=== PATIENT | male | born 1950 | race Caucasian/White ===

== ENCOUNTER → 2016-09-11 | Day surgery (SDC) | payer OTHER ==
[2016-09-10 08:32] VITALS: Ht 188 cm; Wt 123.2 kg
[~2016-09-11] VITALS: Ht 188 cm; Wt 123.2 kg
[~2016-09-11] MED LIST: ACET500T57 PEG; ALBU0.08 INH; AMPH15CA7 PEG; APR/25 PEG; ASPI1TAB83 PEG; ATOR-24 PEG; CARB25TA12 PEG; CARV6.252 PEG; CLOP1TAB54 PEG; ERGO1TAB12 PEG; ESCI10TA17 PEG; ESCI1TAB10 PEG; GABA1CAP PEG; GLC/500 PEG; HYDR-4852 PEG; LEVO100T PEG; LISI-725 PEG; MAGN400T6 PEG; METO-157 PEG; NTRGSL/4 UT; NUTR1.5L4 PEG; POLY335025 PEG; SENN1TAB66 PEG; TAMS0.4C38 PEG; ZNT/150 PEG
[2016-09-11 11:25] VITALS: BP 158/91; PULSE 57; TEMP 36; O2SAT 93
--- NOTE | 2016-09-11 11:31 | Endo History and Physical ---
History & Physical Date of Service: Sep 11, 2016. Chief Complaint: Routine change Referring Physician: Dr. Bowser History of Present Illness Routine PEG tube placement Past Medical History Angioplasty/Stent, Anxiety, Heart Disease, Hypertension, CVA/TIA, Other, Depression Past Surgical History Hx Cardiac Surgery: No Hx Internal Defibrillator: No Hx Pacemaker: No Hx Abdominal Surgery: Yes (PEG TUBE INSERTION) Hx of Implantable Prosthesis: No Hx Post-Op Nausea and Vomiting: No Hx Cancer Surgery: No Hx Thoracic Surgery: No Hx Orthopedic: Yes (LUMBAR BACK SURGERY X4 FOR HERNIATED DISCS) Hx Urinary Tract Surgery: No Family History Colon CA Social History Smoking Status: Former Smoker Hx Substance Use: Yes (SEE MED LIST) Hx Alcohol Use: No Allergies Coded Allergies: Penicillins (Verified Allergy, Intermediate, RASH, 09/10/16) Current Medications Reported Home Medications Medications Dose Route/Sig Max Daily Dose Days Date Category Dose Instructions Acetaminophen 500 Mg Tab 2 Tabs PEG Q6 PRN 09/10/16 Reported Nitrostat (Nitroglycerin) 0.4 Mg Tab 0.4 Mg UT PRN PRN 09/10/16 Reported Lexapro (Escitalopram Oxalate) 20 Mg Tab 20 Mg PEG BID 09/10/16 Reported Lexapro (Escitalopram Oxalate) 10 Mg Tab 10 Mg PEG BID 09/10/16 Reported Adderall Xr 15MG (Amphetamine-Dextroamphetamine 15MG) 1 Cap Cap 15 Mg PEG BID 09/10/16 Reported Reglan (Metoclopramide HCl) 10 Mg Tab 10 Mg PEG QID 09/10/16 Reported NAUSEA Mag-Ox (Magnesium Oxide) 400 Mg Tab 400 Mg PEG QAM 09/10/16 Reported Synthroid (Levothyroxine Sodium) 100 Mcg Tab 100 Mcg PEG QAM 09/10/16 Reported Isosource 1.5 Billy (Nutritional Supplements) 1 Liq Liq 1,000 Ml PEG QD@2100 01/21/15 Reported Miralax (Polyethylene Glycol 3350) 1 Pow Pow 17 Gm PEG DAILY PRN 01/21/15 Reported Glucophage (Metformin Hcl) 500 Mg Tab 500 Mg PEG BIDM 01/21/15 Reported Sinemet 25MG/100MG (Carbidopa/Levodopa) Tab 1 Tab PEG BID 01/21/15 Reported Senna/Docusate Sodium (Sennosides-Docusate Sodium) 1 Tab Tab 2 Tabs PEG HS 01/21/15 Reported Zantac (Ranitidine Hcl) 150 Mg Tab 150 Mg PEG BID 01/21/15 Reported Flomax (Tamsulosin Hcl) 0.4 Mg Cap 0.4 Mg PEG HS 01/21/15 Reported Lipitor (Atorvastatin Calcium) 40 Mg Tab 40 Mg PEG HS 01/21/15 Reported Vitamin D2 (Ergocalciferol) 2,000 Unit Tab 4,000 Inter.unit PEG QAM 01/21/15 Reported Zestril (Lisinopril) 20 Mg Tab 20 Mg PEG QAM 01/21/15 Reported Aspirin 81 Mg Tab 81 Mg PEG QAM 01/21/15 Reported Neurontin (Gabapentin) 100 Mg Cap 200 Mg PEG TID 01/21/15 Reported Plavix (Clopidogrel Bisulfate) 75 Mg Tab 75 Mg PEG QAM 02/06/14 Reported Hydralazine HCl 25 Mg Tab 25 Mg PEG BID 02/06/14 Reported Proventil 0.083% 2.5MG/3ML (Albuterol Sulfate) Nebu 2.5 Mg INH Q4H PRN 02/06/14 Reported Vital Signs Weight (Kilograms): 123.18 Height (Feet): 6 Height (Inches): 2 Date Time Temp Pulse Resp B/P Pulse Ox O2 Delivery O2 Flow Rate FiO2 09/11/16 10:05 36.4 55 20 161/77 94 Room Air Physical Exam General Appearance: no apparent distress Respiratory/Chest: Respiratory effort: no dyspnea Auscultation: breath sounds normal Cardiovascular: Heart Auscultation: RRR Abdomen: Inspection & Palpation: soft Assessment and Plan Routine PEG tube change
--- NOTE | 2016-09-11 11:31 | Discharge Instructions ---
Endoscopy Patient Instructions Date / Procedure(s) Performed Sep 11, 2016. Other Allergy Information Coded Allergies: Penicillins (Verified Allergy, Intermediate, RASH, 09/10/16) Discharge Date / Findings Sep 11, 2016. PEG tube change - 20 Fr balloon PEG placed Medication Instructions Stopped Medication(s): Stopped Plavix and ASA 09/10/16. Provider Instructions Activity Restrictions - No exercising or heavy lifting for 24 hours. - Do not drink alcohol the day of the procedure. - Do not drive a car or operate machinery until the day after the procedure. - Do not make any important decisions or sign important papers in 24 hours after the procedure. Following Day: - Return to full activity which may include returning to work/school. Diet Start your diet with liquids and light foods (jello, soup, juice, toast). Then eat your usual diet if not nauseated. Treatment For Common After Affects For mild abdominal pain, bloating, or excessive gas: - Rest - Eat lightly - Lie on right side Follow-Up Information Follow-up with Dr. Bowser as scheduled Anesthesia Information What You Should Know You have had a procedure that required some medicine to reduce anxiety and discomfort. This treatment is called moderate sedation. After receiving the treatment, you may be sleepy, but you will be able to breathe on your own. The effects of the treatment may last for several hours. Follow these instructions along with Activity/Diet recommendations noted above: * Do NOT do anything where dizziness or clumsiness would be dangerous. * Rest quietly at home today, then you can be up and about tomorrow. * Have a responsible person stay with you the rest of today. * You may have had an I.V. today. If so, you may take the dressing off later today. Recommendations Call your doctor if: * Trouble breathing * Continuous vomiting for more than 24 hours * Temperature above 101 degrees * Severe abdominal pain or bloating * Pain not relieved by pain medicine ordered * There is increased drainage or redness from any incision * A large amount of rectal bleeding greater than 2-3 tablespoons. (If you had a polyp/s removed or have hemorrhoids, a small amount of blood - from the rectum is to be expected.) * You have any unanswered questions or concerns. IN THE EVENT OF A SERIOUS EMERGENCY, GO TO THE NEAREST EMERGENCY ROOM Your discharge instructions were prepared by provider Tad Wilhelm. Patient Instructions Signature Page Nikita Jiang Patient (or Guardian) Signature/Date: I have read and understand the instructions given to me by my caregivers. Caregiver/RN/Doctor Signature/Date: The above-named patient and/or guardian has received patient instructions on this date. + Original Patient Signature Page (only) stays with chart. Please make copy for patient.
--- NOTE | 2016-09-21 13:52 | GI REPORT ---
Procedure Date: 09/21/2016 1:44 PM THIS EXAM WAS SENT IN ERROR
== END | disposition home or self-care (01) ==
LOC: C.GI 09:29
PROVIDERS: ATTEND Internal Medicine Gastroenterology
DX: Z43.1 Encounter for attention to gastrostomy (principal); I69.391 Dysphagia following cerebral infarction; I10 Essential (primary) hypertension; I25.10 Atherosclerotic heart disease of native coronary artery without angina pectoris; Z87.891 Personal history of nicotine dependence; E03.9 Hypothyroidism, unspecified; F32.9 Major depressive disorder, single episode, unspecified

== ENCOUNTER 2017-01-05 13:40 | Emergency (ER) | payer OTHER ==
[~2017-01-05] VITALS: Ht 188 cm; Wt 120.7 kg
[2017-01-05 13:40] VITALS: TEMP 36.9; Ht 188 cm; Wt 120.7 kg
[~2017-01-05 13:40] MED LIST changes: -APR/25 PEG; -CARV6.252 PEG; +HYDR-4716 PEG; -HYDR-4852 PEG
--- NOTE | 2017-01-05 14:30 | EMERGENCY ROOM VISIT NOTE ---
History Report prepared by Gricelibkarime: Angela Peña Under the Supervision of: Dr. Ricardo Garcia D.O. First contact with patient: 13:52 Chief Complaint: INFECTION Stated Complaint: SWELLING AROUND FEEDING TUBE Nursing Triage Summary: Patient arrived via EMS. EMS reports pt was concerned because pt has swelling around his feeling tube. Hx stroke, left sided weakness. History of Present Illness The patient is a 66 year old male who presents to the Emergency Room with complaints of persistent swelling and ulceration around the feeding tube starting a few days ago. As per , the patient has been having a bloody and foul discharge from the ulcer. The feeding tube has been flushing without any issues. A feeding tube was initially placed about [address] Bowser and was changed only once in September. The feeding tube has not been changed since September. He denies any other complaints. Pt denies headache , change in vision, fevers, chest pain, shortness of breath, nausea, vomiting, abdominal pain, diarrhea, and pain with urination. The patient is on Plavix. Source of History: patient Onset: a few days ago Position: abdomen Quality: other (swelling and ulceration around the feeding tube) Timing: other (persistent) Associated Symptoms: No headache, No chest pain, No SOB, No nausea, No vomiting, No abdominal pain, No diarrhea Review of Systems See HPI for pertinent positives & negatives. A total of 10 systems reviewed and were otherwise negative. Past Medical & Surgical Medical Problems: (1) Basilar artery occlusion (2) Coronary artery disease (3) CVA (cerebral infarction) (4) Hypertension Surgical Problems: (1) H/O percutaneous transluminal coronary angioplasty Family History No pertinent family history Social History Smoking Status: Former Smoker Marital Status: Housing Status: intermediate Occupation Status: disabled Current/Historical Medications Scheduled Amphetamine-Dextroamphetamine 15MG (Adderall Xr 15MG), 15 MG PEG BID Aspirin (Aspirin), 81 MG PEG QAM Atorvastatin (Lipitor), 40 MG PEG HS Carbidopa/Levodopa (Sinemet 25MG/100MG), 1 TAB PEG BID Clopidogrel Bisulfate (Plavix), 75 MG PEG QAM Ergocalciferol (Vitamin D2), 4,000 INTER.UNIT PEG QAM Escitalopram (Lexapro), 10 MG PEG QAM Escitalopram Oxalate (Lexapro), 20 MG PEG QAM Gabapentin (Neurontin), 200 MG PEG TID Hydralazine HCl (Hydralazine HCl), 25 MG PEG BID Levothyroxine Sodium (Synthroid), 100 MCG PEG QAM Lisinopril (Zestril), 20 MG PEG QAM Magnesium Oxide (Mag-Ox), 400 MG PEG QAM Metformin Hcl (Glucophage), 500 MG PEG BIDM Nutritional Supplements (Isosource 1.5 Billy), 1,000 ML PEG TID Ranitidine Hcl (Zantac), 150 MG PEG BID Sennosides-Docusate Sodium (Senna/Docusate Sodium), 2 TABS PEG HS Tamsulosin Hcl (Flomax), 0.4 MG PEG HS Scheduled PRN Acetaminophen (Acetaminophen), 2 TABS PEG Q6 PRN for Pain Albuterol Soln (Proventil 0.083% 2.5MG/3ML), 2.5 MG INH Q4H PRN for SOB/Wheezing Nitroglycerin (Nitrostat), 0.4 MG UT PRN PRN for Chest Pain Polyethylene Glycol 3350 (Miralax), 17 GM PEG DAILY PRN for Constipation Allergies Coded Allergies: Penicillins (Verified Allergy, Intermediate, RASH, 01/05/17) Physical Exam Vital Signs Date Time Temp Pulse Resp B/P (MAP) Pulse Ox O2 Delivery O2 Flow Rate FiO2 01/05/17 18:06 68 16 166/75 95 01/05/17 16:38 63 18 158/78 92 Room Air 01/05/17 15:06 65 16 169/101 93 Room Air 01/05/17 13:40 36.9 71 16 182/95 95 Room Air Physical Exam GENERAL: Sitting up in bed, chronically ill appearing, no acute distress, non- toxic EYE EXAM: normal conjunctiva OROPHARYNX: no exudate, no erythema, lips, buccal mucosa, and tongue normal and mucous membranes are moist NECK: supple, no nuchal rigidity, no adenopathy, non-tender LUNGS: Clear to auscultation. Normal chest wall mechanics HEART: no murmurs, S1 normal and S2 normal ABDOMEN: abdomen soft, non-tender, normo-active bowel sounds, no masses, no rebound or guarding. PEG tube located in the left upper quadrant, ulceration 10 o'clock to 2 o'clock with faint venous oozing, granulation tissue at 3 o'clock to 10 o'clock without bleeding. SKIN: no rashes and no bruising UPPER EXTREMITIES: upper extremities are grossly normal. LOWER EXTREMITIES: Calves are equal bilaterally. NEURO EXAM: Normal sensorium Medical Decision & Procedures ED Course ED COURSE: Vital signs were reviewed and showed hypertensive. The patients medical record was reviewed The above diagnostic studies were performed and reviewed. ED treatments and interventions as stated above. 1352: The patient was evaluated in room B08. A complete history and physical examination was performed. Medication Reconciliation: I attest that I have personally reviewed the patient' s current medication list. Blood pressure screening: Patient was found to have an elevated blood pressure and was referred to their primary doctor for recheck and further treatment. 1443: I discussed the patient's case with [facility], they will come down and evaluate the patient in the Emergency Room. 1455: I discussed the patient's case with MEET Brennan with [facility]. They loosened the bulb and recommended discharge. 1505: Upon reevaluation, the patient is resting comfortably.I discussed my findings with the patient and he understands and agrees with the treatment plan. Based on the patients age, coexisting illnesses, exam and lab findings the decision to treat as an outpatient was made. The patient remained stable while under my care. The patient appeared well at the time of discharge. Medical Decision Differential diagnosis includes but is not limited to cellulitis, abscess, ulcer. Patient is a 66-year-old male status post stroke who receives PEG tube feeds that presents the ER for an ulceration around the site of the PEG tube. He does have small amount of bleeding. This was placed by [facility]. Patient was evaluated at bedside by them and discharged by myself to follow-up as an outpatient. The tubing was loosened to prevent any further ulceration of the skin by GI. Discussed with Pt concerning signs and symptoms to watch out for. Pt was instructed to follow up with their PCP and discussed with the patient their option to return to the ED at anytime for persistent or worsening symptoms. The appropriate anticipatory guidance and out-patient management, including indications for return to the emergency department, were explained at length to the patient and understood. Consults Time Called: 1440 Consulting Physician: [facility] Returned Call: 1443 I discussed the patient's case with [facility], they will come down and evaluate the patient in the Emergency Room. Impression Primary Impression: Pain around PEG tube site Additional Impressions: PEG tube malfunction HTN (hypertension) Scribe Attestation The scribe's documentation has been prepared under my direction and personally reviewed by me in its entirety. I confirm that the note above accurately reflects all work, treatment, procedures, and medical decision making performed by me. Departure Information Dispostion Home / Self-Care Referrals Juanito Tom M.D. (PCP) Forms HOME CARE DOCUMENTATION FORM, IMPORTANT VISIT INFORMATION, WORK / SCHOOL INSTRUCTIONS Patient Instructions My [facility] Additional Instructions Please follow up with gastroenterology within the next several weeks. Any continued bleeding or worsening pain please return to the ER immediately. Please keep the site clean, dry and apply antibiotic ointment as needed. This includes fevers greater than 100.4, persistent nausea vomiting, worsening pain, or any other concerning signs or symptoms from your standpoint. Problem Qualifiers Primary Impression: Pain around PEG tube site Encounter type: initial encounter Qualified Codes: T85.848A - Pain due to other internal prosthetic devices, implants and grafts, initial encounter
--- NOTE | 2017-01-05 15:04 | Progress Note ---
Progress Note Date of Service Jan 05, 2017. (Destiny Uribe ., MEET) Progress Note Pt seen and evaluated in B8 with Dr. Man. Bumper from peg imbedded in skin - bumper pulled back. + granulated tissue. No pain or sign of infection. Skin is otherwise intact, nonerythematous and no drainage was expressed. Suggested to keep clean and dry. Follow up in the office. (Destiny Uribe ., WELLNESS PROGRAM COORDINATOR)
[2017-01-05 18:06] VITALS: BP 166/75; PULSE 68; O2SAT 95
== END 2017-01-05 18:07 | disposition home or self-care (01) ==
LOC: EDBD 13:40 → C.EDB 13:42
DX: K94.22 Gastrostomy infection (principal); I10 Essential (primary) hypertension; Z87.891 Personal history of nicotine dependence; Z79.899 Other long term (current) drug therapy; Z95.1 Presence of aortocoronary bypass graft; Z86.73 Personal history of transient ischemic attack (TIA), and cerebral infarction without residual deficits

== ENCOUNTER 2017-07-24 10:19 | Emergency (ER) | payer OTHER ==
[~2017-07-24] VITALS: Ht 188 cm; Wt 123.2 kg
[~2017-07-24 10:19] MED LIST changes: -ACET500T57 PEG; +ACET500T58 PEG; -METO-157 PEG
[2017-07-24 10:29] VITALS: TEMP 36.8; Ht 188 cm; Wt 123.2 kg
--- NOTE | 2017-07-24 11:31 | EMERGENCY ROOM VISIT NOTE ---
History Report prepared by Mahad: Maddy Johnson Under the Supervision of: Dr. Wes May D.O. First contact with patient: 10:26 Chief Complaint: PEG TUBE REPLACEMENT Stated Complaint: PEG TUBE REMOVAL History of Present Illness The patient is a 66 year old male who presents to the Emergency Room for a PEG tube replacement. The patient's feeding tube fell out about two hours ago. The feeding tube is the "balloon type" and we initially put in place at [facility] by Dr. Babcock. Source of History: patient Onset: 2 hours ago Position: other (PEG tube) Quality: other (fell out) Modifying Factors (Relieving): other (none) Review of Systems See HPI for pertinent positives & negatives. A total of 6 systems reviewed and were otherwise negative. Past Medical & Surgical Medical Problems: (1) Basilar artery occlusion (2) Coronary artery disease (3) CVA (cerebral infarction) (4) Hypertension Surgical Problems: (1) H/O percutaneous transluminal coronary angioplasty Family History No pertinent family history Social History Smoking Status: Former Smoker Marital Status: Housing Status: correction Occupation Status: disabled Current/Historical Medications Scheduled Amphetamine-Dextroamphetamine 15MG (Adderall Xr 15MG), 15 MG PEG BID Aspirin (Aspirin), 81 MG PEG QAM Atorvastatin (Lipitor), 40 MG PEG HS Carbidopa/Levodopa (Sinemet 25MG/100MG), 1 TAB PEG BID Clopidogrel Bisulfate (Plavix), 75 MG PEG QAM Ergocalciferol (Vitamin D2), 4,000 INTER.UNIT PEG QAM Escitalopram (Lexapro), 10 MG PEG QAM Escitalopram Oxalate (Lexapro), 20 MG PEG QAM Gabapentin (Neurontin), 200 MG PEG TID Hydralazine HCl (Hydralazine HCl), 25 MG PEG BID Levothyroxine Sodium (Synthroid), 100 MCG PEG QAM Lisinopril (Zestril), 20 MG PEG QAM Magnesium Oxide (Mag-Ox), 400 MG PEG QAM Metformin Hcl (Glucophage), 500 MG PEG BIDM Nutritional Supplements (Isosource 1.5 Billy), 1,000 ML PEG TID Ranitidine Hcl (Zantac), 150 MG PEG BID Sennosides-Docusate Sodium (Senna/Docusate Sodium), 2 TABS PEG HS Tamsulosin Hcl (Flomax), 0.4 MG PEG HS Scheduled PRN Acetaminophen (Acetaminophen), 2 TABS PEG Q6 PRN for Pain Albuterol Soln (Proventil 0.083% 2.5MG/3ML), 2.5 MG INH Q4H PRN for SOB/Wheezing Nitroglycerin (Nitrostat), 0.4 MG UT PRN PRN for Chest Pain Polyethylene Glycol 3350 (Miralax), 17 GM PEG DAILY PRN for Constipation Allergies Coded Allergies: Penicillins (Verified Allergy, Intermediate, RASH, 01/05/17) Physical Exam Vital Signs Date Time Temp Pulse Resp B/P (MAP) Pulse Ox O2 Delivery O2 Flow Rate FiO2 07/24/17 10:29 36.8 18 96 Room Air Physical Exam CONSTITUTIONAL/VITAL SIGNS: Reviewed / noted above. GENERAL: Non-toxic in appearance. INTEGUMENTARY: Warm, dry, and [place]. HEAD: Normocephalic. EYES: without scleral icterus or trauma. RESPIRATORY: Lungs clear and equal. CARDIOVASCULAR: Regular rate and rhythm. GI/ABDOMEN: Soft and nontender. No organomegaly or pulsatile mass. No rebound or guarding. Normal bowel sounds. EXTREMITIES: Warm and well perfused. NEUROLOGICAL: Intact per baseline. PSYCHIATRIC: normal affect. MUSCULOSKELETAL: Normally developed with good muscle tone. Medical Decision & Procedures Procedure Gastrostomy tube placement: The chronic gastrostomy tube was accidentally removed. I dilated the track using a 12 Syrian, 15 Syrian and 20 Syrian Baca catheter. The 16 Syrian gastrostomy tube was placed without difficulty. ED Course 1033: Previous medical records were reviewed. The patient was evaluated in room A12B. A complete history and physical examination was performed. 1049: PEG tube was replaced. 1121: On reevaluation, the patient is resting comfortably. I discussed the results and findings with the patient. His family psychologist verbalized agreement of the treatment plan. The patient was discharged home. Medical Decision This is a 66-year-old male who presents to the ED with a chief complaint of his PEG tube having been accidentally pulled out. He has no other complaints. He has history of stroke and has chronic debilitation related to this. No other complaints. The patient came in with the PEG tube. The PEG tube was replaced using a new PEG tube that was identical to the one that was removed. This did require some dilatation using initially a size 12 Baca catheter, size 15 Baca catheter and then a size 20 Baca catheter. The 16 Syrian PEG tube was then placed without difficulty. Gastric contents were removed from the tube. It was secured in place and the patient was felt to be stable for discharge. Medication Reconcilliation Current Medication List: was personally reviewed by me Blood Pressure Screening Patient's blood pressure: Normal blood pressure Impression Primary Impression: Dislodged gastrostomy tube Scribe Attestation The scribe's documentation has been prepared under my direction and personally reviewed by me in its entirety. I confirm that the note above accurately reflects all work, treatment, procedures, and medical decision making performed by me. Departure Information Referrals Juanito Tom M.D. (PCP) Forms HOME CARE DOCUMENTATION FORM, IMPORTANT VISIT INFORMATION, WORK / SCHOOL INSTRUCTIONS Patient Instructions My [facility] Additional Instructions May use feeding tube.
[2017-07-24 14:18] VITALS: BP 176/98; PULSE 50; O2SAT 94
== END 2017-07-24 14:20 | disposition home or self-care (01) ==
LOC: EDBD 10:19 → C.EDA 10:23
DX: K94.23 Gastrostomy malfunction (principal); I25.10 Atherosclerotic heart disease of native coronary artery without angina pectoris; I10 Essential (primary) hypertension; Z86.73 Personal history of transient ischemic attack (TIA), and cerebral infarction without residual deficits; Z87.891 Personal history of nicotine dependence; Z79.82 Long term (current) use of aspirin; Z79.899 Other long term (current) drug therapy; Z88.0 Allergy status to penicillin

== ENCOUNTER 2018-09-20 17:00 | Inpatient (IN) ==
--- NOTE | 2018-09-20 17:57 | XRay Report ---
SINGLE VIEW CHEST CLINICAL HISTORY: Generalized weakness. FINDINGS: An AP, portable, upright chest radiograph is compared to study dated 07/14/2018. The examin ation is degraded by portable technique and patient rotation. The heart is enlarged and there is ath erosclerotic calcification of the thoracic aorta. The pulmonary vasculature is noncongested. Bibasila r atelectasis is observed. There is no airspace consolidation or large pleural effusion. No pneumotho rax is seen. The skeletal structures are osteopenic. The bony thorax is grossly intact. IMPRESSION: Cardiomegaly with no acute cardiopulmonary abnormality. Electronically signed by: Stewart Goldsmith M.D. 09/20/2018 5:56 PM
[2018-09-20 18:18] LABS: Base Excess VBG 4.1 mEq/L; Oxygen Saturation VBG 78.6 %; pH VBG 7.42 (7.36-7.41)
[2018-09-20 18:29] LABS: Hematocrit (blood only) 47.8 % (42-52); Hemoglobin 15.8 g/dL (14.0-18.0); Mean Corpuscular Hgb Conc 33.1 g/dL (32-36); Mean Platelet Volume 11.4 fL (7.4-10.4); Platelet Count 260 K/uL (130-400); RDW Standard Deviation 48.3 fL (36.4-46.3); Red Blood Count 5.03 M/uL (4.7-6.1); White Blood Count 18.03 K/uL (4.8-10.8)
[2018-09-20 18:40] LABS: Albumin Level 3.4 gm/dl (3.4-5.0); BUN Creatinine Ratio 22.5 (10-20); Blood Urea Nitrogen 17 mg/dl (7-18); Calcium 9.5 mg/dl (8.5-10.1); Carbon Dioxide 29 mmol/L (21-32); Chloride 103 mmol/L (98-107); Est GFR (African American) 109.4; Est GFR (Non-African American) 94.4; Glucose 126 mg/dl (70-99); Potassium 3.6 mmol/L (3.5-5.1); Sodium 137 mmol/L (136-145)
[2018-09-20 18:51] LABS: Alanine Aminotransferase 12 U/L (12-78); Albumin Globulin Ratio 0.7 (0.9-2); Alkaline Phosphatase 98 U/L (45-117); Aspartate Aminotransferase 22 U/L (15-37); Bilirubin,Total 0.3 mg/dl (0.2-1); Globulin 4.6 gm/dl (2.5-4.0); Troponin I < 0.015 ng/ml (0-0.045)
[2018-09-20 19:35] LABS: ALC (manual) 5.95 K/uL (1.2-3.4); Basophils # (auto) 0.04 K/uL (0-0.2); Basophils % (auto) 0.2 %; Eosinophils # (auto) 0.17 K/uL (0-0.5); Eosinophils % (auto) 0.9 %; Immature Granulocytes # (auto) 0.06 K/uL (0.00-0.02); Immature Granulocytes % (auto) 0.3 %; Lymphocytes # (auto) 5.55 K/uL (1.2-3.4); Lymphocytes % (auto) 30.8 %; Monocytes % (auto) 6.7 %; Neutrophils # (auto) 11.01 K/uL (1.4-6.5); Neutrophils % (auto) 61.1 %
--- NOTE | 2018-09-20 19:42 | CT Scan Report ---
CT SCAN OF THE BRAIN WITHOUT IV CONTRAST CLINICAL HISTORY: Change in mental status. COMPARISON STUDY: CT of the brain dated 04/18/2018. TECHNIQUE: Unenhanced axial CT scan of the brain is performed from the vertex to the skull base. A do se lowering technique was utilized adhering to the principles of ALARA. The examination is degraded b y motion artifact. The patient was scanned 3 times in an effort to improve image quality. CT DOSE: 1842.80 mGy.cm FINDINGS: Brain parenchyma: There are age-related involutional changes noting mild to moderate subcortical and periventricular microangiopathic change. There is no hemorrhage, mass effect, or evidence of acute t erritorial ischemia by CT criteria. A chronic lacunar infarct is identified in the right thalamus. Le ft occipital encephalomalacia suggesting remote infarct. Savage-white matter differentiation is preserv ed. No extra-axial fluid collection is seen. Ventricles, sulci, cisterns: Prominent secondary to involutional change. Intracranial vasculature: There is atherosclerotic calcification of the cavernous carotid arteries. Calvarium: Unremarkable. Sinuses and mastoids: The visualized paranasal sinuses are clear. The mastoid air cells are well pneu matized. Orbits: The bony orbits are grossly intact. IMPRESSION: There is no hemorrhage, mass effect, or evidence of acute territorial ischemia by CT crit annabella noting a motion compromise examination. Electronically signed by: Stewart Goldsmith M.D. 09/20/2018 7:41 PM
[2018-09-20 21:08] LABS: Appearance Urine Clear (Clear); Bilirubin Urine Negative (Negative); Blood Urine Negative (Negative); Color Urine Yellow; Glucose Urine UA Negative (Negative); Ketones Urine Negative (Negative); Leukocyte Esterase Urine Negative (Negative); Nitrite Urine Negative (Negative); Protein Urine Negative (Negative); Urobilinogen Urine Negative (Negative); pH Urine 5.5 (4.5-7.5)
[2018-09-20] MEDS ORDERED: cefTRIAXone SODIUM 1,000 MG/50 ML BAG IV STA (21:13)
--- NOTE | 2018-09-20 21:16 | Emergency Department Note ---
Entered by Montse Rosario acting as a scribe for James Cope M.D. History of Present Illness General Chief complaint: Altered Mental Status Stated complaint: CONFUSION, HALLUCINATIONS Time Seen by Provider: 09/20/18 17:14 Source: patient and family Mode of arrival: EMS Limitations: altered mental status History of Present Illness Provider complaint: Altered Mental Status Onset (ago): day(s) 1 Location: head Severity: moderate Associated symptoms: + denies other symptoms Patient is a 67 year old male presenting to the ED via EMS with hallucinations and confusion beginning yesterday evening. Confusion is moderate in severity and worsening since onset. shares that patient was wide awake and talking throughout the night. She notes that he was saying people who were not there. shares that patient had diarrhea about x5 days ago, but patient receives nutrients through G-tube. 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 notes that he is able to recognize her and caregivers. She includes patient has had cycles of oysterman sleeping or awake since stroke. She states that he has been awake for the past x2 days. No recent changes in medication or diet. She shares that he has had loss of appetite for a while now. Patient lastly is DNR. HPI limited due to patient's AMS. Home Medications Home Medications Medication Instructions Recorded Confirmed Type acetaminophen [Mapap 650 mg FEEDING TUBE Q4H PRN 04/18/18 09/20/18 History (acetaminophen)] albuterol sulfate 2.5 mg INHALATION QID PRN 04/18/18 09/20/18 History aspirin [Aspirin Low Dose] 81 mg FEEDING TUBE DAILY 04/18/18 09/20/18 History atorvastatin 40 mg FEEDING TUBE HS 04/18/18 09/20/18 History carbidopa-levodopa [Sinemet] 1 tab FEEDING TUBE BID 04/18/18 09/20/18 History clopidogrel [Plavix] 75 mg FEEDING TUBE DAILY 04/18/18 09/20/18 History dextroamphetamine-amphetamine 15 mg FEEDING TUBE BID 04/18/18 09/20/18 History escitalopram oxalate [Lexapro] 10 mg FEEDING TUBE DAILY 04/18/18 09/20/18 History escitalopram oxalate [Lexapro] 20 mg FEEDING TUBE DAILY 04/18/18 09/20/18 History gabapentin 200 mg FEEDING TUBE TID 04/18/18 09/20/18 History hydralazine 25 mg FEEDING TUBE BID 04/18/18 09/20/18 History hydrocodone-acetaminophen 1 tab FEEDING TUBE Q4H 04/18/18 09/20/18 History lisinopril 20 mg FEEDING TUBE DAILY 04/18/18 09/20/18 History magnesium oxide 400 mg FEEDING TUBE DAILY 04/18/18 09/20/18 History metformin 500 mg FEEDING TUBE BID 04/18/18 09/20/18 History nitroglycerin 0.4 mg SUBLINGUAL DIRECTED 04/18/18 09/20/18 History ranitidine HCl 150 mg FEEDING TUBE BID 04/18/18 09/20/18 History tamsulosin 0.4 mg PO QPM 04/18/18 09/20/18 History polyethylene glycol 3350 [Miralax] 17 g FEEDING TUBE DAILY PRN 07/14/18 History atropine [Isopto Atropine] 0 drp SUBLINGUAL UD PRN 09/20/18 09/20/18 History lactose-reduced food with fibr 1,000 ml FEEDING TUBE HS 09/20/18 09/20/18 History [Isosource 1.5 Billy] lactose-reduced food with fibr 250 ml FEEDING TUBE BID 09/20/18 09/20/18 History [Isosource 1.5 Billy] levothyroxine [Synthroid] 100 mcg FEEDING TUBE DAILY 09/20/18 09/20/18 History selenium sulfide [Selsun Blue] 1 applic TOPICAL 2XWK 09/20/18 09/20/18 History sennosides-docusate sodium [Senna 1 tab FEEDING TUBE DAILY PRN 09/20/18 History with Docusate Sodium] Allergies Allergy/AdvReac Type Severity Reaction Status Date / Time Penicillins Allergy Intermediate RASH Verified 09/20/18 20:31 Past Med/Surg History Medical History CVA (cerebral infarction) (Resolved) "BA occlusion with b/l PIECE [employer]ER territory infarcts, right thalamic infarct, hippocampi infarcts 01/03/14." Coronary artery disease (Chronic) Hypertension (Chronic) Family History Other Family history non-contributory Social History Feels Safe at Home: Yes Smoking Status: Unknown if ever smoked Review of Systems See HPI for pertinent positives & negatives. Unobtainable due to cognitive status Physical Exam Vital Signs Vital Signs - 24 hr 09/20/18 17:13 09/20/18 18:52 09/20/18 20:05 Temperature 37.0 C Temperature Source Oral Sepsis Recent Fever Within 48 Hours No Sepsis New/Unexplained Change in Mental Status No Sepsis Action Taken by Nursing No Action Required Pulse Rate 88 Pulse Rate [Finger] 88 81 78 Pulse Rhythm [Finger] Regular Regular Pulse Strength [Finger] Normal Normal Respiratory Rate 20 18 18 Respiratory Effort / Characteristics Non-Labored Spontaneous Non-Labored Spontaneous Respiratory Depth Normal Normal Respiratory Pattern Regular Blood Pressure 158/88 H Blood Pressure [Right Arm] 158/88 H 174/77 H 164/81 H Blood Pressure Mean 111 Blood Pressure Mean [Right Arm] 111 109 108 Blood Pressure Position [Right Arm] Sitting Lying Pulse Oximetry 96 93 94 Oxygen Delivery Method Room Air Room Air Room Air Oxygen Flow Rate 96 09/20/18 22:00 Temperature Temperature Source Sepsis Recent Fever Within 48 Hours Sepsis New/Unexplained Change in Mental Status Sepsis Action Taken by Nursing Pulse Rate Pulse Rate [Finger] 77 Pulse Rhythm [Finger] Regular Pulse Strength [Finger] Normal Respiratory Rate 18 Respiratory Effort / Characteristics Non-Labored Spontaneous Respiratory Depth Normal Respiratory Pattern Regular Blood Pressure Blood Pressure [Right Arm] 137/77 Blood Pressure Mean Blood Pressure Mean [Right Arm] 97 Blood Pressure Position [Right Arm] Lying Pulse Oximetry Oxygen Delivery Method Nasal Cannula Oxygen Flow Rate 2 GENERAL: Awake, alert, rambling. Noncoherent statements HENT: Normocephalic, atraumatic. EYES: Normal conjunctiva. Sclera non-icteric. PERRL. NECK: Supple. No nuchal rigidity. RESPIRATORY: Clear to auscultation. No wheezes. Normal respiratory effort. CARDIAC: Normal rate. Normal rhythm. Extremities warm and well perfused. GI: Soft, non-distended. No tenderness to palpation. No rebound or guarding. No masses. LUQ G-Tube present. RECTAL: Deferred. MUSCULOSKELETAL: Atraumatic. Chest examination reveals no tenderness. UPPER EXTREMITIES: Paralysis of Left upper extremity. LOWER EXTREMITIES: No edema. Left lower extremity minimal movement. NEURO: Normal sensorium. No sensory or motor deficits noted. No facial droop. Moving right up and lower extremities. No gaze present. SKIN: Warm and dry. No jaundice noted. Course 1715: Past medical records reviewed. The patient was evaluated in room C04, and a complete history and physical examination were performed. 2114: Discussed case with Dr. Puri, who accepts patient for admission. Administered Medications Discontinued Medications Ceftriaxone Sodium (Rocephin) 1,000 mg in 50 mls @ 100 mls/hr IV NOW STA Stop: 09/20/18 21:42 Last Infusion: 09/20/18 22:24 Dose: 0 mls/hr Admin: 09/20/18 21:39 Dose: 100 mls/hr Medical Decision Making Differential Diagnosis Differential diagnosis: Etiologies such as metabolic, infection, hypoglycemia, electrolyte abnormalities , cardiac sources, intracerebral event, toxicologic, neurologic, as well as others were entertained. Medical Records Attestation: I reviewed the patient's medical records. Home Medications Current Medication List: was personally reviewed by me Laboratory Data Attestation: I reviewed the patient's lab results. Result diagrams: 09/20/18 18:00 09/20/18 18:00 Lab Results 09/20/18 09/20/18 09/20/18 Range/Units 18:00 18:00 18:00 WBC 18.03 H (4.8-10.8) K/uL RBC 5.03 (4.7-6.1) M/uL Hgb 15.8 (14.0-18.0) g/dL Hct 47.8 (42-52) % MCV 95.0 (80-100) fL MCH 31.4 (25-34) pg MCHC 33.1 (32-36) g/dL RDW Std Deviation 48.3 H (36.4-46.3) fL RDW Coeff of Albert 14.0 (11.5-14.5) % Plt Count 260 (130-400) K/uL MPV 11.4 H (7.4-10.4) fL Immature Gran % (Auto) 0.3 % Neut % (Auto) 61.1 % Lymph % (Auto) 30.8 % [place] % (Auto) 6.7 % Eos % (Auto) 0.9 % Baso % (Auto) 0.2 % Immature Gran # (Auto) 0.06 H (0.00-0.02) K/uL Neut # (Auto) 11.01 H (1.4-6.5) K/uL Lymph # (Auto) 5.55 H (1.2-3.4) K/uL [place] # (Auto) 1.20 H (0.11-0.59) K/uL Eos # (Auto) 0.17 (0-0.5) K/uL Baso # (Auto) 0.04 (0-0.2) K/uL Neutrophils % (Manual) % Lymphocytes % (Manual) % Monocytes % (Manual) % Eosinophils % (Manual) % Other Cells % 0.0 % Neutrophils # (Manual) (1.4-6.5) K/uL Total Absolute Neuts 10.82 H (1.4-6.5) K/uL Lymphocytes # (Manual) (1.2-3.4) K/uL Total Abs Lymphocytes 5.95 H (1.2-3.4) K/uL Monocytes # (Manual) (0.11-0.59) K/uL Eosinophils # (Manual) (0-0.5) K/uL VBG pH (7.36-7.41) VBG pCO2 (38-50) mmHg VBG pO2 mmHg VBG HCO3 mmol/L VBG O2 Saturation % VBG Base Excess mEq/L Barometric Pressure mm/Hg Sodium 137 (136-145) mmol/L Potassium 3.6 (3.5-5.1) mmol/L Chloride 103 (98-107) mmol/L Carbon Dioxide 29 (21-32) mmol/L Anion Gap 5.0 (3-11) BUN 17 (7-18) mg/dl Creatinine 0.76 (0.6-1.4) mg/dl Est Cr Clr Drug Dosing Not Reportable Est GFR ( Amer) 109.4 Est GFR (Non-Af Amer) 94.4 BUN/Creatinine Ratio 22.5 H (10-20) Glucose 126 H (70-99) mg/dl Calcium 9.5 (8.5-10.1) mg/dl Total Bilirubin 0.3 (0.2-1) mg/dl AST 22 (15-37) U/L ALT 12 (12-78) U/L Alkaline Phosphatase 98 (45-117) U/L Ammonia 19.0 (11-32) umol/L Troponin I < 0.015 (0-0.045) ng/ml Total Protein 8.0 (6.4-8.2) gm/dl Albumin 3.4 (3.4-5.0) gm/dl Globulin 4.6 H (2.5-4.0) gm/dl Albumin/Globulin Ratio 0.7 L (0.9-2) TSH 2.720 (0.300-4.500) uIu/ml Urine Color Urine Appearance (Clear) Urine pH (4.5-7.5) Ur Specific [place] (1.000-1.030) Urine Protein (Negative) Urine Glucose (UA) (Negative) Urine Ketones (Negative) Urine Blood (Negative) Urine Nitrite (Negative) Urine Bilirubin (Negative) Urine Urobilinogen (Negative) Ur Leukocyte Esterase (Negative) 09/20/18 09/20/18 Range/Units 18:00 19:00 WBC (4.8-10.8) K/uL RBC (4.7-6.1) M/uL Hgb (14.0-18.0) g/dL Hct (42-52) % MCV (80-100) fL MCH (25-34) pg MCHC (32-36) g/dL RDW Std Deviation (36.4-46.3) fL RDW Coeff of Albert (11.5-14.5) % Plt Count (130-400) K/uL MPV (7.4-10.4) fL Immature Gran % (Auto) % Neut % (Auto) % Lymph % (Auto) % [place] % (Auto) % Eos % (Auto) % Baso % (Auto) % Immature Gran # (Auto) (0.00-0.02) K/uL Neut # (Auto) (1.4-6.5) K/uL Lymph # (Auto) (1.2-3.4) K/uL [place] # (Auto) (0.11-0.59) K/uL Eos # (Auto) (0-0.5) K/uL Baso # (Auto) (0-0.2) K/uL Neutrophils % (Manual) % Lymphocytes % (Manual) % Monocytes % (Manual) % Eosinophils % (Manual) % Other Cells % % Neutrophils # (Manual) (1.4-6.5) K/uL Total Absolute Neuts (1.4-6.5) K/uL Lymphocytes # (Manual) (1.2-3.4) K/uL Total Abs Lymphocytes (1.2-3.4) K/uL Monocytes # (Manual) (0.11-0.59) K/uL Eosinophils # (Manual) (0-0.5) K/uL VBG pH 7.42 H (7.36-7.41) VBG pCO2 46 (38-50) mmHg VBG pO2 41 mmHg VBG HCO3 29 mmol/L VBG O2 Saturation 78.6 % VBG Base Excess 4.1 mEq/L Barometric Pressure 744.9 mm/Hg Sodium (136-145) mmol/L Potassium (3.5-5.1) mmol/L Chloride (98-107) mmol/L Carbon Dioxide (21-32) mmol/L Anion Gap (3-11) BUN (7-18) mg/dl Creatinine (0.6-1.4) mg/dl Est Cr Clr Drug Dosing Est GFR ( Amer) Est GFR (Non-Af Amer) BUN/Creatinine Ratio (10-20) Glucose (70-99) mg/dl Calcium (8.5-10.1) mg/dl Total Bilirubin (0.2-1) mg/dl AST (15-37) U/L ALT (12-78) U/L Alkaline Phosphatase (45-117) U/L Ammonia (11-32) umol/L Troponin I (0-0.045) ng/ml Total Protein (6.4-8.2) gm/dl Albumin (3.4-5.0) gm/dl Globulin (2.5-4.0) gm/dl Albumin/Globulin Ratio (0.9-2) TSH (0.300-4.500) uIu/ml Urine Color Yellow Urine Appearance Clear (Clear) Urine pH 5.5 (4.5-7.5) Ur Specific [place] 1.020 (1.000-1.030) Urine Protein Negative (Negative) Urine Glucose (UA) Negative (Negative) Urine Ketones Negative (Negative) Urine Blood Negative (Negative) Urine Nitrite Negative (Negative) Urine Bilirubin Negative (Negative) Urine Urobilinogen Negative (Negative) Ur Leukocyte Esterase Negative (Negative) Imaging Data Radiologist's Impression: SINGLE VIEW CHEST CLINICAL HISTORY: Generalized weakness. FINDINGS: An AP, portable, upright chest radiograph is compared to study dated 07/14/2018. The examination is degraded by portable technique and patient rotation. The heart is enlarged and there is atherosclerotic calcification of the thoracic aorta. The pulmonary vasculature is noncongested. Bibasilar atelectasis is observed. There is no airspace consolidation or large pleural effusion. No pneumothorax is seen. The skeletal structures are osteopenic. The bony thorax is grossly intact. IMPRESSION: Cardiomegaly with no acute cardiopulmonary abnormality. Electronically signed by: Stewart Goldsmith M.D. 09/20/2018 5:[address] SCAN OF THE BRAIN WITHOUT IV CONTRAST CLINICAL HISTORY: Change in mental status. COMPARISON STUDY: CT of the brain dated 04/18/2018. TECHNIQUE: Unenhanced axial CT scan of the brain is performed from the vertex to the skull base. A dose lowering technique was utilized adhering to the principles of ALARA. The examination is degraded by motion artifact. The patient was scanned 3 times in an effort to improve image quality. CT DOSE: 1842.80 mGy.cm FINDINGS: Brain parenchyma: There are age-related involutional changes noting mild to moderate subcortical and periventricular microangiopathic change. There is no hemorrhage, mass effect, or evidence of acute territorial ischemia by CT criteria. A chronic lacunar infarct is identified in the right thalamus. Left occipital encephalomalacia suggesting remote infarct. Savage-white matter differentiation is preserved. No extra-axial fluid collection is seen. Ventricles, sulci, cisterns: Prominent secondary to involutional change. Intracranial vasculature: There is atherosclerotic calcification of the cavernous carotid arteries. Calvarium: Unremarkable. Sinuses and mastoids: The visualized paranasal sinuses are clear. The mastoid air cells are well pneumatized. Orbits: The bony orbits are grossly intact. IMPRESSION: There is no hemorrhage, mass effect, or evidence of acute territorial ischemia by CT criteria noting a motion compromise examination. Electronically signed by: Stewart Goldsmith M.D. 09/20/2018 7:41 PM ECG Data Indication: altered mental status Rate (beats per minute): 81 Rhythm: sinus rhythm Findings: + other (normal intervals), + PAC and + left axis deviation; no PVC, no ST depression and no ST elevation Blood Pressure Blood Pressure Findings: Elevated blood pressure Blood Pressure Disposition: elevated BP felt to be situational MDM Narrative Patient is a 67-year-old gentleman and debilitated prior to CVA now primarily G- tube dependent presenting with confusion developing overnight into today. Hallucinating talking to people are not there. Patient has been off for several days but this is not unusual according the . No fever or trauma reported. Patient unable to participate much in the exam speaking appropriately. CT the head is complete exclude acute intracranial bleed. Not acutely meningitic and do not believe this represents acute meningitis. Look for infectious source for metabolic abnormality to cause his symptoms. Did have some gastroenteritis symptoms several days ago. Does not seem consistent with the flu. Chest x-ray is unremarkable. Laboratory studies do show evidence of significant leukocytosis. No ammonia elevation. No electrolyte abnormalities or evidence of acute kidney injury. Not hypoglycemic. Troponin negative. LFTs unremarkable. TSH within normal limits. Not hypercarbic. Urinalysis not impressive. Empirically given ceftriaxone but again does not appear meningitic. Unsure possible source here. Benign abdomen. Discussed with the [facility] hospitalist for admission for further evaluation. made aware. Impression & Plan Altered mental status, Hallucinations, Leukocytosis Discharge Plan Visit Data Chief Complaint: Altered Mental Status Stated Complaint: CONFUSION, HALLUCINATIONS ED Provider: James Cope Discharge Problem: Altered mental status, Hallucinations, Leukocytosis Forms Stand Alone Forms: My [facility] Prescriptions Prescriptions: No Action atorvastatin 40 mg Tablet 40 mg Feeding Tube HS RF: 0 metformin 500 mg Tablet 500 mg Feeding Tube BID RF: 0 acetaminophen [Mapap (acetaminophen)] 325 mg Tablet 650 mg Feeding Tube Q4H PRN (Reason: Pain) RF: 0 hydrocodone-acetaminophen 5-325 mg Tablet 1 tab Feeding Tube Q4H RF: 0 lisinopril 20 mg Tablet 20 mg Feeding Tube DAILY RF: 0 hydralazine 25 mg Tablet 25 mg Feeding Tube BID RF: 0 clopidogrel [Plavix] 75 mg Tablet 75 mg Feeding Tube DAILY RF: 0 aspirin [Aspirin Low Dose] 81 mg Tablet,Delayed Release (Dr/Ec) 81 mg Feeding Tube DAILY RF: 0 tamsulosin 0.4 mg Capsule 0.4 mg PO QPM RF: 0 dextroamphetamine-amphetamine 15 mg Tablet 15 mg Feeding Tube BID RF: 0 nitroglycerin 0.4 mg Tablet, Sublingual 0.4 mg Sublingual DIRECTED RF: 0 ranitidine HCl 150 mg Capsule 150 mg Feeding Tube BID RF: 0 gabapentin 100 mg Capsule 200 mg Feeding Tube TID RF: 0 carbidopa-levodopa [Sinemet] 25-100 mg Tablet 1 tab Feeding Tube BID RF: 0 escitalopram oxalate [Lexapro] 10 mg Tablet 10 mg Feeding Tube DAILY RF: 0 escitalopram oxalate [Lexapro] 20 mg Tablet 20 mg Feeding Tube DAILY RF: 0 albuterol sulfate 2.5 mg/0.5 mL Solution For Nebulization 2.5 mg INHALATION QID PRN (Reason: Shortness Of Breath Or Wheezing) RF: 0 magnesium oxide 400 mg Capsule 400 mg Feeding Tube DAILY RF: 0 polyethylene glycol 3350 [Miralax] 17 gram Powder In Packet 17 g Feeding Tube DAILY PRN (Reason: Unknown) RF: 0 levothyroxine [Synthroid] 100 mcg tablet 100 mcg Feeding Tube DAILY RF: 0 sennosides-docusate sodium [Senna with Docusate Sodium] 8.6-50 mg Tablet 1 tab Feeding Tube DAILY PRN (Reason: Constipation) RF: 0 atropine [Isopto Atropine] 1 % drops Sublingual UD PRN (Reason: DRY SECRETIONS) RF: 0 selenium sulfide [Selsun Blue] 1 % Shampoo 1 applic TOPICAL 2XWK RF: 0 lactose-reduced food with fibr [Isosource 1.5 Billy] 0.07 gram-1.5 kcal/mL Liquid 250 ml Feeding Tube BID RF: 0 lactose-reduced food with fibr [Isosource 1.5 Billy] 0.07 gram-1.5 kcal/mL Liquid 1,000 ml Feeding Tube HS RF: 0 The scribe's documentation has been prepared under my direction and personally reviewed by me in its entirety. I confirm that the note above accurately reflects all work, treatment, procedures, and medical decision making performed by me.
--- NOTE | 2018-09-20 23:36 | History & Physical Report ---
Date of Service September 20, 2018 Assessment & Plan (1) Altered mental status: (2) Leukocytosis: -Admit to [facility] w/ telemetry -Patient presenting from home with increased confusion and hallucinations -In the ED, WBC found to be 18K however no obvious signs of infection (UA clean , CXR negative for acute pulmonary findings) -Head CT negative for acute findings as well -No new medications or dosage adjustments: patient did receive sublingual atropine drops yesterday however do not think this accounts for his symptoms -Consider sleep deprivation as source for altered mental status -Etiology of leukocytosis unclear at this point, will check pro-calcitonin; consider aspiration since patient is high aspiration risk with underlying dysphagia and PEG tube, however no pulmonary complaints or symptoms. Also consider possible PEG tube site cellulitis, ulcer is present however no purulent drainage or surrounding erythema is noted. -If pro calcitonin is elevated, will start Unasyn for pulmonary and skin coverage and obtain PEG tube site ulcer culture -S/P Rocephin in the ED -Blood cultures obtained however noted after Rocephin was given -If mental status does not improve, consider brain MRI (3) History of ischemic vertebrobasilar artery brainstem stroke: -No new deficits noted on exam -Continue aspirin, Plavix, statin (4) DM type 2 (diabetes mellitus, type 2): -Hgb A1c 5.1 05/2016 -Hold metformin and utilize NovoLog per protocol while hospitalized -Update Hgb A1c with morning labs (5) Hypertension: -BP controlled, continue hydralazine and lisinopril (6) CAD, multiple vessel: -Stable, no EKG changes -Continue aspirin, Plavix, statin (7) S/P percutaneous endoscopic gastrostomy (PEG) tube placement: -Continue tube feedings (8) Neuropathy: -Continue gabapentin (9) Anxiety: (10) Depression: -Continue escitalopram (11) GERD (gastroesophageal reflux disease): -Continue H2 sharri (12) Hypothyroidism: -Continue levothyroxine (13) DVT prophylaxis: -SQ heparin History of Present Illness Chief Complaint: Altered mental status Primary Care Provider: Juanito Tom MD 67-year-old male who presents the ED with altered mental status. History is unobtainable from the patient due to his current mental state. is at the bedside who provides the history. Patient's reports that last evening, patient developed hallucinations and increased confusion from baseline. She reports that he was having full conversations with people that were not there. Patient has history of CVA, and reports that since that time patient has long periods (lasting a few days) of awakeness and sleepiness. She reports that he has been awake for the past 2 days, which is not uncommon for him. During my exam, patient is mumbling and moaning which reports is baseline when he is having his "sleepy" days. She reports that he has minimal short- term memory however can usually hold a conversation with her. He has chronic left hemiparesis which is unchanged from baseline. No fevers or chills. reports patient had some diarrhea last week which is since resolved. No vomiting or apparent abdominal pain. No observable shortness of breath, cough, sputum production. reports his urine was a little darker and had a stronger odor today. Patient also has a PEG tube which reports there has been an ulcer around the site however no surrounding erythema or purulent drainage. No new medications or dosage adjustments. reports the patient does use atropine drops intermittently for secretions, which he did receive a dose yesterday before his symptoms started. In the ED, WBC is found to be 18 K but the remainder of his workup was unremarkable. He was given a dose of IV ceftriaxone. Allergies Allergy/AdvReac Type Severity Reaction Status Date / Time Penicillins Allergy Intermediate RASH Verified 09/20/18 20:31 Home Medications Home Medications Medication Instructions Recorded Confirmed Type acetaminophen [Mapap 650 mg FEEDING TUBE Q4H PRN 04/18/18 09/20/18 History (acetaminophen)] albuterol sulfate 2.5 mg INHALATION QID PRN 04/18/18 09/20/18 History aspirin [Aspirin Low Dose] 81 mg FEEDING TUBE DAILY 04/18/18 09/20/18 History atorvastatin 40 mg FEEDING TUBE HS 04/18/18 09/20/18 History carbidopa-levodopa [Sinemet] 1 tab FEEDING TUBE BID 04/18/18 09/20/18 History clopidogrel [Plavix] 75 mg FEEDING TUBE DAILY 04/18/18 09/20/18 History escitalopram oxalate [Lexapro] 10 mg FEEDING TUBE DAILY 04/18/18 09/20/18 History escitalopram oxalate [Lexapro] 20 mg FEEDING TUBE DAILY 04/18/18 09/20/18 History gabapentin 200 mg FEEDING TUBE TID 04/18/18 09/20/18 History hydralazine 25 mg FEEDING TUBE BID 04/18/18 09/20/18 History hydrocodone-acetaminophen 1 tab FEEDING TUBE Q4H 04/18/18 09/20/18 History lisinopril 20 mg FEEDING TUBE DAILY 04/18/18 09/20/18 History magnesium oxide 400 mg FEEDING TUBE DAILY 04/18/18 09/20/18 History metformin 500 mg FEEDING TUBE BID 04/18/18 09/20/18 History nitroglycerin 0.4 mg SUBLINGUAL DIRECTED 04/18/18 09/20/18 History ranitidine HCl 150 mg FEEDING TUBE BID 04/18/18 09/20/18 History tamsulosin 0.4 mg PO QPM 04/18/18 09/20/18 History polyethylene glycol 3350 [Miralax] 17 g FEEDING TUBE DAILY PRN 07/14/18 History atropine [Isopto Atropine] 2 drp SUBLINGUAL UD PRN 09/20/18 09/20/18 History lactose-reduced food with fibr 1,000 ml FEEDING TUBE HS 09/20/18 09/20/18 History [Isosource 1.5 Billy] lactose-reduced food with fibr 250 ml FEEDING TUBE BID 09/20/18 09/20/18 History [Isosource 1.5 Billy] levothyroxine [Synthroid] 100 mcg FEEDING TUBE DAILY 09/20/18 09/20/18 History selenium sulfide [Selsun Blue] 1 applic TOPICAL [id number] 09/20/18 09/20/18 History sennosides-docusate sodium [Senna 1 tab FEEDING TUBE DAILY PRN 09/20/18 History with Docusate Sodium] Past Med/Surg History Medical History DM type 2 (diabetes mellitus, type 2) (Chronic) History of ischemic vertebrobasilar artery brainstem stroke (Chronic) Anxiety (Chronic) Depression (Chronic) Hemiparesis affecting left side as late effect of cerebrovascular accident ( Chronic) Neuropathy (Chronic) Gastroparesis (Chronic) Dysphasia (Chronic) GERD (gastroesophageal reflux disease) (Chronic) Hypertension (Chronic) Basilar artery occlusion (Chronic) CAD, multiple vessel (Chronic) Hypothyroidism (Chronic) Dyslipidemia (Chronic) CVA (cerebral infarction) (Inactive) "BA occlusion with b/l [employer] territory infarcts, right thalamic infarct, hippocampi infarcts 01/03/14." Coronary artery disease (Inactive) Hypertension (Inactive) Surgical History History of tonsillectomy and adenoidectomy (Chronic) Previous back surgery (Chronic) S/P percutaneous endoscopic gastrostomy (PEG) tube placement (Chronic) Family History Other Family history non-contributory Social History marital status: Current Living Situation: Spouse Current Living Situation Comment: At home with spouse and caregivers Other Information That Helps Us Care for You: No Feels Safe at Home: Yes Smoking Status: Former smoker Hx Alcohol Use: No Hx Substance Use: No Beliefs That Will Affect Care: None Preferred Language: Angolan Review of Systems Unobtainable due to cognitive status Physical Exam 2 Vital Signs (Past 24 Hours): Last Vital Signs Temp 37.0 C 09/20/18 17:13 Pulse 77 09/20/18 22:00 Resp 18 09/20/18 22:00 BP 137/77 09/20/18 22:00 Pulse Ox 94 09/20/18 20:05 Constitutional: WD/WN, vitals as above Eyes: Patient will not open eyes to cooperate for eye exam ENMT: external ear and nose normal, oropharynx normal Respiratory: normal respiratory effort; no respiratory distress Auscultation: + diminished lung sounds Cardiovascular: Rate/Rhythm: regular rate and regular rhythm Vessels: normal peripheral pulses Extremities: no edema Gastrointestinal (Abdomen): normal bowel sounds, soft, nontender, no hepatosplenomegaly PEG tube in place, ulcer noted -no purulent drainage or surrounding erythema Musculoskeletal: Extremities: no cyanosis and no clubbing Bilateral foot drop; left hemiparesis Skin: no rashes, warm and dry Neurologic: Chronic left hemiparesis from prior CVA, no additional gross focal deficits noted, patient does not cooperate for full neurologic exam Psychiatric: Orientation: oriented to person Mumbling/moaning, does respond when name is called Results & Data Laboratory Results Laboratory Last Values WBC 18.03 K/uL (4.8-10.8) H 02/19/19 18:00 RBC 5.03 M/uL (4.7-6.1) 09/20/18 18:00 Hgb 15.8 g/dL (14.0-18.0) 09/20/18 18:00 Hct 47.8 % (42-52) 09/20/18 18:00 MCV 95.0 fL (80-100) 09/20/18 18:00 MCH 31.4 pg (25-34) 09/20/18 18:00 MCHC 33.1 g/dL (32-36) 09/20/18 18:00 RDW Std Deviation 48.3 fL (36.4-46.3) H 09/20/18 18:00 RDW Coeff of Albert 14.0 % (11.5-14.5) 09/20/18 18:00 Plt Count 260 K/uL (130-400) 09/20/18 18:00 MPV 11.4 fL (7.4-10.4) H 09/20/18 18:00 Immature Gran % (Auto) 0.3 % 09/20/18 18:00 Neut % (Auto) 61.1 % 09/20/18 18:00 Lymph % (Auto) 30.8 % 09/20/18 18:00 Humphreys % (Auto) 6.7 % 09/20/18 18:00 Eos % (Auto) 0.9 % 09/20/18 18:00 Baso % (Auto) 0.2 % 09/20/18 18:00 Immature Gran # (Auto) 0.06 K/uL (0.00-0.02) H 09/20/18 18:00 Neut # (Auto) 11.01 K/uL (1.4-6.5) H 09/20/18 18:00 Lymph # (Auto) 5.55 K/uL (1.2-3.4) H 09/20/18 18:00 Humphreys # (Auto) 1.20 K/uL (0.11-0.59) H 09/20/18 18:00 Eos # (Auto) 0.17 K/uL (0-0.5) 09/20/18 18:00 Baso # (Auto) 0.04 K/uL (0-0.2) 09/20/18 18:00 Neutrophils % (Manual) % 09/20/18 18:00 Lymphocytes % (Manual) % 09/20/18 18:00 Monocytes % (Manual) % 09/20/18 18:00 Eosinophils % (Manual) % 09/20/18 18:00 Other Cells % 0.0 % 09/20/18 18:00 Neutrophils # (Manual) K/uL (1.4-6.5) 09/20/18 18:00 Total Absolute Neuts 10.82 K/uL (1.4-6.5) H 09/20/18 18:00 Lymphocytes # (Manual) K/uL (1.2-3.4) 09/20/18 18:00 Total Abs Lymphocytes 5.95 K/uL (1.2-3.4) H 09/20/18 18:00 Monocytes # (Manual) K/uL (0.11-0.59) 09/20/18 18:00 Eosinophils # (Manual) K/uL (0-0.5) 09/20/18 18:00 VBG pH 7.42 (7.36-7.41) H 09/20/18 18:00 VBG pCO2 46 mmHg (38-50) 09/20/18 18:00 VBG pO2 41 mmHg 09/20/18 18:00 VBG HCO3 29 mmol/L 09/20/18 18:00 VBG O2 Saturation 78.6 % 09/20/18 18:00 VBG Base Excess 4.1 mEq/L 09/20/18 18:00 Barometric Pressure 744.9 mm/Hg 09/20/18 18:00 Sodium 137 mmol/L (136-145) 09/20/18 18:00 Potassium 3.6 mmol/L (3.5-5.1) 09/20/18 18:00 Chloride 103 mmol/L (98-107) 09/20/18 18:00 Carbon Dioxide 29 mmol/L (21-32) 09/20/18 18:00 Anion Gap 5.0 (3-11) 09/20/18 18:00 BUN 17 mg/dl (7-18) 09/20/18 18:00 Creatinine 0.76 mg/dl (0.6-1.4) 09/20/18 18:00 Est Cr Clr Drug Dosing Not Reportable 02/19/19 18:00 Est GFR ( Amer) 109.4 09/20/18 18:00 Est GFR (Non-Af Amer) 94.4 09/20/18 18:00 BUN/Creatinine Ratio 22.5 (10-20) H 09/20/18 18:00 Glucose 126 mg/dl (70-99) H 09/20/18 18:00 Calcium 9.5 mg/dl (8.5-10.1) 09/20/18 18:00 Total Bilirubin 0.3 mg/dl (0.2-1) 09/20/18 18:00 AST 22 U/L (15-37) 09/20/18 18:00 ALT 12 U/L (12-78) 09/20/18 18:00 Alkaline Phosphatase 98 U/L (45-117) 09/20/18 18:00 Ammonia 19.0 umol/L (11-32) 09/20/18 18:00 Troponin I < 0.015 ng/ml (0-0.045) 09/20/18 18:00 Total Protein 8.0 gm/dl (6.4-8.2) 09/20/18 18:00 Albumin 3.4 gm/dl (3.4-5.0) 09/20/18 18:00 Globulin 4.6 gm/dl (2.5-4.0) H 09/20/18 18:00 Albumin/Globulin Ratio 0.7 (0.9-2) L 09/20/18 18:00 TSH 2.720 uIu/ml (0.300-4.500) 09/20/18 18:00 Urine Color Yellow 09/20/18 19:00 Urine Appearance Clear (Clear) 09/20/18 19:00 Urine pH 5.5 (4.5-7.5) 09/20/18 19:00 Ur Specific Hazard 1.020 (1.000-1.030) 09/20/18 19:00 Urine Protein Negative (Negative) 09/20/18 19:00 Urine Glucose (UA) Negative (Negative) 09/20/18 19:00 Urine Ketones Negative (Negative) 09/20/18 19:00 Urine Blood Negative (Negative) 09/20/18 19:00 Urine Nitrite Negative (Negative) 09/20/18 19:00 Urine Bilirubin Negative (Negative) 09/20/18 19:00 Urine Urobilinogen Negative (Negative) 09/20/18 19:00 Ur Leukocyte Esterase Negative (Negative) 09/20/18 19:00 Diagnostic Findings CXR IMPRESSION: Cardiomegaly with no acute cardiopulmonary abnormality. HEAD CT IMPRESSION: There is no hemorrhage, mass effect, or evidence of acute territorial ischemia by CT criteria noting a motion compromise examination. Code Status & VTE Plan Code Status Patient is a DNR as per my discussion with patient's who is the bedside as well as POLST form. VTE Prophylaxis Plan VTE Prophylaxis will be ordered: Yes Supervising Physician Co-Signing Physician Notes Pt was seen and examined. Agreed with Twila DSOUZA exam, assessment and plan. 67 -year-old male who presents the ED with altered mental status. istory obtained from the due to pt baseline mental status from previous stroke. As per , Pt has been having hallucination and confusion. CT head done in the ER showed no intracranial abnormality. UA collected in the ER showed no UTI. No source of infection. Will hold on antibiotic for now. We will check procalcitonin and if elevates, will start on abx. Blood cx ad urine cx collected in the ER. Will consult neurology. Continue monitor closely. MD Mathew
[2018-09-21] MEDS ORDERED: DOCUSATE SODIUM/SENNA 50/8.6MG TAB PO PRN (00:23)
[2018-09-21] MEDS ORDERED: POLYETHYLENE (MIRALAX) 17 GM PACK PEG PRN (00:23)
[2018-09-21] MEDS ORDERED: CARBOHYDRATES FOR HYPOGLYCEMIA PO PRN (00:23)
[2018-09-21] MEDS ORDERED: GLUCAGON FOR INJ 1 MG VIAL SQ PRN (00:23)
[2018-09-21] MEDS ORDERED: GLUCOSE 40% GEL 15 GM TUBE PO PRN (00:23)
[2018-09-21] MEDS ORDERED: GLUCOSE 10 TABS/TUBE PO PRN (00:23)
[2018-09-21] MEDS ORDERED: DEXTROSE 50% 50 ML SYRINGE IV PRN (00:23)
[2018-09-21] MEDS: HYDROCODONE/ACETAMOPHEN 5/325MG TAB PO SCH ×4 (01:48→12:22)
[2018-09-21] MEDS: LEVOTHYROXINE SODIUM 100 MCG TABLET PO SCH (05:37)
[2018-09-21] MEDS: CARBIDOPA/LEVODOPA 25/100MG TAB PEG SCH ×2 (05:38→12:16)
[2018-09-21 05:43] LABS: Influenza A virus by PCR Neg for Influ A (Neg); Influenza B virus by PCR Neg for Influ B (Neg)
[2018-09-21] MEDS ORDERED: HEPARIN SOD 5,000 UNIT/0.5 ML VIAL SQ SCH ×2 (06:00→09:00)
[2018-09-21] MEDS: INSULIN ASPART 100 UNITS/ML 3 ML PEN SC SCH ×2 (07:50→12:02)
[2018-09-21] MEDS: ASPIRIN 81 MG CHEW PO SCH (07:52)
[2018-09-21] MEDS: ESCITALOPRAM OXALATE 10 MG TAB PO SCH (07:52)
[2018-09-21] MEDS: MAGNESIUM OXIDE 400 MG TAB PEG SCH (07:52)
[2018-09-21] MEDS: CLOPIDOGREL BISULFATE 75 MG TAB PEG SCH (07:53)
[2018-09-21] MEDS: ESCITALOPRAM OXALATE 20 MG TAB PO SCH (07:53)
[2018-09-21] MEDS: LISINOPRIL 20 MG TAB PO SCH (07:53)
[2018-09-21] MEDS: GABAPENTIN 250 MG/5 ML 470 ML BTL PO SCH ×3 (08:07→19:55)
[2018-09-21 08:24] LABS: Hematocrit (blood only) 43.7 % (42-52); Hemoglobin 14.5 g/dL (14.0-18.0); Mean Corpuscular Hgb Conc 33.2 g/dL (32-36); Platelet Count 214 K/uL (130-400); RDW Coefficient of Variation 14.3 % (11.5-14.5); RDW Standard Deviation 49.8 fL (36.4-46.3); Red Blood Count 4.55 M/uL (4.7-6.1); White Blood Count 12.55 K/uL (4.8-10.8)
[2018-09-21 08:31] LABS: Estimated Average Glucose 108 mg/dl; Hemoglobin A1C 5.4 % (4.5-5.6)
[2018-09-21 08:37] LABS: INR 1.1 (0.9-1.1); Prothrombin Time 10.8 Seconds (9.0-12.0)
[2018-09-21 08:56] LABS: BUN Creatinine Ratio 30.7 (10-20); Calcium 9.1 mg/dl (8.5-10.1); Creatinine Clr Calc Pharmacy 162.6 ml/min; Est GFR (African American) 120.6
[2018-09-21] MEDS: AMPHETAMINE ASP/SULF/DEXTRAMPH 10 MG TAB PO SCH ×2 (09:26→12:17)
--- NOTE | 2018-09-21 14:33 | Hospitalist Progress Note ---
Date of Service September 21, 2018 Assessment & Plan (1) Altered mental status: Resolved, uncertain etiology however, sleep deprivation is at the forefront as patient has not slept in several days. 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 Holding this now. Atropine drops are only new medication. Pt denies any new visual changes and rarely uses the drops. Will avoid a sleep aid at this time to initially let the drug wash out and not add more medication which may have a side effect. Pt is still having some hallucinations today, but is oriented. (2) Leukocytosis: no evidence of infection, may be a stress response to lack of sleep. repeat in am. PEG site has small ulceration that has been there, per his , and which is not infected on appearance. (3) History of ischemic vertebrobasilar artery brainstem stroke: -No new deficits noted on exam -Continue aspirin, Plavix, statin (4) DM type 2 (diabetes mellitus, type 2): -Hgb A1c 5.4 and reports that patient is not a diabetic, only takes metformin for weight loss purposes. FSG checks and insulin coverage was discontinued. (5) Hypertension: -BP controlled, continue hydralazine and lisinopril (6) CAD, multiple vessel: -Stable, no EKG changes. Cont home medical therapy. (7) S/P percutaneous endoscopic gastrostomy (PEG) tube placement: Restart tube feeds. Appreciate Nutrition help with this. Also contacted GI regarding PEG site ulceration from [facility] to explore other options. (8) Neuropathy: -Continue gabapentin (9) Anxiety: (10) Depression: -Continue escitalopram (11) Hypothyroidism: -Continue levothyroxine (12) DVT prophylaxis: -SQ Lovenox DNR Dispo-hospitalized until AMS completely resolves and insomnia improves. Ashley Dorman DO [facility] Hospitalist Subjective 67 yo M presents for increased confusion at home. Pt cannot remember events but states is at bedside and confirms this with noted improvement today. Some hallucinations are still occurring. states he hasn't slept in several days. [place] reportedly taken daily or BID PRN and is scheduled q4h here. Adderall is for hypersomnolence in the post-stroke setting several years ago for which he has continued. Pt states that he feels hungry. reports he does tolerate PO for pleasure but typically eats via PEG. Some liquid stool reported 5-6 days ago but resolved with one dose of OTC pepto and normal BM yesterday. Physical Exam 2 Vital Signs (Past 24 Hours): Last Vital Signs Temp 36.8 C 09/21/18 11:21 Pulse 60 09/21/18 11:21 Resp 18 09/21/18 11:21 BP 120/86 09/21/18 11:21 Pulse Ox 91 09/21/18 11:21 CONSTITUTIONAL: WNWD, vitals as above, generally appears fatigued and run down. Bedbound 2/2 stroke EYES: EOMI bilaterally, PERRL, normal conjuctivae, no scleral icterus, pt does not follow instructions well to look at my nose during pupil exam-he can't stop looking at the light instead. ENT: MMM RESPIRATORY: clear to auscultation bilaterally, no crackles, rales or wheezes, normal respiratory effort CARDIOVASCULAR: regular rate and rhythm, S1 and 2 heard without murmurs, gallops or rubs, no JVD, no peripheral edema GASTROINTESTINAL: normal bowel sounds, soft, nontender, nondistended MUSCULOSKELETAL: generally intact. Pt bedbound so feet dont flex or point well. head is normocephalic and atraumatic SKIN: warm and dry, small PEG site ulcer that is approx 1cm without surrounding erythema NEUROLOGIC: CN 2-12 intact. No tremor. Meredith cognition. No overt tremor. PSYCHIATRIC: alert cooperative and oriented to person, place and time. Euthymic mood, makes good eye contact, language grossly intact Results & Data Laboratory Results Short CBC 09/21/18 Range/Units 08:08 WBC 12.55 H (4.8-10.8) K/uL Hgb 14.5 (14.0-18.0) g/dL Hct 43.7 (42-52) % Plt Count 214 (130-400) K/uL BMP 09/21/18 08:08 Sodium 140 Potassium Chloride 105 Carbon Dioxide 31 BUN 18 Creatinine 0.60 Glucose 92 Calcium 9.1 Medications Administered Current Inpatient Medications Hydrocodone Bitart/Acetaminophen ([place] 5/325) 1 tab PO BID PRN PRN Reason: severe pain Stop: 10/05/18 20:59 Aspirin (Aspirin Chew) 81 mg PO DAILY [facility] Stop: 10/21/18 08:59 Last Admin: 09/21/18 07:52 Dose: 81 mg Atorvastatin Calcium (Lipitor) 40 mg PEG HS [facility] Stop: 10/21/18 20:59 Last Admin: 09/21/18 19:56 Dose: 40 mg Carbidopa/Levodopa (Sinemet 25/100 Mg) 1 tab PEG BID@0700,1200 [facility] Stop: 10/21/18 06:59 Last Admin: 09/21/18 12:16 Dose: 1 tab Clopidogrel Bisulfate (Plavix) 75 mg PEG DAILY [facility] Stop: 10/21/18 08:59 Last Admin: 09/21/18 07:53 Dose: 75 mg Enoxaparin Sodium (Lovenox) 40 mg SQ QAM [facility] Stop: 10/22/18 08:59 Enteral Nutritional Formula (Peptamen 1.5) 1,000 ml PEG DAILY@2000 [facility]; Protocol Stop: 10/21/18 19:59 Last Admin: 09/21/18 19:50 Dose: 1,000 ml Enteral Nutritional Formula (Peptamen 1.5) 250 ml PEG DAILY@0730,1200 [facility]; Protocol Stop: 10/22/18 07:29 Escitalopram Oxalate (Lexapro) 10 mg PO DAILY [facility] Stop: 10/21/18 08:59 Last Admin: 09/21/18 07:52 Dose: 10 mg Escitalopram Oxalate (Lexapro) 20 mg PO DAILY [facility] Stop: 10/21/18 08:59 Last Admin: 09/21/18 07:53 Dose: 20 mg Gabapentin (Neurontin) 200 mg PO TID [facility] Stop: 10/21/18 08:59 Last Admin: 09/21/18 19:55 Dose: 200 mg Glucose (Dex4 Glucose) 4 - 8 tabs PO UD PRN; Protocol PRN Reason: Hypoglycemia Protocol Stop: 10/21/18 00:22 Hydralazine HCl (Apresoline) 25 mg PEG BID [facility] Stop: 10/21/18 08:59 Last Admin: 09/21/18 19:56 Dose: 25 mg Levothyroxine Sodium (Synthroid) 100 mcg PO DAILYBB [facility] Stop: 10/21/18 06:29 Last Admin: 09/21/18 05:37 Dose: 100 mcg Lisinopril (Zestril) 20 mg PO DAILY [facility] Stop: 10/21/18 08:59 Last Admin: 09/21/18 07:53 Dose: 20 mg Magnesium Oxide (Mag-Ox) 400 mg PEG DAILY [facility] Stop: 10/21/18 08:59 Last Admin: 09/21/18 07:52 Dose: 400 mg Miscellaneous (Stop Order) 1 ea N/A DAILY@0600 [facility] Stop: 10/22/18 05:59 Polyethylene Glycol (Miralax Powder Packet) 17 gm PEG DAILY PRN PRN Reason: Constipation Stop: 10/21/18 00:22 Ranitidine HCl (Zantac) 150 mg PO BID [facility] Stop: 10/21/18 08:59 Last Admin: 09/21/18 19:55 Dose: 150 mg Senna/Docusate Sodium (Senokot S) 1 tab PO DAILY PRN PRN Reason: Constipation Stop: 10/21/18 00:22 Tamsulosin HCl (Flomax) 0.4 mg PEG QPM [facility] Stop: 10/21/18 20:59 Last Admin: 09/21/18 19:55 Dose: 0.4 mg
[2018-09-21] MEDS: PEPTAMEN 1.5 CAL 1,000 ML BAG PEG SCH (19:50)
[2018-09-21] MEDS: TAMSULOSIN HCL 0.4 MG CAP PEG SCH (19:55)
[2018-09-21] MEDS: ATORVASTATIN 40 MG TAB PEG SCH (19:56)
[2018-09-21] MEDS ORDERED: ENTERAL NUTRITION FORMULA Feeding Tube SCH (21:00)
[2018-09-21] MEDS ORDERED: [UNRECOGNIZED DRUG - OTHER] Feeding Tube SCH (21:00)
[2018-09-22] MEDS: CARBIDOPA/LEVODOPA 25/100MG TAB PEG SCH ×2 (06:11→11:06)
[2018-09-22] MEDS: LEVOTHYROXINE SODIUM 100 MCG TABLET PO SCH (06:12)
[2018-09-22] MEDS: [UNRECOGNIZED DRUG - REMARK] SCH (06:24)
[2018-09-22 06:58] LABS: Hematocrit (blood only) 39.5 % (42-52); Hemoglobin 12.7 g/dL (14.0-18.0); Mean Corpuscular Hgb Conc 32.2 g/dL (32-36); Mean Corpuscular Volume 97.5 fL (80-100); Mean Platelet Volume 10.9 fL (7.4-10.4); Platelet Count 207 K/uL (130-400); RDW Coefficient of Variation 14.5 % (11.5-14.5); RDW Standard Deviation 51.8 fL (36.4-46.3); Red Blood Count 4.05 M/uL (4.7-6.1)
[2018-09-22 07:26] LABS: BUN Creatinine Ratio 34.3 (10-20); Calcium 8.6 mg/dl (8.5-10.1); Creatinine Clr Calc Pharmacy 170.3 ml/min; Est GFR (African American) 124.1; Potassium 3.8 mmol/L (3.5-5.1)
[2018-09-22] MEDS: ASPIRIN 81 MG CHEW PO SCH (07:46)
[2018-09-22] MEDS: CLOPIDOGREL BISULFATE 75 MG TAB PEG SCH (07:47)
[2018-09-22] MEDS: ESCITALOPRAM OXALATE 10 MG TAB PO SCH (07:47)
[2018-09-22] MEDS: MAGNESIUM OXIDE 400 MG TAB PEG SCH (07:47)
[2018-09-22] MEDS: ESCITALOPRAM OXALATE 20 MG TAB PO SCH (07:48)
[2018-09-22] MEDS: LISINOPRIL 20 MG TAB PO SCH (07:48)
[2018-09-22] MEDS: ENOXAPARIN INJ 40 MG/0.4 ML SYR SQ SCH (07:56)
[2018-09-22] MEDS: GABAPENTIN 250 MG/5 ML 470 ML BTL PO SCH ×3 (08:03→20:43)
[2018-09-22] MEDS: PEPTAMEN 1.5 CAL 1,000 ML BAG PEG SCH ×3 (08:21→20:42)
[2018-09-22] MEDS ORDERED: SILVER NITR/POTASSIUM NITRATE APPLICATOR ONE (09:47)
--- NOTE | 2018-09-22 12:11 | Gastrointestinal Consultation ---
Date of Consultation September 22, 2018 Assessment & Plan (1) Altered mental status: (2) History of ischemic vertebrobasilar artery brainstem stroke: (3) Hemiparesis affecting left side as late effect of cerebrovascular accident: (4) S/P percutaneous endoscopic gastrostomy (PEG) tube placement: Pt is a 67 y/o male w hx of stroke, residual of L hemipharesis and s/p PEG placement for nutritional support, currently admitted for AMS. Etiology unclear ? related to lack of sleep. So far infectious workup negative. GI consulted for PEG ulcer though on exam it appears that pt has granuloma at PEG insertion site and under bumper but w/o signs of cellulitis. PEG is functioning well otherwise and pt has been tolerating feeds. - Applied silver nitrate to granuloma sites. OK to keep non adhesive dressing under peg bumper. Keep PEG bumper snug but not tight on pt's abdominal skin. Noted PEG tube marker at #2. - Continue to use PEG for feeding, flushing. - No urgent need to replace PEG at this time. Attg add: I interviewed and examined pt reviewed chart and labs. Agree with above. PEG site with gran tissue without evidence of cellulitis, s/p sliver nitrate. Please apply silvadene creamto PEG site afte rsilver nitrate cautery for 5-6 days, then transition to barrier cream. Ok to use PEG. Call with questions. History of Present Illness Reason for Consultation: PEG ulcer Requesting Physician: Dr. Ashley Dorman Attending Physician: Dr. Tad Bowser History of Present Illness Pt is a 67 y/o male w hx of DM II, anxiety, depression, GERD, HTN, CAD, hypothyroidism, dyslipidemia, ischemic stroke resulting in L hemiparesis, s/p PEG for nutritional support who is currently admitted for AMS. So far CT head w/ o acute changes, CXR w cardiomegaly but overt abnormalities otherwise. Blood cx and UA negative. He is somnolent but seems a bit agitated when I try to wake him up to assess him, goes right back to sleep. GI consulted for PEG insertion site ulcer. Original PEG was placed in 2013. Per pt's , pt pulled his PEG a couple of times and last time he had PEG changed in ED. had notice ulceration under the PEG bumper site. PEG otherwise still functioning properly. Pt is receiving continues night time feeding and bolus feed in AM. PO food intake mostly for pleasure. Allergies Allergy/AdvReac Type Severity Reaction Status Date / Time Penicillins Allergy Intermediate RASH Verified 09/20/18 20:31 Home Medications Home Medications Medication Instructions Recorded Confirmed Type acetaminophen [Mapap 650 mg FEEDING TUBE Q4H PRN 04/18/18 09/20/18 History (acetaminophen)] albuterol sulfate 2.5 mg INHALATION QID PRN 04/18/18 09/20/18 History aspirin [Aspirin Low Dose] 81 mg FEEDING TUBE DAILY 04/18/18 09/20/18 History atorvastatin 40 mg FEEDING TUBE HS 04/18/18 09/20/18 History carbidopa-levodopa [Sinemet] 1 tab FEEDING TUBE BID 04/18/18 09/20/18 History clopidogrel [Plavix] 75 mg FEEDING TUBE DAILY 04/18/18 09/20/18 History dextroamphetamine-amphetamine 15 mg FEEDING TUBE BID 04/18/18 09/20/18 History escitalopram oxalate [Lexapro] 10 mg FEEDING TUBE DAILY 04/18/18 09/20/18 History escitalopram oxalate [Lexapro] 20 mg FEEDING TUBE DAILY 04/18/18 09/20/18 History gabapentin 200 mg FEEDING TUBE TID 04/18/18 09/20/18 History hydralazine 25 mg FEEDING TUBE BID 04/18/18 09/20/18 History hydrocodone-acetaminophen 1 tab FEEDING TUBE Q4H 04/18/18 09/20/18 History lisinopril 20 mg FEEDING TUBE DAILY 04/18/18 09/20/18 History magnesium oxide 400 mg FEEDING TUBE DAILY 04/18/18 09/20/18 History metformin 500 mg FEEDING TUBE BID 04/18/18 09/20/18 History nitroglycerin 0.4 mg SUBLINGUAL DIRECTED 04/18/18 09/20/18 History ranitidine HCl 150 mg FEEDING TUBE BID 04/18/18 09/20/18 History tamsulosin 0.4 mg PO QPM 04/18/18 09/20/18 History polyethylene glycol 3350 [Miralax] 17 g FEEDING TUBE DAILY PRN 07/14/18 History atropine [Isopto Atropine] 2 drp SUBLINGUAL UD PRN 09/20/18 09/20/18 History lactose-reduced food with fibr 1,000 ml FEEDING TUBE HS 09/20/18 09/20/18 History [Isosource 1.5 Billy] lactose-reduced food with fibr 250 ml FEEDING TUBE BID 09/20/18 09/20/18 History [Isosource 1.5 Billy] levothyroxine [Synthroid] 100 mcg FEEDING TUBE DAILY 09/20/18 09/20/18 History selenium sulfide [Selsun Blue] 1 applic TOPICAL [id number] 09/20/18 09/20/18 History sennosides-docusate sodium [Senna 1 tab FEEDING TUBE DAILY PRN 09/20/18 History with Docusate Sodium] Patient History Medical History DM type 2 (diabetes mellitus, type 2) (Chronic) History of ischemic vertebrobasilar artery brainstem stroke (Chronic) Anxiety (Chronic) Depression (Chronic) Hemiparesis affecting left side as late effect of cerebrovascular accident ( Chronic) Neuropathy (Chronic) Gastroparesis (Chronic) Dysphasia (Chronic) GERD (gastroesophageal reflux disease) (Chronic) Hypertension (Chronic) Basilar artery occlusion (Chronic) CAD, multiple vessel (Chronic) Hypothyroidism (Chronic) Dyslipidemia (Chronic) CVA (cerebral infarction) (Inactive) "BA occlusion with b/l [employer] territory infarcts, right thalamic infarct, hippocampi infarcts 01/03/14." Coronary artery disease (Inactive) Hypertension (Inactive) Surgical History History of tonsillectomy and adenoidectomy (Chronic) Previous back surgery (Chronic) S/P percutaneous endoscopic gastrostomy (PEG) tube placement (Chronic) Family History Other Family history non-contributory Social History marital status: Current Living Situation: Spouse Current Living Situation Comment: At home with spouse and caregivers Other Information That Helps Us Care for You: No Feels Safe at Home: Yes Smoking Status: Former smoker Hx Alcohol Use: No Hx Substance Use: No Beliefs That Will Affect Care: None Communication Ability: Effective Review of Systems Unable to obtain from pt due to his AMS Physical Exam 2 Vital Signs (Past 24 Hours): Last Vital Signs Temp 37.1 C 09/22/18 07:38 Pulse 61 09/22/18 07:38 Resp 16 09/22/18 07:38 BP 132/78 09/22/18 07:38 Pulse Ox 92 09/22/18 07:38 Constitutional: + ill appearing and comfortable Sleeping but easily awakened though appears somewhat agitated. ENMT: external ear and nose normal, oropharynx normal Respiratory: normal respiratory effort; no respiratory distress Auscultation: + diminished lung sounds Cardiovascular: RRR, no murmur, no edema Gastrointestinal (Abdomen): normal bowel sounds, soft, nontender, no hepatosplenomegaly PEG to LUQ area. + granuloma tissue at insertion site and another spot under the bumper around 2 oclock position. No signs of bleeding, foul odor discharge, no erythema on surrounding tissue. Skin: no jaundice Psychiatric: somnolent, but easily awakened, then appears agitated. Lymphatic: + lymphedema Results & Data Laboratory Results Laboratory Results - last 48 hr 09/20/18 09/20/18 09/20/18 18:00 18:00 18:00 WBC 18.03 H RBC 5.03 Hgb 15.8 Hct 47.8 MCV 95.0 MCH 31.4 MCHC 33.1 RDW Std Deviation 48.3 H RDW Coeff of Albert 14.0 Plt Count 260 MPV 11.4 H Immature Gran % (Auto) 0.3 Neut % (Auto) 61.1 Lymph % (Auto) 30.8 [place] % (Auto) 6.7 Eos % (Auto) 0.9 Baso % (Auto) 0.2 Immature Gran # (Auto) 0.06 H Neut # (Auto) 11.01 H Lymph # (Auto) 5.[address] [place] # (Auto) 1.20 H Eos # (Auto) 0.17 Baso # (Auto) 0.04 Neutrophils % (Manual) Lymphocytes % (Manual) Monocytes % (Manual) Eosinophils % (Manual) Other Cells % 0.0 Neutrophils # (Manual) Total Absolute Neuts 10.82 H Lymphocytes # (Manual) Total Abs Lymphocytes 5.95 H Monocytes # (Manual) Eosinophils # (Manual) Blood Smear Review PT INR VBG pH VBG pCO2 VBG pO2 VBG HCO3 VBG O2 Saturation VBG Base Excess Barometric Pressure Sodium 137 Potassium 3.6 Chloride 103 Carbon Dioxide 29 Anion Gap 5.0 BUN 17 Creatinine 0.76 Est Cr Clr Drug Dosing Not Reportable Est GFR ( Amer) 109.4 Est GFR (Non-Af Amer) 94.4 BUN/Creatinine Ratio 22.5 H Glucose 126 H POC Glucose Estimat Average Glucose Hemoglobin A1c Calcium 9.5 Total Bilirubin 0.3 AST 22 ALT 12 Alkaline Phosphatase 98 Ammonia 19.0 Troponin I < 0.015 Total Protein 8.0 Albumin 3.4 Globulin 4.6 H Albumin/Globulin Ratio 0.7 L Procalcitonin TSH 2.720 Urine Color Urine Appearance Urine pH Ur Specific [place] Urine Protein Urine Glucose (UA) Urine Ketones Urine Blood Urine Nitrite Urine Bilirubin Urine Urobilinogen Ur Leukocyte Esterase Influenza Type A (PCR) Influenza Type B (PCR) 09/20/18 09/20/18 09/20/18 18:00 18:00 19:00 WBC RBC Hgb Hct MCV MCH MCHC RDW Std Deviation RDW Coeff of Albert Plt Count MPV Immature Gran % (Auto) Neut % (Auto) Lymph % (Auto) [place] % (Auto) Eos % (Auto) Baso % (Auto) Immature Gran # (Auto) Neut # (Auto) Lymph # (Auto) [place] # (Auto) Eos # (Auto) Baso # (Auto) Neutrophils % (Manual) Lymphocytes % (Manual) Monocytes % (Manual) Eosinophils % (Manual) Other Cells % Neutrophils # (Manual) Total Absolute Neuts Lymphocytes # (Manual) Total Abs Lymphocytes Monocytes # (Manual) Eosinophils # (Manual) Blood Smear Review PT INR VBG pH 7.42 H VBG pCO2 46 VBG pO2 41 VBG HCO3 29 VBG O2 Saturation 78.6 VBG Base Excess 4.1 Barometric Pressure 744.9 Sodium Potassium Chloride Carbon Dioxide Anion Gap BUN Creatinine Est Cr Clr Drug Dosing Est GFR ( Amer) Est GFR (Non-Af Amer) BUN/Creatinine Ratio Glucose POC Glucose Estimat Average Glucose Hemoglobin A1c Calcium Total Bilirubin AST ALT Alkaline Phosphatase Ammonia Troponin I Total Protein Albumin Globulin Albumin/Globulin Ratio Procalcitonin < 0.05 TSH Urine Color Yellow Urine Appearance Clear Urine pH 5.5 Ur Specific [place] 1.020 Urine Protein Negative Urine Glucose (UA) Negative Urine Ketones Negative Urine Blood Negative Urine Nitrite Negative Urine Bilirubin Negative Urine Urobilinogen Negative Ur Leukocyte Esterase Negative Influenza Type A (PCR) Influenza Type B (PCR) 09/21/18 09/21/18 09/21/18 07:46 08:08 08:08 WBC 12.55 H RBC 4.55 L Hgb 14.5 Hct 43.7 MCV 96.0 MCH 31.9 MCHC 33.2 RDW Std Deviation 49.8 H RDW Coeff of Albert 14.3 Plt Count 214 MPV 11.0 H Immature Gran % (Auto) Neut % (Auto) Lymph % (Auto) [place] % (Auto) Eos % (Auto) Baso % (Auto) Immature Gran # (Auto) Neut # (Auto) Lymph # (Auto) [place] # (Auto) Eos # (Auto) Baso # (Auto) Neutrophils % (Manual) Lymphocytes % (Manual) Monocytes % (Manual) Eosinophils % (Manual) Other Cells % Neutrophils # (Manual) Total Absolute Neuts Lymphocytes # (Manual) Total Abs Lymphocytes Monocytes # (Manual) Eosinophils # (Manual) Blood Smear Review PT INR VBG pH VBG pCO2 VBG pO2 VBG HCO3 VBG O2 Saturation VBG Base Excess Barometric Pressure Sodium 140 Potassium Chloride 105 Carbon Dioxide 31 Anion Gap 5.0 BUN 18 Creatinine 0.60 Est Cr Clr Drug Dosing 162.6 Est GFR ( Amer) 120.6 Est GFR (Non-Af Amer) 104.0 BUN/Creatinine Ratio 30.7 H Glucose 92 POC Glucose 91 Estimat Average Glucose Hemoglobin A1c Calcium 9.1 Total Bilirubin AST ALT Alkaline Phosphatase Ammonia Troponin I Total Protein Albumin Globulin Albumin/Globulin Ratio Procalcitonin TSH Urine Color Urine Appearance Urine pH Ur Specific [place] Urine Protein Urine Glucose (UA) Urine Ketones Urine Blood Urine Nitrite Urine Bilirubin Urine Urobilinogen Ur Leukocyte Esterase Influenza Type A (PCR) Influenza Type B (PCR) 09/21/18 09/21/18 09/21/18 08:08 08:08 11:29 WBC RBC Hgb Hct MCV MCH MCHC RDW Std Deviation RDW Coeff of Albert Plt Count MPV Immature Gran % (Auto) Neut % (Auto) Lymph % (Auto) [place] % (Auto) Eos % (Auto) Baso % (Auto) Immature Gran # (Auto) Neut # (Auto) Lymph # (Auto) [place] # (Auto) Eos # (Auto) Baso # (Auto) Neutrophils % (Manual) Lymphocytes % (Manual) Monocytes % (Manual) Eosinophils % (Manual) Other Cells % Neutrophils # (Manual) Total Absolute Neuts Lymphocytes # (Manual) Total Abs Lymphocytes Monocytes # (Manual) Eosinophils # (Manual) Blood Smear Review PT 10.8 INR 1.1 VBG pH VBG pCO2 VBG pO2 VBG HCO3 VBG O2 Saturation VBG Base Excess Barometric Pressure Sodium Potassium Chloride Carbon Dioxide Anion Gap BUN Creatinine Est Cr Clr Drug Dosing Est GFR ( Amer) Est GFR (Non-Af Amer) BUN/Creatinine Ratio Glucose POC Glucose 92 Estimat Average Glucose 108 Hemoglobin A1c 5.4 Calcium Total Bilirubin AST ALT Alkaline Phosphatase Ammonia Troponin I Total Protein Albumin Globulin Albumin/Globulin Ratio Procalcitonin TSH Urine Color Urine Appearance Urine pH Ur Specific [place] Urine Protein Urine Glucose (UA) Urine Ketones Urine Blood Urine Nitrite Urine Bilirubin Urine Urobilinogen Ur Leukocyte Esterase Influenza Type A (PCR) Influenza Type B (PCR) 09/21/18 09/22/18 09/22/18 Unknown 06:32 06:32 WBC 11.00 H RBC 4.05 L Hgb 12.7 L Hct 39.5 L MCV 97.5 MCH 31.4 MCHC 32.2 RDW Std Deviation 51.8 H RDW Coeff of Albert 14.5 Plt Count 207 MPV 10.9 H Immature Gran % (Auto) Neut % (Auto) Lymph % (Auto) [place] % (Auto) Eos % (Auto) Baso % (Auto) Immature Gran # (Auto) Neut # (Auto) Lymph # (Auto) [place] # (Auto) Eos # (Auto) Baso # (Auto) Neutrophils % (Manual) Lymphocytes % (Manual) Monocytes % (Manual) Eosinophils % (Manual) Other Cells % Neutrophils # (Manual) Total Absolute Neuts Lymphocytes # (Manual) Total Abs Lymphocytes Monocytes # (Manual) Eosinophils # (Manual) Blood Smear Review PT INR VBG pH VBG pCO2 VBG pO2 VBG HCO3 VBG O2 Saturation VBG Base Excess Barometric Pressure Sodium 140 Potassium 3.8 Chloride 105 Carbon Dioxide 31 Anion Gap 4.0 BUN 19 H Creatinine 0.56 L Est Cr Clr Drug Dosing 170.3 Est GFR ( Amer) 124.1 Est GFR (Non-Af Amer) 107.0 BUN/Creatinine Ratio 34.3 H Glucose 112 H POC Glucose Estimat Average Glucose Hemoglobin A1c Calcium 8.6 Total Bilirubin AST ALT Alkaline Phosphatase Ammonia Troponin I Total Protein Albumin Globulin Albumin/Globulin Ratio Procalcitonin TSH Urine Color Urine Appearance Urine pH Ur Specific [place] Urine Protein Urine Glucose (UA) Urine Ketones Urine Blood Urine Nitrite Urine Bilirubin Urine Urobilinogen Ur Leukocyte Esterase Influenza Type A (PCR) Neg for Influ A Influenza Type B (PCR) Neg for Influ B 09/22/18 07:47 WBC RBC Hgb Hct MCV MCH MCHC RDW Std Deviation RDW Coeff of [place] Plt Count MPV Immature Gran % (Auto) Neut % (Auto) Lymph % (Auto) [place] % (Auto) Eos % (Auto) Baso % (Auto) Immature Gran # (Auto) Neut # (Auto) Lymph # (Auto) [place] # (Auto) Eos # (Auto) Baso # (Auto) Neutrophils % (Manual) Lymphocytes % (Manual) Monocytes % (Manual) Eosinophils % (Manual) Other Cells % Neutrophils # (Manual) Total Absolute Neuts Lymphocytes # (Manual) Total Abs Lymphocytes Monocytes # (Manual) Eosinophils # (Manual) Blood Smear Review PT INR VBG pH VBG pCO2 VBG pO2 VBG HCO3 VBG O2 Saturation VBG Base Excess Barometric Pressure Sodium Potassium Chloride Carbon Dioxide Anion Gap BUN Creatinine Est Cr Clr Drug Dosing Est GFR ( Amer) Est GFR (Non-Af Amer) BUN/Creatinine Ratio Glucose POC Glucose 119 H Estimat Average Glucose Hemoglobin A1c Calcium Total Bilirubin AST ALT Alkaline Phosphatase Ammonia Troponin I Total Protein Albumin Globulin Albumin/Globulin Ratio Procalcitonin TSH Urine Color Urine Appearance Urine pH Ur Specific [place] Urine Protein Urine Glucose (UA) Urine Ketones Urine Blood Urine Nitrite Urine Bilirubin Urine Urobilinogen Ur Leukocyte Esterase Influenza Type A (PCR) Influenza Type B (PCR)
--- NOTE | 2018-09-22 17:55 | Hospitalist Progress Note ---
Date of Service September 22, 2018 Assessment & Plan (1) Altered mental status: Today he has been sleeping for most of the day after amphetamine was removed yesterday. Per episodes like this have lasted 2-3 days as a catch up from the bouts of insomnia. She is also concerned with his double vision, which he exhibited yesterday on exam. To a certain extent these visual changes are present at baseline. However, thinks this is worse. Suspect sleep deprivation again as the cause, but will consult Neuro to add new insight. (2) Leukocytosis: resolved (3) History of ischemic vertebrobasilar artery brainstem stroke: -No new deficits noted on exam. Speech, visual changes at baseline. Weakness on Left side chronically. -Continue aspirin, Plavix, statin (4) DM type 2 (diabetes mellitus, type 2): -Hgb A1c 5.4 and reports that patient is not a diabetic, only takes metformin for weight loss purposes. FSG checks and insulin coverage was discontinued. (5) Hypertension: -BP controlled, continue hydralazine and lisinopril (6) CAD, multiple vessel: -Stable, no EKG changes. Cont home medical therapy. (7) S/P percutaneous endoscopic gastrostomy (PEG) tube placement: Tolerating tube feeds. Apprec GI involvement. Used topical solution on PEG site ulceration. Cont outpatient management. (8) Neuropathy: -Continue gabapentin (9) Anxiety: (10) Depression: -Continue escitalopram (11) Hypothyroidism: -Continue levothyroxine (12) DVT prophylaxis: -SQ Lovenox DNR Dispo-hospitalized until AMS completely resolves. Ashley Dorman DO [facility] Hospitalist Subjective 67 yo M presents for increased confusion at home. Aderral stopped yesterday and patient is sleeping soundly at this point. ROS could not be obtained as a result. Physical Exam 2 Vital Signs (Past 24 Hours): Last Vital Signs Temp 37.0 C 09/22/18 15:41 Pulse 59 L 09/22/18 15:41 Resp 18 09/22/18 15:41 BP 157/78 H 09/22/18 15:41 Pulse Ox 91 09/22/18 15:41 CONSTITUTIONAL: WNWD, vitals as above, somnolent. Bedbound 2/2 stroke ENT: MMM RESPIRATORY: clear to auscultation bilaterally, no crackles, rales or wheezes, normal respiratory effort CARDIOVASCULAR: regular rate and rhythm, S1 and 2 heard without murmurs, gallops or rubs, no JVD, no peripheral edema GASTROINTESTINAL: normal bowel sounds, soft, nontender, nondistended MUSCULOSKELETAL: cannot assess as patient is sleeping. SKIN: warm and dry, small PEG site ulcer that is approx 1cm without surrounding erythema NEUROLOGIC: could not assess as patient was sleeping. Results & Data Laboratory Results Short CBC 09/22/18 Range/Units 06:32 WBC 11.00 H (4.8-10.8) K/uL Hgb 12.7 L (14.0-18.0) g/dL Hct 39.5 L (42-52) % Plt Count 207 (130-400) K/uL BMP 09/22/18 06:32 Sodium 140 Potassium 3.8 Chloride 105 Carbon Dioxide 31 BUN 19 H Creatinine 0.56 L Glucose 112 H Calcium 8.6 Medications Administered Current Inpatient Medications Hydrocodone Bitart/Acetaminophen ([place]ama 5/325) 1 tab PO BID PRN PRN Reason: severe pain Stop: 10/05/18 20:59 Aspirin (Aspirin Chew) 81 mg PO DAILY [facility] Stop: 10/21/18 08:59 Last Admin: 09/22/18 07:46 Dose: 81 mg Atorvastatin Calcium (Lipitor) 40 mg PEG HS [facility] Stop: 10/21/18 20:59 Last Admin: 09/22/18 20:43 Dose: 40 mg Carbidopa/Levodopa (Sinemet 25/100 Mg) 1 tab PEG BID@0700,1200 [facility] Stop: 10/21/18 06:59 Last Admin: 09/22/18 11:06 Dose: 1 tab Clopidogrel Bisulfate (Plavix) 75 mg PEG DAILY [facility] Stop: 10/21/18 08:59 Last Admin: 09/22/18 07:47 Dose: 75 mg Enoxaparin Sodium (Lovenox) 40 mg SQ QAM [facility] Stop: 10/22/18 08:59 Last Admin: 09/22/18 07:56 Dose: 40 mg Enteral Nutritional Formula (Peptamen 1.5) 1,000 ml PEG DAILY@2000 PAVITHRA; Protocol Stop: 10/21/18 19:59 Last Admin: 09/22/18 20:42 Dose: 1,000 ml Enteral Nutritional Formula (Peptamen 1.5) 250 ml PEG DAILY@0730,1200 [facility]; Protocol Stop: 10/22/18 07:29 Last Admin: 09/22/18 11:06 Dose: 250 ml Escitalopram Oxalate (Lexapro) 10 mg PO DAILY [facility] Stop: 10/21/18 08:59 Last Admin: 09/22/18 07:47 Dose: 10 mg Escitalopram Oxalate (Lexapro) 20 mg PO DAILY [facility] Stop: 10/21/18 08:59 Last Admin: 09/22/18 07:48 Dose: 20 mg Gabapentin (Neurontin) 200 mg PO TID [facility] Stop: 10/21/18 08:59 Last Admin: 09/22/18 20:43 Dose: 200 mg Glucose (Dex4 Glucose) 4 - 8 tabs PO UD PRN; Protocol PRN Reason: Hypoglycemia Protocol Stop: 10/21/18 00:22 Hydralazine HCl (Apresoline) 25 mg PEG BID [facility] Stop: 10/21/18 08:59 Last Admin: 09/22/18 20:43 Dose: 25 mg Levothyroxine Sodium (Synthroid) 100 mcg PO DAILYBB [facility] Stop: 10/21/18 06:29 Last Admin: 09/22/18 06:12 Dose: 100 mcg Lisinopril (Zestril) 20 mg PO DAILY [facility] Stop: 10/21/18 08:59 Last Admin: 09/22/18 07:48 Dose: 20 mg Magnesium Oxide (Mag-Ox) 400 mg PEG DAILY [facility] Stop: 10/21/18 08:59 Last Admin: 09/22/18 07:47 Dose: 400 mg Miscellaneous (Stop Order) 1 ea N/A DAILY@0600 [facility] Stop: 10/22/18 05:59 Last Admin: 09/22/18 06:24 Dose: 1 ea Polyethylene Glycol (Miralax Powder Packet) 17 gm PEG DAILY PRN PRN Reason: Constipation Stop: 10/21/18 00:22 Ranitidine HCl (Zantac) 150 mg PO BID [facility] Stop: 10/21/18 08:59 Last Admin: 09/22/18 20:43 Dose: 150 mg Senna/Docusate Sodium (Senokot S) 1 tab PO DAILY PRN PRN Reason: Constipation Stop: 10/21/18 00:22 Silver Sulfadiazine (Silvadene 1% 50gm) 1 appln EXT BID [facility] Stop: 10/22/18 20:59 Last Admin: 09/22/18 20:44 Dose: 1 appln Tamsulosin HCl (Flomax) 0.4 mg PEG QPM [facility] Stop: 10/21/18 20:59 Last Admin: 09/22/18 20:43 Dose: 0.4 mg
[2018-09-22] MEDS: TAMSULOSIN HCL 0.4 MG CAP PEG SCH (20:43)
[2018-09-22] MEDS: ATORVASTATIN 40 MG TAB PEG SCH (20:43)
[2018-09-22] MEDS: SILVER SULFADIAZINE 1% CR 50 GM JAR EXT SCH (20:44)
[2018-09-23] MEDS: LEVOTHYROXINE SODIUM 100 MCG TABLET PO SCH (05:47)
[2018-09-23] MEDS: [UNRECOGNIZED DRUG - REMARK] SCH (05:47)
[2018-09-23] MEDS: CARBIDOPA/LEVODOPA 25/100MG TAB PEG SCH ×2 (05:48→13:02)
[2018-09-23 06:48] LABS: Hematocrit (blood only) 41.4 % (42-52); Hemoglobin 13.4 g/dL (14.0-18.0); Mean Corpuscular Hgb Conc 32.4 g/dL (32-36); Mean Platelet Volume 10.8 fL (7.4-10.4); Platelet Count 195 K/uL (130-400); RDW Coefficient of Variation 14.1 % (11.5-14.5); RDW Standard Deviation 50.2 fL (36.4-46.3); Red Blood Count 4.27 M/uL (4.7-6.1); White Blood Count 9.76 K/uL (4.8-10.8)
[2018-09-23 07:22] LABS: BUN Creatinine Ratio 32.8 (10-20); Calcium 8.6 mg/dl (8.5-10.1); Est GFR (African American) 128.9; Est GFR (Non-African American) 111.2; Potassium 3.8 mmol/L (3.5-5.1)
[2018-09-23] MEDS: CLOPIDOGREL BISULFATE 75 MG TAB PEG SCH (08:48)
[2018-09-23] MEDS: ESCITALOPRAM OXALATE 10 MG TAB PO SCH (08:48)
[2018-09-23] MEDS: LISINOPRIL 20 MG TAB PO SCH (08:49)
[2018-09-23] MEDS: ASPIRIN 81 MG CHEW PO SCH (08:49)
[2018-09-23] MEDS: ENOXAPARIN INJ 40 MG/0.4 ML SYR SQ SCH (08:50)
[2018-09-23] MEDS: ESCITALOPRAM OXALATE 20 MG TAB PO SCH (08:50)
[2018-09-23] MEDS: MAGNESIUM OXIDE 400 MG TAB PEG SCH (08:50)
[2018-09-23] MEDS: GABAPENTIN 250 MG/5 ML 470 ML BTL PO SCH ×3 (09:00→21:00)
[2018-09-23] MEDS: PEPTAMEN 1.5 CAL 1,000 ML BAG PEG SCH ×3 (09:30→21:00)
[2018-09-23] MEDS: SILVER SULFADIAZINE 1% CR 50 GM JAR EXT SCH ×2 (11:27→21:00)
[2018-09-23] MEDS: HYDROCODONE/ACETAMOPHEN 5/325MG TAB PO PRN ×2 (13:04→23:44)
--- NOTE | 2018-09-23 13:44 | Neurology Consultation ---
Date of Consultation September 23, 2018 Assessment & Plan (1) Altered mental status: 1. UA no source of infection found 2. pain- generalized would r/o any abdominal issues 3. Sinemet was to be weaned in 2014 and likely not helping with symptoms could be weaned while in hospital 4. MRI may be helpful to r/o new stroke event but would not likely change patient managment 5. continue aspirin 81 mg and plavix 75 mg daily 6. optimize HTN, HLD, DM LDL <70 7. currently on statin 40 mg 8. labs- b12, folate, TSH, CK, sed rate b1 for reversible causes 9. further recommendations to follow. Supervising Physician Co-Signing Physician Notes I have seen and discussed above patient with Dr Reggie Mon. Patient was seen and examined. Agree with Victorina Gutierrez as noted below. as bedside. Patient has residual left sided hemiparesis, dysarthria, dysphagia, and cognitive deficits. He is on dual antiplatlet therapy. S/p PEG. Noted to have increased confusion and and visual hallucinations. On examine patient is obtunded but reports this is not uncommon for him given his disrupted sleep wake cycle. He does arouse to voice and comprehension is intact. No clonus. Moving right arm well. Left hemiparesis and facial droop present. I suspect the visual hallucinations were peduncular hallucinations which is commonly described in the setting of sleep-wake cycle disturbance. Vascular lesion involving the brainstem is commonly reported in peduncular hallucinations. Discussed with at bedside. Would recommend MRI brain w/wo contrast to exclude new stroke or evidence to suggest PRES. Recent CT brain non contrast is motion degraded. Patient mental status has improved and is less agitated. Agreeable to MRI brain. Patient would benefit from sleep medicine referral as outpatient. 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 In the evening he developed hallucinations and increased confusion from baseline. He was having full conversations with people that were not there. He has been awake for the past 2 days, which is not uncommon for him. He has chronic left hemiparesis which is unchanged from baseline. He had diarrhea last week which is since resolved. His urine was a little darker and had a stronger odor. He had a PEG tube placed after the stroke which reports there has been an ulcer around the site however no surrounding erythema or purulent drainage. He does have atropine drops intermittently for secretions. he was last seen by neurology in 2014, he was seen at that time for post cardiac cath CVA with basilar artery occlusion. It was noted at that time he had right hemiparesis and some weakness in the left LE. He had Atypical parkinsons finding and taking Sinemet 25 mg BID at that time. he was following commands and somewhat ambulatory at that time. Dr Augustine plan was to taper off the Sinement if he had no other symptoms. There is no family in the room and he is currently repeating that he is in pain. He is unable to localize the pain states it is "all over" Allergies Allergy/AdvReac Type Severity Reaction Status Date / Time Penicillins Allergy Intermediate RASH Verified 09/20/18 20:31 Home Medications Home Medications Medication Instructions Recorded Confirmed Type acetaminophen [Mapap 650 mg FEEDING TUBE Q4H PRN 04/18/18 09/20/18 History (acetaminophen)] albuterol sulfate 2.5 mg INHALATION QID PRN 04/18/18 09/20/18 History aspirin [Aspirin Low Dose] 81 mg FEEDING TUBE DAILY 04/18/18 09/20/18 History atorvastatin 40 mg FEEDING TUBE HS 04/18/18 09/20/18 History carbidopa-levodopa [Sinemet] 1 tab FEEDING TUBE BID 04/18/18 09/20/18 History clopidogrel [Plavix] 75 mg FEEDING TUBE DAILY 04/18/18 09/20/18 History dextroamphetamine-amphetamine 15 mg FEEDING TUBE BID 04/18/18 09/20/18 History escitalopram oxalate [Lexapro] 10 mg FEEDING TUBE DAILY 04/18/18 09/20/18 History escitalopram oxalate [Lexapro] 20 mg FEEDING TUBE DAILY 04/18/18 09/20/18 History gabapentin 200 mg FEEDING TUBE TID 04/18/18 09/20/18 History hydralazine 25 mg FEEDING TUBE BID 04/18/18 09/20/18 History hydrocodone-acetaminophen 1 tab FEEDING TUBE Q4H 04/18/18 09/20/18 History lisinopril 20 mg FEEDING TUBE DAILY 04/18/18 09/20/18 History magnesium oxide 400 mg FEEDING TUBE DAILY 04/18/18 09/20/18 History metformin 500 mg FEEDING TUBE BID 04/18/18 09/20/18 History nitroglycerin 0.4 mg SUBLINGUAL DIRECTED 04/18/18 09/20/18 History ranitidine HCl 150 mg FEEDING TUBE BID 04/18/18 09/20/18 History tamsulosin 0.4 mg PO QPM 04/18/18 09/20/18 History polyethylene glycol 3350 [Miralax] 17 g FEEDING TUBE DAILY PRN 07/14/18 History atropine [Isopto Atropine] 2 drp SUBLINGUAL UD PRN 09/20/18 09/20/18 History lactose-reduced food with fibr 1,000 ml FEEDING TUBE HS 09/20/18 09/20/18 History [Isosource 1.5 Billy] lactose-reduced food with fibr 250 ml FEEDING TUBE BID 09/20/18 09/20/18 History [Isosource 1.5 Billy] levothyroxine [Synthroid] 100 mcg FEEDING TUBE DAILY 09/20/18 09/20/18 History selenium sulfide [Selsun Blue] 1 applic TOPICAL [id number] 09/20/18 09/20/18 History sennosides-docusate sodium [Senna 1 tab FEEDING TUBE DAILY PRN 09/20/18 History with Docusate Sodium] Patient History Medical History DM type 2 (diabetes mellitus, type 2) (Chronic) History of ischemic vertebrobasilar artery brainstem stroke (Chronic) Anxiety (Chronic) Depression (Chronic) Hemiparesis affecting left side as late effect of cerebrovascular accident ( Chronic) Neuropathy (Chronic) Gastroparesis (Chronic) Dysphasia (Chronic) GERD (gastroesophageal reflux disease) (Chronic) Hypertension (Chronic) Basilar artery occlusion (Chronic) CAD, multiple vessel (Chronic) Hypothyroidism (Chronic) Dyslipidemia (Chronic) CVA (cerebral infarction) (Inactive) "BA occlusion with b/l [employer] territory infarcts, right thalamic infarct, hippocampi infarcts 01/03/14." Coronary artery disease (Inactive) Hypertension (Inactive) Surgical History History of tonsillectomy and adenoidectomy (Chronic) Previous back surgery (Chronic) S/P percutaneous endoscopic gastrostomy (PEG) tube placement (Chronic) Family History Other Family history non-contributory Social History marital status: Current Living Situation: Spouse Current Living Situation Comment: At home with spouse and caregivers Other Information That Helps Us Care for You: No Feels Safe at Home: Yes Smoking Status: Former smoker Hx Alcohol Use: No Hx Substance Use: No Beliefs That Will Affect Care: None Communication Ability: Effective Physical Exam 2 Vital Signs (Past 24 Hours): Last Vital Signs Temp 36.8 C 09/23/18 11:15 Pulse 60 09/23/18 11:15 Resp 20 09/23/18 11:15 BP 131/76 09/23/18 11:15 Pulse Ox 93 09/23/18 11:15 Physical Exam: Constitutional: appearance over nourished, ill appearing Ears, Nose, Mouth and Throat: mucous membranes moist, no injection and skin normal, eyes normal Cardiovascular: normal S-1 and S-2 and regular rate and rhythm Respiratory: coure breath sounds Musculoskeletal: left hand and foot contracture Skin: bilateral heel skin tears Eyes: extraocular muscles intact (EOMI) and pupils equal, round and reactive to light (PERRL) NEUROLOGIC EXAMINATION: Mental status: Alert and interactive Oriented to person Speech slurred and only say he is having pain "all over" Cranial Nerves some right sided nasolabial flattening Reflexes: Deep tendon reflexes were brisk Sensory: unable to assess Coordination: does not follow command, no cogwheeling or resting tremor, left arm flaccid Gait/Stance: Posture sitting up in bed. Motor: unable to assess Strength: unable to cooperate for assessment Results & Data Laboratory Results Abnormal lab results 09/22/18 09/23/18 09/23/18 Range/Units 16:07 06:32 06:32 RBC 4.27 L (4.7-6.1) M/uL Hgb 13.4 L (14.0-18.0) g/dL Hct 41.4 L (42-52) % RDW Std Deviation 50.2 H (36.4-46.3) fL MPV 10.8 H (7.4-10.4) fL Creatinine 0.51 L (0.6-1.4) mg/dl BUN/Creatinine Ratio 32.8 H (10-20) Glucose 115 H (70-99) mg/dl POC Glucose 121 H (70-99) 09/23/18 09/23/18 Range/Units 07:14 11:36 RBC (4.7-6.1) M/uL Hgb (14.0-18.0) g/dL Hct (42-52) % RDW Std Deviation (36.4-46.3) fL MPV (7.4-10.4) fL Creatinine (0.6-1.4) mg/dl BUN/Creatinine Ratio (10-20) Glucose (70-99) mg/dl POC Glucose 137 H 163 H (70-99) Diagnostic Findings CT head- here is no hemorrhage, mass effect, or evidence of acute territorial ischemia by CT criteria noting a motion compromise examination.
--- NOTE | 2018-09-23 16:47 | Hospitalist Progress Note ---
Date of Service September 23, 2018 Assessment & Plan (1) Altered mental status: Continues to sleep after several days of insomnia, which is expected. Again, removed the Adderall to help improve sleep issues and promote appetite. As he is lethargic, he is difficult to examine. Neuro recs pending. (2) Leukocytosis: resolved (3) History of ischemic vertebrobasilar artery brainstem stroke: -No new deficits noted on exam. Sleeping today. Speech, visual changes at baseline. Weakness on Left side chronically. -Continue aspirin, Plavix, statin (4) DM type 2 (diabetes mellitus, type 2): -Hgb A1c 5.4 and reports that patient is not a diabetic, only takes metformin for weight loss purposes. FSG checks and insulin coverage was discontinued. (5) Hypertension: -BP controlled, continue hydralazine and lisinopril (6) CAD, multiple vessel: -Stable, no EKG changes. Cont home medical therapy. (7) S/P percutaneous endoscopic gastrostomy (PEG) tube placement: Tolerating tube feeds. Apprec GI involvement. Used topical solution on PEG site ulceration. Cont outpatient management. (8) Neuropathy: -Continue gabapentin (9) Anxiety: (10) Depression: -Continue escitalopram (11) Hypothyroidism: -Continue levothyroxine (12) DVT prophylaxis: -SQ Lovenox DNR Dispo-hospitalized until AMS completely resolves. Ashley Dorman DO [facility] Hospitalist Subjective ROS canont be obtained 2/2 somnolence. Per nurse pt has woken up and asked for something to drink which he handled well Continues to tolerate tube feeds. Physical Exam 2 Vital Signs (Past 24 Hours): Last Vital Signs Temp 36.8 C 09/23/18 14:46 Pulse 57 L 09/23/18 14:46 Resp 16 09/23/18 14:46 BP 146/65 H 09/23/18 14:46 Pulse Ox 94 09/23/18 14:46 CONSTITUTIONAL: WNWD, vitals as above, somnolent. Mumbles nonwords when prompted to awaken. Bedbound 2/2 stroke ENT: MM RESPIRATORY: clear to auscultation bilaterally, no crackles, rales or wheezes, normal respiratory effort CARDIOVASCULAR: regular rate and rhythm, S1 and 2 heard without murmurs, gallops or rubs, no JVD, no peripheral edema GASTROINTESTINAL: normal bowel sounds, soft, nontender, nondistended MUSCULOSKELETAL: cannot assess as patient is sleeping. SKIN: warm and dry, small PEG site ulcer that is approx 1cm without surrounding erythema NEUROLOGIC: could not assess as patient was sleeping. Results & Data Medications Administered Current Inpatient Medications Hydrocodone Bitart/Acetaminophen ([place] 5/325) 1 tab PO BID PRN PRN Reason: severe pain Stop: 10/05/18 20:59 Last Admin: 09/23/18 23:44 Dose: 1 tab Aspirin (Aspirin Chew) 81 mg PO DAILY [facility] Stop: 10/21/18 08:59 Last Admin: 09/23/18 08:49 Dose: 81 mg Atorvastatin Calcium (Lipitor) 40 mg PEG HS [facility] Stop: 10/21/18 20:59 Last Admin: 09/23/18 21:00 Dose: 40 mg Carbidopa/Levodopa (Sinemet 25/100 Mg) 1 tab PEG BID@0700,1200 [facility] Stop: 10/21/18 06:59 Last Admin: 09/24/18 06:32 Dose: 1 tab Clopidogrel Bisulfate (Plavix) 75 mg PEG DAILY [facility] Stop: 10/21/18 08:59 Last Admin: 09/23/18 08:48 Dose: 75 mg Enoxaparin Sodium (Lovenox) 40 mg SQ QAM [facility] Stop: 10/22/18 08:59 Last Admin: 09/23/18 08:50 Dose: 40 mg Enteral Nutritional Formula (Peptamen 1.5) 1,000 ml PEG DAILY@2000 PAVITHRA; Protocol Stop: 10/21/18 19:59 Last Admin: 09/23/18 21:00 Dose: 1,000 ml Enteral Nutritional Formula (Peptamen 1.5) 250 ml PEG DAILY@0730,1200 PAVITHRA; Protocol Stop: 10/22/18 07:29 Last Admin: 09/23/18 11:27 Dose: 250 ml Escitalopram Oxalate (Lexapro) 10 mg PO DAILY [facility] Stop: 10/21/18 08:59 Last Admin: 09/23/18 08:48 Dose: 10 mg Escitalopram Oxalate (Lexapro) 20 mg PO DAILY [facility] Stop: 10/21/18 08:59 Last Admin: 09/23/18 08:50 Dose: 20 mg Gabapentin (Neurontin) 200 mg PO TID [facility] Stop: 10/21/18 08:59 Last Admin: 09/23/18 21:00 Dose: 200 mg Glucose (Dex4 Glucose) 4 - 8 tabs PO UD PRN; Protocol PRN Reason: Hypoglycemia Protocol Stop: 10/21/18 00:22 Hydralazine HCl (Apresoline) 25 mg PEG BID [facility] Stop: 10/21/18 08:59 Last Admin: 09/23/18 21:00 Dose: 25 mg Levothyroxine Sodium (Synthroid) 100 mcg PO DAILYBB [facility] Stop: 10/21/18 06:29 Last Admin: 09/24/18 06:32 Dose: 100 mcg Lisinopril (Zestril) 20 mg PO DAILY [facility] Stop: 10/21/18 08:59 Last Admin: 09/23/18 08:49 Dose: 20 mg Magnesium Oxide (Mag-Ox) 400 mg PEG DAILY [facility] Stop: 10/21/18 08:59 Last Admin: 09/23/18 08:50 Dose: 400 mg Miscellaneous (Stop Order) 1 ea N/A DAILY@0600 [facility] Stop: 10/22/18 05:59 Last Admin: 09/24/18 06:40 Dose: 1 ea Polyethylene Glycol (Miralax Powder Packet) 17 gm PEG DAILY PRN PRN Reason: Constipation Stop: 10/21/18 00:22 Ranitidine HCl (Zantac) 150 mg PO BID [facility] Stop: 10/21/18 08:59 Last Admin: 09/23/18 21:00 Dose: 150 mg Senna/Docusate Sodium (Senokot S) 1 tab PO DAILY PRN PRN Reason: Constipation Stop: 10/21/18 00:22 Silver Sulfadiazine (Silvadene 1% 50gm) 1 appln EXT BID [facility] Stop: 10/22/18 20:59 Last Admin: 09/23/18 21:00 Dose: 1 appln Tamsulosin HCl (Flomax) 0.4 mg PEG QPM [facility] Stop: 10/21/18 20:59 Last Admin: 09/23/18 21:00 Dose: 0.4 mg
[2018-09-23] MEDS: ATORVASTATIN 40 MG TAB PEG SCH (21:00)
[2018-09-23] MEDS: TAMSULOSIN HCL 0.4 MG CAP PEG SCH (21:00)
[2018-09-24 06:03] LABS: Hematocrit (blood only) 40.2 % (42-52); Hemoglobin 12.7 g/dL (14.0-18.0); Mean Corpuscular Hgb Conc 31.6 g/dL (32-36); Mean Corpuscular Volume 99.5 fL (80-100); Mean Platelet Volume 10.9 fL (7.4-10.4); Platelet Count 210 K/uL (130-400); RDW Coefficient of Variation 14.1 % (11.5-14.5); RDW Standard Deviation 51.1 fL (36.4-46.3); Red Blood Count 4.04 M/uL (4.7-6.1); White Blood Count 11.06 K/uL (4.8-10.8)
[2018-09-24] MEDS: LEVOTHYROXINE SODIUM 100 MCG TABLET PO SCH (06:32)
[2018-09-24] MEDS: CARBIDOPA/LEVODOPA 25/100MG TAB PEG SCH ×2 (06:32→13:03)
[2018-09-24] MEDS: [UNRECOGNIZED DRUG - REMARK] SCH (06:40)
[2018-09-24] MEDS: PEPTAMEN 1.5 CAL 1,000 ML BAG PEG SCH ×3 (08:39→21:49)
[2018-09-24] MEDS: LISINOPRIL 20 MG TAB PO SCH (08:40)
[2018-09-24] MEDS: ASPIRIN 81 MG CHEW PO SCH (08:40)
[2018-09-24] MEDS: GABAPENTIN 250 MG/5 ML 470 ML BTL PO SCH ×3 (08:40→22:10)
[2018-09-24] MEDS: ESCITALOPRAM OXALATE 10 MG TAB PO SCH (08:41)
[2018-09-24] MEDS: ESCITALOPRAM OXALATE 20 MG TAB PO SCH (08:41)
[2018-09-24] MEDS: ENOXAPARIN INJ 40 MG/0.4 ML SYR SQ SCH (08:41)
[2018-09-24] MEDS: MAGNESIUM OXIDE 400 MG TAB PEG SCH (08:41)
[2018-09-24] MEDS: CLOPIDOGREL BISULFATE 75 MG TAB PEG SCH (08:41)
[2018-09-24] MEDS: HYDROCODONE/ACETAMOPHEN 5/325MG TAB PO PRN ×2 (08:44→22:23)
[2018-09-24] MEDS: SILVER SULFADIAZINE 1% CR 50 GM JAR EXT SCH ×2 (08:45→21:51)
[2018-09-24 09:34] LABS: Folate (Folic Acid) 11.61 ng/ml (>5.38)
[2018-09-24] MEDS ORDERED: GADOBUTROL 30ML VIAL IV PRN (10:10)
--- NOTE | 2018-09-24 10:18 | Neurology Progress Note ---
Date of Service September 24, 2018 Hypersomnia Obesity Left Hemiparesis Prior Brainstem Stroke Coagulopathy Mr. Nikita Jiang is a 67 year old male with history of prior CVA on dual antiplaltet with MRS of 4 admitted for hypersomnia and intermittent visual hallucinations which have now resolved. Hypersomnia is not new per patient . Also states patient has had disrupted sleep wake cycle for some time which may be related to previous CVA. Repeat MRI brain is Negative for new stroke. - I suspect patient transient visual hallucinations were peduncular hallucinations and related to sleep disturbance Vs delirium. Visual hallucinations have resolved. MRI shows no evidence of new stroke or PRES. - B12 and TSH normal. ESR 23. CK 329. Thiamine pending. Folate normal. - Patient would benefit from sleep medicine referral as outpatient. He is high risk for ADAN and would benefit from sleep study. Discussed with patient and his at bedside. Please call me with any further questions or concerns. Assessment & Plan (1) Altered mental status: 1. UA no source of infection found 2. pain- generalized would r/o any abdominal issues 3. Sinemet was to be weaned in 2014 and likely not helping with symptoms could be weaned while in hospital 4. MRI may be helpful to r/o new stroke event but would not likely change patient managment 5. continue aspirin 81 mg and plavix 75 mg daily 6. optimize HTN, HLD, DM LDL <70 7. currently on statin 40 mg 8. labs- b12, folate, TSH, CK, sed rate b1 for reversible causes Subjective Patient was seen and examined. at bedside. Patient asleep but wakes to voice. He is very lethargic but following simple commands. He is disoriented to time. Recognizes . Denies visual hallucinations. Requesting grape gatorade for thirst. Denies any questions or concerns at this time. Physical Exam 2 Vital Signs (Past 24 Hours): Last Vital Signs Temp 37.1 C 09/24/18 07:41 Pulse 59 L 09/24/18 07:41 Resp 16 09/24/18 07:41 BP 124/70 09/24/18 07:41 Pulse Ox 96 09/24/18 07:41 Physical Exam: EXAM: Constitutional: obtunded, appearrs chronically ill, morbidly obese Head and Face: normocephalic and atraumatic Eyes: normal lids, normal conjunctiva Neck: supple Respiratory: normal effort Cardiovascular: and normal pulses Skin: no rashes, lesions, or ulcers noted Psychiatric: normal mood NEUROLOGIC EXAMINATION: Appearance: no acute distress Orientation: requires stimulation to stay awake, oriented to person, state, disoriented to time and season, oriented to the year Mental Status: Obtunded Memory: Poor Attention: Decreased Knowledge: Poor Language: following simple commands Speech: mild dysarthria Cranial Nerves: CN 2 - no visual defect on confrontation and pupils round, equal, reactive to light CN 3, 4, 6 - extra-ocular movements intact and no nystagmus CN 5 - facial sensation intact CN 7 - left facial droop CN 8 - intact hearing CN 9, 10 - palate symmetric CN 11 - good shoulder shrug CN 12 - tongue midline Gait: unable to ambulate Coordination: no tremor or dyskinesias Sensory: intact to noxious stimuli Muscle exam: MOving right upper and lower extremity against gravity, able to move left toes and flex the knee on the left, no movement in left upper extremity Reflexes: Mclean negative, no clonus, Results & Data Diagnostic Findings MRI Brain 09/23/2018 w/wo: 1. No acute intracranial abnormality identified, specifically no acute or subacute infarction. 2. Age-related involutional changes with moderate chronic microvascular ischemic changes. 3. No abnormal enhancement.
--- NOTE | 2018-09-24 10:28 | Magnetic Resonance Report ---
MR brain wo/w con HISTORY: 67 years-old Male altered mental status, h/o stroke acute confusion with headache and strok elike symptoms COMPARISON: CT head 09/20/2018 TECHNIQUE: Multiplanar multisequence MRI of the brain was obtained both with and without the use of 1 1 mL Gadavist FINDINGS: The hydrostatic tubing tester localizer images demonstrate no gross abnormality. Study is mildly motion degraded. There is no restricted diffusion to suggest acute or subacute infarction. The midline structures incl uding the corpus callosum, brainstem, optic chiasm, pituitary and pineal glands appear unremarkable o n the sagittal T1 series. No cerebellar tonsillar herniation. Degenerative changes are noted about th e imaged cervical spine. Age-related involutional changes with ex vacuo ventriculomegaly. Moderate T2/FLAIR hyperintensities a bout the white matter suggests chronic microvascular ischemic changes. There is no acute intracranial hemorrhage, midline shift, abnormal extra-axial collections, hydrocephalus or intracranial mass. The re is no abnormal intra-axial or extra-axial enhancement identified. The major flow voids at the level of the skull base appear patent. Mastoid air cells are clear. Mild mucosal thickening of the ethmoid air cells and nasal turbinates. Mild rightward bowing and spurring of the nasal septum. The skull, orbits and soft tissues appear unremarkable. IMPRESSION: 1. No acute intracranial abnormality identified, specifically no acute or subacute infarction. 2. Age-related involutional changes with moderate chronic microvascular ischemic changes. 3. No abnormal enhancement. The above report was generated using voice recognition software. It may contain grammatical, syntax o r spelling errors. Electronically signed by: Sher Fischer M.D. 09/24/2018 10:27 AM
[2018-09-24] MEDS ORDERED: MICONAZOLE NITRATE POWDER 43 GM EXT PRN (11:30)
--- NOTE | 2018-09-24 18:30 | Hospitalist Progress Note ---
Date of Service September 24, 2018 Assessment & Plan (1) Altered mental status: Sleepy but arousable and can be reoriented. Adderall stopped this admission to help improve sleep issues and promote appetite. This sleepiness is expected after several days of insomnia. Cont to allow him to recuperate and then reassess. Neuro following. (2) History of ischemic vertebrobasilar artery brainstem stroke: -No new deficits noted on exam. Sleeping today. Speech, visual changes at baseline. Weakness on Left side chronically. -Continue aspirin, Plavix, statin (3) DM type 2 (diabetes mellitus, type 2): -Hgb A1c 5.4 and reports that patient is not a diabetic, only takes metformin for weight loss purposes. FSG checks and insulin coverage was discontinued. (4) Hypertension: -BP controlled, continue hydralazine and lisinopril (5) CAD, multiple vessel: -Stable, no EKG changes. Cont home medical therapy. (6) S/P percutaneous endoscopic gastrostomy (PEG) tube placement: Tolerating tube feeds. Apprec GI involvement. Used topical solution on PEG site ulceration. Cont outpatient management. (7) Neuropathy: -Continue gabapentin (8) Anxiety: (9) Depression: -Continue escitalopram (10) Hypothyroidism: -Continue levothyroxine (11) DVT prophylaxis: -SQ Lovenox DNR Dispo-hospitalized until AMS completely resolves. Ashley Dorman DO [facility] Hospitalist Subjective ROS is not obtainable as patient is sleeping today Tolerating Tube feeds Physical Exam 2 Vital Signs (Past 24 Hours): Last Vital Signs Temp 36.3 C L 09/24/18 15:44 Pulse 57 L 09/24/18 15:44 Resp 16 09/24/18 15:44 BP 145/71 H 09/24/18 15:44 Pulse Ox 93 09/24/18 15:44 CONSTITUTIONAL: WNWD, vitals as above, somnolent. Oriented when awoken but doesn't stay awake very long. Bedbound 2/2 stroke. Able to follow instructions. ENT: MMM RESPIRATORY: clear to auscultation bilaterally, no crackles, rales or wheezes, normal respiratory effort CARDIOVASCULAR: regular rate and rhythm, S1 and 2 heard without murmurs, gallops or rubs, no JVD, no peripheral edema GASTROINTESTINAL: normal bowel sounds, soft, nontender, nondistended MUSCULOSKELETAL: cannot assess as patient is sleeping. SKIN: warm and dry, small PEG site ulcer that is approx 1cm without surrounding erythema NEUROLOGIC: limited 2/2 somnolence but is able to be reoriented upon awakening and he can follow instructions. Results & Data Medications Administered Current Inpatient Medications Hydrocodone Bitart/Acetaminophen ([place] 5/325) 1 tab PO BID PRN PRN Reason: severe pain Stop: 10/05/18 20:59 Last Admin: 09/24/18 22:23 Dose: 1 tab Aspirin (Aspirin Chew) 81 mg PO DAILY [facility] Stop: 10/21/18 08:59 Last Admin: 09/24/18 08:40 Dose: 81 mg Atorvastatin Calcium (Lipitor) 40 mg PEG HS [facility] Stop: 10/21/18 20:59 Last Admin: 09/24/18 21:51 Dose: 40 mg Carbidopa/Levodopa (Sinemet 25/100 Mg) 1 tab PEG BID@0700,1200 [facility] Stop: 10/21/18 06:59 Last Admin: 09/25/18 06:27 Dose: 1 tab Clopidogrel Bisulfate (Plavix) 75 mg PEG DAILY [facility] Stop: 10/21/18 08:59 Last Admin: 09/24/18 08:41 Dose: 75 mg Enoxaparin Sodium (Lovenox) 40 mg SQ QAM [facility] Stop: 10/22/18 08:59 Last Admin: 09/24/18 08:41 Dose: 40 mg Enteral Nutritional Formula (Peptamen 1.5) 1,000 ml PEG DAILY@2000 [facility]; Protocol Stop: 10/21/18 19:59 Last Admin: 09/24/18 21:49 Dose: 1,000 ml Enteral Nutritional Formula (Peptamen 1.5) 250 ml PEG DAILY@0730,1200 [facility]; Protocol Stop: 10/22/18 07:29 Last Admin: 09/25/18 07:56 Dose: 250 ml Escitalopram Oxalate (Lexapro) 10 mg PO DAILY [facility] Stop: 10/21/18 08:59 Last Admin: 09/24/18 08:41 Dose: 10 mg Escitalopram Oxalate (Lexapro) 20 mg PO DAILY [facility] Stop: 10/21/18 08:59 Last Admin: 09/24/18 08:41 Dose: 20 mg Gabapentin (Neurontin) 200 mg PO TID [facility] Stop: 10/21/18 08:59 Last Admin: 09/24/18 22:10 Dose: 200 mg Gadobutrol (Gadavist 30ml) 11 ml IV ONCE PRN PRN Reason: Interaction Checking Stop: 09/28/18 10:09 Last Admin: 09/24/18 10:10 Dose: 11 ml Glucose (Dex4 Glucose) 4 - 8 tabs PO UD PRN; Protocol PRN Reason: Hypoglycemia Protocol Stop: 10/21/18 00:22 Hydralazine HCl (Apresoline) 25 mg PEG BID [facility] Stop: 10/21/18 08:59 Last Admin: 09/24/18 21:50 Dose: 25 mg Levothyroxine Sodium (Synthroid) 100 mcg PO DAILYBB [facility] Stop: 10/21/18 06:29 Last Admin: 09/25/18 06:27 Dose: 100 mcg Lisinopril (Zestril) 20 mg PO DAILY [facility] Stop: 10/21/18 08:59 Last Admin: 09/24/18 08:40 Dose: 20 mg Magnesium Oxide (Mag-Ox) 400 mg PEG DAILY [facility] Stop: 10/21/18 08:59 Last Admin: 09/24/18 08:41 Dose: 400 mg Miconazole Nitrate (Desenex) 1 appln EXT PRN PRN PRN Reason: Affected Skin Folds Stop: 10/24/18 11:29 Miscellaneous (Stop Order) 1 ea N/A DAILY@0600 [facility] Stop: 10/22/18 05:59 Last Admin: 09/25/18 06:28 Dose: 1 ea Polyethylene Glycol (Miralax Powder Packet) 17 gm PEG DAILY PRN PRN Reason: Constipation Stop: 10/21/18 00:22 Ranitidine HCl (Zantac) 150 mg PO BID [facility] Stop: 10/21/18 08:59 Last Admin: 09/24/18 21:50 Dose: 150 mg Senna/Docusate Sodium (Senokot S) 1 tab PO DAILY PRN PRN Reason: Constipation Stop: 10/21/18 00:22 Silver Sulfadiazine (Silvadene 1% 50gm) 1 appln EXT BID [facility] Stop: 10/22/18 20:59 Last Admin: 09/25/18 07:39 Dose: 1 appln Tamsulosin HCl (Flomax) 0.4 mg PEG QPM [facility] Stop: 10/21/18 20:59 Last Admin: 09/24/18 21:52 Dose: 0.4 mg
[2018-09-24] MEDS: ATORVASTATIN 40 MG TAB PEG SCH (21:51)
[2018-09-24] MEDS: TAMSULOSIN HCL 0.4 MG CAP PEG SCH (21:52)
[2018-09-25] MEDS: CARBIDOPA/LEVODOPA 25/100MG TAB PEG SCH ×2 (06:27→12:03)
[2018-09-25] MEDS: LEVOTHYROXINE SODIUM 100 MCG TABLET PO SCH (06:27)
[2018-09-25] MEDS: [UNRECOGNIZED DRUG - REMARK] SCH (06:28)
[2018-09-25 06:35] LABS: Hematocrit (blood only) 40.7 % (42-52); Hemoglobin 13.2 g/dL (14.0-18.0); Mean Corpuscular Hgb Conc 32.4 g/dL (32-36); Mean Corpuscular Volume 97.4 fL (80-100); Mean Platelet Volume 10.8 fL (7.4-10.4); Platelet Count 203 K/uL (130-400); RDW Coefficient of Variation 14.2 % (11.5-14.5); RDW Standard Deviation 50.4 fL (36.4-46.3); Red Blood Count 4.18 M/uL (4.7-6.1); White Blood Count 8.93 K/uL (4.8-10.8)
[2018-09-25 07:14] LABS: BUN Creatinine Ratio 34.8 (10-20); Calcium 8.3 mg/dl (8.5-10.1); Creatinine Clr Calc Pharmacy 246.3 ml/min; Est GFR (African American) 135.7; Est GFR (Non-African American) 117.1; Potassium 4.1 mmol/L (3.5-5.1)
[2018-09-25] MEDS: SILVER SULFADIAZINE 1% CR 50 GM JAR EXT SCH ×2 (07:39→20:13)
[2018-09-25] MEDS: PEPTAMEN 1.5 CAL 1,000 ML BAG PEG SCH ×3 (07:56→20:15)
[2018-09-25] MEDS: ENOXAPARIN INJ 40 MG/0.4 ML SYR SQ SCH (09:31)
[2018-09-25] MEDS: CLOPIDOGREL BISULFATE 75 MG TAB PEG SCH (09:32)
[2018-09-25] MEDS: ASPIRIN 81 MG CHEW PO SCH (09:32)
[2018-09-25] MEDS: ESCITALOPRAM OXALATE 20 MG TAB PO SCH (09:32)
[2018-09-25] MEDS: MAGNESIUM OXIDE 400 MG TAB PEG SCH (09:32)
[2018-09-25] MEDS: ESCITALOPRAM OXALATE 10 MG TAB PO SCH (09:32)
[2018-09-25] MEDS: LISINOPRIL 20 MG TAB PO SCH (09:33)
[2018-09-25] MEDS: GABAPENTIN 250 MG/5 ML 470 ML BTL PO SCH ×3 (09:36→20:13)
--- NOTE | 2018-09-25 13:11 | Hospitalist Progress Note ---
Date of Service September 25, 2018 Assessment & Plan (1) Altered mental status: Resolved. Pt is more awake today and is oriented. Back to baseline per his . Still somewhat groggy. Anticipate DC in am. PT/OT ordered to stimulate him somewhat. (2) History of ischemic vertebrobasilar artery brainstem stroke: -No new deficits noted on exam. Speech, visual changes at baseline. Weakness on Left side chronically. Appears at baseline. -Continue aspirin, Plavix, statin (3) DM type 2 (diabetes mellitus, type 2): -Hgb A1c 5.4 and reports that patient is not a diabetic, only takes metformin for weight loss purposes. FSG checks and insulin coverage was discontinued. (4) Hypertension: -BP controlled, continue hydralazine and lisinopril (5) CAD, multiple vessel: -Stable, no EKG changes. Cont home medical therapy. (6) S/P percutaneous endoscopic gastrostomy (PEG) tube placement: Tolerating tube feeds. Apprec GI involvement. Used topical solution on PEG site ulceration. Cont outpatient management. (7) Neuropathy: -Continue gabapentin (8) Anxiety: (9) Depression: -Continue escitalopram (10) Hypothyroidism: -Continue levothyroxine (11) DVT prophylaxis: -SQ Lovenox DNR Dispo-anticipate dc to home in am. Ashley Dorman DO [facility] Hospitalist Subjective +tolerating tube feeds starting to wake up more. saying inappropriate comments/making advances which is normal for him per his oriented to situation and date vision is back to baseline as he can read the clock. denies pain, but states he just doesn't feel good but doesn't know why. Physical Exam 2 Vital Signs (Past 24 Hours): Last Vital Signs Temp 37 C 09/25/18 11:42 Pulse 54 L 09/25/18 11:42 Resp 20 09/25/18 11:42 BP 127/59 L 09/25/18 11:42 Pulse Ox 94 09/25/18 11:42 CONSTITUTIONAL: WNWD, vitals as above, somnolent but can be reoriented easily. NAD ENT: MMM RESPIRATORY: clear to auscultation bilaterally, no crackles, rales or wheezes, normal respiratory effort CARDIOVASCULAR: regular rate and rhythm, S1 and 2 heard without murmurs, gallops or rubs, no JVD, no peripheral edema GASTROINTESTINAL: normal bowel sounds, soft, nontender, nondistended MUSCULOSKELETAL: atrophy of leg muscles, generalized weakness. SKIN: warm and dry, small PEG site ulcer that is approx 1cm without surrounding erythema NEUROLOGIC: at his baseline. Results & Data Laboratory Results Short CBC 09/25/18 Range/Units 06:19 WBC 8.93 (4.8-10.8) K/uL Hgb 13.2 L (14.0-18.0) g/dL Hct 40.7 L (42-52) % Plt Count 203 (130-400) K/uL BMP 09/25/18 06:19 Sodium 140 Potassium 4.1 Chloride 107 Carbon Dioxide 27 BUN 16 Creatinine 0.45 L Glucose 113 H Calcium 8.3 L Medications Administered Current Inpatient Medications Hydrocodone Bitart/Acetaminophen ([place] 5/325) 1 tab PO BID PRN PRN Reason: severe pain Stop: 10/05/18 20:59 Last Admin: 09/25/18 13:19 Dose: 1 tab Aspirin (Aspirin Chew) 81 mg PO DAILY [facility] Stop: 10/21/18 08:59 Last Admin: 09/25/18 09:32 Dose: 81 mg Atorvastatin Calcium (Lipitor) 40 mg PEG HS [facility] Stop: 10/21/18 20:59 Last Admin: 09/24/18 21:51 Dose: 40 mg Carbidopa/Levodopa (Sinemet 25/100 Mg) 1 tab PEG BID@0700,1200 [facility] Stop: 10/21/18 06:59 Last Admin: 09/25/18 12:03 Dose: 1 tab Clopidogrel Bisulfate (Plavix) 75 mg PEG DAILY [facility] Stop: 10/21/18 08:59 Last Admin: 09/25/18 09:32 Dose: 75 mg Enoxaparin Sodium (Lovenox) 40 mg SQ QAM [facility] Stop: 10/22/18 08:59 Last Admin: 09/25/18 09:31 Dose: 40 mg Enteral Nutritional Formula (Peptamen 1.5) 1,000 ml PEG DAILY@2000 [facility]; Protocol Stop: 10/21/18 19:59 Last Admin: 09/24/18 21:49 Dose: 1,000 ml Enteral Nutritional Formula (Peptamen 1.5) 250 ml PEG DAILY@0730,1200 [facility]; Protocol Stop: 10/22/18 07:29 Last Admin: 09/25/18 12:03 Dose: 250 ml Escitalopram Oxalate (Lexapro) 10 mg PO DAILY [facility] Stop: 10/21/18 08:59 Last Admin: 09/25/18 09:32 Dose: 10 mg Escitalopram Oxalate (Lexapro) 20 mg PO DAILY [facility] Stop: 10/21/18 08:59 Last Admin: 09/25/18 09:32 Dose: 20 mg Gabapentin (Neurontin) 200 mg PO TID [facility] Stop: 10/21/18 08:59 Last Admin: 09/25/18 13:16 Dose: 200 mg Gadobutrol (Gadavist 30ml) 11 ml IV ONCE PRN PRN Reason: Interaction Checking Stop: 09/28/18 10:09 Last Admin: 09/24/18 10:10 Dose: 11 ml Glucose (Dex4 Glucose) 4 - 8 tabs PO UD PRN; Protocol PRN Reason: Hypoglycemia Protocol Stop: 10/21/18 00:22 Hydralazine HCl (Apresoline) 25 mg PEG BID [facility] Stop: 10/21/18 08:59 Last Admin: 09/25/18 09:32 Dose: 25 mg Levothyroxine Sodium (Synthroid) 100 mcg PO DAILYBB [facility] Stop: 10/21/18 06:29 Last Admin: 09/25/18 06:27 Dose: 100 mcg Lisinopril (Zestril) 20 mg PO DAILY [facility] Stop: 10/21/18 08:59 Last Admin: 09/25/18 09:33 Dose: 20 mg Magnesium Oxide (Mag-Ox) 400 mg PEG DAILY [facility] Stop: 10/21/18 08:59 Last Admin: 09/25/18 09:32 Dose: 400 mg Miconazole Nitrate (Desenex) 1 appln EXT PRN PRN PRN Reason: Affected Skin Folds Stop: 10/24/18 11:29 Miscellaneous (Stop Order) 1 ea N/A DAILY@0600 [facility] Stop: 10/22/18 05:59 Last Admin: 09/25/18 06:28 Dose: 1 ea Polyethylene Glycol (Miralax Powder Packet) 17 gm PEG DAILY PRN PRN Reason: Constipation Stop: 10/21/18 00:22 Ranitidine HCl (Zantac) 150 mg PO BID [facility] Stop: 10/21/18 08:59 Last Admin: 09/25/18 09:32 Dose: 150 mg Senna/Docusate Sodium (Senokot S) 1 tab PO DAILY PRN PRN Reason: Constipation Stop: 10/21/18 00:22 Silver Sulfadiazine (Silvadene 1% 50gm) 1 appln EXT BID [facility] Stop: 10/22/18 20:59 Last Admin: 09/25/18 07:39 Dose: 1 appln Tamsulosin HCl (Flomax) 0.4 mg PEG QPM [facility] Stop: 10/21/18 20:59 Last Admin: 09/24/18 21:52 Dose: 0.4 mg
[2018-09-25] MEDS: HYDROCODONE/ACETAMOPHEN 5/325MG TAB PO PRN (13:19)
[2018-09-25] MEDS: TAMSULOSIN HCL 0.4 MG CAP PEG SCH (20:11)
[2018-09-25] MEDS: ATORVASTATIN 40 MG TAB PEG SCH (20:12)
[2018-09-26] MEDS: HYDROCODONE/ACETAMOPHEN 5/325MG TAB PO PRN ×2 (00:17→09:36)
[2018-09-26] MEDS: LEVOTHYROXINE SODIUM 100 MCG TABLET PO SCH (06:12)
[2018-09-26] MEDS: CARBIDOPA/LEVODOPA 25/100MG TAB PEG SCH ×2 (06:12→11:42)
[2018-09-26] MEDS: [UNRECOGNIZED DRUG - REMARK] SCH (06:13)
[2018-09-26] MEDS: PEPTAMEN 1.5 CAL 1,000 ML BAG PEG SCH ×3 (07:33→20:35)
[2018-09-26] MEDS: CLOPIDOGREL BISULFATE 75 MG TAB PEG SCH (08:53)
[2018-09-26] MEDS: SILVER SULFADIAZINE 1% CR 50 GM JAR EXT SCH ×2 (08:53→20:27)
[2018-09-26] MEDS: ASPIRIN 81 MG CHEW PO SCH (08:54)
[2018-09-26] MEDS: LISINOPRIL 20 MG TAB PO SCH (08:54)
[2018-09-26] MEDS: ESCITALOPRAM OXALATE 10 MG TAB PO SCH (08:54)
[2018-09-26] MEDS: ESCITALOPRAM OXALATE 20 MG TAB PO SCH (08:54)
[2018-09-26] MEDS: ENOXAPARIN INJ 40 MG/0.4 ML SYR SQ SCH (08:54)
[2018-09-26] MEDS: MAGNESIUM OXIDE 400 MG TAB PEG SCH (08:54)
[2018-09-26] MEDS: GABAPENTIN 250 MG/5 ML 470 ML BTL PO SCH ×3 (08:56→20:26)
--- NOTE | 2018-09-26 15:48 | Discharge Summary ---
Date of Service September 26, 2018 Admission HPI Per Admitting Provider 67-year-old male who presents the ED with altered mental status. History is unobtainable from the patient due to his current mental state. is at the bedside who provides the history. Patient's reports that last evening, patient developed hallucinations and increased confusion from baseline. She reports that he was having full conversations with people that were not there. Patient has history of CVA, and reports that since that time patient has long periods (lasting a few days) of awakeness and sleepiness. She reports that he has been awake for the past 2 days, which is not uncommon for him. During my exam, patient is mumbling and moaning which reports is baseline when he is having his "sleepy" days. She reports that he has minimal short-term memory however can usually hold a conversation with her. He has chronic left hemiparesis which is unchanged from baseline. No fevers or chills. reports patient had some diarrhea last week which is since resolved. No vomiting or apparent abdominal pain. No observable shortness of breath, cough, sputum production. reports his urine was a little darker and had a stronger odor today. Patient also has a PEG tube which reports there has been an ulcer around the site however no surrounding erythema or purulent drainage. No new medications or dosage adjustments. reports the patient does use atropine drops intermittently for secretions, which he did receive a dose yesterday before his symptoms started. In the ED, WBC is found to be 18 K but the remainder of his workup was unremarkable. He was given a dose of IV ceftriaxone. Admission Exam Per Admitting Provider Temp 37.0 C 09/20/18 17:13 Pulse 77 09/20/18 22:00 Resp 18 09/20/18 22:00 BP 137/77 09/20/18 22:00 Pulse Ox 94 09/20/18 20:05 Constitutional: WD/WN, vitals as above Eyes: Patient will not open eyes to cooperate for eye exam ENMT: external ear and nose normal, oropharynx normal Respiratory: normal respiratory effort; no respiratory distress Auscultation: + diminished lung sounds Cardiovascular: Rate/Rhythm: regular rate and regular rhythm Vessels: normal peripheral pulses Extremities: no edema Gastrointestinal (Abdomen): normal bowel sounds, soft, nontender, no hepatosplenomegaly PEG tube in place, ulcer noted -no purulent drainage or surrounding erythema Musculoskeletal: Extremities: no cyanosis and no clubbing Bilateral foot drop; left hemiparesis Skin: no rashes, warm and dry Neurologic: Chronic left hemiparesis from prior CVA, no additional gross focal deficits noted, patient does not cooperate for full neurologic exam Psychiatric: Orientation: oriented to person Mumbling/moaning, does respond when name is called Principal Diagnosis Altered mental status with hallucinations likely 2/2 sleep deprivation-resolved h/o CVA Discharge Data Allergies Allergy/AdvReac Type Severity Reaction Status Date / Time Penicillins Allergy Intermediate RASH Verified 09/20/18 20:31 Consultations 09/20/18 21:13 ED Decision to Admit Stat 09/21/18 00:23 Consult Case Management - Discharge Planning Routine 09/21/18 14:30 Consult Gastroenterology Routine 09/22/18 22:49 Consult Neurology Routine Ordered Studies 09/20/18 17:31 CT head/brain wo con Stat 09/24/18 08:08 MR brain wo/w con Routine Hospital Course (1) Altered mental status: (2) Leukocytosis: (3) History of ischemic vertebrobasilar artery brainstem stroke: (4) DM type 2 (diabetes mellitus, type 2): (5) Hypertension: (6) CAD, multiple vessel: (7) S/P percutaneous endoscopic gastrostomy (PEG) tube placement: (8) Neuropathy: (9) Anxiety: (10) Depression: (11) GERD (gastroesophageal reflux disease): (12) Hypothyroidism: 67-year-old man presented to the ER with hallucinations and confusions for 1 day. He was transferred to the ER via EMS. He was admitted to the ospitalist service for further workup and treatment. Lab work revealed a leukocytosis of 18 K however there were no signs of infection that were obvious with a clear urinalysis and a chest x-ray negative for acute pulmonary findings. Head CT was negative for acute intracranial findings, as well. There were no new medications or dosage adjustments in the history, however, he did start receiving sublingual atropine drops several weeks prior. Per the however, use of this was rare to help to manage secretions. He does not receive them more than once every week to 2 weeks. Notably he had been significantly sleep deprived for at least 3 days prior to arrival. 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 His dose of Adderall was 15 mg p.o. twice daily. He is also on [place] 4 times daily for pain. He was also on Sinemet for tremor post stroke, however, this was not reevaluated by neurology in a follow-up appointment and was just continued by the patient. Adderall was stopped, and subsequently the patient fell into a deep sleep the following day remaining somnolent and sleepy for the next 2-3 days. Neurology was consulted at the request of family, and recommended an MRI of the brain which revealed no acute abnormalities. Neurology suspected transient visual hallucinations were a result of peduncular hallucinations and related sleep disturbance versus delirium. Upon awakening, the patient was back to baseline and hallucinations did not continue. Therefore, he was discharged in stable condition at baseline mental status, tolerating p.o., functioning at his physical baseline baseline with no new neurologic deficits. Close neurology follow-up was recommended to re-evaluate medications and adjust accordingly. A sleep medicine referral was recommended, and Adderall was discontinued at discharge. Total Time Total Time Spent Total Time Spent (In Minutes): 60 Total Time Includes: Examination of the Patient, Discharge Planning, Medication Reconciliation and Communication With Other Providers Discharge Plan Discharge Items Patient Disposition: Home - Self-Care Reason For Visit: ALTERED MENTAL STATUS Discharge Diagnosis: Altered mental status with hallucinations likely 2/2 sleep deprivation-resolved h/o CVA Condition: Good Discharge Goals: Improve disease control and Increase independence Activity: Resume your previous activity Non-emergency contact: Primary Care Provider and Neurologist Call non-emergency contact if: you have any medication questions, your symptoms worsen, your pain is not controlled, your pain is worsening, your pain is unusual for you, your pain is concerning for you and you have a fever Follow-up/Referrals: Callum Gan MD [Physician] - Juanito Tom MD [Primary Care Provider] - Diet: Heart Healthy Addtl Provider Instructions: Please take all medications as instructed in discharge list below. You have the following post-hospital appointment: Date & Time 09/29/2018 3:00 PM Provider Juanito Tom MD Department Internal Medicine [facility] It is recommended that you follow-up with [facility] Neurology in the clinic in the next 4-6 weeks for a medication review. It is recommended that you undergo a sleep study. You may obtain a referral to Sleep Medicine from your primary care provider. It was a pleasure taking care of you! Please call if you have any questions or problems. You can reach a [facility] hospitalist on duty at [facility] 24 hours a day by calling [phone]. Take care of yourself. Ashley Dorman, DO [facility] Hospitalist Prescriptions: Continued atorvastatin 40 mg Tablet 40 mg Feeding Tube HS RF: 0 metformin 500 mg Tablet 500 mg Feeding Tube BID RF: 0 acetaminophen [Mapap (acetaminophen)] 325 mg Tablet 650 mg Feeding Tube Q4H PRN (Reason: Pain) RF: 0 hydrocodone-acetaminophen 5-325 mg Tablet 1 tab Feeding Tube Q4H RF: 0 lisinopril 20 mg Tablet 20 mg Feeding Tube DAILY RF: 0 hydralazine 25 mg Tablet 25 mg Feeding Tube BID RF: 0 clopidogrel [Plavix] 75 mg Tablet 75 mg Feeding Tube DAILY RF: 0 aspirin [Aspirin Low Dose] 81 mg Tablet,Delayed Release (Dr/Ec) 81 mg Feeding Tube DAILY RF: 0 tamsulosin 0.4 mg Capsule 0.4 mg PO QPM RF: 0 nitroglycerin 0.4 mg Tablet, Sublingual 0.4 mg Sublingual DIRECTED RF: 0 ranitidine HCl 150 mg Capsule 150 mg Feeding Tube BID RF: 0 gabapentin 100 mg Capsule 200 mg Feeding Tube TID RF: 0 carbidopa-levodopa [Sinemet] 25-100 mg Tablet 1 tab Feeding Tube BID RF: 0 escitalopram oxalate [Lexapro] 10 mg Tablet 10 mg Feeding Tube DAILY RF: 0 escitalopram oxalate [Lexapro] 20 mg Tablet 20 mg Feeding Tube DAILY RF: 0 albuterol sulfate 2.5 mg/0.5 mL Solution For Nebulization 2.5 mg INHALATION QID PRN (Reason: Shortness Of Breath Or Wheezing) RF: 0 magnesium oxide 400 mg Capsule 400 mg Feeding Tube DAILY RF: 0 polyethylene glycol 3350 [Miralax] 17 gram Powder In Packet 17 g Feeding Tube DAILY PRN (Reason: Unknown) RF: 0 levothyroxine [Synthroid] 100 mcg tablet 100 mcg Feeding Tube DAILY RF: 0 sennosides-docusate sodium [Senna with Docusate Sodium] 8.6-50 mg Tablet 1 tab Feeding Tube DAILY PRN (Reason: Constipation) RF: 0 atropine [Isopto Atropine] 1 % drops 2 drp Sublingual UD PRN (Reason: DRY SECRETIONS) RF: 0 selenium sulfide [Selsun Blue] 1 % Shampoo 1 applic TOPICAL 2XWK RF: 0 lactose-reduced food with fibr [Isosource 1.5 Billy] 0.07 gram-1.5 kcal/mL Liquid 250 ml Feeding Tube BID RF: 0 lactose-reduced food with fibr [Isosource 1.5 Billy] 0.07 gram-1.5 kcal/mL Liquid 1,000 ml Feeding Tube HS RF: 0 Discontinued dextroamphetamine-amphetamine 15 mg Tablet 15 mg Feeding Tube BID RF: 0 Stand-Alone Forms: [facility] Discharge Orders: Discharge Order (Routine); Ordered 09/27/18 Ordered By: Ashley Dorman Admission Data Admit Date/Time: 09/20/18 22:39 Attending Provider: Ashley Dorman Admit Provider: Adrian Carmona Primary Care Provider: Juanito Tom Other Providers: Noe Tran ; Tad Bowser ; Victorina Gutierrez ; Callum Gan ; Victorina Shaw ; Kaylene Crocker ; Reggie Mon ; Yenny Silva Service: Telemetry Other Interventions: Discharge Summary Assessment (RN) Last Done: 09/27/18 15:06 DC Date/Time DO NOT enter until pt leaves facility: 09/27/18 17:42
--- NOTE | 2018-09-26 18:54 | Hospitalist Progress Note ---
Date of Service September 26, 2018 Assessment & Plan (1) Altered mental status: Resolved. Back to baseline mental status. (2) History of ischemic vertebrobasilar artery brainstem stroke: -No new deficits noted on exam -Continue aspirin, Plavix, statin (3) DM type 2 (diabetes mellitus, type 2): On metformin for weight loss only. Not a diabetic. (4) Hypertension: -BP controlled, continue hydralazine and lisinopril (5) CAD, multiple vessel: -Stable, no EKG changes -Continue aspirin, Plavix, statin (6) S/P percutaneous endoscopic gastrostomy (PEG) tube placement: -Continue tube feedings (7) Neuropathy: -Continue gabapentin (8) Anxiety: (9) Depression: -Continue escitalopram (10) GERD (gastroesophageal reflux disease): -Continue H2 sharri (11) Hypothyroidism: -Continue levothyroxine (12) DVT prophylaxis: Lovenox. DNR Dispo-was discharged today but was unable to go home. Will stay overnight until am. Ashley Dorman DO [facility] Hospitalist Subjective Feels well and back to baseline today. He denies any visual hallucinations or double vision. He can easily read the clock time on the wall. also feels he is back to his baseline mental status. Physical Exam 2 Vital Signs (Past 24 Hours): Last Vital Signs Temp 36.6 C 09/26/18 16:43 Pulse 51 L 09/26/18 16:43 Resp 18 09/26/18 16:43 BP 152/68 H 09/26/18 16:43 Pulse Ox 94 09/26/18 16:43 CONSTITUTIONAL: WNWD, vitals as above, NAD, alert and appropriate ENT: MMM RESPIRATORY: clear to auscultation bilaterally, no crackles, rales or wheezes, normal respiratory effort CARDIOVASCULAR: regular rate and rhythm, S1 and 2 heard without murmurs, gallops or rubs, no JVD, no peripheral edema GASTROINTESTINAL: normal bowel sounds, soft, nontender, nondistended MUSCULOSKELETAL: atrophy of leg muscles, generalized weakness. SKIN: warm and dry, small PEG site ulcer that is approx 1cm without surrounding erythema NEUROLOGIC: at his baseline. Results & Data Medications Administered Current Inpatient Medications Hydrocodone Bitart/Acetaminophen (Soso 5/325) 1 tab PO BID PRN PRN Reason: severe pain Stop: 10/05/18 20:59 Last Admin: 09/26/18 09:36 Dose: 1 tab Aspirin (Aspirin Chew) 81 mg PO DAILY [facility] Stop: 10/21/18 08:59 Last Admin: 09/26/18 08:54 Dose: 81 mg Atorvastatin Calcium (Lipitor) 40 mg PEG HS [facility] Stop: 10/21/18 20:59 Last Admin: 09/25/18 20:12 Dose: 40 mg Carbidopa/Levodopa (Sinemet 25/100 Mg) 1 tab PEG BID@0700,1200 [facility] Stop: 10/21/18 06:59 Last Admin: 09/26/18 11:42 Dose: 1 tab Clopidogrel Bisulfate (Plavix) 75 mg PEG DAILY [facility] Stop: 10/21/18 08:59 Last Admin: 09/26/18 08:53 Dose: 75 mg Enoxaparin Sodium (Lovenox) 40 mg SQ QAM [facility] Stop: 10/22/18 08:59 Last Admin: 09/26/18 08:54 Dose: 40 mg Enteral Nutritional Formula (Peptamen 1.5) 1,000 ml PEG DAILY@2000 P[facility]; Protocol Stop: 10/21/18 19:59 Last Admin: 09/25/18 20:15 Dose: 1,000 ml Enteral Nutritional Formula (Peptamen 1.5) 250 ml PEG DAILY@0730,1200 P[facility]ITH[facility]; Protocol Stop: 10/22/18 07:29 Last Admin: 09/26/18 11:42 Dose: 250 ml Escitalopram Oxalate (Lexapro) 10 mg PO DAILY [facility] Stop: 10/21/18 08:59 Last Admin: 09/26/18 08:54 Dose: 10 mg Escitalopram Oxalate (Lexapro) 20 mg PO DAILY [facility] Stop: 10/21/18 08:59 Last Admin: 09/26/18 08:54 Dose: 20 mg Gabapentin (Neurontin) 200 mg PO TID [facility] Stop: 10/21/18 08:59 Last Admin: 09/26/18 12:54 Dose: 200 mg Gadobutrol (Gadavist 30ml) 11 ml IV ONCE PRN PRN Reason: Interaction Checking Stop: 09/28/18 10:09 Last Admin: 09/24/18 10:10 Dose: 11 ml Glucose (Dex4 Glucose) 4 - 8 tabs PO UD PRN; Protocol PRN Reason: Hypoglycemia Protocol Stop: 10/21/18 00:22 Hydralazine HCl (Apresoline) 25 mg PEG BID [facility] Stop: 10/21/18 08:59 Last Admin: 09/26/18 08:53 Dose: 25 mg Levothyroxine Sodium (Synthroid) 100 mcg PO DAILYBB [facility] Stop: 10/21/18 06:29 Last Admin: 09/26/18 06:12 Dose: 100 mcg Lisinopril (Zestril) 20 mg PO DAILY [facility] Stop: 10/21/18 08:59 Last Admin: 09/26/18 08:54 Dose: 20 mg Magnesium Oxide (Mag-Ox) 400 mg PEG DAILY [facility] Stop: 10/21/18 08:59 Last Admin: 09/26/18 08:54 Dose: 400 mg Miconazole Nitrate (Desenex) 1 appln EXT PRN PRN PRN Reason: Affected Skin Folds Stop: 10/24/18 11:29 Miscellaneous (Stop Order) 1 ea N/A DAILY@0600 [facility] Stop: 10/22/18 05:59 Last Admin: 09/26/18 06:13 Dose: 1 ea Polyethylene Glycol (Miralax Powder Packet) 17 gm PEG DAILY PRN PRN Reason: Constipation Stop: 10/21/18 00:22 Ranitidine HCl (Zantac) 150 mg PO BID [facility] Stop: 10/21/18 08:59 Last Admin: 09/26/18 08:53 Dose: 150 mg Senna/Docusate Sodium (Senokot S) 1 tab PO DAILY PRN PRN Reason: Constipation Stop: 10/21/18 00:22 Silver Sulfadiazine (Silvadene 1% 50gm) 1 appln EXT BID [facility] Stop: 10/22/18 20:59 Last Admin: 09/26/18 08:53 Dose: 1 appln Tamsulosin HCl (Flomax) 0.4 mg PEG QPM [facility] Stop: 10/21/18 20:59 Last Admin: 09/25/18 20:11 Dose: 0.4 mg
[2018-09-26] MEDS: TAMSULOSIN HCL 0.4 MG CAP PEG SCH (20:22)
[2018-09-26] MEDS: ATORVASTATIN 40 MG TAB PEG SCH (20:22)
[2018-09-27] MEDS: LEVOTHYROXINE SODIUM 100 MCG TABLET PO SCH (06:17)
[2018-09-27] MEDS: [UNRECOGNIZED DRUG - REMARK] SCH (06:17)
[2018-09-27] MEDS: CARBIDOPA/LEVODOPA 25/100MG TAB PEG SCH ×2 (06:18→12:00)
[2018-09-27] MEDS: SILVER SULFADIAZINE 1% CR 50 GM JAR EXT SCH (07:52)
[2018-09-27] MEDS: PEPTAMEN 1.5 CAL 1,000 ML BAG PEG SCH ×2 (07:52→12:00)
[2018-09-27] MEDS: HYDROCODONE/ACETAMOPHEN 5/325MG TAB PO PRN ×2 (09:16→16:25)
[2018-09-27] MEDS: ESCITALOPRAM OXALATE 20 MG TAB PO SCH (09:16)
[2018-09-27] MEDS: GABAPENTIN 250 MG/5 ML 470 ML BTL PO SCH ×2 (09:16→13:13)
[2018-09-27] MEDS: MAGNESIUM OXIDE 400 MG TAB PEG SCH (09:16)
[2018-09-27] MEDS: ESCITALOPRAM OXALATE 10 MG TAB PO SCH (09:16)
[2018-09-27] MEDS: CLOPIDOGREL BISULFATE 75 MG TAB PEG SCH (09:16)
[2018-09-27] MEDS: ASPIRIN 81 MG CHEW PO SCH (09:17)
[2018-09-27] MEDS: LISINOPRIL 20 MG TAB PO SCH (09:17)
[2018-09-27] MEDS: ENOXAPARIN INJ 40 MG/0.4 ML SYR SQ SCH (09:17)
--- NOTE | 2018-09-29 10:04 | Coding Query ---
CODING QUERY To promote full compliance with coding requirements relating to patient care, provider participation is requested in all cases of director of infection control uncertainty. Please assist us with the question(s) below: Coding Question(s): Patient admitted with altered mental status and leukocytosis. Infection ruled out. Please document, if known or suspected, the etiology of the altered mental status. Thank you ! Valentin Frost [facility] Physician's Response(s): transient visual hallucinations were a result of peduncular hallucinations and related sleep disturbance Principal Diagnosis: "that condition established after study, to be chiefly responsible for occasioning the admission of the patient to the hospital for care." Co-Existing Principal Diagnosis: "when two or more diagnoses equally meet the criteria for principal diagnosis as determined by the circumstances of admission, diagnostic work up, and/or therapy provided, and the Alphabetic Index, Tabular List, or another coding guideline does not provide sequencing direction, any one of the diagnoses may be sequenced first." "When the physician has documented what appears to be a current diagnosis in the body of the record, but has not included the diagnosis in the final diagnostic statement, the physician should be asked whether the diagnosis should be added." (Source [facility] 2 QTR90. p3-4) RODOLFO
--- NOTE | 2018-10-06 16:08 | Communication Note ---
Date of Service: Sep 27, 2018 The patient was seen and examined on day of discharge. Physical exam was performed and stable from day prior. He was mentating at baseline with a resolution of hallucinations. He was at his physical baseline which was a bedbound status. He was discharged in stable condition. Sudarshan was present at bedside and assessment and plan was discussed, as she is the patient's primary caregiver and a nurse. Please see discharge summary for further discussion. Ashley Dorman DO [facility] Hospitalist
== END 2018-09-27 17:42 | disposition home or self-care (01) | DRG 887 ==
LOC: ED 17:00 → 2W 22:39

== ENCOUNTER 2018-10-13 19:55 | Inpatient (IN) ==
[2018-10-13] MEDS ORDERED: SODIUM CHLORIDE 0.9% 1000ML 1,000 ML IV SCH (20:30)
[2018-10-13 20:38] LABS: Hemoglobin 13.4 g/dL (14.0-18.0); Mean Corpuscular Hgb Conc 32.7 g/dL (32-36); Mean Corpuscular Volume 98.1 fL (80-100); Mean Platelet Volume 11.5 fL (7.4-10.4); Platelet Count 193 K/uL (130-400); RDW Coefficient of Variation 14.3 % (11.5-14.5); RDW Standard Deviation 51.2 fL (36.4-46.3); Red Blood Count 4.18 M/uL (4.7-6.1)
[2018-10-13 20:46] LABS: Alanine Aminotransferase 18 U/L (12-78); Aspartate Aminotransferase 19 U/L (15-37); BUN Creatinine Ratio 27.1 (10-20); Blood Urea Nitrogen 15 mg/dl (7-18); Calcium 8.9 mg/dl (8.5-10.1); Carbon Dioxide 31 mmol/L (21-32); Chloride 107 mmol/L (98-107); Creatinine Clr Calc Pharmacy 173.5 ml/min; Est GFR (Non-African American) 107.8; Glucose 72 mg/dl (70-99); Magnesium 2.1 mg/dl (1.8-2.4); Potassium 4.1 mmol/L (3.5-5.1); Sodium 143 mmol/L (136-145)
--- NOTE | 2018-10-13 20:47 | XRay Report ---
SINGLE VIEW CHEST CLINICAL HISTORY: Generalized weakness. FINDINGS: An AP, portable, upright chest radiograph is compared to study dated 09/20/2018. The examina tion is degraded by portable technique and patient rotation. The heart is enlarged and there is athe rosclerotic calcification of the thoracic aorta. The pulmonary vasculature is noncongested. Bibasilar atelectasis is observed. There is no airspace consolidation or large pleural effusion. No pneumothor ax is seen. The skeletal structures are osteopenic. The bony thorax is grossly intact. IMPRESSION: Cardiomegaly with no acute cardiopulmonary abnormality. Electronically signed by: Stewart Goldsmith M.D. 10/13/2018 8:46 PM
[2018-10-13 20:56] LABS: Albumin Globulin Ratio 0.7 (0.9-2); Alkaline Phosphatase 91 U/L (45-117); Bilirubin,Total 0.5 mg/dl (0.2-1); Globulin 4.2 gm/dl (2.5-4.0); Total Protein 7.2 gm/dl (6.4-8.2); Troponin I < 0.015 ng/ml (0-0.045)
--- NOTE | 2018-10-13 20:59 | CT Scan Report ---
CT SCAN OF THE BRAIN WITHOUT IV CONTRAST CLINICAL HISTORY: Seizure. COMPARISON STUDY: CT of the brain dated 09/20/2018. TECHNIQUE: Unenhanced axial CT scan of the brain is performed from the vertex to the skull base. A do se lowering technique was utilized adhering to the principles of ALARA. CT DOSE: 691.05 mGy.cm FINDINGS: Brain parenchyma: There are age-related involutional changes noting moderate patchy subcortical and periventricular microangiopathic change. Chronic lacunar infarcts are identified in the right basal g anglia and the right thalamus. There is a small chronic left occipital infarct. There is no hemorrhag e, mass effect, or evidence of acute territorial ischemia by CT criteria. Savage-white matter different iation is preserved. No extra-axial fluid collection is seen. Ventricles, sulci, cisterns: Prominent secondary to involutional change. Intracranial vasculature: There is atherosclerotic calcification of the cavernous carotid arteries. Calvarium: Unremarkable. Sinuses and mastoids: There is an 8 mm retention cyst in the left maxillary antrum. The remaining vis ualized paranasal sinuses are clear. The mastoid air cells are well pneumatized. Orbits: The bony orbits are grossly intact. IMPRESSION: There is no hemorrhage, mass effect, or evidence of acute territorial ischemia by CT marc [facility]. Electronically signed by: Stewart Goldsmith M.D. 10/13/2018 8:58 PM
[2018-10-13 21:33] LABS: Basophils # (auto) 0.03 K/uL (0-0.2); Basophils % (auto) 0.3 %; Eosinophils # (auto) 0.61 K/uL (0-0.5); Eosinophils % (auto) 5.9 %; Immature Granulocytes # (auto) 0.02 K/uL (0.00-0.02); Immature Granulocytes % (auto) 0.2 %; Lymphocytes % (auto) 49.5 %; Monocytes # (auto) 0.62 K/uL (0.11-0.59); Neutrophils # (auto) 3.92 K/uL (1.4-6.5); Neutrophils % (auto) 38.1 %
--- NOTE | 2018-10-14 01:40 | History & Physical Report ---
Date of Service October 14, 2018 Assessment & Plan (1) New onset seizure: hx ischemic brainstem CVA Rule out UTI as possible precipitant CAD as per records hypertension, slight elevated DM 2 on oral meds, well controlled as of recent inpatient hemoglobin A1c of 5.4 last September 2018 aspiration risk status post PEG tube placement hypothyroidism, euthyroid as of recent TSH GMF Seizure precautions, Ativan as needed EEG RE new onset seizures check UA Neurology consult RE new onset seizures (ER provider already in touch with Dr. Gan who recommends Keppra 500 BID following initial load at the ER.) ISS BG goal 140-180, may need basal insulin to attain goal DVT prophylaxis. Lovenox subcu DNR as per patient's previous wishes as per patient .. History of Present Illness Chief Complaint: Seizures as per records Primary Care Provider: Juanito Tom MD History obtained from family, and records. Unable to obtain history from patient secondary to obtunded state. Medical history significant for ischemic brainstem CVA, CAD as per records, hypertension, DM 2 on oral meds, aspiration risk status post PEG tube placement, GERD, hypothyroidism. Recent confinement 3 weeks ago for altered mental status attributed to sleep deprivation. Brain MRI with and without contrast : 1. No acute intracranial abnormality identified, specifically no acute or subacute infarction. 2. Age-related involutional changes with moderate chronic microvascular ischemic changes. 3. No abnormal enhancement. As per patient's , patient noted by caregiver to have involuntary bilateral arm shaking and eye twitching movements for about couple of minutes, subsequent drooling noted, no tongue biting, usual urinary incontinence. Patient noted to be more confused than usual after episode as per . No fever, no chills. No abdominal pain, diarrhea symptoms. No previous episodes. Occasional wheeze noted. No overt cough symptoms noted. At the ER, patient received IV Keppra load for seizure prophylaxis. Medical History as above Surgical History : PEG tube placement, tonsillectomy/adenoidectomy, back surgery Family History : Colon cancer, breast/ovarian cancer, heart disease, diabetes Personal/Social history : Past tobacco abuse, no EtOH intake, disabled, lives w ith Allergies Allergy/AdvReac Type Severity Reaction Status Date / Time Penicillins Allergy Intermediate RASH Verified 09/20/18 20:31 Home Medications Home Medications Medication Instructions Recorded Confirmed Type acetaminophen [Mapap 650 mg FEEDING TUBE Q4H PRN 04/18/18 10/13/18 History (acetaminophen)] albuterol sulfate 2.5 mg INHALATION QID PRN 04/18/18 10/13/18 History aspirin [Aspirin Low Dose] 81 mg FEEDING TUBE DAILY 04/18/18 10/13/18 History atorvastatin 40 mg FEEDING TUBE HS 04/18/18 10/13/18 History carbidopa-levodopa [Sinemet] 1 tab FEEDING TUBE BID 04/18/18 10/13/18 History clopidogrel [Plavix] 75 mg FEEDING TUBE DAILY 04/18/18 10/13/18 History escitalopram oxalate [Lexapro] 10 mg FEEDING TUBE DAILY 04/18/18 10/13/18 History escitalopram oxalate [Lexapro] 20 mg FEEDING TUBE DAILY 04/18/18 10/13/18 History gabapentin 200 mg FEEDING TUBE TID 04/18/18 10/13/18 History hydralazine 25 mg FEEDING TUBE BID 04/18/18 10/13/18 History hydrocodone-acetaminophen 1 tab FEEDING TUBE Q4H PRN 04/18/18 10/13/18 History lisinopril 20 mg FEEDING TUBE DAILY 04/18/18 10/13/18 History magnesium oxide 400 mg FEEDING TUBE DAILY 04/18/18 10/13/18 History metformin 500 mg FEEDING TUBE BID 04/18/18 10/13/18 History nitroglycerin 0.4 mg SUBLINGUAL DIRECTED 04/18/18 10/13/18 History ranitidine HCl 150 mg FEEDING TUBE BID 04/18/18 10/13/18 History tamsulosin 0.4 mg PO QPM 04/18/18 10/13/18 History polyethylene glycol 3350 [Miralax] 17 g FEEDING TUBE DAILY PRN 07/14/18 10/13/18 History Isosource 1.5 Billy 1,000 ml FEEDING TUBE HS 09/20/18 10/13/18 History Isosource 1.5 Billy 250 ml FEEDING TUBE BID 09/20/18 10/13/18 History Selsun Blue 1 applic TOPICAL 2XWK 09/20/18 10/13/18 History atropine [Isopto Atropine] 2 drp SUBLINGUAL UD PRN 09/20/18 10/13/18 History levothyroxine [Synthroid] 100 mcg FEEDING TUBE DAILY 09/20/18 10/13/18 History sennosides-docusate sodium [Senna 1 tab FEEDING TUBE DAILY PRN 09/20/18 10/13/18 History with Docusate Sodium] Past Med/Surg History Social History Preferred Language: Czech Beliefs That Will Affect Care: None marital status: Current Living Situation: Spouse Current Living Situation Comment: At home with spouse and caregivers Feels Safe at Home: Yes Safety Concerns: Feels Safe At This Time Smoking Status: Former smoker Hx Alcohol Use: No Hx Substance Use: No Review of Systems Could not be reliably obtained Physical Exam Vital Signs (Past 24 Hours): Last Vital Signs Temp 36.8 C 10/13/18 20:19 Pulse 51 L 10/14/18 00:00 Resp 16 10/14/18 00:00 BP 159/81 H 10/14/18 00:00 Pulse Ox 92 10/14/18 00:00 Physical Exam: GENERAL: Obtunded, no respiratory distress SKIN: Normal color, warm HEENT: [place] palpebral conjunctivae, no ptosis, dry buccal mucosa NECK : Supple, no tenderness CHEST : Decreased breath sounds, no tenderness HEART : Bradycardic, no obvious murmurs ABDOMEN: Some distention, PEG tube in place, nontender EXTREMITIES : No LE swelling/tenderness, chronic contracture left lower extremity NEUROLOGIC : Obtunded, chronic lower lip symmetry, left hemiparesis Results & Data Laboratory Results Laboratory Results WBC 10.30 K/uL (4.8-10.8) 10/13/18 20:05 RBC 4.18 M/uL (4.7-6.1) L 10/13/18 20:05 Hgb 13.4 g/dL (14.0-18.0) L 10/13/18 20:05 Hct 41.0 % (42-52) L 10/13/18 20:05 MCV 98.1 fL (80-100) 10/13/18 20:05 MCH 32.1 pg (25-34) 10/13/18 20:05 MCHC 32.7 g/dL (32-36) 10/13/18 20:05 RDW Std Deviation 51.2 fL (36.4-46.3) H 10/13/18 20:05 RDW Coeff of Albert 14.3 % (11.5-14.5) 10/13/18 20:05 Plt Count 193 K/uL (130-400) 10/13/18 20:05 MPV 11.5 fL (7.4-10.4) H 10/13/18 20:05 Immature Gran % (Auto) 0.2 % 10/13/18 20:05 Neut % (Auto) 38.1 % 10/13/18 20:05 Lymph % (Auto) 49.5 % 10/13/18 20:05 Hunt % (Auto) 6.0 % 10/13/18 20:05 Eos % (Auto) 5.9 % 10/13/18 20:05 Baso % (Auto) 0.3 % 10/13/18 20:05 Immature Gran # (Auto) 0.02 K/uL (0.00-0.02) 10/13/18 20:05 Neut # (Auto) 3.92 K/uL (1.4-6.5) 10/13/18 20:05 Lymph # (Auto) 5.10 K/uL (1.2-3.4) H 10/13/18 20:05 Hunt # (Auto) 0.62 K/uL (0.11-0.59) H 10/13/18 20:05 Eos # (Auto) 0.61 K/uL (0-0.5) H 10/13/18 20:05 Baso # (Auto) 0.03 K/uL (0-0.2) 10/13/18 20:05 Sodium 143 mmol/L (136-145) 10/13/18 20:05 Potassium 4.1 mmol/L (3.5-5.1) 10/13/18 20:05 Chloride 107 mmol/L (98-107) 10/13/18 20:05 Carbon Dioxide 31 mmol/L (21-32) 10/13/18 20:05 Anion Gap 5.0 (3-11) 10/13/18 20:05 BUN 15 mg/dl (7-18) 10/13/18 20:05 Creatinine 0.55 mg/dl (0.6-1.4) L 10/13/18 20:05 Est Cr Clr Drug Dosing 173.5 ml/min 10/13/18 20:05 Est GFR ( Amer) 125.0 10/13/18 20:05 Est GFR (Non-Af Amer) 107.8 10/13/18 20:05 BUN/Creatinine Ratio 27.1 (10-20) H 10/13/18 20:05 Glucose 72 mg/dl (70-99) 10/13/18 20:05 POC Glucose 86 (70-99) 10/14/18 01:02 Calcium 8.9 mg/dl (8.5-10.1) 10/13/18 20:05 Magnesium 2.1 mg/dl (1.8-2.4) 10/13/18 20:05 Total Bilirubin 0.5 mg/dl (0.2-1) 10/13/18 20:05 AST 19 U/L (15-37) 10/13/18 20:05 ALT 18 U/L (12-78) 10/13/18 20:05 Alkaline Phosphatase 91 U/L (45-117) 10/13/18 20:05 Troponin I < 0.015 ng/ml (0-0.045) 10/13/18 20:05 Total Protein 7.2 gm/dl (6.4-8.2) 10/13/18 20:05 Albumin 3.0 gm/dl (3.4-5.0) L 10/13/18 20:05 Globulin 4.2 gm/dl (2.5-4.0) H 10/13/18 20:05 Albumin/Globulin Ratio 0.7 (0.9-2) L 10/13/18 20:05 TSH 1.740 uIu/ml (0.300-4.500) 10/13/18 20:[address] head: There are age-related involutional changes noting moderate patchy subcortical and periventricular microangiopathic change. Chronic lacunar infarcts are identified in the right basal ganglia and the right thalamus. There is a small chronic left occipital infarct. There is no hemorrhage, mass effect, or evidence of acute territorial ischemia by CT criteria. Chest x-ray: Cardiomegaly
--- NOTE | 2018-10-14 02:41 | Emergency Department Note ---
Entered by Jamaal Jauregui acting as a scribe for Callum Frazier MD ED Provider Note CHIEF COMPLAINT: Altered Mental Status HISTORY OF PRESENT ILLNESS: The patient is a 67 year old male that presents to the ED with complaints of constant altered mental status that started today around 1630, 4 hours ago, per his . She reports that he was fine before this time but at 1630 he had an episode where his arms were up straight and shaking, his mouth was open and he was talking incoherently. The episode lasted about 15 minutes and he was been confused since. He also has been intermittently shaking since the episode. 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 The stroke affected the left side of his body. Currently the patient is coco complaining of pain in his left arm, but his said that he typically has pain there. She also mentioned that when she got home he was wheezing so she gave him an albuterol treatment. Pt denies headache, fevers, chills, diaphoresis, visual changes, neck pain, chest pain, nausea, vomiting, abdominal pain, back pain, melena, hematochezia, urinary symptoms, numbness, weakness, lymphadenopathy, rash, or other complaints. REVIEW OF SYSTEMS: See HPI for pertinent positives and negatives. A total of ten systems were reviewed and were otherwise negative. PMHx/PSHx: CVA, HTN, GERD, Dysphasia, CAD, Dyslipidemia, Hypothyroidism, SOCIAL HISTORY: Patient lives at home. PHYSICAL EXAM: GENERAL: Awake, alert, well-appearing, in no distress HENT: Normocephalic, atraumatic. Oropharynx unremarkable. EYES: Normal conjunctiva. Sclera non-icteric. NECK: Inspection normal. Non-tender. Supple. No nuchal rigidity. FROM. No m asses. RESPIRATORY: Clear to auscultation. No wheezes. No rales. Normal respiratory effort. CARDIAC: Normal rate. Normal rhythm. No murmurs. No rubs. Extremities warm and well perfused. Pulses equal. No JVD. GI: Soft, non-distended. No tenderness to palpation. No rebound or guarding. No masses. LUQ has PEG tube in place. RECTAL: Deferred. MUSCULOSKELETAL: Atraumatic. Chest examination reveals no tenderness. The back is symmetrical on inspection without obvious abnormality. There is no CVA te nderness to palpation. No joint edema. Contracture and paresis in the left upper and lower extremities. LOWER EXTREMITIES: Calves are equal size bilaterally and non-tender. No edema. No discoloration. NEURO: Normal sensorium. No sensory deficits noted. SKIN: No rash or jaundice noted. EMERGENCY DEPARTMENT COURSE: 2030: Past medical records reviewed. The patient was evaluated in room C09, and a complete history and physical examination were performed. 2325: I reevaluated the patient and his family states that he is about 75% at baseline but he still feels somewhat fatigued. 2355: I spoke to Dr. Gan - [facility] who said given the situation and history to get him admitted and give him 1g IV Keppra and then 500mg of Keppra BID. 0001: I updated the patient on the treatment plan and they all agree. 0043: I spoke to Dr. [facility] about the patient's case and he is going to accept him for further evaluation. MEDICAL DECISION MAKING: Patient placed in seizure precautions immediately upon arrival. Nursing notes reviewed and agree them. Additional history obtained from family. The patient's history was concerning for a possible seizure. Differential diagnosis: Etiologies such as seizure, infection, hypoglycemia, electrolyte abnormalities, cardiac sources, intracerebral event, trauma, toxicologic, neurologic, as well as others were entertained. Physical examination: As above. No signs of trauma. ER treatment provided: ID Keppra Normal saline hydration On reassessment the patient felt better. Diagnostics interpretation by me: ECG: No acute ischemia. The labs revealed an unremarkable CBC and chemistry panel. Troponin negative. Urinalysis pending. Imaging studies: CT scan of the head and chest x-ray are negative for acute pathology. Consultation: A consultation was placed with the neurologist Dr. Gan. The case was discussed and diagnostics were reviewed. He recommended a dose of IV Keppra and starting the patient on 500 twice a day. Since the patient is not 100% at baseline but is awake and conversant he recommended an overnight stay in the hospital for observation. Because the case with Dr. chase on the [facility] service. He evaluated patient in the ER and admitted for further management. IMPRESSION: Seizure Altered mental status PLAN: Admitted The scribe's documentation has been prepared under my direction and personally reviewed by me in its entirety. I confirm that the note above accurately reflects all work, treatment, procedures, and medical decision making performed by me. Impression & Plan Seizure, Altered mental status Past Med/Surg History Social History Preferred Language: Macedonian Beliefs That Will Affect Care: None marital status: Current Living Situation: Spouse Current Living Situation Comment: At home with spouse and caregivers Feels Safe at Home: Yes Smoking Status: Former smoker Hx Alcohol Use: No Hx Substance Use: No Results & Data Vital Signs Vital Signs - 24 hr 10/13/18 20:19 10/13/18 22:10 10/14/18 00:00 Temperature 36.8 C Temperature Source Oral Sepsis Recent Fever Within 48 Hours No Sepsis Action Taken by Nursing No Action Required Pulse Rate 55 L Pulse Rate [Finger] 53 L 51 L Pulse Rhythm Regular Pulse Rhythm [Finger] Regular Regular Pulse Strength Normal Pulse Strength [Finger] Normal Normal Respiratory Rate 17 16 16 Respiratory Effort / Characteristics Non-Labored Non-Labored Non-Labored Respiratory Depth Normal Normal Normal Respiratory Pattern Regular Regular Regular Blood Pressure 160/79 H Blood Pressure [Right Arm] 142/65 H 159/81 H Blood Pressure Mean 106 Blood Pressure Mean [Right Arm] 90 107 Blood Pressure Position Lying Blood Pressure Position [Right Arm] Lying Lying Pulse Oximetry 95 96 92 Oxygen Delivery Method Room Air Room Air Room Air 10/14/18 02:00 Temperature Temperature Source Sepsis Recent Fever Within 48 Hours Sepsis Action Taken by Nursing Pulse Rate Pulse Rate [Finger] 52 L Pulse Rhythm Pulse Rhythm [Finger] Regular Pulse Strength Pulse Strength [Finger] Normal Respiratory Rate 16 Respiratory Effort / Characteristics Non-Labored Respiratory Depth Normal Respiratory Pattern Regular Blood Pressure Blood Pressure [Right Arm] 158/81 H Blood Pressure Mean Blood Pressure Mean [Right Arm] 106 Blood Pressure Position Blood Pressure Position [Right Arm] Lying Pulse Oximetry 91 Oxygen Delivery Method Room Air Home Medications Current Medication List: was personally reviewed by me Laboratory Data Attestation: I reviewed the patient's lab results. Result diagrams: 10/13/18 20:05 10/13/18 20:05 Lab Results 10/13/18 10/13/18 10/14/18 Range/Units 20:05 20:05 01:02 WBC 10.30 (4.8-10.8) K/uL RBC 4.18 L (4.7-6.1) M/uL Hgb 13.4 L (14.0-18.0) g/dL Hct 41.0 L (42-52) % MCV 98.1 (80-100) fL MCH 32.1 (25-34) pg MCHC 32.7 (32-36) g/dL RDW Std Deviation 51.2 H (36.4-46.3) fL RDW Coeff of Albert 14.3 (11.5-14.5) % Plt Count 193 (130-400) K/uL MPV 11.5 H (7.4-10.4) fL Immature Gran % (Auto) 0.2 % Neut % (Auto) 38.1 % Lymph % (Auto) 49.5 % Mills % (Auto) 6.0 % Eos % (Auto) 5.9 % Baso % (Auto) 0.3 % Immature Gran # (Auto) 0.02 (0.00-0.02) K/uL Neut # (Auto) 3.92 (1.4-6.5) K/uL Lymph # (Auto) 5.10 H (1.2-3.4) K/uL Mills # (Auto) 0.62 H (0.11-0.59) K/uL Eos # (Auto) 0.61 H (0-0.5) K/uL Baso # (Auto) 0.03 (0-0.2) K/uL Sodium 143 (136-145) mmol/L Potassium 4.1 (3.5-5.1) mmol/L Chloride 107 (98-107) mmol/L Carbon Dioxide 31 (21-32) mmol/L Anion Gap 5.0 (3-11) BUN 15 (7-18) mg/dl Creatinine 0.55 L (0.6-1.4) mg/dl Est Cr Clr Drug Dosing 173.5 ml/min Est GFR ( Amer) 125.0 Est GFR (Non-Af Amer) 107.8 BUN/Creatinine Ratio 27.1 H (10-20) Glucose 72 (70-99) mg/dl POC Glucose 86 (70-99) Calcium 8.9 (8.5-10.1) mg/dl Magnesium 2.1 (1.8-2.4) mg/dl Total Bilirubin 0.5 (0.2-1) mg/dl AST 19 (15-37) U/L ALT 18 (12-78) U/L Alkaline Phosphatase 91 (45-117) U/L Troponin I < 0.015 (0-0.045) ng/ml Total Protein 7.2 (6.4-8.2) gm/dl Albumin 3.0 L (3.4-5.0) gm/dl Globulin 4.2 H (2.5-4.0) gm/dl Albumin/Globulin Ratio 0.7 L (0.9-2) TSH 1.740 (0.300-4.500) uIu/ml Administered Medications Sodium Chloride (Nss 1000ml) 1,000 mls @ 125 mls/hr IV .Q8H PAVITHRA Stop: 10/14/18 04:29 Last Admin: 10/13/18 21:07 Dose: 125 mls/hr Documented by: [id number] Discontinued Medications Levetiracetam 1,000 mg/ (Dextrose) 110 mls @ 440 mls/hr IV NOW STA Stop: 10/14/18 00:13 Last Infusion: 10/14/18 00:38 Dose: 0 mls/hr Documented by: [id number] Admin: 10/14/18 00:22 Dose: 440 mls/hr Documented by: [id number] Imaging Data Radiologist's Impression: Radiology results as stated below per my review and the radiologist's interpretation: SINGLE VIEW CHEST CLINICAL HISTORY: Generalized weakness. FINDINGS: An AP, portable, upright chest radiograph is compared to study dated 09/20/2018. The examination is degraded by portable technique and patient rota tion. The heart is enlarged and there is atherosclerotic calcification of the thoracic aorta. The pulmonary vasculature is noncongested. Bibasilar atelectasis is observed. There is no airspace consolidation or large pleural effusion. No pneumothorax is seen. The skeletal structures are osteopenic. The bony thorax is grossly intact. IMPRESSION: Cardiomegaly with no acute cardiopulmonary abnormality. Electronically signed by: Stewart Goldsmith M.D. 10/13/2018 8:[address] SCAN OF THE BRAIN WITHOUT IV CONTRAST CLINICAL HISTORY: Seizure. COMPARISON STUDY: CT of the brain dated 09/20/2018. TECHNIQUE: Unenhanced axial CT scan of the brain is performed from the vertex to the skull base. A dose lowering technique was utilized adhering to the principles of ALARA. CT DOSE: 691.05 mGy.cm FINDINGS: Brain parenchyma: There are age-related involutional changes noting moderate patchy subcortical and periventricular microangiopathic change. Chronic lacunar infarcts are identified in the right basal ganglia and the right thalamus. There is a small chronic left occipital infarct. There is no hemorrhage, mass effect, or evidence of acute territorial ischemia by CT criteria. Savage-white matter differentiation is preserved. No extra-axial fluid collection is seen. Ventricles, sulci, cisterns: Prominent secondary to involutional change. Intracranial vasculature: There is atherosclerotic calcification of the cavernous carotid arteries. Calvarium: Unremarkable. Sinuses and mastoids: There is an 8 mm retention cyst in the left maxillary antrum. The remaining visualized paranasal sinuses are clear. The mastoid air cells are well pneumatized. Orbits: The bony orbits are grossly intact. IMPRESSION: There is no hemorrhage, mass effect, or evidence of acute te rritorial ischemia by CT criteria. Electronically signed by: Stewart Goldsmith M.D. 10/13/2018 8:58 PM ECG Data Attestation: I personally reviewed and interpreted this ECG as follows: Indication: altered mental status Rate (beats per minute): 54 Rhythm: sinus rhythm Findings: + other (LVH noted), + nonspecific-ST abn and + PAC; no ST depression and no ST elevation Comparison ECG Date: from (09/2018) Change: the following changes noted (Rate has decreased by 27 bpm) Blood Pressure Blood Pressure Findings: Elevated blood pressure Blood Pressure Disposition: further management by hospitalist Discharge Plan Visit Data Chief Complaint: Altered Mental Status ED Provider: Callum Frazier Discharge Problem: Seizure, Altered mental status Patient Disposition: Being Evaluated by Hospitalist Forms Stand Alone Forms: My [facility] [employer] Prescriptions Prescriptions: No Action atorvastatin 40 mg Tablet 40 mg Feeding Tube HS RF: 0 metformin 500 mg Tablet 500 mg Feeding Tube BID RF: 0 acetaminophen [Mapap (acetaminophen)] 325 mg Tablet 650 mg Feeding Tube Q4H PRN (Reason: Pain) RF: 0 hydrocodone-acetaminophen 5-325 mg Tablet 1 tab Feeding Tube Q4H PRN (Reason: Outbreak) RF: 0 lisinopril 20 mg Tablet 20 mg Feeding Tube DAILY RF: 0 hydralazine 25 mg Tablet 25 mg Feeding Tube BID RF: 0 clopidogrel [Plavix] 75 mg Tablet 75 mg Feeding Tube DAILY RF: 0 aspirin [Aspirin Low Dose] 81 mg Tablet,Delayed Release (Dr/Ec) 81 mg Feeding Tube DAILY RF: 0 tamsulosin 0.4 mg Capsule 0.4 mg PO QPM RF: 0 nitroglycerin 0.4 mg Tablet, Sublingual 0.4 mg Sublingual DIRECTED RF: 0 ranitidine HCl 150 mg Capsule 150 mg Feeding Tube BID RF: 0 gabapentin 100 mg Capsule 200 mg Feeding Tube TID RF: 0 carbidopa-levodopa [Sinemet] 25-100 mg Tablet 1 tab Feeding Tube BID RF: 0 escitalopram oxalate [Lexapro] 10 mg Tablet 10 mg Feeding Tube DAILY RF: 0 escitalopram oxalate [Lexapro] 20 mg Tablet 20 mg Feeding Tube DAILY RF: 0 albuterol sulfate 2.5 mg/0.5 mL Solution For Nebulization 2.5 mg INHALATION QID PRN (Reason: Shortness Of Breath Or Wheezing) RF: 0 magnesium oxide 400 mg Capsule 400 mg Feeding Tube DAILY RF: 0 polyethylene glycol 3350 [Miralax] 17 gram Powder In Packet 17 g Feeding Tube DAILY PRN (Reason: Unknown) RF: 0 levothyroxine [Synthroid] 100 mcg tablet 100 mcg Feeding Tube DAILY RF: 0 sennosides-docusate sodium [Senna with Docusate Sodium] 8.6-50 mg Tablet 1 tab Feeding Tube DAILY PRN (Reason: Constipation) RF: 0 atropine [Isopto Atropine] 1 % drops 2 drp Sublingual UD PRN (Reason: DRY SECRETIONS) RF: 0 Selsun Blue 1 % Shampoo 1 applic TOPICAL 2XWK RF: 0 Isosource 1.5 Billy 0.07 gram-1.5 kcal/mL Liquid 250 ml Feeding Tube BID RF: 0 Isosource 1.5 Billy 0.07 gram-1.5 kcal/mL Liquid 1,000 ml Feeding Tube HS RF: 0 Referrals Referrals: Juanito Tom MD [Primary Care Provider] - Discharge Problem: Altered mental status Qualifiers: Altered mental status type: unspecified Qualified Code(s): R41.82 - Altered mental status, unspecified The scribe's documentation has been prepared under my direction and personally reviewed by me in its entirety. I confirm that the note above accurately refle cts all work, treatment, procedures, and medical decision making performed by me.
[2018-10-14] MEDS ORDERED: POLYETHYLENE (MIRALAX) 17 GM PACK PEG PRN (04:16)
[2018-10-14] MEDS ORDERED: GLUCAGON FOR INJ 1 MG VIAL SQ PRN (04:16)
[2018-10-14] MEDS ORDERED: GLUCOSE 40% GEL 15 GM TUBE PO PRN (04:16)
[2018-10-14] MEDS ORDERED: GLUCOSE 10 TABS/TUBE PO PRN (04:16)
[2018-10-14] MEDS ORDERED: CARBOHYDRATES FOR HYPOGLYCEMIA PO PRN (04:16)
[2018-10-14] MEDS ORDERED: DOCUSATE SODIUM/SENNA 50/8.6MG TAB PO PRN (04:16)
[2018-10-14] MEDS ORDERED: PROCHLORPERAZINE 5 MG in SYRINGE 4 ML IV PRN (04:16)
[2018-10-14] MEDS ORDERED: ALBUT/IPRATROP 3MG/0.5MG NEB 3 ML VIAL NEB PRN (04:16)
[2018-10-14] MEDS ORDERED: DEXTROSE 50% 50 ML SYRINGE IV PRN (04:16)
[2018-10-14] MEDS ORDERED: LACTATED RINGER'S 1,000 ML IV ONE (04:30)
[2018-10-14] MEDS ORDERED: ACETAMINOPHEN/HYDROCODONE ELIX 15 ML/CUP UDP PEG PRN (04:47)
[2018-10-14] MEDS ORDERED: INSULIN ASPART 100 UNITS/ML 3 ML PEN SC SCH (06:00)
[2018-10-14] MEDS: GABAPENTIN 250 MG/5 ML 470 ML BTL PEG SCH ×3 (07:48→21:34)
[2018-10-14] MEDS: ESCITALOPRAM OXALATE ORAL SOLN 5 MG/5 ML PEG SCH (07:49)
[2018-10-14] MEDS: LEVOTHYROXINE SODIUM 100 MCG TABLET GT SCH (07:50)
[2018-10-14] MEDS: CLOPIDOGREL BISULFATE 75 MG TAB PEG SCH (07:51)
[2018-10-14] MEDS: LISINOPRIL 20 MG TAB PO SCH (07:51)
[2018-10-14] MEDS: ASPIRIN 81 MG CHEW PEG SCH (07:51)
[2018-10-14] MEDS: CARBIDOPA/LEVODOPA 25/100MG TAB PEG SCH ×2 (07:51→21:31)
[2018-10-14] MEDS: RANITIDINE HCL SYRUP 150 MG/10 ML UDC PEG SCH ×2 (07:52→21:32)
[2018-10-14 08:57] LABS: Basophils # (auto) 0.03 K/uL (0-0.2); Basophils % (auto) 0.3 %; Eosinophils % (auto) 6.1 %; Hematocrit (blood only) 39.7 % (42-52); Hemoglobin 12.9 g/dL (14.0-18.0); Immature Granulocytes # (auto) 0.02 K/uL (0.00-0.02); Immature Granulocytes % (auto) 0.2 %; Lymphocytes # (auto) 4.56 K/uL (1.2-3.4); Lymphocytes % (auto) 46.6 %; Mean Corpuscular Hgb Conc 32.5 g/dL (32-36); Mean Corpuscular Volume 98.8 fL (80-100); Mean Platelet Volume 11.4 fL (7.4-10.4); Monocytes # (auto) 0.63 K/uL (0.11-0.59); Monocytes % (auto) 6.4 %; Neutrophils # (auto) 3.94 K/uL (1.4-6.5); Neutrophils % (auto) 40.4 %; Platelet Count 178 K/uL (130-400); RDW Coefficient of Variation 14.5 % (11.5-14.5); RDW Standard Deviation 52.2 fL (36.4-46.3); Red Blood Count 4.02 M/uL (4.7-6.1); White Blood Count 9.78 K/uL (4.8-10.8)
[2018-10-14] MEDS ORDERED: [UNRECOGNIZED DRUG - OTHER] Feeding Tube SCH (09:00)
[2018-10-14] MEDS ORDERED: ENTERAL NUTRITION FORMULA Feeding Tube SCH ×2 (09:00→21:00)
[2018-10-14 09:05] LABS: Prothrombin Time 10.6 Seconds (9.0-12.0)
[2018-10-14 12:18] LABS: Appearance Urine Clear (Clear); Bilirubin Urine Negative (Negative); Blood Urine Negative (Negative); Color Urine Dark Yellow; Glucose Urine UA Negative (Negative); Ketones Urine Trace (Negative); Leukocyte Esterase Urine Negative (Negative); Nitrite Urine Negative (Negative); Protein Urine Negative (Negative); Specific Gravity Urine 1.026 (1.000-1.030); Urobilinogen Urine Negative (Negative); pH Urine 5.5 (4.5-7.5)
[2018-10-14] MEDS: ENOXAPARIN INJ 40 MG/0.4 ML SYR SQ SCH (12:31)
[2018-10-14] MEDS: ACETAMINOPHEN SOL 650 MG/20.3 ML UDC PEG PRN (13:39)
--- NOTE | 2018-10-14 13:39 | Neurology Consultation ---
Date of Consultation October 14, 2018 Assessment & Plan (1) New onset seizure: 1. EEG- diffuse slowing preliminary read 2. CT head- no acute finding 3. CXR no infectious process 4. Keppra IV 1 g in ED loaded 5. Keppra 500 mg BID - continue for likely seizure event 6. watch for mood changes not usually seen in this age group 7. PEG feeds and medication management- per primary team 8. ok to discharge when medically stable 9. no further imaging needed from neurology perspective. Supervising Physician Co-Signing Physician Notes I have seen and discussed above patient with Dr Reggie Mon. Patient was seen and examined. I agree with Zahra CONDE as noted below. at bedside. Patient with chronic static encephaloapthy. No history of seizure. Event described by as a tonic posturing which lasted maybe 1 minute. Patient very lethargic today. Started on Keppra 500 mg BID. EEG shows diffuse slowing. Home sleep study pending per . No UTI. Patient stuprous on examine. Forced eye closure. Gaze is midline. Pupils equal. No myoclonus or tremor. Tongue midline with no abrasions. Continue Keppra 500 mg 2x daily. requesting oral liquid form since patient has PEG tube. Ok to discharge from neuro standpoint. Has apt with myself at the end of September. agreed to plan of care and had no further questions. History of Present Illness Reason for Consultation: new onset seizure Requesting Physician: Ashley Dorman DO Attending Physician: Ashley Dorman DO History of Present Illness Nikita is a 67 year old male with PMH CAD, cardiomegaly, HLD, basilar artery occlusion,dysphagia with PEG tube feeding, hemiparesis left side after a brain stem stroke in 2013, HTN, gastroparesis presents the ED with altered mental status. According to report he was being watched by his caregivers his was out of the house. He was seen with both arms in the arm and then was very confused after. The event only lasted for several minutes. He has chronic left hemiparesis which is unchanged from baseline. He had a PEG tube placed after the stroke which reports there has been an ulcer around the site however no surrounding erythema or purulent drainage. He does have atropine drops intermittently for secretions. He was last seen by neurology in 2014 for basliar artery occlusion, and Atypical parkinsons finding and taking Sinemet 25 mg BID at that time. he was following commands and somewhat ambulatory at that time. Dr Augustine plan was to taper off the Sinemet if he had no other symptoms. and then was hospitalize in September 2018 for hallucinations and increased confusion. There is no family in the room and he is currently repeating that he is in pain asked were he states butt/back. Allergies Allergy/AdvReac Type Severity Reaction Status Date / Time Penicillins Allergy Intermediate RASH Verified 09/20/18 20:31 Home Medications Home Medications Medication Instructions Recorded Confirmed Type acetaminophen [Mapap 650 mg FEEDING TUBE Q4H PRN 04/18/18 10/13/18 History (acetaminophen)] albuterol sulfate 2.5 mg INHALATION QID PRN 04/18/18 10/13/18 History aspirin [Aspirin Low Dose] 81 mg FEEDING TUBE DAILY 04/18/18 10/13/18 History atorvastatin 40 mg FEEDING TUBE HS 04/18/18 10/13/18 History carbidopa-levodopa [Sinemet] 1 tab FEEDING TUBE BID 04/18/18 10/13/18 History clopidogrel [Plavix] 75 mg FEEDING TUBE DAILY 04/18/18 10/13/18 History escitalopram oxalate [Lexapro] 10 mg FEEDING TUBE DAILY 04/18/18 10/13/18 History escitalopram oxalate [Lexapro] 20 mg FEEDING TUBE DAILY 04/18/18 10/13/18 History gabapentin 200 mg FEEDING TUBE TID 04/18/18 10/13/18 History hydralazine 25 mg FEEDING TUBE BID 04/18/18 10/13/18 History hydrocodone-acetaminophen 1 tab FEEDING TUBE Q4H PRN 04/18/18 10/13/18 History lisinopril 20 mg FEEDING TUBE DAILY 04/18/18 10/13/18 History magnesium oxide 400 mg FEEDING TUBE DAILY 04/18/18 10/13/18 History metformin 500 mg FEEDING TUBE BID 04/18/18 10/13/18 History nitroglycerin 0.4 mg SUBLINGUAL DIRECTED 04/18/18 10/13/18 History ranitidine HCl 150 mg FEEDING TUBE BID 04/18/18 10/13/18 History tamsulosin 0.4 mg PO QPM 04/18/18 10/13/18 History polyethylene glycol 3350 [Miralax] 17 g FEEDING TUBE DAILY PRN 07/14/18 10/13/18 History Isosource 1.5 Billy 1,000 ml FEEDING TUBE HS 09/20/18 10/13/18 History Isosource 1.5 Billy 250 ml FEEDING TUBE BID 09/20/18 10/13/18 History Selsun Blue 1 applic TOPICAL 2XWK 09/20/18 10/13/18 History atropine [Isopto Atropine] 2 drp SUBLINGUAL UD PRN 09/20/18 10/13/18 History levothyroxine [Synthroid] 100 mcg FEEDING TUBE DAILY 09/20/18 10/13/18 History sennosides-docusate sodium [Senna 1 tab FEEDING TUBE DAILY PRN 09/20/18 10/13/18 History with Docusate Sodium] Patient History Social History Preferred Language: Setswana Beliefs That Will Affect Care: None marital status: Current Living Situation: Spouse Current Living Situation Comment: At home with spouse and caregivers Feels Safe at Home: Yes Safety Concerns: Feels Safe At This Time Smoking Status: Former smoker Hx Alcohol Use: No Hx Substance Use: No Physical Exam Vital Signs (Past 24 Hours): Last Vital Signs Temp 36.6 C 10/14/18 07:42 Pulse 47 L 10/14/18 07:42 phResp 18 10/14/18 07:42 BP 150/73 H 10/14/18 07:42 Pulse Ox 92 10/14/18 07:42 Physical Exam: Constitutional: appearance nourished, sleeping Ears, Nose, Mouth and Throat: mucous membranes moist, no injection and skin no rmal, eyes normal Cardiovascular: normal S-1 and S-2 and regular rate and rhythm Respiratory: course breath sounds Musculoskeletal: no peripheral edema Skin: peg tube in place no discharge eyes will not open eyes but appears to try NEUROLOGIC EXAMINATION: Mental status: lethargic Cranial Nerves unable due to patient lethargy Reflexes: Deep tendon reflexes were symmetrical and graded 2/5. Plantar responses were neutral Sensory: responds to light and cool touch Coordination: Romberg absent Gait/Stance: Posture normal. Gait normal: with steady with steps, base, turning, heel and toe walking and tandem gait. Motor: Negative for pronator drift of out stretched arms with eyes closed. Strength: unable to test, left hand contracture, some cog wheeling LE contracture on left Results & Data Laboratory Results Abnormal lab results 10/13/18 10/13/18 10/14/18 Range/Units 20:05 20:05 08:18 RBC 4.18 L 4.02 L (4.7-6.1) M/uL Hgb 13.4 L 12.9 L (14.0-18.0) g/dL Hct 41.0 L 39.7 L (42-52) % RDW Std Deviation 51.2 H 52.2 H (36.4-46.3) fL MPV 11.5 H 11.4 H (7.4-10.4) fL Lymph # (Auto) 5.10 H 4.56 H (1.2-3.4) K/uL Stoddard # (Auto) 0.62 H 0.63 H (0.11-0.59) K/uL Eos # (Auto) 0.61 H 0.60 H (0-0.5) K/uL Creatinine 0.55 L (0.6-1.4) mg/dl BUN/Creatinine Ratio 27.1 H (10-20) Albumin 3.0 L (3.4-5.0) gm/dl Globulin 4.2 H (2.5-4.0) gm/dl Albumin/Globulin Ratio 0.7 L (0.9-2) Urine Ketones (Negative) 10/14/18 Range/Units Unknown RBC (4.7-6.1) M/uL Hgb (14.0-18.0) g/dL Hct (42-52) % RDW Std Deviation (36.4-46.3) fL MPV (7.4-10.4) fL Lymph # (Auto) (1.2-3.4) K/uL Stoddard # (Auto) (0.11-0.59) K/uL Eos # (Auto) (0-0.5) K/uL Creatinine (0.6-1.4) mg/dl BUN/Creatinine Ratio (10-20) Albumin (3.4-5.0) gm/dl Globulin (2.5-4.0) gm/dl Albumin/Globulin Ratio (0.9-2) Urine Ketones Trace H (Negative) Diagnostic Findings CXR-Cardiomegaly with no acute cardiopulmonary abnormality. CT head-There is no hemorrhage, mass effect, or evidence of acute territorial ischemia by CT criteria.
--- NOTE | 2018-10-14 14:32 | Hospitalist Progress Note ---
Date of Service October 14, 2018 Assessment & Plan (1) New onset seizure: h/o stroke 5 years ago. New onset seizure. Loaded on Keppra, and continuing BID per Neurology. No further seizure activity since admission. EEG did not reveal evidence of epileptiform discharges. (2) Hypertension: Slightly elevated but within range. Cont home meds including Lisinopril 20mg daily, Hydralazine 25mg BID. Cont to monitor with time away from seizure activity. (3) DVT prophylaxis: Lovenox DNR Dispo-cont hospitalization until he awakens and his mental status is at baseline. [facility] Subject[facility] ROS unobtainable as patient is sleeping. He withdraws to pain but is otherwise unreposnsive. Physical Exam Vital Signs (Past 24 Hours): Last Vital Signs Temp 36.6 C 10/14/18 07:42 Pulse 47 L 10/14/18 07:42 Resp 18 10/14/18 07:42 BP 150/73 H 10/14/18 07:42 Pulse Ox 92 10/14/18 07:42 CONSTITUTIONAL: WNWD, vitals as above, asleep EYES: normal conjuctivae, no scleral icterus ENT: MMM RESPIRATORY: clear to auscultation bilaterally, no crackles, rales or wheezes, normal respiratory effort CARDIOVASCULAR: regular rate and rhythm, S1 and 2 heard without murmurs, ga llops or rubs, no JVD, no peripheral edema GASTROINTESTINAL: soft, nontender, nondistended, PEG tube in place, ulceration is healed over. MUSCULOSKELETAL: strength 5/5 throughout, head is normocephalic and atraumatic SKIN: warm and dry NEUROLOGIC: sleeping, cannot examine Results & Data Laboratory Results Short CBC 10/13/18 10/14/18 Range/Units 20:05 08:18 WBC 10.30 9.78 (4.8-10.8) K/uL Hgb 13.4 L 12.9 L (14.0-18.0) g/dL Hct 41.0 L 39.7 L (42-52) % Plt Count 193 178 (130-400) K/uL BMP 10/13/18 20:05 Sodium 143 Potassium 4.1 Chloride 107 Carbon Dioxide 31 BUN 15 Creatinine 0.55 L Glucose 72 Calcium 8.9 Cardiac Enzymes 10/13/18 Range/Units 20:05 Troponin I < 0.015 (0-0.045) ng/ml Liver Function 10/13/18 Range/Units 20:05 Total Bilirubin 0.5 (0.2-1) mg/dl AST 19 (15-37) U/L ALT 18 (12-78) U/L Alkaline Phosphatase 91 (45-117) U/L Albumin 3.0 L (3.4-5.0) gm/dl Urine 10/14/18 Range/Units Unknown Urine Color Dark Yellow Urine Appearance Clear (Clear) Urine pH 5.5 (4.5-7.5) Ur Specific [place] 1.026 (1.000-1.030) Urine Protein Negative (Negative) Urine Glucose (UA) Negative (Negative) Medications Administered Current Inpatient Medications Acetaminophen (Tylenol) 650 mg PEG Q4H PRN PRN Reason: Pain Stop: 11/13/18 04:15 Last Admin: 10/14/18 13:39 Dose: 650 mg Documented by: Hydrocodone Bitart/Acetaminophen (Lortab) 10 ml PEG Q4H PRN PRN Reason: Pain Stop: 10/28/18 04:46 Albuterol (Duoneb) 3 ml NEB Q2H PRN PRN Reason: Wheezing Stop: 11/13/18 04:15 Aspirin (Aspirin Chew) 81 mg PEG DAILY [facility] Stop: 11/13/18 08:59 Last Admin: 10/14/18 07:51 Dose: 81 mg Documented by: Atorvastatin Calcium (Lipitor) 40 mg PEG HS [facility] Stop: 11/13/18 20:59 Carbidopa/Levodopa (Sinemet 25/100 Mg) 1 tab PEG BID [facility] Stop: 11/13/18 08:59 Last Admin: 10/14/18 07:51 Dose: 1 tab Documented by: Clopidogrel Bisulfate (Plavix) 75 mg PEG DAILY [facility] Stop: 11/13/18 08:59 Last Admin: 10/14/18 07:51 Dose: 75 mg Documented by: Enoxaparin Sodium (Lovenox) 40 mg SQ QAM [facility] Stop: 11/13/18 08:59 Last Admin: 10/14/18 12:31 Dose: 40 mg Documented by: Enteral Nutritional Formula (Peptamen 1.5) 250 ml PEG DAILY@0800,1400 [facility]; Protocol Stop: 11/14/18 13:59 Enteral Nutritional Formula (Peptamen 1.5) 1,000 ml PEG DAILY@2000 [facility]; Protocol Stop: 11/13/18 19:59 Escitalopram Oxalate (Lexapro) 30 mg PEG DAILY [facility] Stop: 11/13/18 08:59 Last Admin: 10/14/18 07:49 Dose: 30 mg Documented by: Gabapentin (Neurontin) 200 mg PEG TID [facility] Stop: 11/13/18 08:59 Last Admin: 10/14/18 13:39 Dose: 200 mg Documented by: Hydralazine HCl (Apresoline) 25 mg PEG BID [facility] Stop: 11/13/18 08:59 Last Admin: 10/14/18 07:51 Dose: 25 mg Documented by: Prochlorperazine 5 mg/ Syringe 5 mls @ 5 mls/min IV Q6H PRN PRN Reason: Nausea And Vomiting Stop: 11/13/18 04:15 Lactated Ringer's (Lr) 1,000 mls @ 60 mls/hr IV .[id number] ONE Stop: 10/14/18 21:09 Last Admin: 10/14/18 04:44 Dose: 60 mls/hr Documented by: Levetiracetam (Keppra) 500 mg PEG BID [facility] Stop: 11/13/18 08:59 Last Admin: 10/14/18 07:49 Dose: 500 mg Documented by: Levothyroxine Sodium (Synthroid) 100 mcg GT DAILY [facility] Stop: 11/13/18 08:59 Last Admin: 10/14/18 07:50 Dose: 100 mcg Documented by: Lisinopril (Zestril) 20 mg PO DAILY [facility] Stop: 11/13/18 08:59 Last Admin: 10/14/18 07:51 Dose: 20 mg Documented by: Miscellaneous (Stop Order) 1 ea N/A DAILY@0600 [facility] Stop: 11/14/18 05:59 Polyethylene Glycol (Miralax Powder Packet) 17 gm PEG DAILY PRN PRN Reason: Unknown Stop: 11/13/18 04:15 Ranitidine HCl (Zantac) 150 mg PEG BID [facility] Stop: 11/13/18 08:59 Last Admin: 10/14/18 07:52 Dose: 150 mg Documented by: Senna/Docusate Sodium (Senokot S) 1 tab PO DAILY PRN PRN Reason: Constipation Stop: 11/13/18 04:15 Tamsulosin HCl (Flomax) 0.4 mg PEG QPM [facility] Stop: 11/13/18 20:59
--- NOTE | 2018-10-14 14:51 | Procedure Note ---
EEG Procedure Note Date of Service October 14, 2018 Start / End Times Start Time: 6:05 End Time: 6:[address] Griffin Dorman History A 67 year old male with chronic static encephalopathy admitted for seizure like activity. EEG performed for evaluation of epileptiform syndrome. Home Medication List Home Medications Medication Instructions Recorded Confirmed Type acetaminophen [Mapap 650 mg FEEDING TUBE Q4H PRN 04/18/18 10/13/18 History (acetaminophen)] albuterol sulfate 2.5 mg INHALATION QID PRN 04/18/18 10/13/18 History aspirin [Aspirin Low Dose] 81 mg FEEDING TUBE DAILY 04/18/18 10/13/18 History atorvastatin 40 mg FEEDING TUBE HS 04/18/18 10/13/18 History carbidopa-levodopa [Sinemet] 1 tab FEEDING TUBE BID 04/18/18 10/13/18 History clopidogrel [Plavix] 75 mg FEEDING TUBE DAILY 04/18/18 10/13/18 History escitalopram oxalate [Lexapro] 10 mg FEEDING TUBE DAILY 04/18/18 10/13/18 History escitalopram oxalate [Lexapro] 20 mg FEEDING TUBE DAILY 04/18/18 10/13/18 History gabapentin 200 mg FEEDING TUBE TID 04/18/18 10/13/18 History hydralazine 25 mg FEEDING TUBE BID 04/18/18 10/13/18 History hydrocodone-acetaminophen 1 tab FEEDING TUBE Q4H PRN 04/18/18 10/13/18 History lisinopril 20 mg FEEDING TUBE DAILY 04/18/18 10/13/18 History magnesium oxide 400 mg FEEDING TUBE DAILY 04/18/18 10/13/18 History metformin 500 mg FEEDING TUBE BID 04/18/18 10/13/18 History nitroglycerin 0.4 mg SUBLINGUAL DIRECTED 04/18/18 10/13/18 History ranitidine HCl 150 mg FEEDING TUBE BID 04/18/18 10/13/18 History tamsulosin 0.4 mg PO QPM 04/18/18 10/13/18 History polyethylene glycol 3350 [Miralax] 17 g FEEDING TUBE DAILY PRN 07/14/18 10/13/18 History Isosource 1.5 Billy 1,000 ml FEEDING TUBE HS 09/20/18 10/13/18 History Isosource 1.5 Billy 250 ml FEEDING TUBE BID 09/20/18 10/13/18 History Selsun Blue 1 applic TOPICAL [id number] 09/20/18 10/13/18 History atropine [Isopto Atropine] 2 drp SUBLINGUAL UD PRN 09/20/18 10/13/18 History levothyroxine [Synthroid] 100 mcg FEEDING TUBE DAILY 09/20/18 10/13/18 History sennosides-docusate sodium [Senna 1 tab FEEDING TUBE DAILY PRN 09/20/18 10/13/18 History with Docusate Sodium] Inpatient Medication List Acetaminophen (Tylenol) 650 mg PEG Q4H PRN PRN Reason: Pain Stop: 11/13/18 04:15 Last Admin: 10/14/18 13:39 Dose: 650 mg Documented by: [id number] Aspirin (Aspirin Chew) 81 mg PEG DAILY [facility] Stop: 11/13/18 08:59 Last Admin: 10/14/18 07:51 Dose: 81 mg Documented by: [id number] Carbidopa/Levodopa (Sinemet 25/100 Mg) 1 tab PEG BID [facility] Stop: 11/13/18 08:59 Last Admin: 10/14/18 07:51 Dose: 1 tab Documented by: [id number] Clopidogrel Bisulfate (Plavix) 75 mg PEG DAILY [facility] Stop: 11/13/18 08:59 Last Admin: 10/14/18 07:51 Dose: 75 mg Documented by: [id number] Enoxaparin Sodium (Lovenox) 40 mg SQ QAM [facility] Stop: 11/13/18 08:59 Last Admin: 10/14/18 12:31 Dose: 40 mg Documented by: [id number] Escitalopram Oxalate (Lexapro) 30 mg PEG DAILY [facility] Stop: 11/13/18 08:59 Last Admin: 10/14/18 07:49 Dose: 30 mg Documented by: [id number] Gabapentin (Neurontin) 200 mg PEG TID [facility] Stop: 11/13/18 08:59 Last Admin: 10/14/18 13:39 Dose: 200 mg Documented by: [id number] Admin: 10/14/18 07:48 Dose: 200 mg Documented by: [id number] Hydralazine HCl (Apresoline) 25 mg PEG BID [facility] Stop: 11/13/18 08:59 Last Admin: 10/14/18 07:51 Dose: 25 mg Documented by: [id number] Lactated Ringer's (Lr) 1,000 mls @ 60 mls/hr IV .[id number] ONE Stop: 10/14/18 21:09 Last Admin: 10/14/18 04:44 Dose: 60 mls/hr Documented by: [id number] Levetiracetam (Keppra) 500 mg PEG BID [facility] Stop: 11/13/18 08:59 Last Admin: 10/14/18 07:49 Dose: 500 mg Documented by: [id number] Levothyroxine Sodium (Synthroid) 100 mcg GT DAILY [facility] Stop: 11/13/18 08:59 Last Admin: 10/14/18 07:50 Dose: 100 mcg Documented by: [id number] Lisinopril (Zestril) 20 mg PO DAILY [facility] Stop: 11/13/18 08:59 Last Admin: 10/14/18 07:51 Dose: 20 mg Documented by: [id number] Ranitidine HCl (Zantac) 150 mg PEG BID [facility] Stop: 11/13/18 08:59 Last Admin: 10/14/18 07:52 Dose: 150 mg Documented by: [id number] Discontinued Medications Sodium Chloride (Nss 1000ml) 1,000 mls @ 125 mls/hr IV .Q8H [facility] Stop: 10/14/18 04:29 Last Infusion: 10/14/18 04:19 Dose: 0 mls/hr Documented by: [id number] Admin: 10/13/18 21:07 Dose: 125 mls/hr Documented by: [id number] Levetiracetam 1,000 mg/ (Dextrose) 110 mls @ 440 mls/hr IV NOW STA Stop: 10/14/18 00:13 Last Infusion: 10/14/18 00:38 Dose: 0 mls/hr Documented by: [id number] Admin: 10/14/18 00:22 Dose: 440 mls/hr Documented by: [id number] Insulin Aspart (Novolog Flexpen) 0 units SC Q6 [facility] Stop: 11/13/18 05:59 Last Admin: 10/14/18 05:59 Dose: Not Given Documented by: [id number] Cosigned by: [id number] Non-Formulary Medication (Lactose-Reduced Food With Fibr [Isosource 1.5 Billy]) 250 ml Feeding Tube BID [facility] Stop: 11/13/18 08:59 Last Admin: 10/14/18 10:53 Dose: Not Given Documented by: [id number] Description REPORT: This is a 21 electrode EEG with a single channel dedicated to limited EKG. The electrodes were placed in accordance with the International 10-20 system. At the onset of the EEG the patient is in an altered mental state. There is no posterior dominant rhythm. Instead the background consistent of moderate amplitude 3-5 Hz theta delta activity. Photic stimulation does not ilicit any additional abnormalities. INTERPRETATION: This is an abnormal EEG in a patient with altered mentation due to diffuse background slowing suggestive of a non specific encephalopathy. There is no evidence of epileptiform activity.
[2018-10-14] MEDS ORDERED: [UNRECOGNIZED DRUG - OTHER] Feeding Tube SCH (21:00)
[2018-10-14] MEDS: PEPTAMEN 1.5 CAL 1,000 ML BAG PEG SCH (21:31)
[2018-10-14] MEDS: TAMSULOSIN HCL 0.4 MG CAP PEG SCH (21:32)
[2018-10-14] MEDS: ATORVASTATIN 40 MG TAB PEG SCH (21:32)
[2018-10-15] MEDS: [UNRECOGNIZED DRUG - REMARK] SCH (06:44)
[2018-10-15 08:51] LABS: Calcium 8.6 mg/dl (8.5-10.1); Creatinine Clr Calc Pharmacy 201.8 ml/min; Est GFR (African American) 132.2; Potassium 3.8 mmol/L (3.5-5.1)
[2018-10-15] MEDS: LEVOTHYROXINE SODIUM 100 MCG TABLET GT SCH (09:01)
[2018-10-15] MEDS: ASPIRIN 81 MG CHEW PEG SCH (09:01)
[2018-10-15] MEDS: CLOPIDOGREL BISULFATE 75 MG TAB PEG SCH (09:01)
[2018-10-15] MEDS: CARBIDOPA/LEVODOPA 25/100MG TAB PEG SCH ×2 (09:01→21:22)
[2018-10-15] MEDS: LISINOPRIL 20 MG TAB PO SCH (09:01)
[2018-10-15] MEDS: RANITIDINE HCL SYRUP 150 MG/10 ML UDC PEG SCH ×2 (09:02→21:21)
[2018-10-15] MEDS: ENOXAPARIN INJ 40 MG/0.4 ML SYR SQ SCH (09:02)
[2018-10-15] MEDS: ESCITALOPRAM OXALATE ORAL SOLN 5 MG/5 ML PEG SCH (09:03)
[2018-10-15] MEDS: GABAPENTIN 250 MG/5 ML 470 ML BTL PEG SCH ×3 (09:08→21:54)
[2018-10-15] MEDS: PEPTAMEN 1.5 CAL 1,000 ML BAG PEG SCH ×2 (14:45→21:25)
--- NOTE | 2018-10-15 17:26 | Hospitalist Progress Note ---
Date of Service October 15, 2018 Assessment & Plan (1) New onset seizure: h/o stroke 5 years ago. New onset seizure. Loaded on Keppra, and continuing BID per Neurology. No further seizure activity since admission. EEG did not reveal evidence of epileptiform discharges. He is withdrawing to pain and starting to respond more. Does not appear to be having seizures at this time. (2) Hypertension: Controlled on home meds. Cont home meds including Lisinopril 20mg daily, Hydralazine 25mg BID. Cont to monitor with time away from seizure activity. (3) Status post CVA: Some residual deficits including right upper extremity weakness and patient in a bedbound status. cares for him at home. 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 (4) DVT prophylaxis: Lovenox DNR Dispo-cont hospitalization until he awakens and his mental status is at baseline. [facility] Review of systems cannot be obtained as patient is lethargic. He withdraws from pain but is nonresponsive. Physical Exam Vital Signs (Past 24 Hours): Last Vital Signs Temp 36.8 C 10/15/18 15:10 Pulse 54 L 10/15/18 15:10 Resp 18 10/15/18 15:10 BP 144/71 H 10/15/18 15:10 Pulse Ox 93 10/15/18 15:10 CONSTITUTIONAL: WNWD, vitals as above, asleep EYES: normal conjuctivae, no scleral icterus ENT: MMM RESPIRATORY: clear to auscultation bilaterally, no crackles, rales or wheezes, normal respiratory effort, limited exam as patient is heavy to lift and not easily moved around. CARDIOVASCULAR: regular rate and rhythm, S1 and 2 heard without murmurs, gallops or rubs, no JVD, no peripheral edema GASTROINTESTINAL: soft, nontender, nondistended, PEG tube in place, ulceration is healed over. MUSCULOSKELETAL: strength 5/5 throughout, head is normocephalic and atraumatic, contracted left upper extremity that is nonmovable SKIN: warm and dry NEUROLOGIC: sleeping, cannot examine Results & Data Laboratory Results [facility] 10/15/18 08:05 Sodium 144 Potassium 3.8 Chloride 111 H Carbon Dioxide 30 BUN 14 Creatinine 0.48 L Glucose 94 Calcium 8.6 Medications Administered Current Inpatient Medications Acetaminophen (Tylenol) 650 mg PEG Q4H PRN PRN Reason: Pain Stop: 11/13/18 04:15 Last Admin: 10/14/18 13:39 Dose: 650 mg Documented by: Hydrocodone Bitart/Acetaminophen (Lortab) 10 ml PEG Q4H PRN PRN Reason: Pain Stop: 10/28/18 04:46 Albuterol (Duoneb) 3 ml NEB Q2H PRN PRN Reason: Wheezing Stop: 11/13/18 04:15 Aspirin (Aspirin Chew) 81 mg PEG DAILY [facility] Stop: 11/13/18 08:59 Last Admin: 10/15/18 09:01 Dose: 81 mg Documented by: Atorvastatin Calcium (Lipitor) 40 mg PEG HS [facility] Stop: 11/13/18 20:59 Last Admin: 10/14/18 21:32 Dose: 40 mg Documented by: Carbidopa/Levodopa (Sinemet 25/100 Mg) 1 tab PEG BID [facility] Stop: 11/13/18 08:59 Last Admin: 10/15/18 09:01 Dose: 1 tab Documented by: Clopidogrel Bisulfate (Plavix) 75 mg PEG DAILY [facility] Stop: 11/13/18 08:59 Last Admin: 10/15/18 09:01 Dose: 75 mg Documented by: Enoxaparin Sodium (Lovenox) 40 mg SQ QAM [facility] Stop: 11/13/18 08:59 Last Admin: 10/15/18 09:02 Dose: 40 mg Documented by: Enteral Nutritional Formula (Peptamen 1.5) 250 ml PEG DAILY@0800,1400 [facility]; Protocol Stop: 11/14/18 13:59 Last Admin: 10/15/18 14:45 Dose: 250 ml Documented by: Enteral Nutritional Formula (Peptamen 1.5) 1,000 ml PEG DAILY@2000 [facility]; Protocol Stop: 11/13/18 19:59 Last Admin: 10/14/18 21:31 Dose: 1,000 ml Documented by: Escitalopram Oxalate (Lexapro) 30 mg PEG DAILY [facility] Stop: 11/13/18 08:59 Last Admin: 10/15/18 09:03 Dose: 30 mg Documented by: Gabapentin (Neurontin) 200 mg PEG TID [facility] Stop: 11/13/18 08:59 Last Admin: 10/15/18 14:45 Dose: 200 mg Documented by: Hydralazine HCl (Apresoline) 25 mg PEG BID [facility] Stop: 11/13/18 08:59 Last Admin: 10/15/18 09:01 Dose: 25 mg Documented by: Levetiracetam (Keppra) 500 mg PEG BID [facility] Stop: 11/13/18 08:59 Last Admin: 10/15/18 09:02 Dose: 500 mg Documented by: Levothyroxine Sodium (Synthroid) 100 mcg GT DAILY [facility] Stop: 11/13/18 08:59 Last Admin: 10/15/18 09:01 Dose: 100 mcg Documented by: Lisinopril (Zestril) 20 mg PO DAILY [facility] Stop: 11/13/18 08:59 Last Admin: 10/15/18 09:01 Dose: 20 mg Documented by: Miscellaneous (Stop Order) 1 ea N/A DAILY@0600 [facility] Stop: 11/14/18 05:59 Last Admin: 10/15/18 06:44 Dose: 1 ea Documented by: Polyethylene Glycol (Miralax Powder Packet) 17 gm PEG DAILY PRN PRN Reason: Unknown Stop: 11/13/18 04:15 Ranitidine HCl (Zantac) 150 mg PEG BID [facility] Stop: 11/13/18 08:59 Last Admin: 10/15/18 09:02 Dose: 150 mg Documented by: Senna/Docusate Sodium (Senokot S) 1 tab PO DAILY PRN PRN Reason: Constipation Stop: 11/13/18 04:15 Tamsulosin HCl (Flomax) 0.4 mg PEG QPM [facility] Stop: 11/13/18 20:59 Last Admin: 10/14/18 21:32 Dose: 0.4 mg Documented by:
[2018-10-15] MEDS: TAMSULOSIN HCL 0.4 MG CAP PEG SCH (21:21)
[2018-10-15] MEDS: ATORVASTATIN 40 MG TAB PEG SCH (21:22)
[2018-10-16] MEDS: [UNRECOGNIZED DRUG - REMARK] SCH (06:31)
[2018-10-16] MEDS: ENOXAPARIN INJ 40 MG/0.4 ML SYR SQ SCH (07:06)
[2018-10-16] MEDS: RANITIDINE HCL SYRUP 150 MG/10 ML UDC PEG SCH ×2 (07:06→20:54)
[2018-10-16] MEDS: LEVOTHYROXINE SODIUM 100 MCG TABLET GT SCH (07:07)
[2018-10-16] MEDS: LISINOPRIL 20 MG TAB PO SCH (07:07)
[2018-10-16] MEDS: CARBIDOPA/LEVODOPA 25/100MG TAB PEG SCH ×2 (07:07→20:55)
[2018-10-16] MEDS: ASPIRIN 81 MG CHEW PEG SCH (07:07)
[2018-10-16] MEDS: CLOPIDOGREL BISULFATE 75 MG TAB PEG SCH (07:07)
[2018-10-16] MEDS: GABAPENTIN 250 MG/5 ML 470 ML BTL PEG SCH ×3 (07:20→20:57)
[2018-10-16] MEDS: ESCITALOPRAM OXALATE ORAL SOLN 5 MG/5 ML PEG SCH (09:25)
[2018-10-16] MEDS: PEPTAMEN 1.5 CAL 1,000 ML BAG PEG SCH ×3 (09:25→20:54)
[2018-10-16] MEDS ORDERED: ACETAMINOPHEN SOL 650 MG/20.3 ML UDC PEG ONE (15:04)
--- NOTE | 2018-10-16 15:14 | Hospitalist Progress Note ---
Date of Service October 16, 2018 Assessment & Plan (1) New onset seizure: h/o stroke 5 years ago. New onset seizure. Loaded on Keppra, and continuing BID per Neurology. No further seizure activity since admission. EEG did not reveal evidence of epileptiform discharges. He is withdrawing to pain and starting to respond more. Does not appear to be having seizures at this time, however, remains very lethargic. Plan to keep him until he is back to baseline mental status and more awake. (2) Hypertension: Appears uncontrolled for the most part. Increase lisinopril to 40mg PO daily and cont Hydralazine 25mg BID. BMP in 2 weeks through PCP. (3) Status post CVA: Some residual deficits including right upper extremity weakness and patient in a bedbound status. cares for him at home. 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 (4) DVT prophylaxis: Lovenox DNR Dispo-cont hospitalization until he awakens and his mental status is at baseline. Ashley Dorman DO [facility] Subjective Still very lethargic but is answering questions. Frequently falling asleep, however. Physical Exam Vital Signs (Past 24 Hours): Last Vital Signs Temp 36.8 C 10/16/18 11:30 Pulse 51 L 10/16/18 11:30 Resp 20 10/16/18 11:30 BP 173/75 H 10/16/18 11:30 Pulse Ox 95 10/16/18 11:30 CONSTITUTIONAL: WNWD, vitals as above, asleep EYES: normal conjuctivae, no scleral icterus ENT: MMM RESPIRATORY: clear to auscultation bilaterally, no crackles, rales or wheezes, normal respiratory effort, limited exam as patient is heavy to lift and not easily moved around. CARDIOVASCULAR: regular rate and rhythm, S1 and 2 heard without murmurs, gallops or rubs, no JVD, no peripheral edema GASTROINTESTINAL: soft, nontender, nondistended, PEG tube in place, ulceration is healed over. MUSCULOSKELETAL: strength 5/5 throughout, head is normocephalic and atraumatic, contracted left upper extremity that is nonmovable SKIN: warm and dry NEUROLOGIC: lethargic, able to follow instructions, moves all extremities equally. Answers orientation questions correctly but very lethargic.
[2018-10-16] MEDS: ATORVASTATIN 40 MG TAB PEG SCH (20:54)
[2018-10-16] MEDS: TAMSULOSIN HCL 0.4 MG CAP PEG SCH (20:55)
[2018-10-17] MEDS: [UNRECOGNIZED DRUG - REMARK] SCH (06:33)
[2018-10-17] MEDS: CARBIDOPA/LEVODOPA 25/100MG TAB PEG SCH ×2 (07:03→20:30)
[2018-10-17] MEDS: LISINOPRIL 20 MG TAB PO SCH (07:03)
[2018-10-17] MEDS: CLOPIDOGREL BISULFATE 75 MG TAB PEG SCH (07:04)
[2018-10-17] MEDS: ESCITALOPRAM OXALATE ORAL SOLN 5 MG/5 ML PEG SCH (07:04)
[2018-10-17] MEDS: LEVOTHYROXINE SODIUM 100 MCG TABLET GT SCH (07:04)
[2018-10-17] MEDS: RANITIDINE HCL SYRUP 150 MG/10 ML UDC PEG SCH ×2 (07:04→20:30)
[2018-10-17] MEDS: ENOXAPARIN INJ 40 MG/0.4 ML SYR SQ SCH (07:04)
[2018-10-17] MEDS: ASPIRIN 81 MG CHEW PEG SCH (07:04)
[2018-10-17] MEDS: PEPTAMEN 1.5 CAL 1,000 ML BAG PEG SCH ×3 (08:11→21:03)
[2018-10-17] MEDS: GABAPENTIN 250 MG/5 ML 470 ML BTL PEG SCH ×3 (08:46→20:30)
[2018-10-17] MEDS ORDERED: LISINOPRIL 20 MG TAB PO SCH (10:00)
--- NOTE | 2018-10-17 15:41 | Neurology Progress Note ---
Date of Service October 17, 2018 Assessment & Plan (1) New onset seizure: 1. EEG- diffuse slowing preliminary read 2. CT head- no acute finding 3. CXR no infectious process 4. Keppra IV 1 g in ED loaded 5. Keppra 500 mg BID - continue for likely seizure event- may cause some sedation but should resolve after on for a couple of weeks. 6. watch for mood changes not usually seen in this age group 7. PEG feeds and medication management- per primary team 8. ok to discharge when medically stable 9. no further imaging needed from neurology perspective. Supervising Physician Co-Signing Physician Notes I have seen and discussed above patient with Dr Reggie Mon. Patient was seen and exmained. More alert this afternoon. Following simple commands. Denies complaint. at bedside. Recommend to continue Keppra 500 mg BID. Encorraged pt and spouse to follow up with sleep study for ADAN eval. Ok to discharge from neuro standpoint. 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 According to report he was being watched by his caregivers his was out of the house. He was seen with both arms in the arm and then was very confused after. The event only lasted for several minutes. He has chronic left hemiparesis which is unchanged from baseline. He had a PEG tube placed after the stroke which reports there has been an ulcer around the site however no surrounding erythema or purulent drainage. He does have atropine drops intermittently for secretions. He was last seen by neurology in 2014 for basliar artery occlusion, and Atypical parkinsons finding and taking Sinemet 25 mg BID at that time. he was following commands and somewhat ambulatory at that time. Dr Augustine plan was to taper off the Sinemet if he had no other symptoms. and then was hospitalize in September 2018 for hallucinations and increased confusion. There is no family in the room. he is awake with voice command and following commands. Physical Exam Vital Signs (Past 24 Hours): Last Vital Signs Temp 37.0 C 10/17/18 11:07 Pulse 52 L 10/17/18 11:07 Resp 20 10/17/18 11:07 BP 150/72 H 10/17/18 11:07 Pulse Ox 95 10/17/18 11:07 Gen: alert with voice commnad lungs course breath sounds CV irregulary squeezes with right hand pulls and pushes with command left UE/LE contractures severe in foot and hand when asked where he is "I'm home in bed" when told he is in the hospital he says "really" pain all over can not specify Results & Data Laboratory Results no new labs Diagnostic Findings no new imaging
--- NOTE | 2018-10-17 18:08 | Hospitalist Progress Note ---
Date of Service October 17, 2018 Assessment & Plan (1) New onset seizure: h/o stroke 5 years ago. New onset seizure. Loaded on Keppra, and continuing BID per Neurology. No further seizure activity since admission. EEG did not reveal evidence of epileptiform discharges. He is oriented and c ontinuing to respond. Neurology reevaluated him and it cleared him for discharge. (2) Hypertension: Appears uncontrolled for the most part. Increase lisinopril to 40mg PO daily and cont Hydralazine 25mg BID. BMP in 2 weeks through PCP. (3) Status post CVA: Some residual deficits including right upper extremity weakness and patient in a bedbound status. cares for him at home. 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 (4) DVT prophylaxis: Lovenox DNR Dispo-likely DC to home in a.m.. DO Cristian Del Castillo Hospitalist Subjective Still rather lethargic. Review of systems is limited although patient denies any pain. He is oriented when asked questions. Physical Exam Vital Signs (Past 24 Hours): Last Vital Signs Temp 37.0 C 10/17/18 16:05 Pulse 72 10/17/18 16:05 Resp 20 10/17/18 16:05 BP 160/79 H 10/17/18 16:05 Pulse Ox 93 10/17/18 16:05 CONSTITUTIONAL: WNWD, vitals as above, somnolent EYES: normal conjuctivae, no scleral icterus ENT: MMM RESPIRATORY: clear to auscultation bilaterally, no crackles, rales or wheezes, normal respiratory effort, limited exam as patient is heavy to lift and not easily moved around. CARDIOVASCULAR: regular rate and rhythm, S1 and 2 heard without murmurs, gallops or rubs, no JVD, no peripheral edema GASTROINTESTINAL: soft, nontender, nondistended, PEG tube in place, ulceration is healed over. MUSCULOSKELETAL: strength 5/5 throughout, head is normocephalic and atraumatic, contracted left upper extremity that is nonmovable SKIN: warm and dry NEUROLOGIC: lethargic, able to follow instructions, moves all extremities equally. Answers orientation questions correctly. Lethargic he seems to have improved Results & Data Medications Administered Current Inpatient Medications Acetaminophen (Tylenol) 650 mg PEG Q4H PRN PRN Reason: Pain Stop: 11/13/18 04:15 Last Admin: 10/14/18 13:39 Dose: 650 mg Documented by: Hydrocodone Bitart/Acetaminophen (Lortab) 10 ml PEG Q4H PRN PRN Reason: Pain Stop: 10/28/18 04:46 Albuterol (Duoneb) 3 ml NEB Q2H PRN PRN Reason: Wheezing Stop: 11/13/18 04:15 Aspirin (Aspirin Chew) 81 mg PEG DAILY [facility] Stop: 11/13/18 08:59 Last Admin: 10/17/18 07:04 Dose: 81 mg Documented by: Atorvastatin Calcium (Lipitor) 40 mg PEG HS [facility] Stop: 11/13/18 20:59 Last Admin: 10/16/18 20:54 Dose: 40 mg Documented by: Carbidopa/Levodopa (Sinemet 25/100 Mg) 1 tab PEG BID [facility] Stop: 11/13/18 08:59 Last Admin: 10/17/18 07:03 Dose: 1 tab Documented by: Clopidogrel Bisulfate (Plavix) 75 mg PEG DAILY [facility] Stop: 11/13/18 08:59 Last Admin: 10/17/18 07:04 Dose: 75 mg Documented by: Enoxaparin Sodium (Lovenox) 40 mg SQ QAM [facility] Stop: 11/13/18 08:59 Last Admin: 10/17/18 07:04 Dose: 40 mg Documented by: Enteral Nutritional Formula (Peptamen 1.5) 250 ml PEG DAILY@0800,1400 [facility]; Protocol Stop: 11/14/18 13:59 Last Admin: 10/17/18 13:36 Dose: 250 ml Documented by: Enteral Nutritional Formula (Peptamen 1.5) 1,000 ml PEG DAILY@2000 [facility]; Protocol Stop: 11/13/18 19:59 Last Admin: 10/16/18 20:54 Dose: 1,000 ml Documented by: Escitalopram Oxalate (Lexapro) 30 mg PEG DAILY [facility] Stop: 11/13/18 08:59 Last Admin: 10/17/18 07:04 Dose: 30 mg Documented by: Gabapentin (Neurontin) 200 mg PEG TID [facility] Stop: 11/13/18 08:59 Last Admin: 10/17/18 13:36 Dose: 200 mg Documented by: Hydralazine HCl (Apresoline) 25 mg PEG BID [facility] Stop: 11/13/18 08:59 Last Admin: 10/17/18 07:04 Dose: 25 mg Documented by: Levetiracetam (Keppra) 500 mg PEG BID [facility] Stop: 11/13/18 08:59 Last Admin: 10/17/18 07:05 Dose: 500 mg Documented by: Levothyroxine Sodium (Synthroid) 100 mcg GT DAILY [facility] Stop: 11/13/18 08:59 Last Admin: 10/17/18 07:04 Dose: 100 mcg Documented by: Lisinopril (Zestril) 40 mg PO DAILY [facility] Stop: 11/17/18 08:59 Miscellaneous (Stop Order) 1 ea N/A DAILY@0600 [facility] Stop: 11/14/18 05:59 Last Admin: 10/17/18 06:33 Dose: 1 ea Documented by: Polyethylene Glycol (Miralax Powder Packet) 17 gm PEG DAILY PRN PRN Reason: Unknown Stop: 11/13/18 04:15 Ranitidine HCl (Zantac) 150 mg PEG BID [facility] Stop: 11/13/18 08:59 Last Admin: 10/17/18 07:04 Dose: 150 mg Documented by: Senna/Docusate Sodium (Senokot S) 1 tab PO DAILY PRN PRN Reason: Constipation Stop: 11/13/18 04:15 Tamsulosin HCl (Flomax) 0.4 mg PEG QPM [facility] Stop: 11/13/18 20:59 Last Admin: 10/16/18 20:55 Dose: 0.4 mg Documented by:
[2018-10-17] MEDS: ATORVASTATIN 40 MG TAB PEG SCH (20:30)
[2018-10-17] MEDS: TAMSULOSIN HCL 0.4 MG CAP PEG SCH (20:30)
[2018-10-17] MEDS: ACETAMINOPHEN SOL 650 MG/20.3 ML UDC PEG PRN (23:46)
[2018-10-18] MEDS: [UNRECOGNIZED DRUG - REMARK] SCH (06:46)
[2018-10-18] MEDS: ESCITALOPRAM OXALATE ORAL SOLN 5 MG/5 ML PEG SCH (07:30)
[2018-10-18] MEDS: ASPIRIN 81 MG CHEW PEG SCH (07:30)
[2018-10-18] MEDS: GABAPENTIN 250 MG/5 ML 470 ML BTL PEG SCH ×2 (07:31→13:33)
[2018-10-18] MEDS: LEVOTHYROXINE SODIUM 100 MCG TABLET GT SCH (07:31)
[2018-10-18] MEDS: CARBIDOPA/LEVODOPA 25/100MG TAB PEG SCH (07:31)
[2018-10-18] MEDS: CLOPIDOGREL BISULFATE 75 MG TAB PEG SCH (07:31)
[2018-10-18] MEDS: RANITIDINE HCL SYRUP 150 MG/10 ML UDC PEG SCH (07:31)
[2018-10-18] MEDS: ENOXAPARIN INJ 40 MG/0.4 ML SYR SQ SCH (07:32)
[2018-10-18] MEDS: PEPTAMEN 1.5 CAL 1,000 ML BAG PEG SCH ×2 (07:38→13:33)
[2018-10-18] MEDS ORDERED: LISINOPRIL 40 MG TAB PO SCH (09:00)
--- NOTE | 2018-10-18 12:30 | Discharge Summary ---
Date of Service October 18, 2018 Admission HPI Per Admitting Provider History obtained from family, and records. Unable to obtain history from patient secondary to obtunded state. Medical history significant for ischemic brainstem CVA, CAD as per records, hypertension, DM 2 on oral meds, aspiration risk status post PEG tube placement, GERD, hypothyroidism. Recent confinement 3 weeks ago for altered mental status attributed to sleep deprivation. Brain MRI with and without contrast : 1. No acute intracranial abnormality identified, specifically no acute or subacute infarction. 2. Age-related involutional changes with moderate chronic microvascular ischemic changes. 3. No abnormal enhancement. As per patient's , patient noted by caregiver to have involuntary bilateral arm shaking and eye twitching movements for about couple of minutes, subsequent drooling noted, no tongue biting, usual urinary incontinence. Patient noted to be more confused than usual after episode as per . No fever, no chills. No abdominal pain, diarrhea symptoms. No previous episodes. Occasional wheeze noted. No overt cough symptoms noted. At the ER, patient received IV Keppra load for seizure prophylaxis. Medical History as above Surgical History : PEG tube placement, tonsillectomy/adenoidectomy, back surgery Family History : Colon cancer, breast/ovarian cancer, heart disease, diabetes Personal/Social history : Past tobacco abuse, no EtOH intake, disabled, lives with Admission Exam Per Admitting Provider Temp 36.8 C 10/13/18 20:19 Pulse 51 L 10/14/18 00:00 Resp 16 10/14/18 00:00 BP 159/81 H 10/14/18 00:00 Pulse Ox 92 10/14/18 00:00 Physical Exam: GENERAL: Obtunded, no respiratory distress SKIN: Normal color, warm HEENT: [place] palpebral conjunctivae, no ptosis, dry buccal mucosa NECK : Supple, no tenderness CHEST : Decreased breath sounds, no tenderness HEART : Bradycardic, no obvious murmurs ABDOMEN: Some distention, PEG tube in place, nontender EXTREMITIES : No LE swelling/tenderness, chronic contracture left lower extremity NEUROLOGIC : Obtunded, chronic lower lip symmetry, left hemiparesis Principal Diagnosis Seizure Discharge Data Allergies Allergy/AdvReac Type Severity Reaction Status Date / Time Penicillins Allergy Intermediate RASH Verified 09/20/18 20:31 Consultations 10/14/18 00:00 ED Decision to Admit Stat 10/14/18 04:16 Consult Neurology Routine Ordered Studies 10/13/18 20:27 CT head/brain wo con Stat Hospital Course (1) New onset seizure: (2) Hypertension: (3) Status post CVA: 67-year-old man presents emergency room altered mental status per his after an episode of seizure-like activity. He has a history of bilateral brainstem stroke that occurred after receiving a cardiac catheterization and left him bedbound. He was loaded with 1 g of IV Keppra and started on 500 mg of Keppra twice daily per [facility] neurology. He was admitted to the Hospitalist service. Urinalysis and a chest xray were clear and there was no evidence of infection. Neurology recommended an EEG which revealed diffuse slowing but no epileptiform activity. CT head revealed no acute findings. An MRI had recently been done within the last month for altered mental status and was negative. No MRI was repeated this admission. He was continued on Keppra 500mg PEG twice daily and did not have further seizure activity in this hospitalization. He did remain an extra couple of days because of significant somnolence. He was reevaluated on hospital day 4 by Neurology and noted that the patient seemed more alert, was following simple commands, and encouraged the patient and spouse to follow-up with a sleep study for obstructive sleep apnea evaluation. This is consistent with prior recommendations from previous hospitalization. The following day he was mentating at baseline, alert and oriented and was asymptomatic. He was discharged in stable condition with close primary care follow-up recommended. He will need a [facility] neurology follow-up within 4-6 weeks nonurgently. He tolerated his tube feeds during this admission without issue. He also was noted to have elevated blood pressure consistently and his lisinopril was doubled. Hydralazine was continued. He will need a BMP in 2 weeks that should be followed by his PCP. Total Time Total Time Spent Total Time Spent (In Minutes): 60 Total Time Includes: Examination of the Patient, Discharge Planning, Medication Reconciliation, Communication With Other Providers and Other (scheduled follow- up) Discharge Plan Discharge Items Reason For Visit: SEIZURES Discharge Diagnosis: Seizure Condition: Good Discharge Goals: Decrease discomfort and Improve disease control Activity: Resume your previous activity Non-emergency contact: Primary Care Provider Call non-emergency contact if: you have any medication questions, your symptoms worsen, your pain is not controlled and you have a fever Follow-up/Referrals: Juanito Tom MD [Primary Care Provider] - Reggie Mon DO [Physician] - Diet: Enteral nutrition Other Ambulatory Orders: Basic Metabolic Panel (Routine) Timeframe: 2 Weeks Location: Determined by Patient Ordered By: Ashley Dorman Addtl Provider Instructions: Please take all medications as instructed on discharge list below. Your blood pressure medications have been increased. As a result you will need to have non-fasting blood work performed in 2 weeks. THIS CAN BE DRAWN AT HOME. This should be followed with your primary care doctor. It is recommended that you have a follow-up with your primary care doctor within 1 week of discharge. You have the follow-up appointment scheduled: It is recommended that you follow-up with neurology nonurgently in the next 1-3 months for follow-up of your new seizure activity. It was a pleasure taking care of you! Please call if you have any questions or problems. You can reach a [facility] hospitalist on duty at [facility] 24 hours a day by calling [phone]. Take care of yourself. Ashley Dorman DO [facility] Hospitalist Prescriptions: New lisinopril [Zestril] 40 mg Tablet 40 mg PO DAILY Qty: 30 RF: 1 levetiracetam 100 mg/mL Solution 500 mg PEG BID Qty: 500 RF: 1 Continued atorvastatin 40 mg Tablet 40 mg Feeding Tube HS RF: 0 metformin 500 mg Tablet 500 mg Feeding Tube BID RF: 0 acetaminophen [Mapap (acetaminophen)] 325 mg Tablet 650 mg Feeding Tube Q4H PRN (Reason: Pain) RF: 0 hydrocodone-acetaminophen 5-325 mg Tablet 1 tab Feeding Tube Q4H PRN (Reason: Outbreak) RF: 0 hydralazine 25 mg Tablet 25 mg Feeding Tube BID RF: 0 clopidogrel [Plavix] 75 mg Tablet 75 mg Feeding Tube DAILY RF: 0 aspirin [Aspirin Low Dose] 81 mg Tablet,Delayed Release (Dr/Ec) 81 mg Feeding Tube DAILY RF: 0 tamsulosin 0.4 mg Capsule 0.4 mg PO QPM RF: 0 nitroglycerin 0.4 mg Tablet, Sublingual 0.4 mg Sublingual DIRECTED RF: 0 ranitidine HCl 150 mg Capsule 150 mg Feeding Tube BID RF: 0 gabapentin 100 mg Capsule 200 mg Feeding Tube TID RF: 0 carbidopa-levodopa [Sinemet] 25-100 mg Tablet 1 tab Feeding Tube BID RF: 0 escitalopram oxalate [Lexapro] 10 mg Tablet 10 mg Feeding Tube DAILY RF: 0 escitalopram oxalate [Lexapro] 20 mg Tablet 20 mg Feeding Tube DAILY RF: 0 albuterol sulfate 2.5 mg/0.5 mL Solution For Nebulization 2.5 mg INHALATION QID PRN (Reason: Shortness Of Breath Or Wheezing) RF: 0 magnesium oxide 400 mg Capsule 400 mg Feeding Tube DAILY RF: 0 polyethylene glycol 3350 [Miralax] 17 gram Powder In Packet 17 g Feeding Tube DAILY PRN (Reason: Unknown) RF: 0 levothyroxine [Synthroid] 100 mcg tablet 100 mcg Feeding Tube DAILY RF: 0 sennosides-docusate sodium [Senna with Docusate Sodium] 8.6-50 mg Tablet 1 tab Feeding Tube DAILY PRN (Reason: Constipation) RF: 0 atropine [Isopto Atropine] 1 % drops 2 drp Sublingual UD PRN (Reason: DRY SECRETIONS) RF: 0 Selsun Blue 1 % Shampoo 1 applic TOPICAL 2XWK RF: 0 Isosource 1.5 Billy 0.07 gram-1.5 kcal/mL Liquid 250 ml Feeding Tube BID RF: 0 Isosource 1.5 Billy 0.07 gram-1.5 kcal/mL Liquid 1,000 ml Feeding Tube HS RF: 0 Discontinued lisinopril 20 mg Tablet 20 mg Feeding Tube DAILY RF: 0 Stand-Alone Forms: [facility] Admission Data Admit Date/Time: 10/15/18 23:29 Attending Provider: Ashley Dorman Admit Provider: Noe Tran Primary Care Provider: Juanito Tom Other Providers: Noe Tran ; Callum Gan Service: Medical Other Interventions: Discharge Summary Assessment (RN) Last Done: 10/18/18 12:30
[2018-10-18] MEDS ORDERED: HYDROCODONE/APAP 2.5MG/108MG ELIX 5 ML UDP PEG PRN (14:02)
== END 2018-10-18 17:20 | disposition home or self-care (01) | DRG 101 ==
LOC: 2N 19:55 → ED 19:55 → 2N 10-14 02:52 → 4W 10-17 10:44

== ENCOUNTER 2018-11-16 17:35 | Inpatient (IN) ==
[~2018-11-16 17:35] MED LIST changes: -ACET500T58 PEG; -ALBU0.08 INH; -AMPH15CA7 PEG; -ASPI1TAB83 PEG; -ATOR-24 PEG; -CARB25TA12 PEG; -CLOP1TAB54 PEG; -ERGO1TAB12 PEG; -ESCI10TA17 PEG; -ESCI1TAB10 PEG; -GABA1CAP PEG; -GLC/500 PEG; -HYDR-4716 PEG; +HydrALAZINE HCL 20 MG/ML VIAL IV ONE; -LEVO100T PEG; -LISI-725 PEG; -MAGN400T6 PEG; -NTRGSL/4 UT; -NUTR1.5L4 PEG; -POLY335025 PEG; -SENN1TAB66 PEG; -TAMS0.4C38 PEG; -ZNT/150 PEG
[2018-11-16] MEDS ORDERED: SODIUM CHLORIDE 0.9% 1000ML 1,000 ML IV ONE (18:46)
[2018-11-16] MEDS ORDERED: ACETAMINOPHEN 1,000 MG/100 ML VIAL IV STA (18:46)
[2018-11-16] MEDS ORDERED: DEXAMETHASONE SOD PHOSPHATE 10 MG in SYRINGE 0 ML IV STA (18:48)
[2018-11-16] MEDS ORDERED: VANCOMYCIN CONSULT ACTIVE PRN (18:50)
[2018-11-16] MEDS ORDERED: VANCOMYCIN HCL 2,250 MG in SODIUM CHLORIDE 0.9% 500 ML IV ONE (18:50)
[2018-11-16] MEDS ORDERED: PIPERACILLIN/TAZOBACTAM 4.5 GM/120 ML BAG IV ONE (18:50)
[2018-11-16 18:58] LABS: Basophils # (auto) 0.02 K/uL (0-0.2); Basophils % (auto) 0.1 %; Eosinophils # (auto) 0.01 K/uL (0-0.5); Hematocrit (blood only) 42.1 % (42-52); Hemoglobin 13.9 g/dL (14.0-18.0); Immature Granulocytes # (auto) 0.09 K/uL (0.00-0.02); Immature Granulocytes % (auto) 0.4 %; Lymphocytes # (auto) 2.61 K/uL (1.2-3.4); Lymphocytes % (auto) 12.2 %; Mean Corpuscular Volume 95.7 fL (80-100); Mean Platelet Volume 12.3 fL (7.4-10.4); Monocytes # (auto) 2.19 K/uL (0.11-0.59); Monocytes % (auto) 10.3 %; Platelet Count 191 K/uL (130-400); RDW Coefficient of Variation 13.9 % (11.5-14.5); RDW Standard Deviation 48.7 fL (36.4-46.3); White Blood Count 21.32 K/uL (4.8-10.8)
--- NOTE | 2018-11-16 19:03 | XRay Report ---
XR chest 1V portable CLINICAL HISTORY: Sepsis dyspnea COMPARISON STUDY: 10/13/2017 FINDINGS: Mild fullness mid mediastinum possibly technical. Mild bibasilar atelectatic change. Minima l basilar infiltrative change may be present. Mid and upper lungs are considered clear. IMPRESSION: Small bibasilar parenchymal infiltrates. Mild cardiomegaly. The above report was generated using voice recognition software. It may contain grammatical, syntax or spelling errors. Electronically signed by: Yasir Ruvalcaba M.D. 11/16/2018 7:02 PM
[2018-11-16] MEDS ORDERED: DEXAMETHASONE **PF** INJ 10 MG/ML VIAL ONE (19:15)
[2018-11-16 19:19] LABS: Albumin Globulin Ratio 0.5 (0.9-2); Albumin Level 2.4 gm/dl (3.4-5.0); BUN Creatinine Ratio 32.2 (10-20); Bilirubin,Total 0.5 mg/dl (0.2-1); Calcium 9.4 mg/dl (8.5-10.1); Creatinine Clr Calc Pharmacy 166.1 ml/min; Est GFR (Non-African American) 107.8; Globulin 4.9 gm/dl (2.5-4.0); Magnesium 2.3 mg/dl (1.8-2.4); Phosphorus 2.1 mg/dl (2.5-4.9); Potassium 4.2 mmol/L (3.5-5.1); Total Protein 7.3 gm/dl (6.4-8.2)
[2018-11-16] MEDS ORDERED: IOVERSOL 100ml IV PRN (19:46)
[2018-11-16 19:50] LABS: INR 1.5 (0.9-1.1); Partial Thromboplastin Ratio 1.6; Prothrombin Time 14.5 Seconds (9.0-12.0)
--- NOTE | 2018-11-16 19:56 | CT Scan Report ---
Study: CT soft tissue neck HISTORY: Mass. Trauma. Pain COMPARISON: 04/18/2018 FINDINGS: Diffuse enlargement and edematous change of the right parotid. Diffuse infiltrative change in the right periventricular soft tissue. Several reactive nodes within the right cervical chain gabriel uring up to 1.2 cm. No evidence for well-defined drainable abscess or collection. The submandibular glands appear symmetr ic. Moderate soft tissue edematous change of the soft tissues of the right lateral cervical neck exte nding to the right supraclavicular region. Differential considerations must include diffuse cellulitis and sialoadenitis, although if there is h istory of trauma post traumatic contusion may represent at least part of the etiology of these findin gs. There is mild hyperpharyngeal edema with mild displacement airway to the left. There is a small amoun t of nonspecific right peritracheal soft tissue edematous change IMPRESSION: 1. Diffuse edematous change of the bulk of the right soft tissue neck structures. 2. This includes the right parotid gland as well as right periauricular and right lateral soft tissue s of the entire right soft tissue neck. 3. Mild right pretracheal soft tissue edema with mild displacement of the airway to the left. 4. Differential considerations must include diffuse soft tissue cellulitis and sialoadenitis. 5. No well-defined drainable abscess or collection. 6. Mild reactive cervical adenopathy of the soft tissue neck. 7. This process does not resolve, repeat scan at later date would be recommended to exclude any possi bility of a neoplastic type process. Electronically signed by: Yasir Ruvalcaba M.D. 11/16/2018 7:55 PM
--- NOTE | 2018-11-16 20:12 | Emergency Department Note ---
Entered by Ted Wang acting as a scribe for Christopher Gandhi MD History of Present Illness General Chief complaint: Edema To Extremity Stated complaint: FACIAL SWELLING Time Seen by Provider: 11/16/18 18:43 Source: family () Limitations: physical limitation (from patient) History of Present Illness Onset (ago): hour(s) (couple hours ago) Location: head Pain Consistency: + constant Associated symptoms: + denies other symptoms (congestion) and + weakness; no cough Treatments prior to arrival: none The patient is a 67 year old male who presents to the Emergency Room with complaints of constant facial swelling and a fever starting a couple hours ago. The patient's states the patient's care givers noticed the patient had swelling in his face and had a fever. She states Tylenol or medication was not given to the patient as far as she knows. She notes the patient is more weak than usual. The states the patient had a stroke 5 years ago. 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 She states the patient's speech is pretty good but states it is sometimes slurred when the patient is tired. The states the patient was admitted in the hospital a couple weeks ago for a witnessed seizure. She notes the patient was in the hospital a couple months ago for an altered mental status, hallucinations, and jerky movements. The denies the patient having congestion or cough. Home Medications Home Medications Medication Instructions Recorded Confirmed Type albuterol sulfate 2.5 mg INHALATION QID PRN 04/18/18 11/16/18 History aspirin [Aspirin Low Dose] 81 mg FEEDING TUBE DAILY 04/18/18 11/16/18 History atorvastatin 40 mg FEEDING TUBE HS 04/18/18 11/16/18 History carbidopa-levodopa [Sinemet] 1 tab FEEDING TUBE BID 04/18/18 11/16/18 History clopidogrel [Plavix] 75 mg FEEDING TUBE DAILY 04/18/18 11/16/18 History escitalopram oxalate [Lexapro] 10 mg FEEDING TUBE DAILY 04/18/18 11/16/18 Histor y escitalopram oxalate [Lexapro] 20 mg FEEDING TUBE DAILY 04/18/18 11/16/18 History gabapentin 200 mg FEEDING TUBE TID 04/18/18 11/16/18 History hydralazine 25 mg FEEDING TUBE BID 04/18/18 11/16/18 History hydrocodone-acetaminophen 1 tab FEEDING TUBE Q4H PRN 04/18/18 11/16/18 History magnesium oxide 400 mg FEEDING TUBE DAILY 04/18/18 11/16/18 History metformin 500 mg FEEDING TUBE BID 04/18/18 11/16/18 History nitroglycerin 0.4 mg SUBLINGUAL DIRECTED 04/18/18 11/16/18 History ranitidine HCl 150 mg FEEDING TUBE BID 04/18/18 11/16/18 History tamsulosin 0.4 mg PO QPM 04/18/18 11/16/18 History polyethylene glycol 3350 [Miralax] 17 g FEEDING TUBE DAILY PRN 07/14/18 11/16/18 History Isosource 1.5 Billy 1,000 ml FEEDING TUBE HS 09/20/18 11/16/18 History Isosource 1.5 Billy 250 ml FEEDING TUBE BID 09/20/18 11/16/18 History Selsun Blue 1 applic TOPICAL 2XWK 09/20/18 11/16/18 History atropine [Isopto Atropine] 2 drp SUBLINGUAL UD PRN 09/20/18 11/16/18 History levothyroxine [Synthroid] 100 mcg FEEDING TUBE DAILY 09/20/18 11/16/18 History sennosides-docusate sodium [Senna 1 tab FEEDING TUBE DAILY PRN 09/20/18 11/16/18 History with Docusate Sodium] levetiracetam 500 mg PEG BID #500 ml 10/18/18 11/16/18 Rx lisinopril [Zestril] 40 mg PO DAILY #30 tab 10/18/18 11/16/18 Rx acetaminophen [Tylenol Extra 500 mg PO Q4 PRN 11/16/18 11/16/18 History Strength] Allergies Allergy/AdvReac Type Severity Reaction Status Date / Time Penicillins Allergy Intermediate RASH Verified 09/20/18 20:31 Past Med/Surg History Medical History DM type 2 (diabetes mellitus, type 2) (Chronic) History of ischemic vertebrobasilar artery brainstem stroke (Chronic) Anxiety (Chronic) Depression (Chronic) 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) Neuropathy (Chronic) Gastroparesis (Chronic) Dysphasia (Chronic) GERD (gastroesophageal reflux disease) (Chronic) Hypertension (Chronic) Basilar artery occlusion (Chronic) CAD, multiple vessel (Chronic) Hypothyroidism (Chronic) Dyslipidemia (Chronic) CVA (cerebral infarction) (Inactive) "BA occlusion with b/l OUT PATIENT THERAPIST territory infarcts, right thalamic infarct, hippocampi infarcts 01/03/14." Coronary artery disease (Inactive) Hypertension (Inactive) Surgical History History of tonsillectomy and adenoidectomy (Chronic) Previous back surgery (Chronic) S/P percutaneous endoscopic gastrostomy (PEG) tube placement (Chronic) Family History Father Colorectal cancer Hypertension Diabetes Mother Diabetes Mother Hypertension Social History Preferred Language: Korean Communication Ability: Unable 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 and A total of 10 systems reviewed and were otherwise negative Physical Exam Vital Signs Vital Signs - 24 hr 11/16/18 17:40 11/16/18 17:44 11/16/18 17:51 Temperature 38.5 C H Temperature Source Oral Sepsis Recent Fever Within 48 Hours Yes Sepsis New/Unexplained Change in Mental Status No Sepsis Action Taken by Nursing No Action Required Pulse Rate 88 98 H Pulse Rate [Apical] Pulse Rate from SpO2 Sensor Pulse Rhythm Pulse Rhythm [Apical] Pulse Strength [Apical] Respiratory Rate 23 22 24 Respiratory Effort / Characteristics Respiratory Depth Normal Blood Pressure 181/94 H 181/94 H Blood Pressure [Right Arm] Blood Pressure Mean 123 123 Blood Pressure Mean [Right Arm] Blood Pressure Position [Right Arm] Pulse Oximetry 92 Oxygen Delivery Method Room Air Oxygen Flow Rate 11/16/18 18:00 11/16/18 18:01 11/16/18 18:30 Temperature Temperature Source Sepsis Recent Fever Within 48 Hours Sepsis New/Unexplained Change in Mental Status Sepsis Action Taken by Nursing Pulse Rate 88 86 87 Pulse Rate [Apical] Pulse Rate from SpO2 Sensor 263 H 231 H 87 Pulse Rhythm Pulse Rhythm [Apical] Pulse Strength [Apical] Respiratory Rate 22 24 22 Respiratory Effort / Characteristics Respiratory Depth Blood Pressure 137/77 Blood Pressure [Right Arm] Blood Pressure Mean 97 Blood Pressure Mean [Right Arm] Blood Pressure Position [Right Arm] Pulse Oximetry 90 90 92 Oxygen Delivery Method Oxygen Flow Rate 11/16/18 18:31 11/16/18 18:45 11/16/18 18:56 Temperature Temperature Source Sepsis Recent Fever Within 48 Hours Sepsis New/Unexplained Change in Mental Status Sepsis Action Taken by Nursing Pulse Rate 85 85 70 Pulse Rate [Apical] Pulse Rate from SpO2 Sensor 85 84 Pulse Rhythm Regular Pulse Rhythm [Apical] Pulse Strength [Apical] Respiratory Rate 20 21 Respiratory Effort / Characteristics Respiratory Depth Blood Pressure 171/114 H Blood Pressure [Right Arm] Blood Pressure Mean 133 Blood Pressure Mean [Right Arm] Blood Pressure Position [Right Arm] Pulse Oximetry 91 91 92 Oxygen Delivery Method Room Air Oxygen Flow Rate 11/16/18 19:00 11/16/18 19:01 11/16/18 19:31 Temperature Temperature Source Sepsis Recent Fever Within 48 Hours Sepsis New/Unexplained Change in Mental Status Sepsis Action Taken by Nursing Pulse Rate 85 84 76 Pulse Rate [Apical] Pulse Rate from SpO2 Sensor 86 85 77 Pulse Rhythm Pulse Rhythm [Apical] Pulse Strength [Apical] Respiratory Rate 22 23 24 Respiratory Effort / Characteristics Respiratory Depth Blood Pressure 175/93 H 193/97 H Blood Pressure [Right Arm] Blood Pressure Mean 120 129 Blood Pressure Mean [Right Arm] Blood Pressure Position [Right Arm] Pulse Oximetry 91 91 91 Oxygen Delivery Method Oxygen Flow Rate 11/16/18 20:01 11/16/18 20:02 11/16/18 20:15 Temperature Temperature Source Sepsis Recent Fever Within 48 Hours Sepsis New/Unexplained Change in Mental Status Sepsis Action Taken by Nursing Pulse Rate 75 74 75 Pulse Rate [Apical] Pulse Rate from SpO2 Sensor 77 75 74 Pulse Rhythm Pulse Rhythm [Apical] Pulse Strength [Apical] Respiratory Rate 27 H 26 H 25 H Respiratory Effort / Characteristics Respiratory Depth Blood Pressure 176/85 H Blood Pressure [Right Arm] Blood Pressure Mean 115 Blood Pressure Mean [Right Arm] Blood Pressure Position [Right Arm] Pulse Oximetry 92 92 92 Oxygen Delivery Method Oxygen Flow Rate 11/16/18 20:16 11/16/18 20:30 11/16/18 20:31 Temperature Temperature Source Sepsis Recent Fever Within 48 Hours Sepsis New/Unexplained Change in Mental Status Sepsis Action Taken by Nursing Pulse Rate 73 75 75 Pulse Rate [Apical] Pulse Rate from SpO2 Sensor 74 75 75 Pulse Rhythm Pulse Rhythm [Apical] Pulse Strength [Apical] Respiratory Rate 24 28 H 25 H Respiratory Effort / Characteristics Respiratory Depth Blood Pressure 202/90 H 194/103 H Blood Pressure [Right Arm] Blood Pressure Mean 127 133 Blood Pressure Mean [Right Arm] Blood Pressure Position [Right Arm] Pulse Oximetry 91 92 91 Oxygen Delivery Method Oxygen Flow Rate 11/16/18 20:45 11/16/18 20:46 11/16/18 21:00 Temperature Temperature Source Sepsis Recent Fever Within 48 Hours Sepsis New/Unexplained Change in Mental Status Sepsis Action Taken by Nursing Pulse Rate 76 78 76 Pulse Rate [Apical] Pulse Rate from SpO2 Sensor 75 79 75 Pulse Rhythm Pulse Rhythm [Apical] Pulse Strength [Apical] Respiratory Rate 26 H 24 23 Respiratory Effort / Characteristics Respiratory Depth Blood Pressure 214/98 H Blood Pressure [Right Arm] Blood Pressure Mean 136 Blood Pressure Mean [Right Arm] Blood Pressure Position [Right Arm] Pulse Oximetry 92 91 92 Oxygen Delivery Method Oxygen Flow Rate 11/16/18 21:01 11/16/18 21:15 11/16/18 21:16 Temperature Temperature Source Sepsis Recent Fever Within 48 Hours Sepsis New/Unexplained Change in Mental Status Sepsis Action Taken by Nursing Pulse Rate 75 80 75 Pulse Rate [Apical] Pulse Rate from SpO2 Sensor 74 68 Pulse Rhythm Pulse Rhythm [Apical] Pulse Strength [Apical] Respiratory Rate 22 23 21 Respiratory Effort / Characteristics Respiratory Depth Blood Pressure 203/96 H 215/97 H Blood Pressure [Right Arm] Blood Pressure Mean 131 136 Blood Pressure Mean [Right Arm] Blood Pressure Position [Right Arm] Pulse Oximetry 92 91 Oxygen Delivery Method Room Air Oxygen Flow Rate 11/16/18 21:30 11/16/18 21:31 11/16/18 21:45 Temperature Temperature Source Sepsis Recent Fever Within 48 Hours Sepsis New/Unexplained Change in Mental Status Sepsis Action Taken by Nursing Pulse Rate 74 73 73 Pulse Rate [Apical] Pulse Rate from SpO2 Sensor 73 76 73 Pulse Rhythm Pulse Rhythm [Apical] Pulse Strength [Apical] Respiratory Rate 22 22 24 Respiratory Effort / Characteristics Respiratory Depth Blood Pressure 194/93 H Blood Pressure [Right Arm] Blood Pressure Mean 126 Blood Pressure Mean [Right Arm] Blood Pressure Position [Right Arm] Pulse Oximetry 92 92 92 Oxygen Delivery Method Room Air Oxygen Flow Rate 11/16/18 21:46 11/16/18 21:47 11/16/18 22:00 Temperature Temperature Source Sepsis Recent Fever Within 48 Hours Sepsis New/Unexplained Change in Mental Status Sepsis Action Taken by Nursing Pulse Rate 73 76 74 Pulse Rate [Apical] Pulse Rate from SpO2 Sensor 74 77 73 Pulse Rhythm Pulse Rhythm [Apical] Pulse Strength [Apical] Respiratory Rate 26 H 24 22 Respiratory Effort / Characteristics Respiratory Depth Blood Pressure 199/89 H Blood Pressure [Right Arm] Blood Pressure Mean 125 Blood Pressure Mean [Right Arm] Blood Pressure Position [Right Arm] Pulse Oximetry 92 92 92 Oxygen Delivery Method Room Air Oxygen Flow Rate 11/16/18 22:01 11/16/18 22:02 11/16/18 22:15 Temperature 37.8 C H Temperature Source Oral Sepsis Recent Fever Within 48 Hours Sepsis New/Unexplained Change in Mental Status Sepsis Action Taken by Nursing Pulse Rate 70 71 Pulse Rate [Apical] Pulse Rate from SpO2 Sensor 68 72 Pulse Rhythm Pulse Rhythm [Apical] Pulse Strength [Apical] Respiratory Rate 23 22 Respiratory Effort / Characteristics Respiratory Depth Blood Pressure 196/93 H Blood Pressure [Right Arm] Blood Pressure Mean 127 Blood Pressure Mean [Right Arm] Blood Pressure Position [Right Arm] Pulse Oximetry 91 96 Oxygen Delivery Method Oxygen Flow Rate 11/16/18 22:16 11/16/18 23:17 11/16/18 23:18 Temperature Temperature Source Sepsis Recent Fever Within 48 Hours Sepsis New/Unexplained Change in Mental Status Sepsis Action Taken by Nursing Pulse Rate 72 Pulse Rate [Apical] Pulse Rate from SpO2 Sensor 75 Pulse Rhythm Pulse Rhythm [Apical] Pulse Strength [Apical] Respiratory Rate 24 Respiratory Effort / Characteristics Respiratory Depth Blood Pressure 200/91 H Blood Pressure [Right Arm] Blood Pressure Mean 127 Blood Pressure Mean [Right Arm] Blood Pressure Position [Right Arm] Pulse Oximetry 96 89 L 89 L Oxygen Delivery Method Room Air Room Air Oxygen Flow Rate 11/16/18 23:33 11/17/18 00:48 11/17/18 02:40 Temperature 37.1 C Temperature Source Oral Sepsis Recent Fever Within 48 Hours Sepsis New/Unexplained Change in Mental Status Sepsis Action Taken by Nursing Pulse Rate 75 Pulse Rate [Apical] 71 75 Pulse Rate from SpO2 Sensor Pulse Rhythm Pulse Rhythm [Apical] Regular Pulse Strength [Apical] Normal Respiratory Rate 22 20 Respiratory Effort / Characteristics Non-Labored Respiratory Depth Normal Blood Pressure Blood Pressure [Right Arm] 200/90 H 142/71 H Blood Pressure Mean Blood Pressure Mean [Right Arm] 126 94 Blood Pressure Position [Right Arm] Lying Pulse Oximetry 95 91 Oxygen Delivery Method Nebulizer Nasal Cannula Oxygen Flow Rate 7 3 GENERAL: Awake, alert, ill-appearing, in no distress HENT: Normocephalic, atraumatic. No tongue elevation, trismus, or stridor. 15 cm region of edema induration of right preauricular region extending distally to right lateral neck. EYES: Normal conjunctiva. Sclera non-icteric. NECK: Supple. No nuchal rigidity. FROM. No JVD. Mild edema, induration tenderness to right lateral neck. No stridor. RESPIRATORY: Diminished breath sounds at bases otherwise clear CARDIAC: Regular rate, normal rhythm. Extremities warm and well perfused. Pulses equal. ABDOMEN: Soft, non-distended. No tenderness to palpation. No rebound or guarding. No masses. RECTAL: Deferred. MUSCULOSKELETAL: Chest examination reveals no tenderness. The back is symmetrical on inspection without obvious abnormality. There is no CVA tenderness to palpation. No joint edema. LOWER EXTREMITIES: Calves are equal size bilaterally and non-tender. No edema. No discoloration. NEURO: Normal sensorium. No sensory or motor deficits noted. Baseline left-sided weakness. SKIN: No rash or jaundice noted. Course 1842: The patient was evaluated in room A12B, and a complete history and physical examination were performed. 2005: I spoke with Dr. Tran - [facility] [place]. He will evaluate the patient for further management. 2031: I spoke with Dr. Willard of [facility] surgery. We agree no drainable fluid requires no surgical intervention. Agrees with antibiotics. Recommends culture if possible from drainage from Stensen's duct. He states he will be available for consultation and will see the patient tomorrow morning given there is no overnight coverage of ENT. 2046: was updated. Administered Medications Sodium Chloride (Nss 1000ml) 1,000 mls @ 60 mls/hr IV .[id number] STA Stop: 11/17/18 17:15 Last Admin: 11/17/18 01:47 Dose: 60 mls/hr Documented by: [id number] Potassium Phosphate 18 mmol/ (Sodium Chloride) 506 mls @ 88 mls/hr IV ONE ONE Stop: 11/17/18 07:14 Last Admin: 11/17/18 01:47 Dose: 88 mls/hr Documented by: [id number] Piperacillin Sod/Tazobactam (Sod 4.5 gm/ Dextrose) 120 mls @ 30 mls/hr IV Q8H PAVITHRA; Protocol Stop: 11/24/18 01:29 Last Admin: 11/17/18 02:16 Dose: 30 mls/hr Documented by: [id number] Levetiracetam (Keppra) 500 mg PEG BID PAVITHRA Stop: 12/17/18 00:35 Last Admin: 11/17/18 01:57 Dose: 500 mg Documented by: [id number] Discontinued Medications Albuterol (Duoneb) 3 ml NEB NOW STA Stop: 11/16/18 23:20 Last Admin: 11/16/18 23:34 Dose: Not Given Documented by: [id number] Albuterol (Duoneb) Confirm Administered Dose 3 ml .ROUTE .STK-MED ONE Stop: 11/16/18 23:23 Last Admin: 11/16/18 23:23 Dose: 3 ml Documented by: [id number] Dexamethasone Sodium Phosphate (Decadron Pf) Confirm Administered Dose 10 mg .ROUTE .STK-MED ONE Stop: 11/16/18 19:16 Last Admin: 11/16/18 19:18 Dose: Not Given Documented by: [id number] Hydralazine HCl (Hydralazine Hcl) 2.5 mg IV NOW ONE Stop: 11/16/18 02:42 Last Admin: 11/16/18 22:47 Dose: Not Given Documented by: [id number] Hydralazine HCl (Hydralazine Hcl) Confirm Administered Dose 20 mg .ROUTE .STK- MED ONE Stop: 11/16/18 20:56 Last Admin: 11/16/18 21:09 Dose: Not Given Documented by: [id number] Hydralazine HCl (Hydralazine Hcl) 2.5 mg IV NOW STA Stop: 11/16/18 21:12 Last Admin: 11/16/18 21:12 Dose: 2.5 mg Documented by: [id number] Hydralazine HCl (Hydralazine Hcl) 5 mg IV NOW STA Stop: 11/16/18 23:06 Last Admin: 11/16/18 23:23 Dose: 5 mg Documented by: [id number] Acetaminophen (Ofirmev) 1,000 mg in 100 mls @ 400 mls/hr IV NOW STA Stop: 11/16/18 19:00 Last Infusion: 11/16/18 19:14 Dose: 0 mls/hr Documented by: [id number] Admin: 11/16/18 18:55 Dose: 400 mls/hr Documented by: [id number] Sodium Chloride (Nss 1000ml) 1,000 mls @ 999 mls/hr IV .Q1H1M ONE Stop: 11/16/18 19:46 Last Infusion: 11/16/18 20:02 Dose: 0 mls/hr Documented by: [id number] Admin: 11/16/18 18:55 Dose: 999 mls/hr Documented by: [id number] Dexamethasone Sodium Phosphate (10 mg/ Syringe) 2.5 mls @ 1 mls/min IV NOW STA Stop: 11/16/18 18:50 Last Admin: 11/16/18 19:18 Dose: 1 mls/min Documented by: [id number] Piperacillin Sod/Tazobactam Sod (Zosyn) 4.5 gm in 120 mls @ 30 mls/hr IV NOW O NE Stop: 11/16/18 22:49 Last Infusion: 11/16/18 23:31 Dose: 0 mls/hr Documented by: [id number] Infusion: 11/16/18 20:01 Dose: 30 mls/hr Documented by: [id number] Infusion: 11/16/18 19:32 Dose: 0 mls/hr Documented by: [id number] Admin: 11/16/18 19:26 Dose: 30 mls/hr Documented by: [id number] Vancomycin HCl 2,250 mg/ (Sodium Chloride) 545 mls @ 200 mls/hr IV NOW ONE Stop: 11/16/18 21:33 Last Infusion: 11/16/18 23:14 Dose: 0 mls/hr Documented by: [id number] Admin: 11/16/18 20:01 Dose: 200 mls/hr Documented by: [id number] Insulin Glargine (Lantus Solostar Pen) 5 units SC NOW STA Stop: 11/17/18 00:37 Last Admin: 11/17/18 01:54 Dose: 5 units Documented by: [id number] Cosigned by: [id number] Ioversol (Optiray 320 100ml) 95 ml IV ONCE PRN PRN Reason: Interaction Checking Stop: 11/20/18 19:45 Last Admin: 11/16/18 19:46 Dose: 95 ml Documented by: [id number] Medical Decision Making Differential Diagnosis Differential Diagnosis: Anthony 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 Medical Records Attestation: I reviewed the patient's medical records. Home Medications Current Medication List: was personally reviewed by de Laboratory Data Attestation: I reviewed the patient's lab results. Result diagrams: 11/16/18 18:00 11/16/18 18:00 Lab Results 11/16/18 11/16/18 11/16/18 Range/Units 18:00 18:00 19:23 WBC 21.32 H (4.8-10.8) K/uL RBC 4.40 L (4.7-6.1) M/uL Hgb 13.9 L (14.0-18.0) g/dL Hct 42.1 (42-52) % MCV 95.7 (80-100) fL MCH 31.6 (25-34) pg MCHC 33.0 (32-36) g/dL RDW Std Deviation 48.7 H (36.4-46.3) fL RDW Coeff of Albert 13.9 (11.5-14.5) % Plt Count 191 (130-400) K/uL MPV 12.3 H (7.4-10.4) fL Immature Gran % (Auto) 0.4 % Neut % (Auto) 77.0 % Lymph % (Auto) 12.2 % [place] % (Auto) 10.3 % Eos % (Auto) 0.0 % Baso % (Auto) 0.1 % Immature Gran # (Auto) 0.09 H (0.00-0.02) K/uL Neut # (Auto) 16.40 H (1.4-6.5) K/uL Lymph # (Auto) 2.61 (1.2-3.4) K/uL [place] # (Auto) 2.19 H (0.11-0.59) K/uL Eos # (Auto) 0.01 (0-0.5) K/uL Baso # (Auto) 0.02 (0-0.2) K/uL PT 14.5 H (9.0-12.0) Seconds INR 1.5 H (0.9-1.1) APTT 43.0 H (21.0-31.0) Seconds PTT Ratio 1.6 Sodium 139 (136-145) mmol/L Potassium 4.2 (3.5-5.1) mmol/L Chloride 105 (98-107) mmol/L Carbon Dioxide 28 (21-32) mmol/L Anion Gap 6.0 (3-11) BUN 18 (7-18) mg/dl Creatinine 0.55 L (0.6-1.4) mg/dl Est Cr Clr Drug Dosing 166.1 ml/min Est GFR ( Amer) 125.0 Est GFR (Non-Af Amer) 107.8 BUN/Creatinine Ratio 32.2 H (10-20) Glucose 175 H (70-99) mg/dl Lactate (0.4-2.0) mmol/L Calcium 9.4 (8.5-10.1) mg/dl Phosphorus 2.1 L (2.5-4.9) mg/dl Magnesium 2.3 (1.8-2.4) mg/dl Total Bilirubin 0.5 (0.2-1) mg/dl Direct Bilirubin (0-0.2) mg/dl AST 17 (15-37) U/L ALT 18 (12-78) U/L Alkaline Phosphatase 95 (45-117) U/L Total Protein 7.3 (6.4-8.2) gm/dl Albumin 2.4 L (3.4-5.0) gm/dl Globulin 4.9 H (2.5-4.0) gm/dl Albumin/Globulin Ratio 0.5 L (0.9-2) Procalcitonin (0-0.5) ng/ml Specimen Hemolysis 11/16/18 11/16/18 Range/Units 19:23 21:14 WBC (4.8-10.8) K/uL RBC (4.7-6.1) M/uL Hgb (14.0-18.0) g/dL Hct (42-52) % MCV (80-100) fL MCH (25-34) pg MCHC (32-36) g/dL RDW Std Deviation (36.4-46.3) fL RDW Coeff of Albert (11.5-14.5) % Plt Count (130-400) K/uL MPV (7.4-10.4) fL Immature Gran % (Auto) % Neut % (Auto) % Lymph % (Auto) % [place] % (Auto) % Eos % (Auto) % Baso % (Auto) % Immature Gran # (Auto) (0.00-0.02) K/uL Neut # (Auto) (1.4-6.5) K/uL Lymph # (Auto) (1.2-3.4) K/uL [place] # (Auto) (0.11-0.59) K/uL Eos # (Auto) (0-0.5) K/uL Baso # (Auto) (0-0.2) K/uL PT (9.0-12.0) Seconds INR (0.9-1.1) APTT (21.0-31.0) Seconds PTT Ratio Sodium (136-145) mmol/L Potassium (3.5-5.1) mmol/L Chloride (98-107) mmol/L Carbon Dioxide (21-32) mmol/L Anion Gap (3-11) BUN (7-18) mg/dl Creatinine (0.6-1.4) mg/dl Est Cr Clr Drug Dosing ml/min Est GFR ( Amer) Est GFR (Non-Af Amer) BUN/Creatinine Ratio (10-20) Glucose (70-99) mg/dl Lactate 1.2 (0.4-2.0) mmol/L Calcium (8.5-10.1) mg/dl Phosphorus (2.5-4.9) mg/dl Magnesium (1.8-2.4) mg/dl Total Bilirubin (0.2-1) mg/dl Direct Bilirubin (0-0.2) mg/dl AST (15-37) U/L ALT (12-78) U/L Alkaline Phosphatase (45-117) U/L Total Protein (6.4-8.2) gm/dl Albumin (3.4-5.0) gm/dl Globulin (2.5-4.0) gm/dl Albumin/Globulin Ratio (0.9-2) Procalcitonin < 0.05 (0-0.5) ng/ml Specimen Hemolysis Imaging Data Radiologist's Impression: Radiology results as stated below per my review and the radiologist's interpretation: XR chest 1V portable CLINICAL HISTORY: Sepsis dyspnea COMPARISON STUDY: 10/13/2017 FINDINGS: Mild fullness mid mediastinum possibly technical. Mild bibasilar atelectatic change. Minimal basilar infiltrative change may be present. Mid and upper lungs are considered clear. IMPRESSION: Small bibasilar parenchymal infiltrates. Mild cardiomegaly. The above report was generated using voice recognition software. It may contain grammatical, syntax or spelling errors. Electronically signed by: Yasir Ruvalcaba M.D. 11/16/2018 7:02 PM Study: CT soft tissue neck HISTORY: Mass. Trauma. Pain COMPARISON: 04/18/2018 FINDINGS: Diffuse enlargement and edematous change of the right parotid. Diffuse infiltrative change in the right periventricular soft tissue. Several reactive nodes within the right cervical chain measuring up to 1.2 cm. No evidence for well-defined drainable abscess or collection. The submandibular glands appear symmetric. Moderate soft tissue edematous change of the soft tissues of the right lateral cervical neck extending to the right supraclavicular region. Differential considerations must include diffuse cellulitis and sialoadenitis, although if there is history of trauma post traumatic contusion may represent at least part of the etiology of these findings. There is mild hyperpharyngeal edema with mild displacement airway to the left. There is a small amount of nonspecific right peritracheal soft tissue edematous change IMPRESSION: 1. Diffuse edematous change of the bulk of the right soft tissue neck structures. 2. This includes the right parotid gland as well as right periauricular and right lateral soft tissues of the entire right soft tissue neck. 3. Mild right pretracheal soft tissue edema with mild displacement of the airway to the left. 4. Differential considerations must include diffuse soft tissue cellulitis and sialoadenitis. 5. No well-defined drainable abscess or collection. 6. Mild reactive cervical adenopathy of the soft tissue neck. 7. This process does not resolve, repeat scan at later date would be recommended to exclude any possibility of a neoplastic type process. Electronically signed by: Yasir Ruvalcaba M.D. 11/16/2018 7:55 PM ECG Data Attestation: I personally reviewed and interpreted this ECG as follows: Indication: weakness Rate (beats per minute): 87 Rhythm: sinus rhythm Findings: + other (nonspecific-T wave abnormality), + nonspecific-ST abn and + PAC; no acute ischemic change Blood Pressure Blood Pressure Findings: Elevated blood pressure Blood Pressure Disposition: further management by hospitalist ZAMZAM Summers The patient is a pleasant 67-year-old gentleman with a past medical history of brainstem CVA, CAD, hypertension, DM 2, status post PEG tube for aspiration risk, sz d/o who presents emergency department with fevers and fatigue with right-sided neck swelling that began today per hpi. On arrival the patient is fatigued, ill-appearing but no acute distress, febrile to 38.5 and vital signs otherwise stable. She has 15cm region of swelling, induration of the right preauricular region extending distally to the submandibular region. There is no stridor. There is no tongue elevation or trismus. Chest x-ray with question of bibasilar parenchymal infiltrates. CT scan of the neck demonstrates diffuse swelling/inflammation of right parotid gland as well as right periauricular and right lateral soft tissues of the entire right soft tissue neck. There is some d isplacement of trachea however airway is patent. WBC 21K. Chemistry without acidosis. [id number] lactate within normal limits. LFTs unremarkable. Procalcitonin wnl. Patient treated with Vancomycin and Zosyn on arrival as well as dexamethasone to reduce swelling. Case d/w Dr. Tran, [facility] hospitalist who will evaluated the patient for admission. Requests to make ENT aware however there is no on-call ENT coverage at this time. Case d/w Dr. Willard, [facility] surgery, who agrees with plan for admission with antibiotics. Recomends culture from Sofía's duct drainage, which was performed. Given no fluid collection no role for surgical intervention at this time. He will evaluate the patient in the morning and will be available for admitting team consultation. Dr. Tran updated. Impression & Plan Sepsis, Parotitis Critical Care Time I have personally spent 65 minutes of critical care time in the direct management of this patient. This includes bedside care, interpretation of jerry gnostic studies, and testing, discussion with consultants, patient, and family members, and other required patient management activities. This 65 minutes is in excess of all separately billable procedures. Critical Care Time: Yes Total Critical Care Time: 65 Discharge Plan Visit Data *Final* Discharge Date/Time: 11/16/18 23:44 Chief Complaint: Edema To Extremity Stated Complaint: FACIAL SWELLING ED Provider: Christopher Gandhi Discharge Problem: Sepsis, Parotitis Patient Disposition: Admitted As Inpatient Discharge Instructions Interventions: ED Discharge Assessment Last Done: 11/16/18 23:44 Discharge Problem: Sepsis Qualifiers: Sepsis type: sepsis due to unspecified organism Qualified Code(s): A41.9 - Sepsis, unspecified organism The scribe's documentation has been prepared under my direction and personally reviewed by me in its entirety. I confirm that the note above accurately reflects all work, treatment, procedures, and medical decision making performed by me.
[2018-11-16] MEDS ORDERED: HydrALAZINE HCL 20 MG/ML VIAL ONE (20:55)
[2018-11-16] MEDS ORDERED: HydrALAZINE HCL 20 MG/ML VIAL IV STA ×2 (21:11→23:05)
--- NOTE | 2018-11-16 22:24 | History & Physical Report ---
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 In ED patient was noted to be febrile at 38.5, leukocytosis 21.32, hemoglobin 13.9, hematocrit 42.1, BUN 18, creatinine 0.55, glucose 175, lactate 1.2, pro- calcitonin negative CT scan of neck soft tissue revealed diffuse edematous changes of right soft tissue neck structures including right parotid gland and right periauricular and right lateral soft tissue. Mild right pretracheal soft tissue edema with mild displacement of airway to left concerning for soft tissue cellulitis and sialoadenitis. There was no well-defined drainable abscess or collection In ED he received IV dexamethasone, IV Zosyn, IV Vanco, IV fluid, IV acetaminophen, IV hydralazine Patient meets sepsis criteria per CMS guidelines with temp 30.5, leukocytosis 21.32 Source right parotitis versus cellulitis sialoadenitis He received broad-spectrum IV antibiotics with vancomycin and Zosyn Received IV fluid Blood cultures and mariela duct culture obtained Please refer to attending addendum for further details regarding assessment and plan (3) Elevated INR: INR 1.5, pt not currently on anticoagulation (4) CAD, multiple vessel: No chest pain or shortness of breath noted Continue medical management with ASA, Plavix statin, lisinopril (5) Hypertension: Blood pressure significantly elevated during admission, may also be in setting of pain Continue hydralazine, lisinopril Refer to attending addendum for acute BP management (6) Dyslipidemia: Continue statin (7) History of ischemic vertebrobasilar artery brainstem stroke: With residual left hemiparesis, dysarthria, dysphagia Continue ASA, Plavix, statin Risk reduction management for comorbidities including HTN, HLD, T2 DM (8) DM type 2 (diabetes mellitus, type 2): Well-controlled, last A1c 09/21/18 5.4 Hold oral hypoglycemic Lantus/NovoLog per protocol (9) Seizure: No seizure-like activity Continue Keppra (10) Depression: Continue Lexapro (11) Hypothyroidism: Continue levothyroxine (12) S/P percutaneous endoscopic gastrostomy (PEG) tube placement: Continue tube feedings Consult dietitian (13) GERD (gastroesophageal reflux disease): Continue ranitidine (14) DVT prophylaxis: Prophylaxis Per attending Patient is DNR; however, if current condition would compromise patient's airway it is okay for intubation for temporary setting per Position: To be determined Follow-up: PCP upon discharge Dr. Tom Patient was seen and examined in collaboration with Dr. Tran, please stated History of Present Illness Chief Complaint: R sided facial swelling/fever x 1 day. 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 is at bedside who provides history. ROS unobtainable from patient. states that caregiver was helping patient this morning when she noted his right side of his face to be very swollen. She felt patient felt warm. Temperature was obtained, 100.4. EMS was called. does elicit patient was moaning and appeared to be uncomfortable but did not appear to be in any distress with shortness of breath, wheezing. She does elicit that he does get tracheal congestion secondary to history of CVA. He does have drooling secondary to prior CVA but she does not note this in excess. He is incontinent of bowels and urine. Never had anything like this in the past. Allergies Allergy/AdvReac Type Severity Reaction Status Date / Time Penicillins Allergy Intermediate RASH Verified 09/20/18 20:31 Home Medications Home Medications Medication Instructions Recorded Confirmed Type albuterol sulfate 2.5 mg INHALATION QID PRN 04/18/18 11/16/18 History aspirin [Aspirin Low Dose] 81 mg FEEDING TUBE DAILY 04/18/18 11/16/18 History atorvastatin 40 mg FEEDING TUBE HS 04/18/18 11/16/18 History carbidopa-levodopa [Sinemet] 1 tab FEEDING TUBE BID 04/18/18 11/16/18 History clopidogrel [Plavix] 75 mg FEEDING TUBE DAILY 04/18/18 11/16/18 History escitalopram oxalate [Lexapro] 10 mg FEEDING TUBE DAILY 04/18/18 11/16/18 History escitalopram oxalate [Lexapro] 20 mg FEEDING TUBE DAILY 04/18/18 11/16/18 History gabapentin 200 mg FEEDING TUBE TID 04/18/18 11/16/18 History hydralazine 25 mg FEEDING TUBE BID 04/18/18 11/16/18 History hydrocodone-acetaminophen 1 tab FEEDING TUBE Q4H PRN 04/18/18 11/16/18 History magnesium oxide 400 mg FEEDING TUBE DAILY 04/18/18 11/16/18 History metformin 500 mg FEEDING TUBE BID 04/18/18 11/16/18 History nitroglycerin 0.4 mg SUBLINGUAL DIRECTED 04/18/18 11/16/18 History ranitidine HCl 150 mg FEEDING TUBE BID 04/18/18 11/16/18 History tamsulosin 0.4 mg PO QPM 04/18/18 11/16/18 History polyethylene glycol 3350 [Miralax] 17 g FEEDING TUBE DAILY PRN 07/14/18 11/16/18 History Isosource 1.5 Billy 1,000 ml FEEDING TUBE HS 09/20/18 11/16/18 History Isosource 1.5 Billy 250 ml FEEDING TUBE BID 09/20/18 11/16/18 History Selsun Blue 1 applic TOPICAL 2XWK 09/20/18 11/16/18 History atropine [Isopto Atropine] 2 drp SUBLINGUAL UD PRN 09/20/18 11/16/18 History levothyroxine [Synthroid] 100 mcg FEEDING TUBE DAILY 09/20/18 11/16/18 History sennosides-docusate sodium [Senna 1 tab FEEDING TUBE DAILY PRN 09/20/18 11/16/18 History with Docusate Sodium] levetiracetam 500 mg PEG BID #500 ml 10/18/18 11/16/18 Rx lisinopril [Zestril] 40 mg PO DAILY #30 tab 10/18/18 11/16/18 Rx acetaminophen [Tylenol Extra 500 mg PO Q4 PRN 04/17/19 04/17/19 History Strength] Past Med/Surg History Medical History DM type 2 (diabetes mellitus, type 2) (Chronic) History of ischemic vertebrobasilar artery brainstem stroke (Chronic) Anxiety (Chronic) Depression (Chronic) 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) Neuropathy (Chronic) Gastroparesis (Chronic) Dysphasia (Chronic) GERD (gastroesophageal reflux disease) (Chronic) Hypertension (Chronic) Basilar artery occlusion (Chronic) CAD, multiple vessel (Chronic) Hypothyroidism (Chronic) Dyslipidemia (Chronic) CVA (cerebral infarction) (Inactive) "BA occlusion with b/l TROUBLE LOCATER territory infarcts, right thalamic infarct, hippocampi infarcts 01/03/14." Coronary artery disease (Inactive) Hypertension (Inactive) Surgical History History of tonsillectomy and adenoidectomy (Chronic) Previous back surgery (Chronic) S/P percutaneous endoscopic gastrostomy (PEG) tube placement (Chronic) Family History Father Colorectal cancer Hypertension Diabetes Mother Diabetes Mother Hypertension Social History Preferred Language: Frisian Communication Ability: Unable Java Web Architect Required: Yes Beliefs That Will Affect Care: None marital status: Current Living Situation: Family Current Living Situation Comment: At home with spouse and caregivers Other Information That Helps Us Care for You: No Feels Safe at Home: Yes Safety Concerns: Feels Safe At This Time Smoking Status: Former smoker Do You Dip or Chew Tobacco: No Second Hand Exposure: No Tobacco Cessation Education Requested by Patient: No Hx Alcohol Use: No Hx Substance Use: No Review of Systems Review of Systems: Unobtainable due to cognitive status Physical Exam Vital Signs (Past 24 Hours): Last Vital Signs Temp 37.8 C H 11/16/18 22:02 Pulse 72 11/16/18 22:16 Resp 24 11/16/18 22:16 BP 200/91 H 11/16/18 22:16 Pulse Ox 96 11/16/18 22:16 Physical Exam: Gen: Morbidly obese, male, lying in bed, does not appear to be in distress, appears ill, does not answer questions appropriately Head: Normocephalic, Atraumatic Eyes: Sclera normal, no conjunctival injection, PERRLA, EOMI ENT: Significant right sided edema and region of parotid gland, erythema, warmth. Positive purulent drainage from Stensen's duct, normal pharynx, uvula midline, mucous membranes moist Neck: supple, positive adenopathy, positive significant soft tissue swelling, No JVD, no bruit, Resp: Clear to auscultation b/l, no wheeze, rales, rhonchi. Normal insp/exp effort, no accessory muscle use CV: Regular rate, regular rhythm, no murmur, rub, gallop, or ectopy Abd: +BS x 4, obese abdomen, PEG tube in place, no surrounding erythema or drainage, soft, nontender Musculoskeletal: Left hemiplegia, unable to evaluate MSK secondary to patient inability to follow commands Extremities: No edema bilaterally Skin: warm, moist, no rash, negative turgor, cap refill < 2sec Neuro: Alert, arouses to verbal and tactile stimulation, speech normal, does not answer questions appropriately, facial droop in setting of edema, : deferred Results & Data Laboratory Results Short CBC 11/16/18 Range/Units 18:00 WBC 21.32 H (4.8-10.8) K/uL Hgb 13.9 L (14.0-18.0) g/dL Hct 42.1 (42-52) % Plt Count 191 (130-400) K/uL BMP 11/16/18 18:00 Sodium 139 Potassium 4.2 Chloride 105 Carbon Dioxide 28 BUN 18 Creatinine 0.55 L Glucose 175 H Calcium 9.4 Liver Function 11/16/18 Range/Units 18:00 Total Bilirubin 0.5 (0.2-1) mg/dl Direct Bilirubin (0-0.2) mg/dl AST 17 (15-37) U/L ALT 18 (12-78) U/L Alkaline Phosphatase 95 (45-117) U/L Albumin 2.4 L (3.4-5.0) gm/dl Diagnostic Findings Soft Tissue Neck CT: IMPRESSION: 1. Diffuse edematous change of the bulk of the right soft tissue neck structures. 2. This includes the right parotid gland as well as right periauricular and right lateral soft tissues of the entire right soft tissue neck. 3. Mild right pretracheal soft tissue edema with mild displacement of the airway to the left. 4. Differential considerations must include diffuse soft tissue cellulitis and sialoadenitis. 5. No well-defined drainable abscess or collection. 6. Mild reactive cervical adenopathy of the soft tissue neck. 7. This process does not resolve, repeat scan at later date would be recommended to exclude any possibility of a neoplastic type process. CXR: IMPRESSION: Small bibasilar parenchymal infiltrates. Mild cardiomegaly. Medications Administered Piperacillin Sod/Tazobactam Sod (Zosyn) 4.5 gm in 120 mls @ 30 mls/hr IV NOW ONE Stop: 11/16/18 22:49 Last Infusion: 11/16/18 20:01 Dose: 30 mls/hr Documented by: [id number] Infusion: 11/16/18 19:32 Dose: 0 mls/hr Documented by: [id number] Admin: 11/16/18 19:26 Dose: 30 mls/hr Documented by: [id number] Ioversol (Optiray 320 100ml) 95 ml IV ONCE PRN PRN Reason: Interaction Checking Stop: 11/20/18 19:45 Last Admin: 11/16/18 19:46 Dose: 95 ml Documented by: [id number] Discontinued Medications Dexamethasone Sodium Phosphate (Decadron Pf) Confirm Administered Dose 10 mg .ROUTE .STK-MED ONE Stop: 11/16/18 19:16 Last Admin: 11/16/18 19:18 Dose: Not Given Documented by: [id number] Hydralazine HCl (Hydralazine Hcl) Confirm Administered Dose 20 mg .ROUTE .STK- MED ONE Stop: 11/16/18 20:56 Last Admin: 11/16/18 21:09 Dose: Not Given Documented by: [id number] Hydralazine HCl (Hydralazine Hcl) 2.5 mg IV NOW STA Stop: 11/16/18 21:12 Last Admin: 11/16/18 21:12 Dose: 2.5 mg Documented by: [id number] Acetaminophen (Ofirmev) 1,000 mg in 100 mls @ 400 mls/hr IV NOW STA Stop: 11/16/18 19:00 Last Infusion: 11/16/18 19:14 Dose: 0 mls/hr Documented by: [id number] Admin: 11/16/18 18:55 Dose: 400 mls/hr Documented by: [id number] Sodium Chloride (Nss 1000ml) 1,000 mls @ 999 mls/hr IV .Q1H1M ONE Stop: 11/16/18 19:46 Last Infusion: 11/16/18 20:02 Dose: 0 mls/hr Documented by: [id number] Admin: 11/16/18 18:55 Dose: 999 mls/hr Documented by: [id number] Dexamethasone Sodium Phosphate (10 mg/ Syringe) 2.5 mls @ 1 mls/min IV NOW STA Stop: 11/16/18 18:50 Last Admin: 11/16/18 19:18 Dose: 1 mls/min Documented by: [id number] Vancomycin HCl 2,250 mg/ (Sodium Chloride) 545 mls @ 200 mls/hr IV NOW ONE Stop: 11/16/18 21:33 Last Admin: 11/16/18 20:01 Dose: 200 mls/hr Documented by: [id number] Code Status & VTE Plan Code Status Patient has POLST and is DNR states if patient were to require intubation secondary to compromised airway for his current condition it is okay to intubate VTE Prophylaxis Plan VTE Prophylaxis will be ordered: Yes Supervising Physician Co-Signing Physician Notes IM ATTENDING : Patient seen and examined. History obtained from patient and records. Limited history from patient secondary to aphasic state Preceding documentation by Ms. Nathalie Figueroa PA-C reviewed. In addition, patient noted to have gurgly respiration by . FINAL ASSESSMENT AND PLAN as follows : Sepsis Secondary to parotid cellulitis, right Aspiration pneumonia, hx history aspiration risk status post PEG tube placement hx brainstem CVA/CAD as per records hypertension, elevated secondary to illness Prediabetes on oral meds, well controlled as of recent inpatient hemoglobin A1c of 5.4 last September 2018 aspiration risk status post PEG tube placement hypothyroidism, euthyroid as of recent TSH Chronic anemia, hemoglobin at baseline of 12-13 History seizure disorder stable on [facility] Medical telemetry given hypertensive urgency Cultures, Zosyn for parotitis and aspiration pneumonia Local measures for parotitis ENT consultation RE parotitis right with tracheal impingement (ER provider already in touch with Dr. Willard, oral maxillofacial surgeon addiction medicine physician.) Swallow eval Aspiration precautions ISS BG goal 140-180 DVT prophylaxis. Lovenox subcu Level 2 CODE STATUS as per , OK with intubation, no CPR. She requests updates from providers. Mrs. Cheyenne Jiang, [phone]. (1) Sepsis Sepsis type: sepsis due to unspecified organism Qualified Code(s): A41.9 - Sepsis, unspecified organism
[2018-11-16] MEDS ORDERED: ALBUT/IPRATROP 3MG/0.5MG NEB 3 ML VIAL NEB STA (23:19)
[2018-11-16] MEDS ORDERED: ALBUT/IPRATROP 3MG/0.5MG NEB 3 ML VIAL ONE (23:22)
[2018-11-17] MEDS ORDERED: POLYETHYLENE (MIRALAX) 17 GM PACK PEG PRN (00:36)
[2018-11-17] MEDS ORDERED: INSULIN GLARGINE SOLOSTAR 100 UNITS/ML 3 ML PEN SC STA (00:36)
[2018-11-17] MEDS ORDERED: SODIUM CHLORIDE 0.9% 1000ML 1,000 ML IV STA (00:36)
[2018-11-17] MEDS ORDERED: DOCUSATE SODIUM/SENNA 50/8.6MG TAB PO PRN (00:36)
[2018-11-17] MEDS ORDERED: POTASSIUM PHOS 3 MMOL/1 ML INFUSION IV STA (01:17)
[2018-11-17] MEDS ORDERED: POTASSIUM PHOSPHATE 18 MMOL in SODIUM CHLORIDE 0.9% 500 ML IV ONE (01:30)
[2018-11-17] MEDS: levETIRAcetam ORAL SOLN 100MG/ML PEG SCH ×3 (01:57→20:38)
[2018-11-17] MEDS: PIPERACILLIN/TAZOBACTAM 4.5 GM in DEXTROSE 5% 100 ML IV SCH ×3 (02:16→17:49)
[2018-11-17] MEDS ORDERED: VANCOMYCIN HCL 1,500 MG in SODIUM CHLORIDE 0.9% 500 ML IV SCH (04:00)
[2018-11-17] MEDS ORDERED: CARBOHYDRATES FOR HYPOGLYCEMIA PO PRN (05:03)
[2018-11-17] MEDS ORDERED: GLUCOSE 40% GEL 15 GM TUBE PO PRN (05:03)
[2018-11-17] MEDS ORDERED: GLUCAGON FOR INJ 1 MG VIAL SQ PRN (05:03)
[2018-11-17] MEDS ORDERED: DEXTROSE 50% 50 ML SYRINGE IV PRN (05:03)
[2018-11-17] MEDS ORDERED: GLUCOSE 10 TABS/TUBE PO PRN (05:03)
[2018-11-17] MEDS: LEVOTHYROXINE SODIUM 100 MCG TABLET GT SCH (06:11)
[2018-11-17] MEDS: INSULIN ASPART 100 UNITS/ML 3 ML PEN SC SCH ×4 (06:16→21:21)
[2018-11-17] MEDS: [UNRECOGNIZED DRUG - REMARK] SCH (07:07)
[2018-11-17] MEDS: CARBIDOPA/LEVODOPA 25/100MG TAB PEG SCH ×2 (07:16→11:34)
[2018-11-17] MEDS: ESCITALOPRAM OXALATE 10 MG TAB PO SCH (07:16)
[2018-11-17] MEDS: LISINOPRIL 40 MG TAB PO SCH (07:16)
[2018-11-17] MEDS: ENOXAPARIN INJ 40 MG/0.4 ML SYR SQ SCH (07:16)
[2018-11-17] MEDS: CLOPIDOGREL BISULFATE 75 MG TAB PEG SCH (07:16)
[2018-11-17] MEDS: ASPIRIN 81 MG ECTAB PO SCH (07:17)
[2018-11-17] MEDS: ESCITALOPRAM OXALATE 20 MG TAB PO SCH (07:17)
[2018-11-17] MEDS: GABAPENTIN 250 MG/5 ML 470 ML BTL PO SCH ×3 (07:20→20:38)
[2018-11-17 07:36] LABS: Basophils # (auto) 0.01 K/uL (0-0.2); Basophils % (auto) 0.1 %; Hematocrit (blood only) 39.1 % (42-52); Hemoglobin 12.9 g/dL (14.0-18.0); Immature Granulocytes # (auto) 0.05 K/uL (0.00-0.02); Immature Granulocytes % (auto) 0.3 %; Lymphocytes # (auto) 1.63 K/uL (1.2-3.4); Lymphocytes % (auto) 9.3 %; Mean Corpuscular Volume 95.8 fL (80-100); Mean Platelet Volume 11.8 fL (7.4-10.4); Monocytes # (auto) 0.83 K/uL (0.11-0.59); Monocytes % (auto) 4.7 %; Neutrophils # (auto) 15.07 K/uL (1.4-6.5); Neutrophils % (auto) 85.6 %; Platelet Count 167 K/uL (130-400); RDW Coefficient of Variation 13.9 % (11.5-14.5); RDW Standard Deviation 49.1 fL (36.4-46.3); Red Blood Count 4.08 M/uL (4.7-6.1); White Blood Count 17.59 K/uL (4.8-10.8)
[2018-11-17] MEDS: PEPTAMEN 1.5 CAL 1,000 ML BAG PEG SCH ×3 (07:43→20:34)
[2018-11-17 07:48] LABS: Appearance Urine Clear (Clear); Bacteria Urine Automated Negative (Negative); Bilirubin Urine Negative (Negative); Blood Urine Negative (Negative); Color Urine Dark Yellow; Glucose Urine UA Negative (Negative); Ketones Urine Trace (Negative); Leukocyte Esterase Urine Negative (Negative); Nitrite Urine Negative (Negative); Protein Urine 2+ (Negative); RBC Urine Automated 0-4 /hpf (0-4); Specific Gravity Urine > 1.045 (1.000-1.030); Urobilinogen Urine Negative (Negative)
[2018-11-17 08:05] LABS: BUN Creatinine Ratio 42.4 (10-20); Calcium 8.9 mg/dl (8.5-10.1); Creatinine Clr Calc Pharmacy 196.8 ml/min; Est GFR (African American) 134.5; Potassium 4.1 mmol/L (3.5-5.1)
--- NOTE | 2018-11-17 08:22 | Surgery Consultation ---
Date of Consultation November 17, [address] scan and agree with the findings. Given his current medical conditions this looks to be a retograde parotid gland infection. There is no drainage from the right parotid duct opening in right cheek nor is there any intraoral swelling. His teeth are in poor condition as this is a chronic issue. There is no drainable pus at this time. Medical management is the treatment of choice at this time. With IV antibiotics and heat to right parotid area will either cause resolution or localization for ? I&D. I will re -evaluate Mr. Jiang in 48 hrs to see the effects of the current treatment. Please call me if you need further information regarding this case management. Avtar Willard [phone] History of Present Illness Attending Physician: Kaleb Huffman MD Allergies Allergy/AdvReac Type Severity Reaction Status Date / Time Penicillins Allergy Intermediate RASH Verified 09/20/18 20:31 Home Medications Home Medications Medication Instructions Recorded Confirmed Type albuterol sulfate 2.5 mg INHALATION QID PRN 04/18/18 11/16/18 History aspirin [Aspirin Low Dose] 81 mg FEEDING TUBE DAILY 04/18/18 11/16/18 History atorvastatin 40 mg FEEDING TUBE HS 04/18/18 11/16/18 History carbidopa-levodopa [Sinemet] 1 tab FEEDING TUBE BID 04/18/18 11/16/18 History clopidogrel [Plavix] 75 mg FEEDING TUBE DAILY 04/18/18 11/16/18 History escitalopram oxalate [Lexapro] 10 mg FEEDING TUBE DAILY 04/18/18 11/16/18 History escitalopram oxalate [Lexapro] 20 mg FEEDING TUBE DAILY 04/18/18 11/16/18 Hi story gabapentin 200 mg FEEDING TUBE TID 04/18/18 11/16/18 History hydralazine 25 mg FEEDING TUBE BID 04/18/18 11/16/18 History hydrocodone-acetaminophen 1 tab FEEDING TUBE Q4H PRN 04/18/18 11/16/18 History magnesium oxide 400 mg FEEDING TUBE DAILY 04/18/18 11/16/18 History metformin 500 mg FEEDING TUBE BID 04/18/18 11/16/18 History nitroglycerin 0.4 mg SUBLINGUAL DIRECTED 04/18/18 11/16/18 History ranitidine HCl 150 mg FEEDING TUBE BID 04/18/18 11/16/18 History tamsulosin 0.4 mg PO QPM 04/18/18 11/16/18 History polyethylene glycol 3350 [Miralax] 17 g FEEDING TUBE DAILY PRN 07/14/18 11/16/18 History Isosource 1.5 Billy 1,000 ml FEEDING TUBE HS 09/20/18 11/16/18 History Isosource 1.5 Billy 250 ml FEEDING TUBE BID 09/20/18 11/16/18 History Selsun Blue 1 applic TOPICAL 2XWK 09/20/18 11/16/18 History atropine [Isopto Atropine] 2 drp SUBLINGUAL UD PRN 09/20/18 11/16/18 History levothyroxine [Synthroid] 100 mcg FEEDING TUBE DAILY 09/20/18 11/16/18 History sennosides-docusate sodium [Senna 1 tab FEEDING TUBE DAILY PRN 09/20/18 11/16/18 History with Docusate Sodium] levetiracetam 500 mg PEG BID #500 ml 10/18/18 11/16/18 Rx lisinopril [Zestril] 40 mg PO DAILY #30 tab 10/18/18 11/16/18 Rx acetaminophen [Tylenol Extra 500 mg PO Q4 PRN 11/16/18 11/16/18 History Strength] Patient History Medical History DM type 2 (diabetes mellitus, type 2) (Chronic) History of ischemic vertebrobasilar artery brainstem stroke (Chronic) Anxiety (Chronic) Depression (Chronic) 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) Neuropathy (Chronic) Gastroparesis (Chronic) Dysphasia (Chronic) GERD (gastroesophageal reflux disease) (Chronic) Hypertension (Chronic) Basilar artery occlusion (Chronic) CAD, multiple vessel (Chronic) Hypothyroidism (Chronic) Dyslipidemia (Chronic) CVA (cerebral infarction) (Inactive) "BA occlusion with b/l SENIOR MEDICAL TRANSCRIPTIONIST territory infarcts, right thalamic infarct, hippocampi infarcts 01/03/14." Coronary artery disease (Inactive) Hypertension (Inactive) Surgical History History of tonsillectomy and adenoidectomy (Chronic) Previous back surgery (Chronic) S/P percutaneous endoscopic gastrostomy (PEG) tube placement (Chronic) Family History Father Colorectal cancer Hypertension Diabetes Mother Diabetes Mother Hypertension Social History Preferred Language: Chilean Communication Ability: Unable Magazine Feeder Required: Yes Beliefs That Will Affect Care: None marital status: Current Living Situation: Family Current Living Situation Comment: At home with spouse and caregivers Other Information That Helps Us Care for You: No Feels Safe at Home: Yes Safety Concerns: Feels Safe At This Time Smoking Status: Former smoker Do You Dip or Chew Tobacco: No Second Hand Exposure: No Tobacco Cessation Education Requested by Patient: No Hx Alcohol Use: No Hx Substance Use: No Results & Data Vital Signs (Past 12 Hours) Vital Signs Temp Pulse Pulse Resp BP BP Pulse Ox 11/17/18 07:27 36.9 C 93 H 20 152/70 H 91 11/17/18 04:41 37.0 C 64 20 156/73 H 93 11/17/18 02:40 75 11/17/18 00:48 37.1 C 75 20 142/71 H 91 11/16/18 23:33 71 22 200/90 H 95 11/16/18 23:18 89 L 11/16/18 23:17 89 L 11/16/18 22:16 72 24 200/91 H 96 11/16/18 22:15 71 22 96 11/16/18 22:02 37.8 C H 11/16/18 22:01 70 23 196/93 H 91 11/16/18 22:00 74 22 92 11/16/18 21:47 76 24 92 11/16/18 21:46 73 26 H 199/89 H 92 11/16/18 21:45 73 24 92 11/16/18 21:31 73 22 194/93 H 92 11/16/18 21:30 74 22 92 11/16/18 21:16 75 21 215/97 H 91 11/16/18 21:15 80 23 11/16/18 21:01 75 22 203/96 H 92 11/16/18 21:00 76 23 92 11/16/18 20:46 78 24 214/98 H 91 11/16/18 20:45 76 26 H 92 11/16/18 20:31 75 25 H 194/103 H 91 11/16/18 20:30 75 28 H 92 11/16/18 20:16 73 24 202/90 H 91 11/16/18 20:15 75 25 H 92
[2018-11-17] MEDS ORDERED: [UNRECOGNIZED DRUG - OTHER] Feeding Tube SCH (09:00)
[2018-11-17] MEDS ORDERED: PIPERACILL/TAZOBAC CONSULT ACTIVE PRN (09:00)
[2018-11-17] MEDS ORDERED: ENTERAL NUTRITION FORMULA Feeding Tube SCH ×2 (09:00→21:00)
--- NOTE | 2018-11-17 17:54 | Hospitalist Progress Note ---
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 In ED patient was noted to be febrile at 38.5, leukocytosis 21.32, hemoglobin 13.9, hematocrit 42.1, BUN 18, creatinine 0.55, glucose 175, lactate 1.2, pro- calcitonin negative CT scan of neck soft tissue revealed diffuse edematous changes of right soft tissue neck structures including right parotid gland and right periauricular and right lateral soft tissue. Mild right pretracheal soft tissue edema with mild displacement of airway to left concerning for soft tissue cellulitis and sialoadenitis. There was no well-defined drainable abscess or collection" -In ED he received IV dexamethasone, IV Zosyn, IV Vanco, IV fluid, IV acetami nophen, IV hydralazine; Patient meets sepsis criteria per CMS guidelines with temp 30.5, leukocytosis 21.32; Source right parotitis versus cellulitis sialoadenitis -He received broad-spectrum IV antibiotics with vancomycin and Zosyn on ED presentation and IV fluids -Continuing IV Zosyn for now, awaiting admission blood cultures, [place] oral facial surgeon recommending antibiotics for now for parotid gland infection -discussed with nursing staff about oral care and oral hygiene (3) Elevated INR: INR 1.5, pt not currently on anticoagulation (4) CAD, multiple vessel: No chest pain or shortness of breath noted Continue medical management with ASA, Plavix statin, lisinopril (5) Hypertension: Blood pressure controlled today Continue hydralazine, lisinopril (6) Dyslipidemia: Continue statin (7) History of ischemic vertebrobasilar artery brainstem stroke: History of stroke in the past with residual left hemiparesis, dysarthria, dysphagia Continue ASA, Plavix, statin (8) DM type 2 (diabetes mellitus, type 2): Well-controlled, last A1c 09/21/18 5.4 Hold oral hypoglycemic Lantus/NovoLog per protocol (9) Seizure: History of seizure on last hospital admission on Keppra for seizure prophylaxis continue Keppra (10) Depression: Continue Lexapro (11) Hypothyroidism: Continue levothyroxine (12) S/P percutaneous endoscopic gastrostomy (PEG) tube placement: has PEG tube chronically prior to this admission Continue tube feedings most of patient's calories are from tube feeding compared to oral feeds asp er patient's (13) GERD (gastroesophageal reflux disease): Continue ranitidine (14) DVT prophylaxis: Prophylaxis Per attending Patient is DNR; however, if current condition would compromise patient's airway it is okay for intubation for temporary setting per Patient's [place]: [phone] Subjective Patient was sleepy this AM. More awake and alert in the afternoon. Mental status as per at bedside does fluctuate due to history of stroke in the past. Patient verbal. denies acute pain. able to move the right extremities. cannot move the left arm which is baseline as per patient's . patient has left leg contracture and only able to move toes of left foot which is also baseline as per patient's Physical Exam Physical Exam: General:Mental status as per at bedside does fluctuate due to history of stroke in the past, currently awake and alert, verbal Motor/neuro: able to move the right extremities. cannot move the left arm which is baseline as per patient's . patient has left leg contracture and only able to move toes of left foot which is also baseline as per patient's HEENT: left parotid area with swelling but not hard and not firm mouth: tongue has some shite specks which are possible food particles neck:trachea midline Chest: clear to auscultation anteriorly abdomen: has PEG tube Results & Data Vital Signs (Past 12 Hours) Vital Signs Temp Pulse Pulse Resp BP Pulse Ox 11/17/18 16:21 36.0 C L 63 20 138/75 95 11/17/18 11:17 36.9 C 66 20 127/71 93 11/17/18 07:27 36.9 C 93 H 20 152/70 H 91 (1) Sepsis Sepsis type: sepsis due to unspecified organism Qualified Code(s): A41.9 - Sepsis, unspecified organism
[2018-11-17] MEDS ORDERED: VANCOMYCIN TROUGH ONE (19:30)
[2018-11-17] MEDS: TAMSULOSIN HCL 0.4 MG CAP PO SCH (20:38)
[2018-11-17] MEDS: ATORVASTATIN 40 MG TAB PEG SCH (20:38)
[2018-11-17] MEDS ORDERED: [UNRECOGNIZED DRUG - OTHER] Feeding Tube SCH (21:00)
[2018-11-18] MEDS: PIPERACILLIN/TAZOBACTAM 4.5 GM in DEXTROSE 5% 100 ML IV SCH ×3 (04:22→17:20)
[2018-11-18] MEDS: [UNRECOGNIZED DRUG - REMARK] SCH (05:53)
[2018-11-18] MEDS: LEVOTHYROXINE SODIUM 100 MCG TABLET GT SCH (05:54)
[2018-11-18] MEDS: CARBIDOPA/LEVODOPA 25/100MG TAB PEG SCH ×2 (07:46→12:09)
[2018-11-18] MEDS: LISINOPRIL 40 MG TAB PO SCH (07:47)
[2018-11-18] MEDS: ASPIRIN 81 MG ECTAB PO SCH (07:47)
[2018-11-18] MEDS: CLOPIDOGREL BISULFATE 75 MG TAB PEG SCH (07:47)
[2018-11-18] MEDS: ESCITALOPRAM OXALATE 10 MG TAB PO SCH (07:48)
[2018-11-18] MEDS: ESCITALOPRAM OXALATE 20 MG TAB PO SCH (07:48)
[2018-11-18] MEDS: ENOXAPARIN INJ 40 MG/0.4 ML SYR SQ SCH (07:48)
[2018-11-18 07:54] LABS: Basophils # (auto) 0.01 K/uL (0-0.2); Basophils % (auto) 0.1 %; Eosinophils # (auto) 0.01 K/uL (0-0.5); Eosinophils % (auto) 0.1 %; Hematocrit (blood only) 37.9 % (42-52); Hemoglobin 12.5 g/dL (14.0-18.0); Immature Granulocytes # (auto) 0.06 K/uL (0.00-0.02); Immature Granulocytes % (auto) 0.4 %; Lymphocytes # (auto) 3.19 K/uL (1.2-3.4); Lymphocytes % (auto) 20.1 %; Mean Corpuscular Volume 95.9 fL (80-100); Mean Platelet Volume 11.6 fL (7.4-10.4); Monocytes # (auto) 1.54 K/uL (0.11-0.59); Monocytes % (auto) 9.7 %; Neutrophils # (auto) 11.08 K/uL (1.4-6.5); Neutrophils % (auto) 69.6 %; Platelet Count 174 K/uL (130-400); RDW Coefficient of Variation 13.9 % (11.5-14.5); RDW Standard Deviation 49.2 fL (36.4-46.3); Red Blood Count 3.95 M/uL (4.7-6.1); White Blood Count 15.89 K/uL (4.8-10.8)
[2018-11-18 08:06] LABS: Prothrombin Time 10.3 Seconds (9.0-12.0)
[2018-11-18] MEDS: GABAPENTIN 250 MG/5 ML 470 ML BTL PO SCH ×3 (08:20→20:55)
[2018-11-18] MEDS: levETIRAcetam ORAL SOLN 100MG/ML PEG SCH ×2 (08:20→20:44)
[2018-11-18 08:28] LABS: BUN Creatinine Ratio 54.7 (10-20); Calcium 8.9 mg/dl (8.5-10.1); Creatinine Clr Calc Pharmacy 176.1 ml/min; Est GFR (African American) 127.9; Est GFR (Non-African American) 110.3; Potassium 3.8 mmol/L (3.5-5.1)
[2018-11-18] MEDS: PEPTAMEN 1.5 CAL 1,000 ML BAG PEG SCH ×3 (08:43→20:43)
[2018-11-18] MEDS: INSULIN ASPART 100 UNITS/ML 3 ML PEN SC SCH ×4 (09:32→20:56)
--- NOTE | 2018-11-18 17:36 | Hospitalist Progress Note ---
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 In ED patient was noted to be febrile at 38.5, leukocytosis 21.32, hemoglobin 13.9, hematocrit 42.1, BUN 18, creatinine 0.55, glucose 175, lactate 1.2, pro- calcitonin negative CT scan of neck soft tissue revealed diffuse edematous changes of right soft tissue neck structures including right parotid gland and right periauricular and right lateral soft tissue. Mild right pretracheal soft tissue edema with mild displacement of airway to left concerning for soft tissue cellulitis and sialoadenitis. There was no well-defined drainable abscess or collection" -In ED on 11/16/18 he received IV dexamethasone, IV Zosyn, IV Vanco, IV fluid, IV acetaminophen, IV hydralazine; Patient meets sepsis criteria per CMS guidelines with temp 30.5, leukocytosis 21.32; Source right parotitis versus cellulitis -since admission patient has been on IV Zosyn, admission blood cultures are negative, will continue Zosyn as there has been some clinically improvement and because patient may have aspiration risk orally and there is the presence of the PEG tube, would prefer to run IV antibiotics at this time -so far the oral surgeon has not recommended surgery at this time -continue oral care and oral hygiene (3) Elevated INR: INR 1.5 on 11/16/18 admission and patient not currently on anticoagulation re-check of INR on 11/18/18 with normal INR (4) CAD, multiple vessel: No chest pain or shortness of breath noted Continue medical management with ASA, Plavix statin, lisinopril (5) Hypertension: Blood pressure controlled today Continue hydralazine, lisinopril (6) Dyslipidemia: Continue statin (7) History of ischemic vertebrobasilar artery brainstem stroke: History of stroke in the past with residual left hemiparesis, dysarthria, dysphagia Continue ASA, Plavix, statin (8) DM type 2 (diabetes mellitus, type 2): Well-controlled, last A1c 09/21/18 5.4 Hold oral hypoglycemic Lantus/NovoLog per protocol (9) Seizure: History of seizure on last hospital admission on Keppra for seizure prophylaxis continue Keppra (10) Depression: Continue Lexapro (11) Hypothyroidism: Continue levothyroxine (12) S/P percutaneous endoscopic gastrostomy (PEG) tube placement: has PEG tube chronically prior to this admission Continue tube feedings most of patient's calories are from tube feeding compared to oral feeds as per patient's Pressure ulcer of abdomen stage 3 Wound care nurse has assessed the stage 3 pressure ulcer under patient's G-tube flange, which is in dressing (13) GERD (gastroesophageal reflux disease): Continue ranitidine (14) DVT prophylaxis: Prophylaxis Per attending Patient is DNR; however, if current condition would compromise patient's airway it is okay for intubation for temporary setting per Patient's [place]: [phone] Subjective patient was seen and examined today. no significant change of the facial swelling compared to yesterday but not any worse. patient breathing on nasal cannula. no chest pain. no vomiting. Physical Exam Physical Exam: General: awake and alert, verbal Motor/neuro: able to move the right extremities. cannot move the left arm which is baseline as per patient's . patient has left leg contracture and only able to move toes of left foot which is also baseline as per patient's HEENT: parotid area with swelling but not hard and not firm and some extension of swelling to behind the ear and submandibular area mouth: tongue appears clean neck:trachea midline Chest: clear to auscultation anteriorly abdomen: has PEG tube, ulcer stage 3 around the Peg tube site in dressing Results & Data Vital Signs (Past 12 Hours) Vital Signs Temp Pulse Pulse Resp BP Pulse Ox 11/18/18 15:30 36.2 C L 67 20 167/90 H 95 11/18/18 15:27 64 11/18/18 11:34 36.9 C 64 20 156/74 H 94 11/18/18 07:17 60 11/18/18 07:02 37.2 C 88 20 155/77 H 94 (1) Sepsis Sepsis type: sepsis due to unspecified organism Qualified Code(s): A41.9 - Sepsis, unspecified organism
[2018-11-18] MEDS: TAMSULOSIN HCL 0.4 MG CAP PO SCH (20:52)
[2018-11-18] MEDS: ATORVASTATIN 40 MG TAB PEG SCH (20:53)
[2018-11-19] MEDS: PIPERACILLIN/TAZOBACTAM 4.5 GM in DEXTROSE 5% 100 ML IV SCH ×2 (01:16→09:01)
[2018-11-19] MEDS: LEVOTHYROXINE SODIUM 100 MCG TABLET GT SCH (05:37)
[2018-11-19] MEDS: [UNRECOGNIZED DRUG - REMARK] SCH (06:13)
[2018-11-19 06:33] LABS: Basophils # (auto) 0.01 K/uL (0-0.2); Basophils % (auto) 0.1 %; Eosinophils # (auto) 0.22 K/uL (0-0.5); Eosinophils % (auto) 1.6 %; Hematocrit (blood only) 38.5 % (42-52); Hemoglobin 12.5 g/dL (14.0-18.0); Immature Granulocytes # (auto) 0.03 K/uL (0.00-0.02); Immature Granulocytes % (auto) 0.2 %; Lymphocytes # (auto) 3.41 K/uL (1.2-3.4); Lymphocytes % (auto) 25.4 %; Mean Corpuscular Hgb Conc 32.5 g/dL (32-36); Mean Corpuscular Volume 97.7 fL (80-100); Mean Platelet Volume 11.6 fL (7.4-10.4); Monocytes % (auto) 8.9 %; Neutrophils # (auto) 8.58 K/uL (1.4-6.5); Neutrophils % (auto) 63.8 %; Platelet Count 185 K/uL (130-400); RDW Coefficient of Variation 13.8 % (11.5-14.5); RDW Standard Deviation 49.7 fL (36.4-46.3); Red Blood Count 3.94 M/uL (4.7-6.1); White Blood Count 13.45 K/uL (4.8-10.8)
[2018-11-19] MEDS: LISINOPRIL 40 MG TAB PO SCH (07:53)
[2018-11-19] MEDS: CARBIDOPA/LEVODOPA 25/100MG TAB PEG SCH ×2 (07:53→12:45)
[2018-11-19] MEDS: ASPIRIN 81 MG ECTAB PO SCH (07:53)
[2018-11-19] MEDS: ENOXAPARIN INJ 40 MG/0.4 ML SYR SQ SCH (07:54)
[2018-11-19] MEDS: ESCITALOPRAM OXALATE 20 MG TAB PO SCH (07:54)
[2018-11-19] MEDS: ESCITALOPRAM OXALATE 10 MG TAB PO SCH (07:54)
[2018-11-19] MEDS: levETIRAcetam ORAL SOLN 100MG/ML PEG SCH ×2 (07:54→21:09)
[2018-11-19] MEDS: CLOPIDOGREL BISULFATE 75 MG TAB PEG SCH (07:54)
[2018-11-19] MEDS: GABAPENTIN 250 MG/5 ML 470 ML BTL PO SCH ×3 (07:55→21:06)
[2018-11-19] MEDS: PEPTAMEN 1.5 CAL 1,000 ML BAG PEG SCH ×3 (08:03→20:40)
[2018-11-19] MEDS: INSULIN ASPART 100 UNITS/ML 3 ML PEN SC SCH ×4 (09:13→21:05)
--- NOTE | 2018-11-19 09:22 | Surgery Progress Note ---
Date of Service I evaluated Mr. Jiang today in his room. In my opinion the swelling is less red and the edema in his submandibular area has lessened. When I massage the gland drainage is noted in the intraoral parotid duct (this is good). This is a classic retrograde parotid gland infection that I see in this patient population. I would continue the antibiotics, I would suggest heat and massage to the parotid gland to simulate further drainage. Given the fact that there is intraoral drainage tells me that the duct is opened and there is no blockage. The swelling is still firm and and extra oral I&D will not be indicated at this time. From my point of view once his overall medical condition allows for discharge---- oral antibiotics, heat/massage and if possible sucking in lemon drops to help promote parotid flow would be the treatment of choice. I can follow him as an out patient upon discharge. I will follow as long as he is in hospital November 19, 2018 Results & Data Vital Signs (Past 12 Hours) Vital Signs Temp Pulse Pulse Resp BP Pulse Ox 11/19/18 08:08 37.2 C 67 20 174/78 H 95 11/19/18 07:20 65 11/19/18 03:00 37.3 C 66 19 159/76 H 92 11/18/18 23:00 37 C 65 19 174/87 H 93 11/18/18 22:52 64
[2018-11-19] MEDS: CLINDAMYCIN 600 MG in DEXTROSE 5% 50 ML IV SCH ×2 (15:11→22:15)
--- NOTE | 2018-11-19 17:55 | Hospitalist Progress Note ---
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 In ED patient was noted to be febrile at 38.5, leukocytosis 21.32, hemoglobin 13.9, hematocrit 42.1, BUN 18, creatinine 0.55, glucose 175, lactate 1.2, pro- calcitonin negative CT scan of neck soft tissue revealed diffuse edematous changes of right soft tissue neck structures including right parotid gland and right periauricular and right lateral soft tissue. Mild right pretracheal soft tissue edema with mild displacement of airway to left concerning for soft tissue cellulitis and sialoadenitis. There was no well-defined drainable abscess or collection" -In ED on 11/16/18 he received IV dexamethasone, IV Zosyn, IV Vanco, IV fluid, IV acetaminophen, IV hydralazine; Patient meets sepsis criteria per CMS guidelines with temp 30.5, leukocytosis 21.32; Source right parotitis versus cellulitis -patient has been on Zosyn from 11/16/18 to 11/19/18 -right mandibular culture with returned as MRSA and other bacteria on 11/19/18 but blood cultures are absent of MRSA bacteremia so instead of placing on Vanomcyin, will transition to IV Clindamycin at this time and clindamycin does have MRSA coverage -so far the oral surgeon has not recommended surgery at this time -continue oral care and oral hygiene (3) Elevated INR: INR 1.5 on 11/16/18 admission and patient not currently on anticoagulation re-check of INR on 11/18/18 with normal INR (4) CAD, multiple vessel: No chest pain or shortness of breath noted Continue medical management with ASA, Plavix statin, lisinopril (5) Hypertension: Blood pressure controlled today Continue hydralazine, lisinopril (6) Dyslipidemia: Continue statin (7) History of ischemic vertebrobasilar artery brainstem stroke: History of stroke in the past with residual left hemiparesis, dysarthria, dysphagia Continue ASA, Plavix, statin (8) DM type 2 (diabetes mellitus, type 2): Well-controlled, last A1c 09/21/18 5.4 Hold oral hypoglycemic Lantus/NovoLog per protocol (9) Seizure: History of seizure on last hospital admission on Keppra for seizure prophylaxis continue Keppra (10) Depression: Continue Lexapro (11) Hypothyroidism: Continue levothyroxine (12) S/P percutaneous endoscopic gastrostomy (PEG) tube placement: has PEG tube chronically prior to this admission Continue tube feedings most of patient's calories are from tube feeding compared to oral feeds as per patient's Pressure ulcer of abdomen stage 3 Wound care nurse has assessed the stage 3 pressure ulcer under patient's G-tube flange, which is in dressing (13) GERD (gastroesophageal reflux disease): Continue ranitidine (14) DVT prophylaxis: Prophylaxis Per attending Patient is DNR; however, if current condition would compromise patient's airway it is okay for intubation for temporary setting per Patient's [place]: [phone] Subjective patient not in distress. breathing on room air. denies acute pain. gets calories from PEG tube Physical Exam Physical Exam: General: awake and alert, verbal Motor/neuro: able to move the right extremities. cannot move the left arm which is baseline as per patient's . patient has left leg contracture and only able to move toes of left foot which is also baseline as per patient's HEENT: right parotid area with firmness and some extension of swelling to behind the ear and submandibular area mouth: tongue appears clean neck:trachea midline Chest: clear to auscultation anteriorly abdomen: has PEG tube, ulcer stage 3 around the Peg tube site in dressing Results & Data Vital Signs (Past 12 Hours) Vital Signs Temp Pulse Pulse Pulse Resp BP Pulse Ox 11/19/18 15:52 71 11/19/18 15:37 37 C 68 16 150/61 H 93 11/19/18 12:00 37.8 C H 67 20 166/90 H 93 11/19/18 08:08 37.2 C 67 20 174/78 H 95 11/19/18 07:20 65 (1) Sepsis Sepsis type: sepsis due to unspecified organism Qualified Code(s): A41.9 - Sepsis, unspecified organism
[2018-11-19] MEDS ORDERED: ALBUT/IPRATROP 3MG/0.5MG NEB 3 ML VIAL NEB PRN (20:40)
[2018-11-19] MEDS: ATORVASTATIN 40 MG TAB PEG SCH (21:08)
[2018-11-19] MEDS: TAMSULOSIN HCL 0.4 MG CAP PO SCH (21:08)
--- NOTE | 2018-11-19 21:32 | XRay Report ---
XR chest 1V portable CLINICAL HISTORY: aspiration? SHORTNESS OF BREATH COMPARISON STUDY: 11/16/2018 FINDINGS: The cardiac and mediastinal contours remain stable. There is improving aeration of the lung bases. There is no lobar consolidation. There is a possible small left pleural effusion.[ IMPRESSION: 1. Improving aeration of the lung bases 2. Suspected small left pleural effusion Electronically signed by: Kieran Jimenez M.D. 11/19/2018 9:30 PM
[2018-11-20] MEDS: CLINDAMYCIN 600 MG in DEXTROSE 5% 50 ML IV SCH ×3 (05:54→22:32)
[2018-11-20] MEDS: LEVOTHYROXINE SODIUM 100 MCG TABLET GT SCH (05:55)
[2018-11-20] MEDS: ASPIRIN 81 MG ECTAB PO SCH (07:50)
[2018-11-20] MEDS: ENOXAPARIN INJ 40 MG/0.4 ML SYR SQ SCH (07:50)
[2018-11-20] MEDS: [UNRECOGNIZED DRUG - REMARK] SCH (07:50)
[2018-11-20] MEDS: LISINOPRIL 40 MG TAB PO SCH (07:51)
[2018-11-20] MEDS: levETIRAcetam ORAL SOLN 100MG/ML PEG SCH ×2 (07:51→20:15)
[2018-11-20] MEDS: ESCITALOPRAM OXALATE 20 MG TAB PO SCH (07:52)
[2018-11-20] MEDS: ESCITALOPRAM OXALATE 10 MG TAB PO SCH (07:52)
[2018-11-20] MEDS: CARBIDOPA/LEVODOPA 25/100MG TAB PEG SCH ×2 (07:52→11:50)
[2018-11-20] MEDS: CLOPIDOGREL BISULFATE 75 MG TAB PEG SCH (07:52)
[2018-11-20] MEDS: PEPTAMEN 1.5 CAL 1,000 ML BAG PEG SCH ×3 (07:53→20:14)
[2018-11-20] MEDS: GABAPENTIN 250 MG/5 ML 470 ML BTL PO SCH ×3 (07:53→20:15)
[2018-11-20] MEDS: INSULIN ASPART 100 UNITS/ML 3 ML PEN SC SCH ×4 (08:42→20:27)
[2018-11-20 09:33] LABS: Basophils # (auto) 0.03 K/uL (0-0.2); Basophils % (auto) 0.3 %; Eosinophils # (auto) 0.68 K/uL (0-0.5); Eosinophils % (auto) 6.2 %; Hematocrit (blood only) 38.8 % (42-52); Hemoglobin 12.5 g/dL (14.0-18.0); Immature Granulocytes # (auto) 0.05 K/uL (0.00-0.02); Immature Granulocytes % (auto) 0.5 %; Lymphocytes # (auto) 4.63 K/uL (1.2-3.4); Lymphocytes % (auto) 42.5 %; Mean Corpuscular Hgb Conc 32.2 g/dL (32-36); Mean Corpuscular Volume 98.2 fL (80-100); Mean Platelet Volume 11.3 fL (7.4-10.4); Monocytes # (auto) 0.87 K/uL (0.11-0.59); Neutrophils # (auto) 4.63 K/uL (1.4-6.5); Neutrophils % (auto) 42.5 %; Platelet Count 205 K/uL (130-400); RDW Standard Deviation 49.9 fL (36.4-46.3); Red Blood Count 3.95 M/uL (4.7-6.1); White Blood Count 10.89 K/uL (4.8-10.8)
[2018-11-20 10:07] LABS: Creatinine Clr Calc Pharmacy 223.5 ml/min; Est GFR (Non-African American) 121.7
--- NOTE | 2018-11-20 14:23 | Hospitalist Progress Note ---
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 In ED patient was noted to be febrile at 38.5, leukocytosis 21.32, hemoglobin 13.9, hematocrit 42.1, BUN 18, creatinine 0.55, glucose 175, lactate 1.2, pro- calcitonin negative CT scan of neck soft tissue revealed diffuse edematous changes of right soft tissue neck structures including right parotid gland and right periauricular and right lateral soft tissue. Mild right pretracheal soft tissue edema with mild displacement of airway to left concerning for soft tissue cellulitis and sialoadenitis. There was no well-defined drainable abscess or collection" -In ED on 11/16/18 he received IV dexamethasone, IV Zosyn, IV Vanco, IV fluid, IV acetaminophen, IV hydralazine; Patient meets sepsis criteria per CMS guidelines with temp 30.5, leukocytosis 21.32; Source right parotitis versus cellulitis -patient has been on Zosyn from 11/16/18 to 11/19/18 -right mandibular culture with returned as MRSA and other bacteria on 11/19/18 but blood cultures are absent of MRSA bacteremia so instead of placing on Vancomcyin, and transition to IV Clindamycin at this time and clindamycin does have MRSA coverage -11/20/18: continue IV clindamycin, include Ceftriaxone 1 gram daily to cover for wound culture of Group B Beta Strep -oral surgeon not recommended surgery at this time -continue oral care and oral hygiene (3) Elevated INR: INR 1.5 on 11/16/18 admission and patient not currently on anticoagulation re-check of INR on 11/18/18 with normal INR (4) CAD, multiple vessel: No chest pain or shortness of breath noted Continue medical management with ASA, Plavix statin, lisinopril (5) Hypertension: Blood pressure controlled today Continue hydralazine, lisinopril (6) Dyslipidemia: Continue statin (7) History of ischemic vertebrobasilar artery brainstem stroke: History of stroke in the past with residual left hemiparesis, dysarthria, dysphagia Continue ASA, Plavix, statin (8) DM type 2 (diabetes mellitus, type 2): Type 2 diabetes mellitus without complications not on longer term current use of insulin when at home Well-controlled, last A1c 09/21/18 5.4 Hold home dose oral metformin Lantus/NovoLog per protocol (9) Seizure: History of seizure on last hospital admission on Keppra for seizure prophylaxis continue Keppra (10) Depression: Continue Lexapro (11) Hypothyroidism: Continue levothyroxine (12) S/P percutaneous endoscopic gastrostomy (PEG) tube placement: has PEG tube chronically prior to this admission Continue tube feedings most of patient's calories are from tube feeding compared to oral feeds as per patient's Pressure ulcer of abdomen stage 3 Wound care nurse has assessed the stage 3 pressure ulcer under patient's G-tube flange, which is in dressing (13) GERD (gastroesophageal reflux disease): Continue ranitidine (14) DVT prophylaxis: Lovenox 40 mg daily Patient is DNR; however, if current condition would compromise patient's airway it is okay for intubation for temporary setting per Patient's [place]: [phone] Subjective patient's white blood cells coming down to 10,000 but appeared to have low grade fever of 38.3 celsius at the noon time. right facial swelling continues to be present. patient able to speak and breath on room air. he is sleepy today but responds to questions when waken up. discuss plans with patient and patient's at bedside Results & Data Vital Signs (Past 12 Hours) Vital Signs Temp Pulse Pulse Resp BP Pulse Ox 11/20/18 12:00 38.3 C H 51 L 22 154/95 H 92 11/20/18 08:00 36.6 C 65 20 171/92 H 93 11/20/18 07:37 59 L 11/20/18 04:04 36.3 C L 62 18 125/67 90 (1) Sepsis Sepsis type: sepsis due to unspecified organism Qualified Code(s): A41.9 - Sepsis, unspecified organism
[2018-11-20] MEDS ORDERED: ACETAMINOPHEN 65 ML IV SCH (14:30)
[2018-11-20] MEDS: cefTRIAXone SODIUM 1,000 MG in DEXTROSE 5% 50 ML IV SCH (14:42)
[2018-11-20] MEDS: TAMSULOSIN HCL 0.4 MG CAP PO SCH (20:15)
[2018-11-20] MEDS: ATORVASTATIN 40 MG TAB PEG SCH (20:16)
[2018-11-21] MEDS: PEPTAMEN 1.5 CAL 1,000 ML BAG PEG SCH ×3 (00:30→14:38)
[2018-11-21] MEDS: CLINDAMYCIN 600 MG in DEXTROSE 5% 50 ML IV SCH ×3 (05:09→20:15)
[2018-11-21] MEDS: [UNRECOGNIZED DRUG - REMARK] SCH (05:10)
[2018-11-21] MEDS: LEVOTHYROXINE SODIUM 100 MCG TABLET GT SCH (05:10)
[2018-11-21 07:56] LABS: Hematocrit (blood only) 36.6 % (42-52); Hemoglobin 11.6 g/dL (14.0-18.0); Mean Corpuscular Hgb Conc 31.7 g/dL (32-36); Mean Corpuscular Volume 96.8 fL (80-100); Mean Platelet Volume 10.8 fL (7.4-10.4); Platelet Count 204 K/uL (130-400); RDW Coefficient of Variation 14.1 % (11.5-14.5); RDW Standard Deviation 49.9 fL (36.4-46.3); Red Blood Count 3.78 M/uL (4.7-6.1); White Blood Count 11.93 K/uL (4.8-10.8)
[2018-11-21 08:24] LABS: BUN Creatinine Ratio 48.6 (10-20); Creatinine Clr Calc Pharmacy 208.6 ml/min; Est GFR (Non-African American) 118.2; Potassium 3.7 mmol/L (3.5-5.1)
[2018-11-21 08:53] LABS: Basophils # (auto) 0.03 K/uL (0-0.2); Basophils % (auto) 0.3 %; Eosinophils # (auto) 1.01 K/uL (0-0.5); Eosinophils % (auto) 8.5 %; Immature Granulocytes # (auto) 0.06 K/uL (0.00-0.02); Immature Granulocytes % (auto) 0.5 %; Lymphocytes # (auto) 5.23 K/uL (1.2-3.4); Lymphocytes % (auto) 43.8 %; Monocytes % (auto) 7.5 %; Neutrophils % (auto) 39.4 %
[2018-11-21] MEDS: ESCITALOPRAM OXALATE 20 MG TAB PO SCH (09:15)
[2018-11-21] MEDS: ESCITALOPRAM OXALATE 10 MG TAB PO SCH (09:15)
[2018-11-21] MEDS: CLOPIDOGREL BISULFATE 75 MG TAB PEG SCH (09:16)
[2018-11-21] MEDS: ENOXAPARIN INJ 40 MG/0.4 ML SYR SQ SCH (09:16)
[2018-11-21] MEDS: GABAPENTIN 250 MG/5 ML 470 ML BTL PO SCH ×3 (09:17→19:52)
[2018-11-21] MEDS: INSULIN ASPART 100 UNITS/ML 3 ML PEN SC SCH ×4 (09:17→19:54)
[2018-11-21] MEDS: CARBIDOPA/LEVODOPA 25/100MG TAB PEG SCH ×2 (09:17→11:15)
[2018-11-21] MEDS: LISINOPRIL 40 MG TAB PO SCH (09:18)
[2018-11-21] MEDS: levETIRAcetam ORAL SOLN 100MG/ML PEG SCH ×2 (09:18→19:35)
[2018-11-21] MEDS: ASPIRIN 81 MG CHEW PEG SCH (10:50)
[2018-11-21] MEDS: ACETAMINOPHEN 1,000 MG/100 ML VIAL IV PRN (10:54)
--- NOTE | 2018-11-21 12:42 | Surgery Progress Note ---
Date of Service I evaluated Mr Jiang today. In my opinion the parotid swelling has improved. The are below the ear (right) is still swollen but not to the point of needing a I&D Discussed with Dr Huffman to consider repeat CT scan to r/o mass w/in gland Problems limited hydration and overall medical comorbidities. PLAN=repeat CT, if mass then get FNA. If no mass and no drainable pus continue with fluids and antibiotics. I will follow after CT scan. Avtar Willard November 21, 2018 Results & Data Vital Signs (Past 12 Hours) Vital Signs Temp Pulse Resp BP Pulse Ox 11/21/18 11:00 37.1 C 61 20 136/67 93 11/21/18 08:00 36.9 C 55 L 20 144/68 H 94 11/21/18 04:20 36.5 C 70 16 144/81 H 92
[2018-11-21] MEDS ORDERED: IOVERSOL 100ml IV PRN (14:18)
--- NOTE | 2018-11-21 14:27 | CT Scan Report ---
CT soft tissue neck w con CT DOSE: 517.72 mGycm CLINICAL HISTORY: Facial swelling. A thyroid for parotid tumor. TECHNIQUE: Helical images were acquired during intravenous administration of 95 cc of Optiray 320. A dose lowering technique was utilized adhering to the principles of ALARA. COMPARISON STUDY: 11/16/2018 FINDINGS: The visualized portions of the lung apices are unremarkable. Is a 5 mm left lobe thyroid nodule. There is enlargement and heterogeneous enhancement of the right parotid gland. There is slight infilt ration of the surrounding fat. The findings remain similar to the prior study and are suggestive of a parotiditis. Mildly prominent nodes are likely reactive. There are no findings viewed as highly suspicious for stephanie plasm. There are no fluid collections suspicious for abscess. There is no evidence of airway compromise. No mucosal space masses are visualized. IMPRESSION: 1. Persistent right parotid gland enlargement, inhomogeneous enhancement, and surrounding edema. 2. The findings are most consistent with a right-sided parotiditis. Clinical correlation and follow-u p is advocated. Electronically signed by: Kieran Jimenez M.D. 11/21/2018 2:25 PM
[2018-11-21] MEDS: HYDROCODONE/ACETAMOPHEN 5/325MG TAB PO PRN ×2 (15:23→19:34)
[2018-11-21] MEDS: cefTRIAXone SODIUM 1,000 MG in DEXTROSE 5% 50 ML IV SCH (15:25)
--- NOTE | 2018-11-21 17:26 | Hospitalist Progress Note ---
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 In ED patient was noted to be febrile at 38.5, leukocytosis 21.32, hemoglobin 13.9, hematocrit 42.1, BUN 18, creatinine 0.55, glucose 175, lactate 1.2, pro- calcitonin negative CT scan of neck soft tissue revealed diffuse edematous changes of right soft tissue neck structures including right parotid gland and right periauricular and right lateral soft tissue. Mild right pretracheal soft tissue edema with mild displacement of airway to left concerning for soft tissue cellulitis and sialoadenitis. There was no well-defined drainable abscess or collection" -In ED on 11/16/18 he received IV dexamethasone, IV Zosyn, IV Vanco, IV fluid, IV acetaminophen, IV hydralazine; Patient meets sepsis criteria per CMS guidelines with temp 30.5, leukocytosis 21.32; Source right parotitis versus cellulitis -patient has been on Zosyn from 11/16/18 to 11/19/18 -right mandibular culture with returned as MRSA and other bacteria on 11/19/18 but blood cultures are absent of MRSA bacteremia so instead of placing on Vancomcyin, and transition to IV Clindamycin at this time and clindamycin does have MRSA coverage -11/20/18: had febrile episode, continue IV clindamycin, started to include Ceftriaxone 1 gram daily to cover for wound culture of Group B Beta Strep -11/21/18: CT scan repeated - no evidence of tumor, WBC counts still above 10,000 (as 11.3 K), right face still swollen, continue IV antibiotics (3) Elevated INR: INR 1.5 on 11/16/18 admission and patient not currently on anticoagulation re-check of INR on 11/18/18 with normal INR (4) CAD, multiple vessel: No chest pain or shortness of breath noted Continue medical management with ASA, Plavix statin, lisinopril (5) Hypertension: Continue hydralazine, lisinopril (6) Dyslipidemia: Continue statin (7) History of ischemic vertebrobasilar artery brainstem stroke: History of stroke in the past with residual left hemiparesis, dysarthria, dysphagia Continue ASA, Plavix, statin (8) DM type 2 (diabetes mellitus, type 2): Type 2 diabetes mellitus without complications not on longer term current use of insulin when at home Well-controlled, last A1c 09/21/18 5.4 Hold home dose oral metformin Lantus/NovoLog per protocol (9) Seizure: History of seizure on last hospital admission on Keppra for seizure prophylaxis continue Keppra (10) Depression: Continue Lexapro (11) Hypothyroidism: Continue levothyroxine (12) S/P percutaneous endoscopic gastrostomy (PEG) tube placement: has PEG tube chronically prior to this admission Continue tube feedings most of patient's calories are from tube feeding compared to oral feeds as per patient's Pressure ulcer of abdomen stage 3 Wound care nurse has assessed the stage 3 pressure ulcer under patient's G-tube flange, which is in dressing (13) GERD (gastroesophageal reflux disease): Continue ranitidine (14) DVT prophylaxis: Lovenox 40 mg daily Patient is DNR; however, if current condition would compromise patient's airway it is okay for intubation for temporary setting per Patient's [place]: [phone] Subjective able to open the mouth, on room air. left face still swollen. baseline speech and mental status. denies pain or problems with breathing. no fever todya. patient's at bedside. Physical Exam Constitutional: comfortable Eyes: PERRL, conjunctivae normal, anicteric sclerae EOM intact bilaterally ENMT: HEENT: right parotid area with firmness and some extension of swelling to behind the ear and submandibular area Neck: trachea midline, no thyromegaly normal visual inspection Respiratory: normal respiratory effort, lungs clear to auscultation Cardiovascular: Rate/Rhythm: regular rhythm and + bradycardic Gastrointestinal (Abdomen): normal bowel sounds, soft, nontender, no hepatosplenomegaly Neurologic: Motor/neuro: able to move the right extremities. cannot move the left arm which is baseline as per patient's . patient has left leg contracture and only able to move toes of left foot which is also baseline as per patient's Psychiatric: Orientation: alert and cooperative Results & Data Vital Signs (Past 12 Hours) Vital Signs Temp Pulse Pulse Resp BP Pulse Ox 11/21/18 15:18 36.3 C L 56 L 16 153/76 H 95 11/21/18 14:21 54 L 11/21/18 11:00 37.1 C 61 20 136/67 93 11/21/18 08:00 36.9 C 54 L 55 L 20 144/68 H 94 (1) Sepsis Sepsis type: sepsis due to unspecified organism Qualified Code(s): A41.9 - Sepsis, unspecified organism
[2018-11-21] MEDS: ATORVASTATIN 40 MG TAB PEG SCH (19:36)
[2018-11-21] MEDS: TAMSULOSIN HCL 0.4 MG CAP PO SCH (19:36)
[2018-11-22] MEDS: LEVOTHYROXINE SODIUM 100 MCG TABLET GT SCH (06:15)
[2018-11-22] MEDS: [UNRECOGNIZED DRUG - REMARK] SCH (06:16)
[2018-11-22] MEDS: CLINDAMYCIN 600 MG in DEXTROSE 5% 50 ML IV SCH ×2 (06:17→13:52)
[2018-11-22 08:06] LABS: Basophils # (auto) 0.03 K/uL (0-0.2); Basophils % (auto) 0.3 %; Eosinophils # (auto) 0.94 K/uL (0-0.5); Hematocrit (blood only) 35.4 % (42-52); Hemoglobin 11.4 g/dL (14.0-18.0); Immature Granulocytes # (auto) 0.07 K/uL (0.00-0.02); Immature Granulocytes % (auto) 0.6 %; Lymphocytes # (auto) 4.97 K/uL (1.2-3.4); Lymphocytes % (auto) 42.5 %; Mean Corpuscular Hgb Conc 32.2 g/dL (32-36); Mean Corpuscular Volume 96.2 fL (80-100); Mean Platelet Volume 11.1 fL (7.4-10.4); Monocytes # (auto) 0.84 K/uL (0.11-0.59); Monocytes % (auto) 7.2 %; Neutrophils # (auto) 4.84 K/uL (1.4-6.5); Neutrophils % (auto) 41.4 %; Platelet Count 228 K/uL (130-400); RDW Coefficient of Variation 13.9 % (11.5-14.5); RDW Standard Deviation 48.3 fL (36.4-46.3); Red Blood Count 3.68 M/uL (4.7-6.1); White Blood Count 11.69 K/uL (4.8-10.8)
[2018-11-22] MEDS: PEPTAMEN 1.5 CAL 1,000 ML BAG PEG SCH ×3 (08:13→21:47)
[2018-11-22] MEDS: CARBIDOPA/LEVODOPA 25/100MG TAB PEG SCH ×2 (08:13→11:37)
[2018-11-22] MEDS: INSULIN ASPART 100 UNITS/ML 3 ML PEN SC SCH ×3 (08:14→19:09)
[2018-11-22] MEDS: HYDROCODONE/ACETAMOPHEN 5/325MG TAB PO PRN (08:24)
[2018-11-22] MEDS: CLOPIDOGREL BISULFATE 75 MG TAB PEG SCH (08:27)
[2018-11-22] MEDS: ASPIRIN 81 MG CHEW PEG SCH (08:27)
[2018-11-22] MEDS: ESCITALOPRAM OXALATE 10 MG TAB PO SCH (08:27)
[2018-11-22] MEDS: ENOXAPARIN INJ 40 MG/0.4 ML SYR SQ SCH (08:28)
[2018-11-22] MEDS: GABAPENTIN 250 MG/5 ML 470 ML BTL PO SCH ×3 (08:28→21:06)
[2018-11-22] MEDS: LISINOPRIL 40 MG TAB PO SCH (08:28)
[2018-11-22] MEDS: ESCITALOPRAM OXALATE 20 MG TAB PO SCH (08:28)
[2018-11-22] MEDS: ACETAMINOPHEN 1,000 MG/100 ML VIAL IV PRN (10:57)
[2018-11-22] MEDS: levETIRAcetam ORAL SOLN 100MG/ML PEG SCH ×2 (11:37→21:04)
[2018-11-22] MEDS ORDERED: MICONAZOLE NITRATE POWDER 43 GM EXT PRN (12:50)
[2018-11-22] MEDS: cefTRIAXone SODIUM 1,000 MG in DEXTROSE 5% 50 ML IV SCH (14:26)
--- NOTE | 2018-11-22 15:33 | Hospitalist Progress Note ---
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 In ED patient was noted to be febrile at 38.5, leukocytosis 21.32, hemoglobin 13.9, hematocrit 42.1, BUN 18, creatinine 0.55, glucose 175, lactate 1.2, pro- calcitonin negative CT scan of neck soft tissue revealed diffuse edematous changes of right soft tissue neck structures including right parotid gland and right periauricular and right lateral soft tissue. Mild right pretracheal soft tissue edema with mild displacement of airway to left concerning for soft tissue cellulitis and sialoadenitis. There was no well-defined drainable abscess or collection" -In ED on 11/16/18 he received IV dexamethasone, IV Zosyn, IV Vanco, IV fluid, IV acetaminophen, IV hydralazine; Patient meets sepsis criteria per CMS guidelines with temp 30.5, leukocytosis 21.32; Source right parotitis versus cellulitis -patient has been on Zosyn from 11/16/18 to 11/19/18 -right mandibular culture with returned as MRSA and other bacteria on 11/19/18 but blood cultures are absent of MRSA bacteremia so instead of placing on Vancomcyin, and transition to IV Clindamycin at this time and clindamycin does have MRSA coverage -11/20/18: had febrile episode, continue IV clindamycin, started to include Ceftriaxone 1 gram daily to cover for wound culture of Group B Beta Strep -11/21/18: CT scan repeated - no evidence of tumor, WBC counts still above 10,000 (as 11.93 K), right face still swollen, continue IV antibiotics -11/22/18: WBC still high as 11.63 K, right face swelling appears mildly decreased, continue IV antibiotics (3) Elevated INR: INR 1.5 on 11/16/18 admission and patient not currently on anticoagulation re-check of INR on 11/18/18 with normal INR (4) CAD, multiple vessel: No chest pain or shortness of breath noted Continue medical management with ASA, Plavix statin, lisinopril (5) Hypertension: Continue hydralazine, lisinopril (6) Dyslipidemia: Continue statin (7) History of ischemic vertebrobasilar artery brainstem stroke: History of stroke in the past with residual left hemiparesis, dysarthria, dysphagia Continue ASA, Plavix, statin (8) DM type 2 (diabetes mellitus, type 2): Type 2 diabetes mellitus without complications not on longer term current use of insulin when at home Well-controlled, last A1c 09/21/18 5.4 Hold home dose oral metformin Lantus/NovoLog per protocol (9) Seizure: History of seizure on last hospital admission on Keppra for seizure prophylaxis continue Keppra (10) Depression: Continue Lexapro (11) Hypothyroidism: Continue levothyroxine (12) S/P percutaneous endoscopic gastrostomy (PEG) tube placement: has PEG tube chronically prior to this admission Continue tube feedings most of patient's calories are from tube feeding compared to oral feeds as per patient's Pressure ulcer of abdomen stage 3 Wound care nurse has assessed the stage 3 pressure ulcer under patient's G-tube flange, which is in dressing (13) GERD (gastroesophageal reflux disease): Continue ranitidine (14) DVT prophylaxis: Lovenox 40 mg daily Patient is DNR; however, if current condition would compromise patient's airway it is okay for intubation for temporary setting per Patient's [place]: [phone] Subjective WBC still high as 11.63 K, right face swelling appears mildly decreased, continue IV antibiotics, patient more verbal today and he asked some questions about his health. it was the longest conversation he had with hospitalist physician during this hospital stay - somewhat surprising because he is intermittently lethargic at baseline which was confirmed by patient's due to history of stroke in the past. patient denies shortness of breath and no chest pain. his not at the bedside today. Physical Exam Physical Exam: Constitutional: comfortable Eyes: PERRL, conjunctivae normal, anicteric sclerae EOM intact bilaterally ENMT: HEENT: right parotid area with less firmness and less swelling today Neck: trachea midline, no thyromegaly normal visual inspection Respiratory: normal respiratory effort, lungs clear to auscultation Cardiovascular: Rate/Rhythm: regular rhythm and + bradycardic Gastrointestinal (Abdomen): normal bowel sounds, soft, nontender, no hepatosplenomegaly Neurologic: Motor/neuro: able to move the right extremities. cannot move the left arm which is baseline. patient has left leg contracture and only able to move toes of left foot which is also baseline Psychiatric: Orientation: alert and cooperative Results & Data Vital Signs (Past 12 Hours) Vital Signs Temp Pulse Pulse Resp BP Pulse Ox 11/22/18 14:59 37.0 C 60 16 164/82 H 91 11/22/18 12:00 36.8 C 63 22 160/72 H 95 11/22/18 07:00 37.0 C 64 60 22 148/76 H 93 11/22/18 04:19 37.3 C 65 18 143/75 H 93 (1) Sepsis Sepsis type: sepsis due to unspecified organism Qualified Code(s): A41.9 - Sepsis, unspecified organism
--- NOTE | 2018-11-22 16:56 | Surgery Progress Note ---
Date of Service I reviewed the new CT scan Still evidence of infection w/in the right parotid gland. Improvement over original study, less edema and more localized. No evidence of tumor or obstruction w/in gland. Clinical exam much improved, less firm, less redness, less swelling. From Oral Surgery point of view much improved. can consider discharge on oral or antibiotic via PEG tube. I would suggest massage, antibiotics and follow up as needed. I gave Mts. Jiang my card and follow up info--she will call if she needs Jarocho to see me for follow up. Thank you, good working with you. Avtar Willard DMD less swelling today November 22, 2018 Results & Data Vital Signs (Past 12 Hours) Vital Signs Temp Pulse Pulse Resp BP Pulse Ox 11/22/18 14:59 37.0 C 60 16 164/82 H 91 11/22/18 12:00 36.8 C 63 22 160/72 H 95 11/22/18 07:00 37.0 C 64 60 22 148/76 H 93
[2018-11-22] MEDS ORDERED: CLINDAMYCIN HCL 150 MG CAP PO SCH (18:00)
[2018-11-22] MEDS ORDERED: Nursing to Pharmacy Communication ONE (19:11)
[2018-11-22] MEDS: TAMSULOSIN HCL 0.4 MG CAP PO SCH (20:48)
[2018-11-22] MEDS: ATORVASTATIN 40 MG TAB PEG SCH (21:04)
[2018-11-22] MEDS: CLINDAMYCIN PEG SCH (23:53)
[2018-11-23] MEDS ORDERED: CLINDAMYCIN PO SCH
[2018-11-23] MEDS: INSULIN ASPART 100 UNITS/ML 3 ML PEN SC SCH ×4 (00:04→18:06)
[2018-11-23] MEDS: CLINDAMYCIN PEG SCH ×3 (05:47→16:59)
[2018-11-23] MEDS: LEVOTHYROXINE SODIUM 100 MCG TABLET GT SCH (05:47)
[2018-11-23] MEDS: [UNRECOGNIZED DRUG - REMARK] SCH (06:00)
[2018-11-23 07:16] LABS: Basophils # (auto) 0.03 K/uL (0-0.2); Basophils % (auto) 0.3 %; Eosinophils # (auto) 0.78 K/uL (0-0.5); Eosinophils % (auto) 7.1 %; Hematocrit (blood only) 35.1 % (42-52); Hemoglobin 11.2 g/dL (14.0-18.0); Immature Granulocytes # (auto) 0.09 K/uL (0.00-0.02); Immature Granulocytes % (auto) 0.8 %; Lymphocytes # (auto) 4.33 K/uL (1.2-3.4); Lymphocytes % (auto) 39.5 %; Mean Corpuscular Hgb Conc 31.9 g/dL (32-36); Mean Corpuscular Volume 97.5 fL (80-100); Mean Platelet Volume 11.1 fL (7.4-10.4); Monocytes # (auto) 0.65 K/uL (0.11-0.59); Monocytes % (auto) 5.9 %; Neutrophils # (auto) 5.09 K/uL (1.4-6.5); Neutrophils % (auto) 46.4 %; Platelet Count 245 K/uL (130-400); RDW Coefficient of Variation 14.1 % (11.5-14.5); White Blood Count 10.97 K/uL (4.8-10.8)
[2018-11-23 07:51] LABS: BUN Creatinine Ratio 42.8 (10-20); Calcium 8.7 mg/dl (8.5-10.1); Creatinine Clr Calc Pharmacy 221.2 ml/min; Est GFR (African American) 139.6; Est GFR (Non-African American) 120.5; Potassium 3.8 mmol/L (3.5-5.1)
[2018-11-23 07:54] LABS: Albumin Globulin Ratio 0.5 (0.9-2); Bilirubin,Total 0.2 mg/dl (0.2-1); Globulin 3.9 gm/dl (2.5-4.0); Total Protein 5.9 gm/dl (6.4-8.2)
[2018-11-23] MEDS ORDERED: AMOXICILLIN/CLAVULANATE 875 MG TAB PO SCH (08:00)
[2018-11-23] MEDS: levETIRAcetam ORAL SOLN 100MG/ML PEG SCH ×2 (08:07→21:00)
[2018-11-23] MEDS: CARBIDOPA/LEVODOPA 25/100MG TAB PEG SCH ×2 (08:07→12:16)
[2018-11-23] MEDS: ASPIRIN 81 MG CHEW PEG SCH (08:09)
[2018-11-23] MEDS: ESCITALOPRAM OXALATE 10 MG TAB PO SCH (08:09)
[2018-11-23] MEDS: PEPTAMEN 1.5 CAL 1,000 ML BAG PEG SCH ×3 (08:20→20:59)
[2018-11-23] MEDS: LISINOPRIL 40 MG TAB PO SCH (08:21)
[2018-11-23] MEDS: CLOPIDOGREL BISULFATE 75 MG TAB PEG SCH (08:21)
[2018-11-23] MEDS: HYDROCODONE/ACETAMOPHEN 5/325MG TAB PO PRN ×2 (08:22→17:01)
[2018-11-23] MEDS: ENOXAPARIN INJ 40 MG/0.4 ML SYR SQ SCH (08:25)
[2018-11-23] MEDS: ESCITALOPRAM OXALATE 20 MG TAB PO SCH (08:25)
[2018-11-23] MEDS: AMOXICILLIN/CLAVULANATE SUSP 400MG/5ML 50ML BOTTLE GT SCH ×2 (08:28→17:04)
[2018-11-23] MEDS: ACETAMINOPHEN 1,000 MG/100 ML VIAL IV PRN (09:37)
[2018-11-23] MEDS: GABAPENTIN 250 MG/5 ML 470 ML BTL PO SCH ×3 (12:17→20:59)
--- NOTE | 2018-11-23 18:36 | Hospitalist Progress Note ---
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 -S/P IV Vancomycin. S/P IV Zosyn from 11/16/18 to 11/19/18 . Changed from IV To PO yesterday- Clindamycin and Augmentin according to C/S results -Right mandibular culture - MRSA and other bacteria on 11/19/18. Blood cx x 2- negative -11/21/18: CT scan repeated - no evidence of tumor, swelling still present, but better. (3) Elevated INR: INR 1.5 on 11/16/18 admission and patient not currently on anticoagulation re-check of INR on 11/18/18 with normal INR (4) CAD, multiple vessel: -No acute issues -Continue medical management with ASA, Plavix statin, lisinopril (5) Hypertension: -Continue hydralazine, lisinopril (6) Dyslipidemia: -Continue statin (7) History of ischemic vertebrobasilar artery brainstem stroke: History of stroke in the past with residual left hemiparesis, dysarthria, dysphagia -Continue ASA, Plavix, statin (8) DM type 2 (diabetes mellitus, type 2): Type 2 diabetes mellitus without complications not on longer term current use of insulin when at home -Well-controlled, last A1c 09/21/18 5.4 -Hold home dose oral metformin -Lantus/NovoLog per protocol (9) Seizure: History of seizure on last hospital admission -on Keppra for seizure prophylaxis -continue Keppra (10) Depression: -Continue Lexapro (11) Hypothyroidism: -Continue levothyroxine (12) S/P percutaneous endoscopic gastrostomy (PEG) tube placement: Has PEG tube chronically prior to this admission Continue tube feedings most of patient's calories are from tube feeding compared to oral feeds as per patient's Pressure ulcer of abdomen stage 3 Wound care nurse has assessed the stage 3 pressure ulcer under patient's G-tube flange, which is in dressing (13) GERD (gastroesophageal reflux disease): Continue ranitidine (14) DVT prophylaxis: Lovenox 40 mg daily Patient is DNR; however, if current condition would compromise patient's airway it is okay for intubation for temporary setting per Patient's [place]: [phone] Disposition Medical mx in progress Subjective Patient is doing better. More alert. Right facial swelling, pain has improved significantly No fever, chills. Tolerating a little PO Physical Exam Physical Exam: General: awake and alert, verbal Motor/neuro: able to move the right extremities. cannot move the left arm which is baseline as per patient's . patient has left leg contracture and only ab le to move toes of left foot which is also baseline as per patient's HEENT: parotid area with swelling but not hard and not firm and some extension of swelling to behind the ear and submandibular area mouth: tongue appears clear Chest: clear to auscultation anteriorly Abdomen: Has PEG tube, ulcer stage 3 around the Peg tube site in dressing + Results & Data Vital Signs (Past 12 Hours) Vital Signs Temp Pulse Pulse Resp BP Pulse Ox 11/23/18 15:40 37.2 C 60 19 155/73 H 94 11/23/18 12:21 36.9 C 61 20 147/76 H 95 11/23/18 07:30 37.2 C 65 20 162/85 H 94 11/23/18 07:00 60 (1) Sepsis Sepsis type: sepsis due to unspecified organism Qualified Code(s): A41.9 - Sepsis, unspecified organism
[2018-11-23] MEDS: TAMSULOSIN HCL 0.4 MG CAP PO SCH (21:00)
[2018-11-23] MEDS: ATORVASTATIN 40 MG TAB PEG SCH (21:01)
[2018-11-24] MEDS: INSULIN ASPART 100 UNITS/ML 3 ML PEN SC SCH ×4 (00:07→16:40)
[2018-11-24] MEDS: CLINDAMYCIN PEG SCH ×4 (00:07→16:39)
[2018-11-24] MEDS: LEVOTHYROXINE SODIUM 100 MCG TABLET GT SCH (06:15)
[2018-11-24] MEDS: [UNRECOGNIZED DRUG - REMARK] SCH (08:11)
[2018-11-24] MEDS: ASPIRIN 81 MG ECTAB PO SCH (08:35)
[2018-11-24] MEDS: ESCITALOPRAM OXALATE 20 MG TAB PO SCH (09:04)
[2018-11-24] MEDS: CLOPIDOGREL BISULFATE 75 MG TAB PEG SCH (09:04)
[2018-11-24] MEDS: ESCITALOPRAM OXALATE 10 MG TAB PO SCH (09:04)
[2018-11-24] MEDS: ASPIRIN 81 MG CHEW PEG SCH (09:07)
[2018-11-24] MEDS: CARBIDOPA/LEVODOPA 25/100MG TAB PEG SCH ×2 (09:08→11:57)
[2018-11-24] MEDS: levETIRAcetam ORAL SOLN 100MG/ML PEG SCH (09:08)
[2018-11-24] MEDS: LISINOPRIL 40 MG TAB PO SCH (09:08)
[2018-11-24] MEDS: ENOXAPARIN INJ 40 MG/0.4 ML SYR SQ SCH (09:09)
[2018-11-24] MEDS: AMOXICILLIN/CLAVULANATE SUSP 400MG/5ML 50ML BOTTLE GT SCH ×2 (09:11→16:39)
[2018-11-24] MEDS: GABAPENTIN 250 MG/5 ML 470 ML BTL PO SCH ×2 (09:11→13:40)
[2018-11-24] MEDS: PEPTAMEN 1.5 CAL 1,000 ML BAG PEG SCH ×2 (09:20→13:40)
--- NOTE | 2018-11-24 10:09 | Hospitalist Progress Note ---
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 ED secondary to right facial swelling and fever x 1 day. -S/P IV Vancomycin. S/P IV Zosyn - received antibiotics for 7 days. Changed to PO Augmentin and Clindamycin as per C/S results on 11/22/18---> to be continued for 5 more days to complete 14 days course -Right mandibular culture - MRSA and other bacteria on 11/19/18. Blood cx x 2- negative -11/21/18: CT scan repeated - no evidence of tumor, swelling still present, but better. -Per oral sx- okay to discharge on PO antibiotics (3) Elevated INR: INR 1.5 on 11/16/18 admission and patient not currently on anticoagulation re-check of INR on 11/18/18 with normal INR (4) CAD, multiple vessel: -No acute issues -Continue medical management with ASA, Plavix statin, lisinopril (5) Hypertension: -Continue hydralazine, lisinopril (6) Dyslipidemia: -Continue statin (7) History of ischemic vertebrobasilar artery brainstem stroke: History of stroke in the past with residual left hemiparesis, dysarthria, dysphagia -Bed ridden. with care givers at home takes care of him -Continue ASA, Plavix, statin (8) DM type 2 (diabetes mellitus, type 2): Type 2 diabetes mellitus without complications not on longer term current use of insulin when at home -Well-controlled, last A1c 09/21/18 5.4 -Hold home dose oral metformin -Lantus/NovoLog per protocol (9) Seizure: History of seizure on last hospital admission -on Keppra for seizure prophylaxis -continue Keppra (10) Depression: -Continue Lexapro (11) Hypothyroidism: -Continue levothyroxine (12) S/P percutaneous endoscopic gastrostomy (PEG) tube placement: Has PEG tube chronically prior to this admission Continue tube feedings most of patient's calories are from tube feeding compared to oral feeds as per patient's Pressure ulcer of abdomen stage 3 Wound care nurse has assessed the stage 3 pressure ulcer under patient's G-tube flange, which is in dressing (13) GERD (gastroesophageal reflux disease): Continue ranitidine (14) DVT prophylaxis: Lovenox 40 mg daily Patient is DNR; however, if current condition would compromise patient's airway it is okay for intubation for temporary setting per Patient's [place]: [phone], Aware about the discharge plan. Disposition Ok to discharge home today Subjective Patient is doing better. More alert. Right facial swelling, pain has improved significantly No fever, chills. Tolerating a little PO Physical Exam Physical Exam: General: awake and alert, minimally verbal, Obese Motor/neuro: Able to move the right extremities. cannot move the left arm which is baseline as per patient's . patient has left leg contracture and only able to move toes of left foot which is also baseline as per patient's HEENT: Right parotid area swelling, slightly firm, tenderness and erythema has almost resolved. Chest: clear to auscultation anteriorly Abdomen: Has PEG tube, ulcer stage 3 around the Peg tube site in dressing + Results & Data Vital Signs (Past 12 Hours) Vital Signs Temp Pulse Pulse Resp BP Pulse Ox 11/24/18 09:10 57 L 162/75 H 11/24/18 07:59 37.0 C 60 20 169/89 H 92 11/24/18 03:00 37.1 C 58 L 20 160/68 H 92 11/23/18 23:00 37 C 58 L 20 155/62 H 92 (1) Sepsis Sepsis type: sepsis due to unspecified organism Qualified Code(s): A41.9 - Sepsis, unspecified organism
--- NOTE | 2018-11-24 10:21 | Discharge Summary ---
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 is at bedside who provides history. ROS unobtainable from patient. states that caregiver was helping patient this morning when she noted his right side of his face to be very swollen. She felt patient felt warm. Temperature was obtained, 100.4. EMS was called. does elicit patient was moaning and appeared to be uncomfortable but did not appear to be in any distress with shortness of breath, wheezing. She does elicit that he does get tracheal congestion secondary to history of CVA. He does have drooling secondary to prior CVA but she does not note this in excess. He is incontinent of bowels and urine. Never had anything like this in the past. Principal Diagnosis 1 Sepsis secondary to right parotitis Secondary diagnoses on discharge 1. CAD, multiple vessel 2 hypertension 3 dyslipidemia 4 history of CVA with residual left hemiparesis, dysarthria, dysphagia 5. Diabetes mellitus type 2 6. Seizure 7. Hypothyroidism 8. Chronic PEG tube with tube feedings 9. Pressure ulcer around PEG tube site 10. Obesity 11. Bedridden Discharge Exam General: awake and alert, minimally verbal, Obese Motor/neuro: Able to move the right extremities. cannot move the left arm which is baseline as per patient's . patient has left leg contracture and only able to move toes of left foot which is also baseline as per patient's HEENT: Right parotid area swelling, slightly firm, tenderness and erythema has almost resolved. Chest: clear to auscultation anteriorly Abdomen: Has PEG tube, ulcer stage 3 around the Peg tube site in dressing + Discharge Data Allergies Allergy/AdvReac Type Severity Reaction Status Date / Time Penicillins Allergy Intermediate RASH Verified 09/20/18 20:31 Consultations 11/16/18 20:06 ED Decision to Admit Stat 11/16/18 23:18 Consult Oromaxillofacial Surgery Routine Ordered Studies 11/16/18 18:47 CT soft tissue neck w con Stat 11/21/18 13:13 CT soft tissue neck w con Routine Hospital Course (1) Sepsis: (2) Parotitis: Sepsis secondary to Parotitis This is a 67-year-old male with significant PMH of CAD, HTN, HLD, T2 DM, hypothyroidism, GERD, depression, anxiety, 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 -S/P IV Vancomycin. S/P IV Zosyn - received antibiotics for 7 days. Changed to PO Augmentin and Clindamycin as per C/S results on 11/22/18---> to be continued for 7 more days to complete 14 days course -Right mandibular culture - MRSA and other bacteria on 11/19/18. Blood cx x 2- negative -11/21/18: CT scan repeated - no evidence of tumor, swelling still present, but better. -Per oral sx- okay to discharge on PO antibiotics -If any issues, may follow up with oral surgery outpatient (3) Elevated INR: INR 1.5 on 11/16/18 admission and patient not currently on anticoagulation re-check of INR on 11/18/18 with normal INR (4) CAD, multiple vessel: -No acute issues -Continue medical management with ASA, Plavix statin, lisinopril (5) Hypertension: -Continue hydralazine, lisinopril (6) Dyslipidemia: -Continue statin (7) History of ischemic vertebrobasilar artery brainstem stroke: History of stroke in the past with residual left hemiparesis, dysarthria, dysphagia -Bed ridden. with care givers at home takes care of him -Continue ASA, Plavix, statin (8) DM type 2 (diabetes mellitus, type 2): Type 2 diabetes mellitus without complications not on longer term current use of insulin when at home -Well-controlled, last A1c 09/21/18 5.4 -Hold home dose oral metformin -Lantus/NovoLog per protocol (9) Seizure: History of seizure on last hospital admission -on Keppra for seizure prophylaxis -continue Keppra (10) Depression: -Continue Lexapro (11) Hypothyroidism: -Continue levothyroxine (12) S/P percutaneous endoscopic gastrostomy (PEG) tube placement: Has PEG tube chronically prior to this admission Continue tube feedings most of patient's calories are from tube feeding compared to oral feeds as per patient's Pressure ulcer of abdomen stage 3 Wound care nurse has assessed the stage 3 pressure ulcer under patient's G-tube flange, which is in dressing (13) GERD (gastroesophageal reflux disease): Continue ranitidine (14) DVT prophylaxis: Lovenox 40 mg daily Patient is DNR; however, if current condition would compromise patient's airway it is okay for intubation for temporary setting per Patient's [place]: [phone], Aware about the discharge plan. Disposition Ok to discharge home today Total Time Total Time Spent Total Time Spent (In Minutes): 40 minutes Discharge Plan Discharge Items Patient Disposition: Home - Home Health Services Reason For Visit: SEPSIS,HTN URGENCY Discharge Diagnosis: sepsis, infection of parotid gland, hypertension, elevated INR, History of stroke, History of Seizure, has PEG (percutaneous endoscopic grastrostomy tube( tube with feedings Discharge Goals: Decrease discomfort Activity: Resume your previous activity Non-emergency contact: Primary Care Provider Call non-emergency contact if: your symptoms worsen Follow-up/Referrals: Juanito Tom MD [Primary Care Provider] - 11/28/18 11:05 am Diet: Carb Consistent or DM2 and Heart Healthy Diet Texture: Pureed (blended smooth) Liquid Consistency: Leach thick Diet Comment: Diet as per speech therapy instructions Addtl Provider Instructions: DIET INSTRUCTIONS: Moist pured, nectar thick liquids. Continue with PEG tube feeding as primary means of nutrition and hydration Modify liquids to honey thick if he has any overt aspiration with nectar thick Speech therapy will follow up for diet upgrade with improvement in parotid gland swelling Medication changes 1. New medicationAugmentin 875 mg p.o. twice a day to be given through PEG tube 2. New medication that clindamycin 300 mg every 6 hours to be given Duration7 days via PEG tube Prescriptions: New amoxicillin-pot clavulanate 400-57 mg/5 mL Suspension For Reconstitution 875 mg G-tube BIDM 7 Days Qty: 133.98 RF: 0 clindamycin palmitate HCl 75 mg/5 mL Recon Soln 300 mg PEG Q6 7 Days Qty: 560 RF: 0 Continued atorvastatin 40 mg Tablet 40 mg Feeding Tube HS RF: 0 metformin 500 mg Tablet 500 mg Feeding Tube BID RF: 0 hydrocodone-acetaminophen 5-325 mg Tablet 1 tab Feeding Tube Q4H PRN (Reason: Outbreak) RF: 0 hydralazine 25 mg Tablet 25 mg Feeding Tube BID RF: 0 clopidogrel [Plavix] 75 mg Tablet 75 mg Feeding Tube DAILY RF: 0 aspirin [Aspirin Low Dose] 81 mg Tablet,Delayed Release (Dr/Ec) 81 mg Feeding Tube DAILY RF: 0 tamsulosin 0.4 mg Capsule 0.4 mg PO QPM RF: 0 nitroglycerin 0.4 mg Tablet, Sublingual 0.4 mg Sublingual DIRECTED RF: 0 ranitidine HCl 150 mg Capsule 150 mg Feeding Tube BID RF: 0 gabapentin 100 mg Capsule 200 mg Feeding Tube TID RF: 0 carbidopa-levodopa [Sinemet] 25-100 mg Tablet 1 tab Feeding Tube BID RF: 0 escitalopram oxalate [Lexapro] 10 mg Tablet 10 mg Feeding Tube DAILY RF: 0 escitalopram oxalate [Lexapro] 20 mg Tablet 20 mg Feeding Tube DAILY RF: 0 albuterol sulfate 2.5 mg/0.5 mL Solution For Nebulization 2.5 mg INHALATION QID PRN (Reason: Shortness Of Breath Or Wheezing) RF: 0 magnesium oxide 400 mg Capsule 400 mg Feeding Tube DAILY RF: 0 polyethylene glycol 3350 [Miralax] 17 gram Powder In Packet 17 g Feeding Tube DAILY PRN (Reason: Unknown) RF: 0 levothyroxine [Synthroid] 100 mcg tablet 100 mcg Feeding Tube DAILY RF: 0 sennosides-docusate sodium [Senna with Docusate Sodium] 8.6-50 mg Tablet 1 tab Feeding Tube DAILY PRN (Reason: Constipation) RF: 0 atropine [Isopto Atropine] 1 % drops 2 drp Sublingual UD PRN (Reason: DRY SECRETIONS) RF: 0 Selsun Blue 1 % Shampoo 1 applic TOPICAL 2XWK RF: 0 Isosource 1.5 Billy 0.07 gram-1.5 kcal/mL Liquid 250 ml Feeding Tube BID RF: 0 Isosource 1.5 Billy 0.07 gram-1.5 kcal/mL Liquid 1,000 ml Feeding Tube HS RF: 0 lisinopril [Zestril] 40 mg Tablet 40 mg PO DAILY Qty: 30 RF: 1 levetiracetam 100 mg/mL Solution 500 mg PEG BID Qty: 500 RF: 1 acetaminophen [Tylenol Extra Strength] 500 mg Tablet 500 mg PO Q4 PRN (Reason: Pain) RF: 0 Stand-Alone Forms: [facility] Discharge Orders: Discharge Order (Routine); Ordered 11/24/18 Ordered By: Bebe Wang Admission Data Admit Date/Time: 11/16/18 23:10 Attending Provider: Bebe Wang Admit Provider: Noe Tran Primary Care Provider: Juanito Tom Other Providers: Noe Tran ; Avtar Willard ; Kaleb Huffman Service: Telemetry Medical
== END 2018-11-24 18:07 | disposition home health service (06) | DRG 871 ==
LOC: ED 17:35 → SUATTDRO 23:10 → 2W 23:10

== ENCOUNTER 2021-07-11 12:32 | Inpatient (IN) ==
[2021-07-11] MEDS ORDERED: SODIUM CHLORIDE 0.9% 1000ML 1,000 ML IV ONE (12:42)
--- NOTE | 2021-07-11 12:47 | Emergency Department Note ---
Impression & Plan Hypoxia, AMS (altered mental status), Leukocytosis, Diarrhea ED Provider Note NAME: SALINAS BRIDGES AGE: 70 SEX: M : 1950 ARRIVES VIA: Ambulance INFORMANT: Patient, , EMS ED PROVIDER(S): Ricardo Garcia DO CHIEF COMPLAINT: Altered mental status HPI: Patient is a 70-year-old male with a past medical history of CVA, diabetes, left-sided hemiplegia who presents to the ER for confusion. Per the and EMS patient has been confused for the past 3 to 4 days. He has been gradually getting worse. He was just recently hypoxic today and started on oxygen and brought in. History is limited secondary to the gentlemen's mentation but he does shake his head no to pain in the head chest belly as well as any shortness of breath. ROS: See above HPI for pertinent positives & negatives. A total of 10 systems reviewed and were otherwise negative. PAST MEDICAL HISTORY:See Below PAST SURGICAL HISTORY:See Below FAMILY HISTORY:See Below SOCIAL HISTORY:See Below HOME MEDICATIONS:See Below ALLERGIES:See Below VITALS:See Below PHYSICAL EXAMINATION: GENERAL: Sitting up in bed, alert, chronically ill-appearing, disheveled and moaning EYE EXAM: normal conjunctiva. PERRL and EOM's grossly intact. OROPHARYNX: Dry mucous membranes NECK: supple, no nuchal rigidity, no adenopathy, non-tender LUNGS: Diminished bilaterally. Normal chest wall mechanics HEART: no murmurs, S1 normal and S2 normal ABDOMEN: abdomen soft, non-tender, normo-active bowel sounds, no masses, no rebound or guarding. PEG tube in place. BACK: Back is symmetrical on inspection and there is no deformity, no midline tenderness, no CVA tenderness. SKIN: no rashes and no bruising UPPER EXTREMITIES: upper extremities are grossly normal. LOWER EXTREMITIES: No pitting edema. NEURO EXAM: Awake, will wiggle his right toes and squeezes right hand. Will shake his head intermittently yes and no. Left-sided deficit. MEDICAL DECISION MAKING: Patient is a 70-year-old male who presents ER for above-stated complaint found to be hypoxic and more confused over the past 2 to 3 days. Patient remained on 2 3 L nasal cannula throughout the stay in the ER. His mentation did gradually improve. IV was established blood was obtained. Labs show leukocytosis 21,000. No significant anemia. BMP with LFTs bilirubin and troponin was negative. Lipase was normal. UA did have trace leuks and whites but multiple epithelial cells. Covid was negative. Patient was given IV cefepime. He was given IV fluids as well. Discussed with hospitalist and patient was admitted for further work-up. CT head and belly were negative. Chest x-ray was fairly clean. was updated bedside. Triage Nursing notes reviewed. Limited review of prior medical records performed Vital Signs: reviewed and remarkable for no significant abnormalities Differential diagnosis: Differential diagnoses includes but is not limited to gastritis, peptic ulcer disease, GERD, gallbladder disease, pancreatitis, small bowel obstruction, acute coronary syndrome, pericarditis, ischemic bowel, irritable bowel disease, irritable bowel syndrome, appendicitis, diverticulitis, malignancy, hernia, urinary tract infection, torsion, perforation, trauma, infectious. ER treatment provided: See below Diagnostics interpreted by me: ECG: Sinus rhythm rate of [address] wave changes in the high lateral as well as lateral leads QTC 463 Cardiac Monitoring: An order was placed for continuous cardiac monitoring. The monitor shows a rate of 70 with sinus rhythm. Laboratory studies: As stated above and show below. Imaging studies: CT abdomen pelvis and CT head were negative Chest x-ray was unremarkable Consultation(s): Discussed with Gray Soni for further evaluation Procedures: none Critical Care: I have personally spent 31 minutes of critical care time in the direct management of this patient. This includes bedside care, interpretation of diagnostic studies, and testing, discussion with consultants, patient, and family members, and other required patient management activities. This 31 minutes is in excess of all separately billable procedures. Past Med/Surg History Medical History (Updated 07/11/21 @ 18:43 by Ricardo Garcia DO) Anxiety Basilar artery occlusion CAD, multiple vessel Coronary artery disease CVA (cerebral infarction) "BA occlusion with b/l [employer] OPER[employer] territory infarcts, right thalamic infarct, hippocampi infarcts 01/03/14." Depression DM type 2 (diabetes mellitus, type 2) Dyslipidemia Dysphasia Gastroparesis GERD (gastroesophageal reflux disease) Hemiparesis affecting left side as late effect of cerebrovascular accident History of ischemic vertebrobasilar artery brainstem stroke Hypertension Hypertension Hypothyroidism Neuropathy Surgical History History of tonsillectomy and adenoidectomy Previous back surgery S/P percutaneous endoscopic gastrostomy (PEG) tube placement Family History Father Colorectal cancer Hypertension Diabetes Mother Diabetes Mother Hypertension Social History Smoking Status: Unknown if ever smoked Second Hand Exposure: No; Hx Alcohol Use: No Hx Substance Use: No Preferred Language: Czech Communication Ability: Unable Back Tender Cloth Printing Required: Yes Beliefs That Will Affect Care: None marital status: Current Living Situation: Family Current Living Situation Comment: At home with spouse and caregivers Feels Safe at Home: Yes Assistive Devices: Mechanical Lift Allergies Allergies Allergy/AdvReac Type Severity Reaction Status Date / Time Penicillins Allergy Intermediate RASH Verified 07/11/21 13:11 Home Meds Home Medications Medication Instructions Recorded Confirmed clopidogrel 75 mg tablet (Plavix) 75 mg FEEDING TUBE DAILY 04/18/18 07/11/21 escitalopram oxalate 10 mg tablet 10 mg FEEDING TUBE DAILY 04/18/18 07/11/21 (Lexapro) escitalopram oxalate 20 mg tablet 20 mg FEEDING TUBE DAILY 04/18/18 07/11/21 (Lexapro) gabapentin 100 mg capsule 200 mg FEEDING TUBE TID 04/18/18 07/11/21 hydralazine 25 mg tablet 25 mg FEEDING TUBE BID 04/18/18 07/11/21 hydrocodone 5 mg-acetaminophen 325 1 tab FEEDING TUBE Q4H PRN 04/18/18 07/11/21 mg tablet nitroglycerin 0.4 mg sublingual 0.4 mg SUBLINGUAL DIRECTED PRN 04/18/18 07/11/21 tablet atropine 1 % eye drops (Isopto 2 drp SUBLINGUAL UD PRN 09/20/18 07/11/21 Atropine) lactose-reduced food-fiber 0.07 100 ml FEEDING TUBE DAILY 09/20/18 07/11/21 gram-1.5 kcal/mL liquid for tube feed (Isosource 1.5 Billy) levothyroxine 100 mcg tablet 100 mcg FEEDING TUBE DAILY 09/20/18 07/11/21 (Synthroid) lisinopril 20 mg tablet 20 mg FEEDING TUBE DAILY 04/20/20 07/11/21 acetaminophen 500 mg tablet 1,000 mg PO Q6H PRN 07/11/21 07/11/21 (Tylenol Extra Strength) aspirin 81 mg chewable tablet 81 mg FEEDING TUBE DAILY 07/11/21 07/11/21 atorvastatin 40 mg tablet 40 mg FEEDING TUBE HS 07/11/21 07/11/21 diphenhydramine 25 1 tab PO HS 07/11/21 07/11/21 mg-acetaminophen 500 mg tablet (Tylenol PM Extra Strength) famotidine 10 mg tablet 10 mg FEEDING TUBE BID 07/11/21 07/11/21 levetiracetam 100 mg/mL oral 500 mg FEEDING TUBE BID 07/11/21 07/11/21 solution lorazepam 0.5 mg tablet 0.5 mg FEEDING TUBE TID PRN 07/11/21 07/11/21 magnesium oxide 400 mg FEEDING TUBE DAILY 07/11/21 07/11/21 metformin 500 mg tablet 500 mg FEEDING TUBE BID 07/11/21 07/11/21 senna-docusate sodium tablet 2 tab PO DAILY PRN 07/11/21 07/11/21 Results & Data (ED) Vital Signs Vital Signs - 24 hr 07/11/21 12:50 07/11/21 14:00 07/11/21 17:00 Temperature 36.9 C Temperature Source Oral Pulse Rate 75 Pulse Rate [Left Finger] 73 71 Pulse Rhythm [Left Finger] Regular Pulse Strength [Left Finger] Normal Respiratory Rate 14 20 20 Respiratory Effort / Characteristics Non-Labored Spontaneous Respiratory Depth Normal Normal Respiratory Pattern Regular Blood Pressure 118/69 Blood Pressure [Left Arm] 133/67 131/60 Blood Pressure Mean 85 Blood Pressure Mean [Left Arm] 89 83 Blood Pressure Position [Left Arm] Sitting Sitting Pulse Oximetry 93 96 94 Oxygen Delivery Method Nasal Cannula Oxygen Flow Rate 3 Sepsis Recent Fever Within 48 Hours No Sepsis New/Unexplained Change in Mental Status No Sepsis Action Taken by Nursing No Action Required Oxygen Flow Rate - Titration 3 Pulse Oximetry Post Tiitration 93 Laboratory Data Result diagrams: 07/11/21 12:52 07/11/21 12:52 Lab Results 07/11/21 07/11/21 07/11/21 Range/Units 12:52 12:52 13:34 WBC 21.89 H (4.8-10.8) K/uL RBC 4.45 L (4.7-6.1) M/uL Hgb 14.2 (14.0-18.0) g/dL Hct 45.8 (42-52) % MCV 102.9 H (80-100) fL MCH 31.9 (25-34) pg MCHC 31.0 L (32-36) g/dL RDW Std Deviation 55.9 H (36.4-46.3) fL RDW Coeff of Albert 14.9 H (11.5-14.5) % Plt Count 195 (130-400) K/uL MPV 11.5 H (7.4-10.4) fL Immature Gran % (Auto) 0.3 % Neut % (Auto) 39.6 % Lymph % (Auto) 51.1 % [place] % (Auto) 8.1 % Eos % (Auto) 0.6 % Baso % (Auto) 0.3 % Neut # (Auto) 8.68 H (1.4-6.5) K/uL Lymph # (Auto) 11.19 H (1.2-3.4) K/uL [place] # (Auto) 1.77 H (0.11-0.59) K/uL Eos # (Auto) 0.13 (0-0.5) K/uL Baso # (Auto) 0.06 (0-0.2) K/uL Immature Gran # (Auto) 0.06 H (0.00-0.02) K/uL Sodium 140 (136-145) mmol/L Potassium 4.7 (3.5-5.1) mmol/L Chloride 105 (98-107) mmol/L Carbon Dioxide 32 (21-32) mmol/L Anion Gap 3.0 (3-11) BUN 22 H (7-18) mg/dl Creatinine 0.69 (0.6-1.4) mg/dl Est Cr Clr Drug Dosing 140.7 ml/min Est GFR ( Amer) 111.5 ml/min Est GFR (Non-Af Amer) 96.2 ml/min BUN/Creatinine Ratio 32.2 H (10-20) Glucose 146 H (70-99) mg/dl Calcium 9.5 (8.5-10.1) mg/dl Total Bilirubin 0.5 (0.2-1) mg/dl AST 22 (15-37) U/L ALT 18 (12-78) Alkaline Phosphatase 78 (45-117) U/L Troponin I < 0.015 (0-0.045) ng/ml Total Protein 7.0 (6.4-8.2) gm/dl Albumin 2.9 L (3.4-5.0) gm/dl Globulin 4.1 H (2.5-4.0) gm/dl Albumin/Globulin Ratio 0.7 L (0.9-2) Lipase 49 L (73-393) U/L Urine Color Dark Yellow Urine Appearance Cloudy A (Clear) Urine pH 5.0 (4.5-7.5) Ur Specific [place] 1.037 H (1.000-1.030) Urine Protein 1+ H (Negative) Urine Glucose (UA) Negative (Negative) Urine Ketones Trace H (Negative) Urine Blood Negative (Negative) Urine Nitrite Negative (Negative) Urine Bilirubin 1+ H (Negative) Urine Urobilinogen Negative (Negative) Ur Leukocyte Esterase Trace H (Negative) Urine WBC (Auto) 5-10 H (0-5) /hpf Urine RBC (Auto) 0-4 (0-4) /hpf U Hyaline Cast (Auto) 1-5 (0-5) /lpf U Epithel Cells (Auto) >30 H (0-5) /lpf Urine Bacteria (Auto) Negative (Negative) Ur Renal Epithelial Cell Not Reportable Granular Casts 1-5 H (0) /lpf Urine Mucus Present A (None Prsent) SARS-CoV-2, RNA, NAAT (NEGATIVE) 07/11/21 Range/Units 16:03 WBC (4.8-10.8) K/uL RBC (4.7-6.1) M/uL Hgb (14.0-18.0) g/dL Hct (42-52) % MCV (80-100) fL MCH (25-34) pg MCHC (32-36) g/dL RDW Std Deviation (36.4-46.3) fL RDW Coeff of Albert (11.5-14.5) % Plt Count (130-400) K/uL MPV (7.4-10.4) fL Immature Gran % (Auto) % Neut % (Auto) % Lymph % (Auto) % [place] % (Auto) % Eos % (Auto) % Baso % (Auto) % Neut # (Auto) (1.4-6.5) K/uL Lymph # (Auto) (1.2-3.4) K/uL [place] # (Auto) (0.11-0.59) K/uL Eos # (Auto) (0-0.5) K/uL Baso # (Auto) (0-0.2) K/uL Immature Gran # (Auto) (0.00-0.02) K/uL Sodium (136-145) mmol/L Potassium (3.5-5.1) mmol/L Chloride (98-107) mmol/L Carbon Dioxide (21-32) mmol/L Anion Gap (3-11) BUN (7-18) mg/dl Creatinine (0.6-1.4) mg/dl Est Cr Clr Drug Dosing ml/min Est GFR ( Amer) ml/min Est GFR (Non-Af Amer) ml/min BUN/Creatinine Ratio (10-20) Glucose (70-99) mg/dl Calcium (8.5-10.1) mg/dl Total Bilirubin (0.2-1) mg/dl AST (15-37) U/L ALT (12-78) Alkaline Phosphatase (45-117) U/L Troponin I (0-0.045) ng/ml Total Protein (6.4-8.2) gm/dl Albumin (3.4-5.0) gm/dl Globulin (2.5-4.0) gm/dl Albumin/Globulin Ratio (0.9-2) Lipase (73-393) U/L Urine Color Urine Appearance (Clear) Urine pH (4.5-7.5) Ur Specific [place] (1.000-1.030) Urine Protein (Negative) Urine Glucose (UA) (Negative) Urine Ketones (Negative) Urine Blood (Negative) Urine Nitrite (Negative) Urine Bilirubin (Negative) Urine Urobilinogen (Negative) Ur Leukocyte Esterase (Negative) Urine WBC (Auto) (0-5) /hpf Urine RBC (Auto) (0-4) /hpf U Hyaline Cast (Auto) (0-5) /lpf U Epithel Cells (Auto) (0-5) /lpf Urine Bacteria (Auto) (Negative) Ur Renal Epithelial Cell Granular Casts (0) /lpf Urine Mucus (None Prsent) SARS-CoV-2, RNA, NAAT NEGATIVE (NEGATIVE) Administered Medications Discontinued Medications Sodium Chloride (Nss 1000ml) 1,000 mls @ 999 mls/hr IV .Q1H1M ONE Stop: 07/11/21 13:42 Last Infusion: 07/11/21 16:16 Dose: 0 mls/hr Documented by: [id number] Admin: 07/11/21 14:11 Dose: 999 mls/hr Documented by: [id number] Cefepime HCl 1,000 mg/ Syringe 11.3 mls @ 5.5 mls/min IV NOW STA; Protocol Stop: 07/11/21 15:02 Last Admin: 07/11/21 16:46 Dose: 5.5 mls/min Documented by: [id number] Imaging Data Radiologist's Impression: Head CT 07/11/21 12:[address] DOSE: 691.05 mGy.cm HISTORY: Altered mental status. TECHNIQUE: Multiaxial CT images of the head were performed without the use of intravenous contrast. Automated exposure control was utilized for this study. A dose lowering technique was utilized adhering to the principles of ALARA. Comparison: Head CT 10/13/2018. Findings: The paranasal sinuses and mastoid air cells are clear. The calvarium and skull base are intact. There is no mass, hematoma, midline shift, acute infarct. White matter hypodensity is nonspecific but suggestive of microvascular ischemic change. The ventricles and sulci demonstrate mild age-related involutional changes. Old lacunar infarct noted within the right thalamus. Impression: No significant change compared to the prior study. No acute intracranial abnormality. ACT 112: Negative or not required by law. Electronically signed by: David Saenz M.D. 07/11/2021 1:38 PM Chest X-Ray 07/11/21 12:43 XR chest 1V portable HISTORY: 70 years-old Male Chest Pain . Acute atypical chest pain COMPARISON: Chest radiograph 12/31/2018 TECHNIQUE: Semierect AP view of the chest FINDINGS: Cardiac silhouette is enlarged. No pneumothorax, large pleural effusion or lobar airspace consolidation. Mild chronic coarsening of the interstitium. Degenerative changes of the shoulders and spine. IMPRESSION: Cardiomegaly without acute process. ACT 112: Negative or not required by law. The above report was generated using voice recognition software. It may contain grammatical, syntax or spelling errors. Electronically signed by: Tay Fischer M.D. 07/11/2021 1:41 PM Abdomen/Pelvis CT 07/11/21 13:58 CT abd pelvis wo con CLINICAL HISTORY: ams TECHNIQUE: Helical axial images of the abdomen and pelvis were obtained. Automated dose lowering techniques and/or adjustment according to patient size were utilized for this exam. This exam was performed without intravenous cont rast. COMPARISON: None available at the time of this dictation. FINDINGS: Lower chest: Bibasilar atelectasis versus scarring is seen. Liver: Unremarkable. No focal lesions are seen. Gallbladder and biliary tree: No calcified gallstones. Normal caliber wall. No intra- or extrahepatic biliary ductal dilation. Pancreas: Unremarkable, no focal lesions. Spleen: Unremarkable. Adrenals: Unremarkable. Kidneys and ureters: Unremarkable. Bladder: Limited evaluation due to underdistention. Reproductive organs: Unremarkable. Bowel: Fluid is seen in the rectum. Diverticulosis is seen without evidence of diverticulitis. Gastrostomy tube is in place. Lymph nodes Retroperitoneal: Unremarkable. Mesenteric: Unremarkable. Pelvic: Unremarkable. Peritoneum: Normal Vessels: Atherosclerotic calcifications are seen. Abdominal wall: Right fat-containing inguinal hernia. Diastases of the abdominal vasculature is seen. Bones: Posterior fixation hardware seen spanning the lumbar spine. Diffuse degenerative changes are seen in the skeleton. IMPRESSION: 1. Liquid contents are noted in the rectum compatible with history of diarrhea. Otherwise no acute abnormalities are seen. 2. Additional findings as above. ACT 112: Negative or not required by law. Electronically signed by: Hung Walker M.D. 07/11/2021 3:18 PM Discharge Plan Visit Data Chief Complaint: Altered Mental Status ED Provider: Ricardo Garcia Discharge Problem: Hypoxia, AMS (altered mental status), Leukocytosis, Diarrhea Forms Stand Alone Forms: My [facility] Prescriptions Prescriptions: No Action hydrocodone-acetaminophen 5-325 mg Tablet 1 tab Feeding Tube Q4H PRN (Reason: Outbreak) RF: 0 hydralazine 25 mg Tablet 25 mg Feeding Tube BID RF: 0 clopidogrel [Plavix] 75 mg Tablet 75 mg Feeding Tube DAILY RF: 0 nitroglycerin 0.4 mg Tablet, Sublingual 0.4 mg Sublingual DIRECTED PRN (Reason: Chest Pain) RF: 0 gabapentin 100 mg Capsule 200 mg Feeding Tube TID RF: 0 escitalopram oxalate [Lexapro] 10 mg Tablet 10 mg Feeding Tube DAILY RF: 0 escitalopram oxalate [Lexapro] 20 mg Tablet 20 mg Feeding Tube DAILY RF: 0 levothyroxine [Synthroid] 100 mcg tablet 100 mcg Feeding Tube DAILY RF: 0 atropine [Isopto Atropine] 1 % drops 2 drp Sublingual UD PRN (Reason: EXCESS SECRETIONS) RF: 0 Isosource 1.5 Billy 0.07 gram-1.5 kcal/mL Liquid 100 ml Feeding Tube DAILY RF: 0 lisinopril 20 mg tablet 20 mg feeding tube DAILY RF: 0 acetaminophen [Tylenol Extra Strength] 500 mg Tablet 1,000 mg PO Q6H PRN (Reason: Pain) RF: 0 diphenhydramine-acetaminophen [Tylenol PM Extra Strength] 25-500 mg Tablet 1 tab PO HS RF: 0 atorvastatin 40 mg tablet 40 mg feeding tube HS RF: 0 metformin 500 mg tablet 500 mg feeding tube BID RF: 0 famotidine 10 mg Tablet 10 mg feeding tube BID RF: 0 lorazepam 0.5 mg tablet 0.5 mg feeding tube TID PRN (Reason: Anxiety) RF: 0 aspirin 81 mg Tablet,Chewable 81 mg feeding tube DAILY RF: 0 senna-docusate sodium Tablet 2 tab PO DAILY PRN (Reason: Constipation) RF: 0 levetiracetam 100 mg/mL solution 500 mg feeding tube BID RF: 0 magnesium oxide 400 mg magnesium Tablet 400 mg feeding tube DAILY RF: 0 Referrals Referrals: Juanito Tom MD [Primary Care Provider] - Discharge Problem: AMS (altered mental status) Qualifiers: Altered mental status type: unspecified Qualified Code(s): R41.82 - Altered mental status, unspecified Leukocytosis Qualifiers: Leukocytosis type: unspecified Qualified Code(s): D72.829 - Elevated white blood cell count, unspecified Diarrhea Qualifiers: Diarrhea type: unspecified type Qualified Code(s): R19.7 - Diarrhea, unspecified
[2021-07-11 13:09] LABS: Hematocrit (blood only) 45.8 % (42-52); Hemoglobin 14.2 g/dL (14.0-18.0); Mean Corpuscular Hemoglobin 31.9 pg (25-34); Mean Corpuscular Volume 102.9 fL (80-100); Mean Platelet Volume 11.5 fL (7.4-10.4); Platelet Count 195 K/uL (130-400); RDW Coefficient of Variation 14.9 % (11.5-14.5); RDW Standard Deviation 55.9 fL (36.4-46.3); Red Blood Count 4.45 M/uL (4.7-6.1); White Blood Count 21.89 K/uL (4.8-10.8)
[2021-07-11 13:31] LABS: Alanine Aminotransferase 18 (12-78); Albumin Level 2.9 gm/dl (3.4-5.0); Aspartate Aminotransferase 22 U/L (15-37); BUN Creatinine Ratio 32.2 (10-20); Blood Urea Nitrogen 22 mg/dl (7-18); Calcium 9.5 mg/dl (8.5-10.1); Carbon Dioxide 32 mmol/L (21-32); Chloride 105 mmol/L (98-107); Creatinine Clr Calc Pharmacy 140.7 ml/min; Est GFR (African American) 111.5 ml/min; Est GFR (Non-African American) 96.2 ml/min; Glucose 146 mg/dl (70-99); Lipase 49 U/L (73-393); Potassium 4.7 mmol/L (3.5-5.1); Sodium 140 mmol/L (136-145)
[2021-07-11 13:32] LABS: Basophils # (auto) 0.06 K/uL (0-0.2); Basophils % (auto) 0.3 %; Eosinophils # (auto) 0.13 K/uL (0-0.5); Eosinophils % (auto) 0.6 %; Immature Granulocytes # (auto) 0.06 K/uL (0.00-0.02); Immature Granulocytes % (auto) 0.3 %; Lymphocytes # (auto) 11.19 K/uL (1.2-3.4); Lymphocytes % (auto) 51.1 %; Monocytes # (auto) 1.77 K/uL (0.11-0.59); Monocytes % (auto) 8.1 %; Neutrophils # (auto) 8.68 K/uL (1.4-6.5); Neutrophils % (auto) 39.6 %
[2021-07-11 13:36] LABS: Albumin Globulin Ratio 0.7 (0.9-2); Alkaline Phosphatase 78 U/L (45-117); Bilirubin,Total 0.5 mg/dl (0.2-1); Globulin 4.1 gm/dl (2.5-4.0); Troponin I < 0.015 ng/ml (0-0.045)
--- NOTE | 2021-07-11 13:39 | CT Scan Report ---
HEAD CT NONCONTRAST CT DOSE: 691.05 mGy.cm HISTORY: Altered mental status. TECHNIQUE: Multiaxial CT images of the head were performed without the use of intravenous contrast. A utomated exposure control was utilized for this study. A dose lowering technique was utilized adheri ng to the principles of ALARA. Comparison: Head CT 10/13/2018. Findings: The paranasal sinuses and mastoid air cells are clear. The calvarium and skull base are int act. There is no mass, hematoma, midline shift, acute infarct. White matter hypodensity is nonspecifi c but suggestive of microvascular ischemic change. The ventricles and sulci demonstrate mild age-rela prakash involutional changes. Old lacunar infarct noted within the right thalamus. Impression: No significant change compared to the prior study. No acute intracranial abnormality. ACT 112: Negative or not required by law. Electronically signed by: David Saenz M.D. 07/11/2021 1:38 PM
--- NOTE | 2021-07-11 13:42 | XRay Report ---
XR chest 1V portable HISTORY: 70 years-old Male Chest Pain . Acute atypical chest pain COMPARISON: Chest radiograph 12/31/2018 TECHNIQUE: Semierect AP view of the chest FINDINGS: Cardiac silhouette is enlarged. No pneumothorax, large pleural effusion or lobar airspace consolidati on. Mild chronic coarsening of the interstitium. Degenerative changes of the shoulders and spine. IMPRESSION: Cardiomegaly without acute process. ACT 112: Negative or not required by law. The above report was generated using voice recognition software. It may contain grammatical, syntax o r spelling errors. Electronically signed by: Tay Fischer M.D. 07/11/2021 1:41 PM
[2021-07-11 13:47] LABS: Appearance Urine Cloudy (Clear); Bacteria Urine Automated Negative (Negative); Blood Urine Negative (Negative); Color Urine Dark Yellow; Epithelial Cell Urine Auto >30 /lpf (0-5); Glucose Urine UA Negative (Negative); Ketones Urine Trace (Negative); Leukocyte Esterase Urine Trace (Negative); Nitrite Urine Negative (Negative); Protein Urine 1+ (Negative); RBC Urine Automated 0-4 /hpf (0-4); Specific Gravity Urine 1.037 (1.000-1.030); Urobilinogen Urine Negative (Negative)
[2021-07-11 13:52] LABS: Bilirubin Urine 1+ (Negative)
[2021-07-11 14:04] LABS: Mucus Urine Present (None Prsent)
[2021-07-11] MEDS ORDERED: CEFEPIME 1,000 MG in SYRINGE 0 ML IV STA (15:00)
--- NOTE | 2021-07-11 15:19 | CT Scan Report ---
CT abd pelvis wo con CLINICAL HISTORY: ams TECHNIQUE: Helical axial images of the abdomen and pelvis were obtained. Automated dose lowering tech niques and/or adjustment according to patient size were utilized for this exam. This exam was perfor med without intravenous contrast. COMPARISON: None available at the time of this dictation. FINDINGS: Lower chest: Bibasilar atelectasis versus scarring is seen. Liver: Unremarkable. No focal lesions are seen. Gallbladder and biliary tree: No calcified gallstones. Normal caliber wall. No intra- or extrahepatic biliary ductal dilation. Pancreas: Unremarkable, no focal lesions. Spleen: Unremarkable. Adrenals: Unremarkable. Kidneys and ureters: Unremarkable. Bladder: Limited evaluation due to underdistention. Reproductive organs: Unremarkable. Bowel: Fluid is seen in the rectum. Diverticulosis is seen without evidence of diverticulitis. Gastro stomy tube is in place. Lymph nodes Retroperitoneal: Unremarkable. Mesenteric: Unremarkable. Pelvic: Unremarkable. Peritoneum: Normal Vessels: Atherosclerotic calcifications are seen. Abdominal wall: Right fat-containing inguinal hernia. Diastases of the abdominal vasculature is seen. Bones: Posterior fixation hardware seen spanning the lumbar spine. Diffuse degenerative changes are s een in the skeleton. IMPRESSION: 1. Liquid contents are noted in the rectum compatible with history of diarrhea. Otherwise no acute a bnormalities are seen. 2. Additional findings as above. ACT 112: Negative or not required by law. Electronically signed by: Hung Walker M.D. 07/11/2021 3:18 PM
--- NOTE | 2021-07-11 15:20 | Electrocardiogram Report ---
Test Reason : Blood Pressure : / mmHG Vent. Rate : 074 BPM Atrial Rate : 074 BPM P-R Int : 188 ms QRS Dur : 088 ms QT Int : 418 ms P-R-T Axes : 083 -31 072 degrees QTc Int : 463 ms Sinus rhythm with Premature atrial complexes in a pattern of bigeminy and Premature ventricular compl exes Left axis deviation Nonspecific ST abnormality Abnormal ECG When compared with ECG of 16-NOV-2018 18:20, Premature ventricular complexes are now Present T wave inversion no longer evident in Anterior leads Confirmed by Todd New ([id number]) on 07/11/2021 3:20:39 PM Referred By: Confirmed By:Todd New
--- NOTE | 2021-07-11 16:32 | History & Physical Report ---
Date of Service July 11, 2021 Assessment & Plan (1) AMS (altered mental status): Plan: Patient is 70 y/o M with PMH CVA with left hemiplegia, dysarthria, s/p PEG, insulin resistance, CAD, HTN, HLD, hypothyroidism, depression, anxiety, GERD, nocturnal hypoxia on 2L oxygen via [place] presented to ER for AMS and increased lethargy In ER patient afebrile, P: 75, R: 14, BP: 118/69, 88% on RA up to 96% on 3L. WBC: 21. CT head unremarkable. UA appears contaminated Metabolic encephalopathy possible secondary to aspiration pneumonia In ER given cefepime Urine culture, blood cultures pending, lactate, procalcitonin pending Neuro checks Hold Ativan and hydrocodone currently. Will need to monitor closely as pt on chronically and may have withdrawal CBC, BMP in am If no improvement may need to consider MRI or neurology consult (2) Hypoxia: Plan: History dysphagia and is on nectar thick liquids at baseline. Noted coughing with drinking liquids. Today pulse ox 84% on room air at home CXR no acute process. Negative COVID test Possible aspiration pneumonia Supplemental oxygen NPO Speech therapy Zosyn, has tolerated zosyn prior hospitalizations Nocturnal Hypoxia Continue 2L oxygen HS (3) Diarrhea: Plan: Diarrhea x [address] abd/pelvis:Liquid contents are noted in rectum compatible with history of diarrhea Stool studies, C-diff pending Gentle IVF (4) CVA (cerebral infarction): Plan: Left hemiparesis, dysarthria, dysphagia Continue aspirin, atorvastatin, Plavix H/O PEG Tube Clinical Transplant Coordinator consult for assistance with tube feeds (5) CAD, multiple vessel: Plan: Continue aspirin, plavix, atorvastatin (6) Hypertension: Plan: Continue lisinopril, hydralazine (7) Insulin resistance: Plan: Hold home metformin Novolog sliding scale (8) Seizure: Plan: Continue Keppra (9) Hypothyroidism: Plan: Continue levothyroxine (10) Depression: Plan: Continue Lexapro DVT Prophylaxis Lovenox SQ DNR/DNI as per discussion with pt's Follows with Dr Tom for routine care Pt was seen and care coordinated with Dr Sanchez. See addendum History of Present Illness Chief Complaint: AMS Primary Care Provider: Juanito Tom MD Patient is 70 y/o M with PMH CVA with left hemiplegia, dysarthria, s/p PEG, insulin resistance, CAD, HTN, HLD, hypothyroidism, depression, anxiety, GERD, nocturnal hypoxia on 2L oxygen via [place] presented to ER for AMS. History obtained from patient's . Reports at baseline patient with dysarthria and lethargy. Over past several months patient has been sleeping for most of the day. He drinks nectar thickened liquids and has tube feeds. Reports previously was allowed to eat orally if he wished but he never had an appetite so he does not take oral foods. Last week she noticed urine appeared dark and he had a temp of 101F for one day. She increased his fluid intake and symptoms resolved. Past 3 days with diarrhea. At baseline patient is urinary and fecal incontinent. held tube feeding past 2 days and gave Pedialyte and Gatorade and also Imodium with no improvement of diarrhea. Patient has not been complaining of abdominal pain. Prior was having regular BMs with taking Senna-S daily. Yesterday with increased confusion and didn't know how to drink out of a straw. noticed patient coughing with drinking several times yesterday, so stopped giving him oral liquids. reports pressure ulcer to buttock noted this week. Denies other noted coughing. Today she states patient more lethargic and checked his pulse ox and was 84% on room air so patient was brought to ER. Denies any noted vomiting, hematochezia, melena. Patient has chronic diffuse pain, worse to left side extremities but has otherwise not been complaining of chest pain. In ER patient afebrile, P: 75, R: 14, BP: 118/69, 88% on RA up to 96% on 3L. WBC: 21. CT head unremarkable, CT abd/pelvis:Liquid contents are noted in rectum compatible with history of diarrhea. CXR: no acute process Allergies Allergy/AdvReac Type Severity Reaction Status Date / Time Penicillins Allergy Intermediate RASH Verified 07/11/21 13:11 Home Medications Medication Instructions Recorded Confirmed Type clopidogrel 75 mg tablet (Plavix) 75 mg FEEDING TUBE DAILY 04/18/18 07/11/21 History escitalopram oxalate 10 mg tablet 10 mg FEEDING TUBE DAILY 04/18/18 07/11/21 History (Lexapro) escitalopram oxalate 20 mg tablet 20 mg FEEDING TUBE DAILY 04/18/18 07/11/21 History (Lexapro) gabapentin 100 mg capsule 200 mg FEEDING TUBE TID 04/18/18 07/11/21 History hydralazine 25 mg tablet 25 mg FEEDING TUBE BID 04/18/18 07/11/21 History hydrocodone 5 mg-acetaminophen 325 1 tab FEEDING TUBE Q4H PRN 04/18/18 07/11/21 History mg tablet nitroglycerin 0.4 mg sublingual 0.4 mg SUBLINGUAL DIRECTED PRN 04/18/18 07/11/21 History tablet atropine 1 % eye drops (Isopto 2 drp SUBLINGUAL UD PRN 09/20/18 07/11/21 History Atropine) lactose-reduced food-fiber 0.07 100 ml FEEDING TUBE DAILY 09/20/18 07/11/21 History gram-1.5 kcal/mL liquid for tube feed (Isosource 1.5 Billy) levothyroxine 100 mcg tablet 100 mcg FEEDING TUBE DAILY 09/20/18 07/11/21 History (Synthroid) lisinopril 20 mg tablet 20 mg FEEDING TUBE DAILY 04/20/20 07/11/21 History acetaminophen 500 mg tablet 1,000 mg PO Q6H PRN 07/11/21 07/11/21 History (Tylenol Extra Strength) aspirin 81 mg chewable tablet 81 mg FEEDING TUBE DAILY 07/11/21 07/11/21 History atorvastatin 40 mg tablet 40 mg FEEDING TUBE HS 07/11/21 07/11/21 History diphenhydramine 25 1 tab PO HS 07/11/21 07/11/21 History mg-acetaminophen 500 mg tablet (Tylenol PM Extra Strength) famotidine 10 mg tablet 10 mg FEEDING TUBE BID 07/11/21 07/11/21 History levetiracetam 100 mg/mL oral 500 mg FEEDING TUBE BID 07/11/21 07/11/21 History solution lorazepam 0.5 mg tablet 0.5 mg FEEDING TUBE TID PRN 07/11/21 07/11/21 History magnesium oxide 400 mg FEEDING TUBE DAILY 07/11/21 07/11/21 History metformin 500 mg tablet 500 mg FEEDING TUBE BID 07/11/21 07/11/21 History senna-docusate sodium tablet 2 tab PO DAILY PRN 07/11/21 07/11/21 History Past Med/Surg History Medical History (Updated 07/11/21 @ 21:12 by Bere Aguayo PA-C) Anxiety Basilar artery occlusion CAD, multiple vessel Coronary artery disease CVA (cerebral infarction) "BA occlusion with b/l [employer] territory infarcts, right thalamic infarct, hippocampi infarcts 01/03/14." Depression Dyslipidemia Dysphasia Gastroparesis GERD (gastroesophageal reflux disease) Hemiparesis affecting left side as late effect of cerebrovascular accident History of ischemic vertebrobasilar artery brainstem stroke Hypertension Hypertension Hypothyroidism Insulin resistance Neuropathy Seizure Surgical History History of tonsillectomy and adenoidectomy Previous back surgery S/P percutaneous endoscopic gastrostomy (PEG) tube placement Family History Father Colorectal cancer Hypertension Diabetes Mother Diabetes Mother Hypertension Social History Smoking Status: Never smoker Second Hand Exposure: No; Hx Alcohol Use: No Hx Substance Use: No Preferred Language: Spanish Communication Ability: Impaired General Accounting Manager Required: No Beliefs That Will Affect Care: None marital status: Current Living Situation: Spouse Current Living Situation Comment: At home with spouse and caregivers Other Information That Helps Us Care for You: No Feels Safe at Home: Yes Safety Concerns: Feels Safe At This Time Assistive Devices: Mechanical Lift Review of Systems Review of Systems: Unobtainable due to cognitive status Physical Exam Physical Exam: General: no acute distress, obese Head: normocephalic, atraumatic Eyes: Pupils appear equal, unable to test reactive as pt closes eyes tightly and will not reopen for exam. Unable to test EOM's intact, conjunctiva appears non- injected ENT: normal inspection external ears, nose, mucous membranes moist Neck: supple, trachea midline Lungs: appear clear but diminished CV: RRR, 1+ pretibial edema Abd: normal BS, soft, no apparent tenderness to palpation, peg tube in place Ext: no cyanosis, no calf tenderness Neuro: Awake, lethargic, pt only says he wants drink and has very slurred speech which is pt's baseline. +chronic left hemiplegia, left leg contracture Skin: warm, dry Results & Data Results & Data ([place]) Vital Signs (Past 12 Hours) Vital Signs Temp Pulse Pulse Resp BP BP Pulse Ox 07/11/21 14:00 73 20 133/67 96 07/11/21 12:50 36.9 C 75 14 118/69 93 Laboratory Results Short CBC 07/11/21 Range/Units 12:52 WBC 21.89 H (4.8-10.8) K/uL Hgb 14.2 (14.0-18.0) g/dL Hct 45.8 (42-52) % Plt Count 195 (130-400) K/uL BMP 07/11/21 12:52 Sodium 140 Potassium 4.7 Chloride 105 Carbon Dioxide 32 BUN 22 H Creatinine 0.69 Glucose 146 H Calcium 9.5 Cardiac Enzymes 07/11/21 Range/Units 12:52 Troponin I < 0.015 (0-0.045) ng/ml Liver Function 07/11/21 Range/Units 12:52 Total Bilirubin 0.5 (0.2-1) mg/dl AST 22 (15-37) U/L ALT 18 (12-78) Alkaline Phosphatase 78 (45-117) U/L Albumin 2.9 L (3.4-5.0) gm/dl Urine 07/11/21 Range/Units 13:34 Urine Color Dark Yellow Urine Appearance Cloudy A (Clear) Urine pH 5.0 (4.5-7.5) Ur Specific [place] 1.037 H (1.000-1.030) Urine Protein 1+ H (Negative) Urine Glucose (UA) Negative (Negative) Diagnostic Findings Head CT 07/11/21 12:[address] DOSE: 691.05 mGy.cm HISTORY: Altered mental status. TECHNIQUE: Multiaxial CT images of the head were performed without the use of intravenous contrast. Automated exposure control was utilized for this study. A dose lowering technique was utilized adhering to the principles of ALARA. Comparison: Head CT 10/13/2018. Findings: The paranasal sinuses and mastoid air cells are clear. The calvarium and skull base are intact. There is no mass, hematoma, midline shift, acute infarct. White matter hypodensity is nonspecific but suggestive of microvascular ischemic change. The ventricles and sulci demonstrate mild age-related involutional changes. Old lacunar infarct noted within the right thalamus. Impression: No significant change compared to the prior study. No acute intracranial abnormality. ACT 112: Negative or not required by law. Electronically signed by: David Saenz M.D. 07/11/2021 1:38 PM Chest X-Ray 07/11/21 12:43 XR chest 1V portable HISTORY: 70 years-old Male Chest Pain . Acute atypical chest pain COMPARISON: Chest radiograph 12/31/2018 TECHNIQUE: Semierect AP view of the chest FINDINGS: Cardiac silhouette is enlarged. No pneumothorax, large pleural effusion or lobar airspace consolidation. Mild chronic coarsening of the interstitium. Degenerative changes of the shoulders and spine. IMPRESSION: Cardiomegaly without acute process. ACT 112: Negative or not required by law. The above report was generated using voice recognition software. It may contain grammatical, syntax or spelling errors. Electronically signed by: Tay Fischer M.D. 07/11/2021 1:41 PM Abdomen/Pelvis CT 07/11/21 13:58 CT abd pelvis wo con CLINICAL HISTORY: ams TECHNIQUE: Helical axial images of the abdomen and pelvis were obtained. Automated dose lowering techniques and/or adjustment according to patient size were utilized for this exam. This exam was performed without intravenous contrast. COMPARISON: None available at the time of this dictation. FINDINGS: Lower chest: Bibasilar atelectasis versus scarring is seen. Liver: Unremarkable. No focal lesions are seen. Gallbladder and biliary tree: No calcified gallstones. Normal caliber wall. No intra- or extrahepatic biliary ductal dilation. Pancreas: Unremarkable, no focal lesions. Spleen: Unremarkable. Adrenals: Unremarkable. Kidneys and ureters: Unremarkable. Bladder: Limited evaluation due to underdistention. Reproductive organs: Unremarkable. Bowel: Fluid is seen in the rectum. Diverticulosis is seen without evidence of diverticulitis. Gastrostomy tube is in place. Lymph nodes Retroperitoneal: Unremarkable. Mesenteric: Unremarkable. Pelvic: Unremarkable. Peritoneum: Normal Vessels: Atherosclerotic calcifications are seen. Abdominal wall: Right fat-containing inguinal hernia. Diastases of the abdominal vasculature is seen. Bones: Posterior fixation hardware seen spanning the lumbar spine. Diffuse degenerative changes are seen in the skeleton. IMPRESSION: 1. Liquid contents are noted in the rectum compatible with history of diarrhea. Otherwise no acute abnormalities are seen. 2. Additional findings as above. ACT 112: Negative or not required by law. Electronically signed by: Hung Walker M.D. 07/11/2021 3:18 PM Code Status & VTE Plan VTE Prophylaxis Plan VTE Prophylaxis will be ordered: Yes Supervising Physician Co-Signing Physician Notes Patient seen and examined by me, care coordinated with CALLI Albarado, please refer her note above for further detail. Patient is 70 y/o M w/ hx of CVA with left hemiplegia, dysarthria, s/p PEG, insulin resistance, CAD, HTN, HLD, hypothyroidism, depression, anxiety, GERD, nocturnal hypoxia on 2L oxygen via [place] who presents w/AMS. History obtained from patient's . Last week she noticed urine appeared dark and he had a temp of 101F for one day. She increased his fluid intake and symptoms resolved. Past 3 days with diarrhea. Yesterday with increased confusion and didn't know how to drink out of a straw. noticed patient coughing with drinking several times yesterday, so stopped giving him oral liquids. reports pressure ulcer to buttock noted this week. Today she states patient more lethargic and checked his pulse ox and was 84% on room air so patient was brought to ER. In ER patient afebrile, P: 75, R: 14, BP: 118/69, 88% on RA up to 96% on 3L. WBC: 21. CT head unremarkable, CT abd/pelvis:Liquid contents are noted in rectum compatible with history of diarrhea. CXR: no acute process Patient is currently lying in bed, appears in no acute distress, however does not answer questions, moaning, very poor eye contact. Patient's at the bedside, and patient somewhat responds to her. For me patient does not follow any commands. Normocephalic, atraumatic, neck is supple. Normal inspection of external ears nose ,mucous membranes moist. Heart sounds seem regular. Lung sounds diminished. Abdomen soft, obese, PEG tube in place, positive bowel sounds. Chronic left hemiplegia, left left contracture. Continue with IV hydration, and IV antibiotics, continue to monitor closely. Per patient's DNR/DNI. Also POLST present, and reviewed by me. Jyoti Sanchez MD (1) Diarrhea Diarrhea type: unspecified type Qualified Code(s): R19.7 - Diarrhea, unspecified (2) AMS (altered mental status) Altered mental status type: unspecified Qualified Code(s): R41.82 - Altered mental status, unspecified
[2021-07-11] MEDS ORDERED: CONSULT PHARMACY STA (16:54)
[2021-07-11] MEDS ORDERED: GLUCOSE 40% GEL 15 GM TUBE PO PRN (20:07)
[2021-07-11] MEDS ORDERED: SODIUM CHLORIDE 0.9% 1000ML 1,000 ML IV SCH (20:07)
[2021-07-11] MEDS ORDERED: DEXTROSE 50% 50 ML SYRINGE IV PRN (20:07)
[2021-07-11] MEDS ORDERED: CARBOHYDRATES FOR HYPOGLYCEMIA PO PRN (20:07)
[2021-07-11] MEDS ORDERED: PIPERACILLIN/TAZOBACTAM 4.5 GM in DEXTROSE 5% 100 ML IV ONE (20:07)
[2021-07-11] MEDS ORDERED: GLUCOSE 10 TABS/TUBE PO PRN (20:07)
[2021-07-11] MEDS ORDERED: PIPERACILL/TAZOBAC CONSULT ACTIVE PRN (20:07)
[2021-07-11] MEDS ORDERED: GLUCAGON FOR INJ 1 MG VIAL SQ PRN (20:07)
[2021-07-11] MEDS ORDERED: NITROGLYCERIN SL 0.4 MG/TAB TAB SL PRN (20:07)
[2021-07-11] MEDS ORDERED: PIPERACILLIN/TAZOBACTAM 4.5 GM/120 ML BAG IV ONE (21:00)
[2021-07-11] MEDS: INSULIN ASPART PER UNIT SC SCH (21:31)
[2021-07-11] MEDS: ENOXAPARIN INJ 40 MG/0.4 ML SYR SQ SCH (23:35)
[2021-07-11] MEDS: hydrALAZINE HCL 25 MG TAB PEG SCH (23:52)
[2021-07-11] MEDS: GABAPENTIN 100 MG CAP PO SCH (23:54)
[2021-07-11] MEDS: ATORVASTATIN 40 MG TAB PEG SCH (23:56)
[2021-07-11] MEDS: FAMOTIDINE 10 MG TABLET PO SCH (23:58)
[2021-07-12] MEDS ORDERED: PIPERACILLIN/TAZOBACTAM 4.5 GM/120ML D5W IV ONE (00:13)
[2021-07-12] MEDS: PIPERACILLIN/TAZOBACTAM 4.5 GM in DEXTROSE 5% 100 ML IV SCH ×3 (04:03→23:24)
[2021-07-12 05:44] LABS: BUN Creatinine Ratio 44.5 (10-20); Calcium 8.3 mg/dl (8.5-10.1); Creatinine Clr Calc Pharmacy 190.1 ml/min; Est GFR (African American) 126.2 ml/min; Est GFR (Non-African American) 108.9 ml/min
[2021-07-12 06:29] LABS: Basophils # (auto) 0.02 K/uL (0-0.2); Basophils % (auto) 0.1 %; Eosinophils # (auto) 0.42 K/uL (0-0.5); Eosinophils % (auto) 3.1 %; Hematocrit (blood only) 37.2 % (42-52); Hemoglobin 11.3 g/dL (14.0-18.0); Immature Granulocytes # (auto) 0.03 K/uL (0.00-0.02); Immature Granulocytes % (auto) 0.2 %; Lymphocytes % (auto) 55.9 %; Mean Corpuscular Hemoglobin 31.5 pg (25-34); Mean Corpuscular Hgb Conc 30.4 g/dL (32-36); Mean Corpuscular Volume 103.6 fL (80-100); Mean Platelet Volume 11.6 fL (7.4-10.4); Monocytes # (auto) 0.87 K/uL (0.11-0.59); Monocytes % (auto) 6.5 %; Neutrophils # (auto) 4.57 K/uL (1.4-6.5); Neutrophils % (auto) 34.2 %; Platelet Count 143 K/uL (130-400); Polychromasia 1+; RDW Standard Deviation 56.5 fL (36.4-46.3); Red Blood Count 3.59 M/uL (4.7-6.1); White Blood Count 13.41 K/uL (4.8-10.8)
[2021-07-12] MEDS: LEVOTHYROXINE SODIUM 100 MCG TABLET PO SCH (07:01)
--- NOTE | 2021-07-12 08:12 | Hospitalist Progress Note ---
Date of Service July 12, 2021 Assessment & Plan (1) AMS (altered mental status): Plan: 70 y/o M w/ hx of CVA with left hemiplegia, dysarthria, s/p PEG, insulin resistance, CAD, HTN, HLD, hypothyroidism, depression, anxiety, GERD, nocturnal hypoxia on 2L oxygen via NC presented to ER for AMS and increased lethargy In ER patient afebrile, P: 75, R: 14, BP: 118/69, 88% on RA up to 96% on 3L. WBC: 21. CT head unremarkable. UA appears contaminated Metabolic encephalopathy possible secondary to aspiration pneumonia In ER given cefepime Urine culture - 30,000 E.coli Blood cultures - pending lactate- 1.2 wnl procalcitonin negative Neuro checks initially -now mental status much improved Hold Ativan and hydrocodone currently. Will need to monitor closely as pt on chronically and may have withdrawal CBC, BMP in am If no improvement may need to consider MRI or neurology consult (2) Hypoxia: Plan: History of dysphagia and is on nectar thick liquids at baseline. Noted coughing with drinking liquids. At home on day of admission pulse ox 84% on room air CXR no acute process. 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 Sample consult for assistance with tube feeds (5) CAD, multiple vessel: Plan: Continue aspirin, plavix, atorvastatin (6) Hypertension: Plan: Continue lisinopril, hydralazine (7) Insulin resistance: Plan: Hold home metformin Novolog sliding scale (8) Seizure: Plan: Continue Keppra (9) Hypothyroidism: Plan: Continue levothyroxine (10) Depression: Plan: Continue Lexapro DVT Prophylaxis Lovenox SQ DNR/DNI as per discussion with pt's , also POLST present on admission and reviewed Follows with Dr Tom for routine care Admission and Anticipated Discharge Date Admission Date: July 11, 2021 Subjective Patient seen in follow-up of altered mental status Currently in ED holding area He is sitting up in bed, in no acute distress, and is much more responsive than yesterday He is able to answer simple questions appropriately and has a good eye contact Patient's at the bedside Patient does not report any fevers chills chest pain shortness of breath abdominal pain however he reports having pain "all over" He is also asking for water He was seen by speech therapy earlier Review of Systems Review of Systems: All systems reviewed & are unremarkable except as noted in Subjective Physical Exam Physical Exam: General: obese M, no acute distress Head: normocephalic, atraumatic Eyes: NC/AT. EOMI. Pupils appear equal conjunctiva non-injected ENT: normal inspection external ears, nose, mucous membranes moist Neck: supple, trachea midline Lungs: appear clear but diminished CV: RRR, 1+ pretibial edema Abd: normal BS, soft, no apparent tenderness to palpation, peg tube in place Ext: no cyanosis, no calf tenderness Neuro: Awake, alert, answering simple questions appropriately. Only says he wants drink and has very slurred speech which is pt's baseline. +chronic left hemiplegia, left leg contracture Skin: warm, dry Results & Data Results & Data ([facility]) Vital Signs (Past 12 Hours) Vital Signs Pulse Pulse BP Pulse Ox 07/12/21 04:16 68 124/60 92 07/11/21 21:53 66 99/79 L 93 07/11/21 21:51 64 99/79 L 94 07/11/21 20:29 65 65 131/61 92 Laboratory Results 07/12/21 07/12/21 07/12/21 Range/Units 07:31 06:07 04:46 WBC (4.8-10.8) K/uL RBC (4.7-6.1) M/uL Hgb (14.0-18.0) g/dL Hct (42-52) % MCV (80-100) fL MCH (25-34) pg MCHC (32-36) g/dL RDW Std Deviation (36.4-46.3) fL RDW Coeff of Albert (11.5-14.5) % Plt Count (130-400) K/uL MPV (7.4-10.4) fL Immature Gran % (Auto) % Neut % (Auto) % Lymph % (Auto) % [place] % (Auto) % Eos % (Auto) % Baso % (Auto) % Neut # (Auto) (1.4-6.5) K/uL Lymph # (Auto) (1.2-3.4) K/uL [place] # (Auto) (0.11-0.59) K/uL Eos # (Auto) (0-0.5) K/uL Baso # (Auto) (0-0.2) K/uL Immature Gran # (Auto) (0.00-0.02) K/uL Polychromasia Sodium (136-145) mmol/L Potassium 4.0 (3.5-5.1) mmol/L Chloride (98-107) mmol/L Carbon Dioxide (21-32) mmol/L Anion Gap (3-11) BUN (7-18) mg/dl Creatinine (0.6-1.4) mg/dl Est Cr Clr Drug Dosing ml/min Est GFR ( Amer) ml/min Est GFR (Non-Af Amer) ml/min BUN/Creatinine Ratio (10-20) Glucose (70-99) mg/dl POC Glucose 113 H (70-99) mg/dl Estimat Average Glucose Pending Hemoglobin A1c Pending Lactate (0.4-2.0) mmol/L Calcium (8.5-10.1) mg/dl Total Bilirubin (0.2-1) mg/dl AST (15-37) U/L ALT (12-78) Alkaline Phosphatase (45-117) U/L Troponin I (0-0.045) ng/ml Total Protein (6.4-8.2) gm/dl Albumin (3.4-5.0) gm/dl Globulin (2.5-4.0) gm/dl Albumin/Globulin Ratio (0.9-2) Lipase (73-393) U/L Procalcitonin (0-0.5) ng/ml Specimen Hemolysis Urine Color Urine Appearance (Clear) Urine pH (4.5-7.5) Ur Specific [place] (1.000-1.030) Urine Protein (Negative) Urine Glucose (UA) (Negative) Urine Ketones (Negative) Urine Blood (Negative) Urine Nitrite (Negative) Urine Bilirubin (Negative) Urine Urobilinogen (Negative) Ur Leukocyte Esterase (Negative) Urine WBC (Auto) (0-5) /hpf Urine RBC (Auto) (0-4) /hpf U Hyaline Cast (Auto) (0-5) /lpf U Epithel Cells (Auto) (0-5) /lpf Urine Bacteria (Auto) (Negative) Ur Renal Epithelial Cell Granular Casts (0) /lpf Urine Mucus (None Prsent) SARS-CoV-2, RNA, NAAT (NEGATIVE) 07/12/21 07/12/21 07/11/21 Range/Units 04:46 04:46 21:19 WBC 13.41 H (4.8-10.8) K/uL RBC 3.59 L (4.7-6.1) M/uL Hgb 11.3 L (14.0-18.0) g/dL Hct 37.2 L (42-52) % MCV 103.6 H (80-100) fL MCH 31.5 (25-34) pg MCHC 30.4 L (32-36) g/dL RDW Std Deviation 56.5 H (36.4-46.3) fL RDW Coeff of Albert 15.0 H (11.5-14.5) % Plt Count 143 (130-400) K/uL MPV 11.6 H (7.4-10.4) fL Immature Gran % (Auto) 0.2 % Neut % (Auto) 34.2 % Lymph % (Auto) 55.9 % [place] % (Auto) 6.5 % Eos % (Auto) 3.1 % Baso % (Auto) 0.1 % Neut # (Auto) 4.57 (1.4-6.5) K/uL Lymph # (Auto) 7.50 H (1.2-3.4) K/uL [place] # (Auto) 0.87 H (0.11-0.59) K/uL Eos # (Auto) 0.42 (0-0.5) K/uL Baso # (Auto) 0.02 (0-0.2) K/uL Immature Gran # (Auto) 0.03 H (0.00-0.02) K/uL Polychromasia 1+ Sodium 141 (136-145) mmol/L Potassium (3.5-5.1) mmol/L Chloride 109 H (98-107) mmol/L Carbon Dioxide 28 (21-32) mmol/L Anion Gap 4.0 (3-11) BUN 23 H (7-18) mg/dl Creatinine 0.51 L (0.6-1.4) mg/dl Est Cr Clr Drug Dosing 190.1 ml/min Est GFR ( Amer) 126.2 ml/min Est GFR (Non-Af Amer) 108.9 ml/min BUN/Creatinine Ratio 44.5 H (10-20) Glucose 121 H (70-99) mg/dl POC Glucose 120 H (70-99) mg/dl Estimat Average Glucose Hemoglobin A1c Lactate (0.4-2.0) mmol/L Calcium 8.3 L (8.5-10.1) mg/dl Total Bilirubin (0.2-1) mg/dl AST (15-37) U/L ALT (12-78) Alkaline Phosphatase (45-117) U/L Troponin I (0-0.045) ng/ml Total Protein (6.4-8.2) gm/dl Albumin (3.4-5.0) gm/dl Globulin (2.5-4.0) gm/dl Albumin/Globulin Ratio (0.9-2) Lipase (73-393) U/L Procalcitonin (0-0.5) ng/ml Specimen Hemolysis Urine Color Urine Appearance (Clear) Urine pH (4.5-7.5) Ur Specific [place] (1.000-1.030) Urine Protein (Negative) Urine Glucose (UA) (Negative) Urine Ketones (Negative) Urine Blood (Negative) Urine Nitrite (Negative) Urine Bilirubin (Negative) Urine Urobilinogen (Negative) Ur Leukocyte Esterase (Negative) Urine WBC (Auto) (0-5) /hpf Urine RBC (Auto) (0-4) /hpf U Hyaline Cast (Auto) (0-5) /lpf U Epithel Cells (Auto) (0-5) /lpf Urine Bacteria (Auto) (Negative) Ur Renal Epithelial Cell Granular Casts (0) /lpf Urine Mucus (None Prsent) SARS-CoV-2, RNA, NAAT (NEGATIVE) 07/11/21 07/11/21 07/11/21 Range/Units 20:43 20:43 16:03 WBC (4.8-10.8) K/uL RBC (4.7-6.1) M/uL Hgb (14.0-18.0) g/dL Hct (42-52) % MCV (80-100) fL MCH (25-34) pg MCHC (32-36) g/dL RDW Std Deviation (36.4-46.3) fL RDW Coeff of Albert (11.5-14.5) % Plt Count (130-400) K/uL MPV (7.4-10.4) fL Immature Gran % (Auto) % Neut % (Auto) % Lymph % (Auto) % [place] % (Auto) % Eos % (Auto) % Baso % (Auto) % Neut # (Auto) (1.4-6.5) K/uL Lymph # (Auto) (1.2-3.4) K/uL [place] # (Auto) (0.11-0.59) K/uL Eos # (Auto) (0-0.5) K/uL Baso # (Auto) (0-0.2) K/uL Immature Gran # (Auto) (0.00-0.02) K/uL Polychromasia Sodium (136-145) mmol/L Potassium (3.5-5.1) mmol/L Chloride (98-107) mmol/L Carbon Dioxide (21-32) mmol/L Anion Gap (3-11) BUN (7-18) mg/dl Creatinine (0.6-1.4) mg/dl Est Cr Clr Drug Dosing ml/min Est GFR ( Amer) ml/min Est GFR (Non-Af Amer) ml/min BUN/Creatinine Ratio (10-20) Glucose (70-99) mg/dl POC Glucose (70-99) mg/dl Estimat Average Glucose Hemoglobin A1c Lactate 1.2 (0.4-2.0) mmol/L Calcium (8.5-10.1) mg/dl Total Bilirubin (0.2-1) mg/dl AST (15-37) U/L ALT (12-78) Alkaline Phosphatase (45-117) U/L Troponin I (0-0.045) ng/ml Total Protein (6.4-8.2) gm/dl Albumin (3.4-5.0) gm/dl Globulin (2.5-4.0) gm/dl Albumin/Globulin Ratio (0.9-2) Lipase (73-393) U/L Procalcitonin < 0.05 (0-0.5) ng/ml Specimen Hemolysis Urine Color Urine Appearance (Clear) Urine pH (4.5-7.5) Ur Specific [place] (1.000-1.030) Urine Protein (Negative) Urine Glucose (UA) (Negative) Urine Ketones (Negative) Urine Blood (Negative) Urine Nitrite (Negative) Urine Bilirubin (Negative) Urine Urobilinogen (Negative) Ur Leukocyte Esterase (Negative) Urine WBC (Auto) (0-5) /hpf Urine RBC (Auto) (0-4) /hpf U Hyaline Cast (Auto) (0-5) /lpf U Epithel Cells (Auto) (0-5) /lpf Urine Bacteria (Auto) (Negative) Ur Renal Epithelial Cell Granular Casts (0) /lpf Urine Mucus (None Prsent) SARS-CoV-2, RNA, NAAT NEGATIVE (NEGATIVE) 07/11/21 07/11/21 07/11/21 Range/Units 13:34 12:52 12:52 WBC 21.89 H (4.8-10.8) K/uL RBC 4.45 L (4.7-6.1) M/uL Hgb 14.2 (14.0-18.0) g/dL Hct 45.8 (42-52) % MCV 102.9 H (80-100) fL MCH 31.9 (25-34) pg MCHC 31.0 L (32-36) g/dL RDW Std Deviation 55.9 H (36.4-46.3) fL RDW Coeff of Albert 14.9 H (11.5-14.5) % Plt Count 195 (130-400) K/uL MPV 11.5 H (7.4-10.4) fL Immature Gran % (Auto) 0.3 % Neut % (Auto) 39.6 % Lymph % (Auto) 51.1 % [place] % (Auto) 8.1 % Eos % (Auto) 0.6 % Baso % (Auto) 0.3 % Neut # (Auto) 8.68 H (1.4-6.5) K/uL Lymph # (Auto) 11.19 H (1.2-3.4) K/uL [place] # (Auto) 1.77 H (0.11-0.59) K/uL Eos # (Auto) 0.13 (0-0.5) K/uL Baso # (Auto) 0.06 (0-0.2) K/uL Immature Gran # (Auto) 0.06 H (0.00-0.02) K/uL Polychromasia Sodium 140 (136-145) mmol/L Potassium 4.7 (3.5-5.1) mmol/L Chloride 105 (98-107) mmol/L Carbon Dioxide 32 (21-32) mmol/L Anion Gap 3.0 (3-11) BUN 22 H (7-18) mg/dl Creatinine 0.69 (0.6-1.4) mg/dl Est Cr Clr Drug Dosing 140.7 ml/min Est GFR ( Amer) 111.5 ml/min Est GFR (Non-Af Amer) 96.2 ml/min BUN/Creatinine Ratio 32.2 H (10-20) Glucose 146 H (70-99) mg/dl POC Glucose (70-99) mg/dl Estimat Average Glucose Hemoglobin A1c Lactate (0.4-2.0) mmol/L Calcium 9.5 (8.5-10.1) mg/dl Total Bilirubin 0.5 (0.2-1) mg/dl AST 22 (15-37) U/L ALT 18 (12-78) Alkaline Phosphatase 78 (45-117) U/L Troponin I < 0.015 (0-0.045) ng/ml Total Protein 7.0 (6.4-8.2) gm/dl Albumin 2.9 L (3.4-5.0) gm/dl Globulin 4.1 H (2.5-4.0) gm/dl Albumin/Globulin Ratio 0.7 L (0.9-2) Lipase 49 L (73-393) U/L Procalcitonin (0-0.5) ng/ml Specimen Hemolysis Urine Color Dark Yellow Urine Appearance Cloudy A (Clear) Urine pH 5.0 (4.5-7.5) Ur Specific [place] 1.037 H (1.000-1.030) Urine Protein 1+ H (Negative) Urine Glucose (UA) Negative (Negative) Urine Ketones Trace H (Negative) Urine Blood Negative (Negative) Urine Nitrite Negative (Negative) Urine Bilirubin 1+ H (Negative) Urine Urobilinogen Negative (Negative) Ur Leukocyte Esterase Trace H (Negative) Urine WBC (Auto) 5-10 H (0-5) /hpf Urine RBC (Auto) 0-4 (0-4) /hpf U Hyaline Cast (Auto) 1-5 (0-5) /lpf U Epithel Cells (Auto) >30 H (0-5) /lpf Urine Bacteria (Auto) Negative (Negative) Ur Renal Epithelial Cell Not Reportable Granular Casts 1-5 H (0) /lpf Urine Mucus Present A (None Prsent) SARS-CoV-2, RNA, NAAT (NEGATIVE) Medications Administered Current Inpatient Medications Acetaminophen (Acetaminophen 500 Mg Tab) 1,000 mg PO Q6H PRN PRN Reason: Pain Stop: 08/10/21 21:06 Aspirin (Aspirin 81 Mg Chew) 81 mg PEG DAILY [facility] Stop: 08/11/21 08:59 Atorvastatin Calcium (Atorvastatin 40 Mg Tab) 40 mg PEG HS [facility] Stop: 08/10/21 20:59 Last Admin: 07/11/21 23:56 Dose: 40 mg Documented by: Clopidogrel Bisulfate (Clopidogrel Bisulfate 75 Mg Tab) 75 mg PEG DAILY [facility] Stop: 08/11/21 08:59 Dextrose (Dextrose 50% 50 Ml Syringe) 25 - 50 ml IV UD PRN; Protocol PRN Reason: Hypoglycemia Protocol Stop: 08/10/21 20:06 Enoxaparin Sodium (Enoxaparin Inj 40 Mg/0.4 Ml Syr) 40 mg SQ Q24H [facility] Stop: 08/10/21 20:59 Last Admin: 07/11/21 23:35 Dose: 40 mg Documented by: Escitalopram Oxalate (Escitalopram Oxalate 10 Mg Tab) 10 mg PO DAILY [facility] Stop: 08/11/21 08:59 Escitalopram Oxalate (Escitalopram Oxalate 20 Mg Tab) 20 mg PO DAILY [facility] Stop: 08/11/21 08:59 Famotidine (Famotidine 10 Mg Tablet) 10 mg PO BID [facility] Stop: 08/10/21 20:59 Last Admin: 07/11/21 23:58 Dose: 10 mg Documented by: Gabapentin (Gabapentin 100 Mg Cap) 200 mg PO TID [facility] Stop: 08/10/21 20:59 Last Admin: 07/11/21 23:54 Dose: 200 mg Documented by: Glucagon (Glucagon For Inj 1 Mg Vial) 1 mg SQ UD PRN; Protocol PRN Reason: Hypoglycemia Protocol Stop: 08/10/21 20:06 Glucose (Glucose 10 Tabs/Tube) 4 - 8 tabs PO UD PRN; Protocol PRN Reason: Hypoglycemia Protocol Stop: 08/10/21 20:06 Glucose (Glucose 40% Gel 15 Gm Tube) 15 - 30 gm PO UD PRN; Protocol PRN Reason: Hypoglycemia Protocol Stop: 08/10/21 20:06 Hydralazine HCl (Hydralazine Hcl 25 Mg Tab) 25 mg PEG BID [facility] Stop: 08/10/21 20:59 Last Admin: 07/11/21 23:52 Dose: 25 mg Documented by: Sodium Chloride (Nss 1000ml) 1,000 mls @ 80 mls/hr IV .[id number] [facility] Stop: 07/12/21 08:36 Last Admin: 07/11/21 21:40 Dose: 80 mls/hr Documented by: Piperacillin Sod/Tazobactam (Sod 4.5 gm/ Dextrose) 120 mls @ 30 mls/hr IV Q8H [facility]; Protocol Stop: 07/14/21 03:59 Last Admin: 07/12/21 04:03 Dose: 30 mls/hr Documented by: Insulin Aspart (Insulin Aspart Per Unit) 0 units SC Q6 [facility] Stop: 08/11/21 11:59 Levetiracetam (Levetiracetam Soln 250 Mg/2.5 Ml Udp) 500 mg PEG BID [facility] Stop: 08/10/21 20:59 Last Admin: 07/11/21 23:50 Dose: 500 mg Documented by: Levothyroxine Sodium (Levothyroxine Sodium 100 Mcg Tablet) 100 mcg PO DAILYBB [facility] Stop: 08/11/21 06:29 Last Admin: 07/12/21 07:01 Dose: 100 mcg Documented by: Lisinopril (Lisinopril 20 Mg Tab) 20 mg PEG DAILY [facility] Stop: 08/11/21 08:59 Magnesium Oxide (Magnesium Oxide 400 Mg Tab) 400 mg PEG DAILY [facility] Stop: 08/11/21 08:59 Miscellaneous (Carbohydrates For Hypoglycemia ) 15 - 30 gm PO UD PRN PRN Reason: Hypoglycemia Protocol Stop: 08/10/21 20:06 Miscellaneous Information (Piperacill/Tazobac Consult Active) 1 ea N/A UD PRN PRN Reason: Consult Stop: 08/10/21 20:06 Nitroglycerin (Nitroglycerin Sl 0.4 Mg/Tab Tab) 0.4 mg SL UD PRN PRN Reason: Chest Pain Stop: 08/10/21 20:06 (1) Diarrhea Diarrhea type: unspecified type Qualified Code(s): R19.7 - Diarrhea, unspecified (2) AMS (altered mental status) Altered mental status type: unspecified Qualified Code(s): R41.82 - Altered mental status, unspecified
[2021-07-12] MEDS: INSULIN ASPART PER UNIT SC SCH ×4 (08:35→23:42)
[2021-07-12 09:03] LABS: Estimated Average Glucose 117 mg/dl; Hemoglobin A1C 5.7 % (4.5-5.6)
[2021-07-12] MEDS: FAMOTIDINE 10 MG TABLET PO SCH ×2 (09:52→22:02)
[2021-07-12] MEDS: GABAPENTIN 100 MG CAP PO SCH ×3 (09:54→22:03)
[2021-07-12] MEDS: ESCITALOPRAM OXALATE 20 MG TAB PO SCH (09:55)
[2021-07-12] MEDS: lisinopril 20 MG TAB PEG SCH (09:55)
[2021-07-12] MEDS: CLOPIDOGREL BISULFATE 75 MG TAB PEG SCH (09:55)
[2021-07-12] MEDS: MAGNESIUM OXIDE 400 MG TAB PEG SCH (09:55)
[2021-07-12] MEDS: hydrALAZINE HCL 25 MG TAB PEG SCH ×2 (09:55→22:02)
[2021-07-12] MEDS: ESCITALOPRAM OXALATE 10 MG TAB PO SCH (09:55)
[2021-07-12] MEDS: ASPIRIN 81 MG CHEW PEG SCH (09:56)
[2021-07-12] MEDS: TUBE FEEDING WATER FLUSH GT SCH ×3 (13:18→20:00)
[2021-07-12] MEDS: ATORVASTATIN 40 MG TAB PEG SCH (22:02)
[2021-07-12] MEDS: ENOXAPARIN INJ 40 MG/0.4 ML SYR SQ SCH (23:23)
[2021-07-13] MEDS: TUBE FEEDING WATER FLUSH GT SCH ×6 (01:03→21:02)
[2021-07-13] MEDS: INSULIN ASPART PER UNIT SC SCH ×3 (06:23→18:07)
[2021-07-13] MEDS: LEVOTHYROXINE SODIUM 100 MCG TABLET PO SCH (06:23)
[2021-07-13 07:43] LABS: Hematocrit (blood only) 40.8 % (42-52); Hemoglobin 12.5 g/dL (14.0-18.0); Mean Corpuscular Hemoglobin 31.8 pg (25-34); Mean Corpuscular Hgb Conc 30.6 g/dL (32-36); Mean Corpuscular Volume 103.8 fL (80-100); Mean Platelet Volume 11.4 fL (7.4-10.4); Platelet Count 168 K/uL (130-400); RDW Coefficient of Variation 14.8 % (11.5-14.5); RDW Standard Deviation 56.3 fL (36.4-46.3); Red Blood Count 3.93 M/uL (4.7-6.1); White Blood Count 15.05 K/uL (4.8-10.8)
[2021-07-13 08:14] LABS: BUN Creatinine Ratio 39.6 (10-20); Calcium 8.7 mg/dl (8.5-10.1); Est GFR (African American) 118.9 ml/min; Est GFR (Non-African American) 102.6 ml/min; Magnesium 2.5 mg/dl (1.8-2.4); Potassium 3.5 mmol/L (3.5-5.1)
[2021-07-13 08:23] LABS: Phosphorus 2.2 mg/dl (2.5-4.9); Prealbumin 15.9 mg/dl (20-40)
--- NOTE | 2021-07-13 08:47 | Hospitalist Progress Note ---
Date of Service July 13, 2021 Assessment & Plan (1) AMS (altered mental status): Plan: 70 y/o M w/ hx of CVA with left hemiplegia, dysarthria, s/p PEG, insulin resistance, CAD, HTN, HLD, hypothyroidism, depression, anxiety, GERD, nocturnal hypoxia on 2L oxygen via NC presented to ER for AMS and increased lethargy In ER patient afebrile, P: 75, R: 14, BP: 118/69, 88% on RA up to 96% on 3L. WBC: 21. CT head unremarkable. UA appears contaminated Metabolic encephalopathy possible secondary to aspiration pneumonia In ER given cefepime Urine culture - 30,000 E.coli Blood cultures - pending lactate- 1.2 wnl procalcitonin negative Neuro checks initially - then mental status much improved, now more sleepy (but overall better since admission) Hold Ativan and hydrocodone currently. Will need to monitor closely as pt on chronically and may have withdrawal monitor CBC, BMP If no improvement may need to consider MRI or neurology consult (2) Hypoxia: Plan: History of dysphagia and is on nectar thick liquids at baseline. Noted coughing with drinking liquids. At home on day of admission pulse ox 84% on room air CXR no acute process. 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 (5) CAD, multiple vessel: Plan: Continue aspirin, plavix, atorvastatin (6) Hypertension: Plan: Continue lisinopril, hydralazine (7) Insulin resistance: Plan: Hold home metformin Novolog sliding scale (8) Seizure: Plan: Continue Keppra (9) Hypothyroidism: Plan: Continue levothyroxine (10) Depression: Plan: Continue Lexapro DVT Prophylaxis Lovenox SQ DNR/DNI as per discussion with pt's , also POLST present on admission and reviewed Follows with Dr Tom for routine care Admission and Anticipated Discharge Date Admission Date: July 11, 2021 Subjective Patient seen in follow-up of altered mental status He is sitting up in bed, in no acute distress, and is more sleepy today, moaning, does not answer much of my questions Per , patient has episodes like that when certain days he is more tired, and certain days he is more awake Review of Systems Review of Systems: Unobtainable due to cognitive status Physical Exam Physical Exam: General: obese M, no acute distress Head: normocephalic, atraumatic Eyes: NC/AT. EOMI. Pupils appear equal conjunctiva non-injected ENT: normal inspection external ears, nose, mucous membranes moist Neck: supple, trachea midline Lungs: appear clear but diminished CV: RRR, 1+ pretibial edema Abd: normal BS, soft, no apparent tenderness to palpation, peg tube in place Ext: no cyanosis, no calf tenderness Neuro: More drowsy today, moaning, slurred speech which is pt's baseline. +chronic left hemiplegia, left leg contracture Skin: warm, dry Results & Data Results & Data ([facility]) Vital Signs (Past 12 Hours) Vital Signs Temp Pulse Pulse Resp BP Pulse Ox Pulse Ox 07/13/21 07:39 37.3 C 62 18 146/69 H 92 07/13/21 05:42 68 07/13/21 02:42 37.3 C 74 22 130/73 92 07/13/21 01:46 92 Laboratory Results 07/13/21 07/13/21 07/13/21 Range/Units 07:18 07:18 06:11 WBC 15.05 H (4.8-10.8) K/uL RBC 3.93 L (4.7-6.1) M/uL Hgb 12.5 L (14.0-18.0) g/dL Hct 40.8 L (42-52) % MCV 103.8 H (80-100) fL MCH 31.8 (25-34) pg MCHC 30.6 L (32-36) g/dL RDW Std Deviation 56.3 H (36.4-46.3) fL RDW Coeff of Albert 14.8 H (11.5-14.5) % Plt Count 168 (130-400) K/uL MPV 11.4 H (7.4-10.4) fL Sodium 143 (136-145) mmol/L Potassium 3.5 (3.5-5.1) mmol/L Chloride 109 H (98-107) mmol/L Carbon Dioxide 30 (21-32) mmol/L Anion Gap 4.0 (3-11) BUN 23 H (7-18) mg/dl Creatinine 0.59 L (0.6-1.4) mg/dl Est Cr Clr Drug Dosing 167.0 ml/min Est GFR ( Amer) 118.9 ml/min Est GFR (Non-Af Amer) 102.6 ml/min BUN/Creatinine Ratio 39.6 H (10-20) Glucose 145 H (70-99) mg/dl POC Glucose 175 H (70-99) mg/dl Estimat Average Glucose mg/dl Hemoglobin A1c (4.5-5.6) % Calcium 8.7 (8.5-10.1) mg/dl Phosphorus 2.2 L (2.5-4.9) mg/dl Magnesium 2.5 H (1.8-2.4) mg/dl Prealbumin 15.9 L (20-40) mg/dl 07/12/21 07/12/21 07/12/21 Range/Units 23:34 17:53 12:25 WBC (4.8-10.8) K/uL RBC (4.7-6.1) M/uL Hgb (14.0-18.0) g/dL Hct (42-52) % MCV (80-100) fL MCH (25-34) pg MCHC (32-36) g/dL RDW Std Deviation (36.4-46.3) fL RDW Coeff of Albert (11.5-14.5) % Plt Count (130-400) K/uL MPV (7.4-10.4) fL Sodium (136-145) mmol/L Potassium (3.5-5.1) mmol/L Chloride (98-107) mmol/L Carbon Dioxide (21-32) mmol/L Anion Gap (3-11) BUN (7-18) mg/dl Creatinine (0.6-1.4) mg/dl Est Cr Clr Drug Dosing ml/min Est GFR ( Amer) ml/min Est GFR (Non-Af Amer) ml/min BUN/Creatinine Ratio (10-20) Glucose (70-99) mg/dl POC Glucose 186 H 121 H 139 H (70-99) mg/dl Estimat Average Glucose mg/dl Hemoglobin A1c (4.5-5.6) % Calcium (8.5-10.1) mg/dl Phosphorus (2.5-4.9) mg/dl Magnesium (1.8-2.4) mg/dl Prealbumin (20-40) mg/dl 07/12/21 Range/Units 04:46 WBC (4.8-10.8) K/uL RBC (4.7-6.1) M/uL Hgb (14.0-18.0) g/dL Hct (42-52) % MCV (80-100) fL MCH (25-34) pg MCHC (32-36) g/dL RDW Std Deviation (36.4-46.3) fL RDW Coeff of Albert (11.5-14.5) % Plt Count (130-400) K/uL MPV (7.4-10.4) fL Sodium (136-145) mmol/L Potassium (3.5-5.1) mmol/L Chloride (98-107) mmol/L Carbon Dioxide (21-32) mmol/L Anion Gap (3-11) BUN (7-18) mg/dl Creatinine (0.6-1.4) mg/dl Est Cr Clr Drug Dosing ml/min Est GFR ( Amer) ml/min Est GFR (Non-Af Amer) ml/min BUN/Creatinine Ratio (10-20) Glucose (70-99) mg/dl POC Glucose (70-99) mg/dl Estimat Average Glucose 117 mg/dl Hemoglobin A1c 5.7 H (4.5-5.6) % Calcium (8.5-10.1) mg/dl Phosphorus (2.5-4.9) mg/dl Magnesium (1.8-2.4) mg/dl Prealbumin (20-40) mg/dl Medications Administered Current Inpatient Medications Acetaminophen (Acetaminophen 500 Mg Tab) 1,000 mg PO Q6H PRN PRN Reason: Pain Stop: 08/10/21 21:06 Aspirin (Aspirin 81 Mg Chew) 81 mg PEG DAILY [facility] Stop: 08/11/21 08:59 Last Admin: 07/12/21 09:56 Dose: 81 mg Documented by: Atorvastatin Calcium (Atorvastatin 40 Mg Tab) 40 mg PEG HS [facility] Stop: 08/10/21 20:59 Last Admin: 07/12/21 22:02 Dose: 40 mg Documented by: Clopidogrel Bisulfate (Clopidogrel Bisulfate 75 Mg Tab) 75 mg PEG DAILY [facility] Stop: 08/11/21 08:59 Last Admin: 07/12/21 09:55 Dose: 75 mg Documented by: Dextrose (Dextrose 50% 50 Ml Syringe) 25 - 50 ml IV UD PRN; Protocol PRN Reason: Hypoglycemia Protocol Stop: 08/10/21 20:06 Enoxaparin Sodium (Enoxaparin Inj 40 Mg/0.4 Ml Syr) 40 mg SQ Q24H [facility] Stop: 08/10/21 20:59 Last Admin: 07/12/21 23:23 Dose: 40 mg Documented by: Enteral Nutritional Formula (Peptamen 1.5 Billy 1,000 Ml Bag) 1,000 ml PEG UD [facility]; Protocol Stop: 08/11/21 07:00 Escitalopram Oxalate (Escitalopram Oxalate 10 Mg Tab) 10 mg PO DAILY [facility] Stop: 08/11/21 08:59 Last Admin: 07/12/21 09:55 Dose: 10 mg Documented by: Escitalopram Oxalate (Escitalopram Oxalate 20 Mg Tab) 20 mg PO DAILY [facility] Stop: 08/11/21 08:59 Last Admin: 07/12/21 09:55 Dose: 20 mg Documented by: Famotidine (Famotidine 10 Mg Tablet) 10 mg PO BID [facility] Stop: 08/10/21 20:59 Last Admin: 07/12/21 22:02 Dose: 10 mg Documented by: Gabapentin (Gabapentin 100 Mg Cap) 200 mg PO TID [facility] Stop: 08/10/21 20:59 Last Admin: 07/12/21 22:03 Dose: 200 mg Documented by: Glucagon (Glucagon For Inj 1 Mg Vial) 1 mg SQ UD PRN; Protocol PRN Reason: Hypoglycemia Protocol Stop: 08/10/21 20:06 Glucose (Glucose 10 Tabs/Tube) 4 - 8 tabs PO UD PRN; Protocol PRN Reason: Hypoglycemia Protocol Stop: 08/10/21 20:06 Glucose (Glucose 40% Gel 15 Gm Tube) 15 - 30 gm PO UD PRN; Protocol PRN Reason: Hypoglycemia Protocol Stop: 08/10/21 20:06 Hydralazine HCl (Hydralazine Hcl 25 Mg Tab) 25 mg PEG BID [facility] Stop: 08/10/21 20:59 Last Admin: 07/12/21 22:02 Dose: 25 mg Documented by: Piperacillin Sod/Tazobactam (Sod 4.5 gm/ Dextrose) 120 mls @ 30 mls/hr IV Q8H [facility]; Protocol Stop: 07/14/21 03:59 Last Infusion: 07/13/21 03:51 Dose: Infused Documented by: Insulin Aspart (Insulin Aspart Per Unit) 0 units SC Q6 [facility] Stop: 08/11/21 11:59 Last Admin: 07/13/21 06:23 Dose: 1 units Documented by: Levetiracetam (Levetiracetam Soln 250 Mg/2.5 Ml Udp) 500 mg PEG BID [facility] Stop: 08/10/21 20:59 Last Admin: 07/12/21 21:58 Dose: 500 mg Documented by: Levothyroxine Sodium (Levothyroxine Sodium 100 Mcg Tablet) 100 mcg PO DAILYBB [facility] Stop: 08/11/21 06:29 Last Admin: 07/13/21 06:23 Dose: 100 mcg Documented by: Lisinopril (Lisinopril 20 Mg Tab) 20 mg PEG DAILY [facility] Stop: 08/11/21 08:59 Last Admin: 07/12/21 09:55 Dose: 20 mg Documented by: Magnesium Oxide (Magnesium Oxide 400 Mg Tab) 400 mg PEG DAILY [facility] Stop: 08/11/21 08:59 Last Admin: 07/12/21 09:55 Dose: 400 mg Documented by: Miscellaneous (Carbohydrates For Hypoglycemia ) 15 - 30 gm PO UD PRN PRN Reason: Hypoglycemia Protocol Stop: 08/10/21 20:06 Miscellaneous Information (Piperacill/Tazobac Consult Active) 1 ea N/A UD PRN PRN Reason: Consult Stop: 08/10/21 20:06 Nitroglycerin (Nitroglycerin Sl 0.4 Mg/Tab Tab) 0.4 mg SL UD PRN PRN Reason: Chest Pain Stop: 08/10/21 20:06 Sterile Water (Tube Feeding Water Flush) 150 ml GT Q4H [facility] Stop: 08/11/21 11:59 Last Admin: 07/13/21 04:58 Dose: 150 ml Documented by: (1) Diarrhea Diarrhea type: unspecified type Qualified Code(s): R19.7 - Diarrhea, u nspecified (2) AMS (altered mental status) Altered mental status type: unspecified Qualified Code(s): R41.82 - Altered mental status, unspecified
[2021-07-13] MEDS: PIPERACILLIN/TAZOBACTAM 4.5 GM in DEXTROSE 5% 100 ML IV SCH ×2 (09:35→16:29)
[2021-07-13] MEDS: lisinopril 20 MG TAB PEG SCH (09:36)
[2021-07-13] MEDS: GABAPENTIN 100 MG CAP PO SCH ×3 (09:36→21:05)
[2021-07-13] MEDS: ESCITALOPRAM OXALATE 10 MG TAB PO SCH (09:36)
[2021-07-13] MEDS: ESCITALOPRAM OXALATE 20 MG TAB PO SCH (09:36)
[2021-07-13] MEDS: MAGNESIUM OXIDE 400 MG TAB PEG SCH (09:36)
[2021-07-13] MEDS: CLOPIDOGREL BISULFATE 75 MG TAB PEG SCH (09:36)
[2021-07-13] MEDS: hydrALAZINE HCL 25 MG TAB PEG SCH ×2 (09:36→21:06)
[2021-07-13] MEDS: FAMOTIDINE 10 MG TABLET PO SCH ×2 (09:36→21:04)
[2021-07-13] MEDS: ASPIRIN 81 MG CHEW PEG SCH (09:37)
[2021-07-13] MEDS: levETIRAcetam ORAL SOLN 100MG/ML PEG SCH ×2 (09:55→21:09)
[2021-07-13] MEDS: guaiFENesin SUGAR FREE 200 MG/10 ML UDC PO SCH ×3 (10:43→21:04)
[2021-07-13] MEDS: ACETAMINOPHEN 500 MG TAB PO PRN (12:00)
[2021-07-13 14:00] LABS: Adenovirus F 40/41 PCR Not Detected (NotDetected); Astrovirus PCR Not Detected (NotDetected); Campylobacter PCR Not Detected (NotDetected); Clostridium diff Toxin A/B PCR Not Detected (NotDetected); Cryptosporidium PCR Not Detected (NotDetected); Cyclospora cayetanensis PCR Not Detected (NotDetected); Entamoeba histolytica PCR Not Detected (NotDetected); Enteroaggregative E.coli(EAEC) Not Detected (NotDetected); Enteropathogenic E.coli (EPEC) Not Detected (NotDetected); Enterotoxigenic E.coli (ETEC) Not Detected (NotDetected); Giardia lamblia PCR Not Detected (NotDetected); Norovirus GI/GII PCR Not Detected (NotDetected); Plesiomonas shigelloides PCR Not Detected (NotDetected); Rotavirus A PCR Not Detected (NotDetected); Salmonella PCR Not Detected (NotDetected); Sapovirus PCR Not Detected (NotDetected); Shiga-like Toxin E.coli (STEC) Not Detected (NotDetected); Shigella/Enteroinvasive E.coli Not Detected (NotDetected); Vibrio cholerae PCR Not Detected (NotDetected); Vibrio species PCR Not Detected (NotDetected); Yersinia enterocolitica PCR Not Detected (NotDetected)
[2021-07-13] MEDS: PEPTAMEN 1.5 CAL 1,000 ML BAG PEG SCH (16:52)
[2021-07-13] MEDS: ATORVASTATIN 40 MG TAB PEG SCH (21:03)
[2021-07-13] MEDS: ENOXAPARIN INJ 40 MG/0.4 ML SYR SQ SCH (21:04)
[2021-07-14] MEDS: PIPERACILLIN/TAZOBACTAM 4.5 GM in DEXTROSE 5% 100 ML IV SCH ×3 (00:18→16:43)
[2021-07-14] MEDS: INSULIN ASPART PER UNIT SC SCH ×4 (00:22→18:24)
[2021-07-14] MEDS: TUBE FEEDING WATER FLUSH GT SCH ×6 (00:22→20:16)
[2021-07-14] MEDS ORDERED: Flu Vaccine-High Dose (Fluzone-HD) PF 65+ 0.7mL SYR IM ONE (01:30)
[2021-07-14] MEDS: guaiFENesin SUGAR FREE 200 MG/10 ML UDC PO SCH ×4 (05:04→20:21)
[2021-07-14] MEDS: ACETAMINOPHEN 500 MG TAB PO PRN ×2 (05:31→12:55)
[2021-07-14] MEDS: LEVOTHYROXINE SODIUM 100 MCG TABLET PO SCH (05:51)
[2021-07-14 05:58] LABS: Hematocrit (blood only) 40.1 % (42-52); Hemoglobin 12.3 g/dL (14.0-18.0); Mean Corpuscular Hemoglobin 32.1 pg (25-34); Mean Corpuscular Hgb Conc 30.7 g/dL (32-36); Mean Corpuscular Volume 104.7 fL (80-100); Mean Platelet Volume 11.3 fL (7.4-10.4); Platelet Count 161 K/uL (130-400); RDW Coefficient of Variation 14.6 % (11.5-14.5); RDW Standard Deviation 56.6 fL (36.4-46.3); Red Blood Count 3.83 M/uL (4.7-6.1); White Blood Count 13.02 K/uL (4.8-10.8)
[2021-07-14 06:37] LABS: Magnesium 2.6 mg/dl (1.8-2.4)
[2021-07-14 06:40] LABS: BUN Creatinine Ratio 33.2 (10-20); Creatinine Clr Calc Pharmacy 180.7 ml/min; Est GFR (African American) 122.4 ml/min; Est GFR (Non-African American) 105.6 ml/min; Phosphorus 2.2 mg/dl (2.5-4.9); Potassium 3.4 mmol/L (3.5-5.1)
[2021-07-14] MEDS: FAMOTIDINE 10 MG TABLET PO SCH ×2 (07:55→20:19)
[2021-07-14] MEDS: ESCITALOPRAM OXALATE 10 MG TAB PO SCH (07:55)
[2021-07-14] MEDS: MAGNESIUM OXIDE 400 MG TAB PEG SCH (07:55)
[2021-07-14] MEDS: ESCITALOPRAM OXALATE 20 MG TAB PO SCH (07:56)
[2021-07-14] MEDS: CLOPIDOGREL BISULFATE 75 MG TAB PEG SCH (07:56)
[2021-07-14] MEDS: GABAPENTIN 100 MG CAP PO SCH ×3 (07:56→20:18)
[2021-07-14] MEDS: lisinopril 20 MG TAB PEG SCH (07:56)
[2021-07-14] MEDS: levETIRAcetam ORAL SOLN 100MG/ML PEG SCH ×2 (07:57→20:19)
[2021-07-14] MEDS: hydrALAZINE HCL 25 MG TAB PEG SCH ×2 (07:58→20:19)
[2021-07-14] MEDS: ASPIRIN 81 MG CHEW PEG SCH (08:07)
[2021-07-14] MEDS ORDERED: POTASSIUM CHLORIDE / WTR 10 MEQ/100 ML PLCT IV ONE (09:45)
--- NOTE | 2021-07-14 15:06 | Hospitalist Progress Note ---
Date of Service July 14, 2021 Assessment & Plan (1) AMS (altered mental status): Plan: 70 y/o M w/ hx of CVA with left hemiplegia, dysarthria, s/p PEG, insulin resistance, CAD, HTN, HLD, hypothyroidism, depression, anxiety, GERD, nocturnal hypoxia on 2L oxygen via [place] presented to ER for AMS and increased lethargy In ER patient afebrile, P: 75, R: 14, BP: 118/69, 88% on RA up to 96% on 3L. WBC: 21. CT head unremarkable. UA appears contaminated Metabolic encephalopathy possible secondary to aspiration pneumonia In ER given cefepime Urine culture - 30,000 E.coli Blood cultures - negative in 48 hrs lactate- 1.2 wnl procalcitonin negative Neuro checks initially - mental status much improved Hold Ativan and hydrocodone currently. Will need to monitor closely as pt on chronically and may have withdrawal monitor CBC, BMP If no improvement may need to consider MRI or neurology consult 07/14 -mental status improved, WBC down to 13,000 Was seen by speech, and placed on thick liquids, however reportedly he also keeps food in his mouth and does not swallow We will have him for now n.p.o. and continue tube feeds (2) Hypoxia: Plan: History of dysphagia and is on nectar thick liquids at baseline. Noted coughing with drinking liquids. At home on day of admission pulse ox 84% on room air CXR no acute process. 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 (5) CAD, multiple vessel: Plan: Continue aspirin, plavix, atorvastatin (6) Hypertension: Plan: Continue lisinopril, hydralazine (7) Insulin resistance: Plan: Hold home metformin Novolog sliding scale (8) Seizure: Plan: Continue Keppra (9) Hypothyroidism: Plan: Continue levothyroxine (10) Depression: Plan: Continue Lexapro DVT Prophylaxis Lovenox SQ DNR/DNI as per discussion with pt's , also POLST present on admission and reviewed Follows with Dr Tom for routine care Admission and Anticipated Discharge Date Admission Date: July 11, 2021 Subjective Patient seen in follow-up of altered mental status He is sitting up in bed, in no acute distress, more awake today Currently denies any chest pain shortness of breath abdominal pain Patient's is at the bedside Patient says he is just tired but awake Review of Systems Review of Systems: All systems reviewed & are unremarkable except as noted in Subjective Physical Exam Physical Exam: General: obese M, no acute distress Head: normocephalic, atraumatic Eyes: NC/AT. EOMI. Pupils appear equal conjunctiva non-injected ENT: normal inspection external ears, nose, mucous membranes moist Neck: supple, trachea midline Lungs: appear clear but diminished CV: RRR, 1+ pretibial edema Abd: normal BS, soft, no apparent tenderness to palpation, peg tube in place Ext: no cyanosis, no calf tenderness Neuro: Awake and answering questions appropriately, slurred speech which is pt's baseline. +chronic left hemiplegia, left leg contracture Skin: warm, dry Results & Data Results & Data ([facility]) Vital Signs (Past 12 Hours) Vital Signs Temp Pulse Pulse Pulse Resp BP BP 07/14/21 10:59 37.3 C 61 18 144/72 H 07/14/21 08:00 62 07/14/21 07:26 37.5 C 67 20 143/72 H 07/14/21 03:52 36.9 C 61 18 130/79 Pulse Ox 07/14/21 10:59 96 07/14/21 08:00 07/14/21 07:26 96 07/14/21 03:52 95 Laboratory Results 07/14/21 07/14/21 07/14/21 Range/Units 11:36 07:18 05:35 WBC (4.8-10.8) K/uL RBC (4.7-6.1) M/uL Hgb (14.0-18.0) g/dL Hct (42-52) % MCV (80-100) fL MCH (25-34) pg MCHC (32-36) g/dL RDW Std Deviation (36.4-46.3) fL RDW Coeff of Albert (11.5-14.5) % Plt Count (130-400) K/uL MPV (7.4-10.4) fL Sodium (136-145) mmol/L Potassium (3.5-5.1) mmol/L Chloride (98-107) mmol/L Carbon Dioxide (21-32) mmol/L Anion Gap (3-11) BUN (7-18) mg/dl Creatinine (0.6-1.4) mg/dl Est Cr Clr Drug Dosing ml/min Est GFR ( Amer) ml/min Est GFR (Non-Af Amer) ml/min BUN/Creatinine Ratio (10-20) Glucose (70-99) mg/dl POC Glucose 136 H 155 H 144 H (70-99) mg/dl Calcium (8.5-10.1) mg/dl Phosphorus (2.5-4.9) mg/dl Magnesium (1.8-2.4) mg/dl 07/14/21 07/14/21 07/13/21 Range/Units 05:34 05:34 23:30 WBC 13.02 H (4.8-10.8) K/uL RBC 3.83 L (4.7-6.1) M/uL Hgb 12.3 L (14.0-18.0) g/dL Hct 40.1 L (42-52) % MCV 104.7 H (80-100) fL MCH 32.1 (25-34) pg MCHC 30.7 L (32-36) g/dL RDW Std Deviation 56.6 H (36.4-46.3) fL RDW Coeff of Albert 14.6 H (11.5-14.5) % Plt Count 161 (130-400) K/uL MPV 11.3 H (7.4-10.4) fL Sodium 141 (136-145) mmol/L Potassium 3.4 L (3.5-5.1) mmol/L Chloride 106 (98-107) mmol/L Carbon Dioxide 30 (21-32) mmol/L Anion Gap 5.0 (3-11) BUN 18 (7-18) mg/dl Creatinine 0.55 L (0.6-1.4) mg/dl Est Cr Clr Drug Dosing 180.7 ml/min Est GFR ( Amer) 122.4 ml/min Est GFR (Non-Af Amer) 105.6 ml/min BUN/Creatinine Ratio 33.2 H (10-20) Glucose 140 H (70-99) mg/dl POC Glucose 120 H (70-99) mg/dl Calcium 9.0 (8.5-10.1) mg/dl Phosphorus 2.2 L (2.5-4.9) mg/dl Magnesium 2.6 H (1.8-2.4) mg/dl 07/13/21 Range/Units 18:00 WBC (4.8-10.8) K/uL RBC (4.7-6.1) M/uL Hgb (14.0-18.0) g/dL Hct (42-52) % MCV (80-100) fL MCH (25-34) pg MCHC (32-36) g/dL RDW Std Deviation (36.4-46.3) fL RDW Coeff of Albert (11.5-14.5) % Plt Count (130-400) K/uL MPV (7.4-10.4) fL Sodium (136-145) mmol/L Potassium (3.5-5.1) mmol/L Chloride (98-107) mmol/L Carbon Dioxide (21-32) mmol/L Anion Gap (3-11) BUN (7-18) mg/dl Creatinine (0.6-1.4) mg/dl Est Cr Clr Drug Dosing ml/min Est GFR ( Amer) ml/min Est GFR (Non-Af Amer) ml/min BUN/Creatinine Ratio (10-20) Glucose (70-99) mg/dl POC Glucose 134 H (70-99) mg/dl Calcium (8.5-10.1) mg/dl Phosphorus (2.5-4.9) mg/dl Magnesium (1.8-2.4) mg/dl Medications Administered Current Inpatient Medications Acetaminophen (Acetaminophen 500 Mg Tab) 1,000 mg PO Q6H PRN PRN Reason: Pain Stop: 08/10/21 21:06 Last Admin: 07/14/21 12:55 Dose: 1,000 mg Documented by: Aspirin (Aspirin 81 Mg Chew) 81 mg PEG DAILY [facility] Stop: 08/11/21 08:59 Last Admin: 07/14/21 08:07 Dose: 81 mg Documented by: Atorvastatin Calcium (Atorvastatin 40 Mg Tab) 40 mg PEG HS [facility] Stop: 08/10/21 20:59 Last Admin: 07/13/21 21:03 Dose: 40 mg Documented by: Clopidogrel Bisulfate (Clopidogrel Bisulfate 75 Mg Tab) 75 mg PEG DAILY [facility] Stop: 08/11/21 08:59 Last Admin: 07/14/21 07:56 Dose: 75 mg Documented by: Dextrose (Dextrose 50% 50 Ml Syringe) 25 - 50 ml IV UD PRN; Protocol PRN Reason: Hypoglycemia Protocol Stop: 08/10/21 20:06 Enoxaparin Sodium (Enoxaparin Inj 40 Mg/0.4 Ml Syr) 40 mg SQ Q24H [facility] Stop: 08/10/21 20:59 Last Admin: 07/13/21 21:04 Dose: 40 mg Documented by: Enteral Nutritional Formula (Peptamen 1.5 Billy 1,000 Ml Bag) 1,000 ml PEG UD [facility]; Protocol Stop: 08/11/21 07:00 Last Admin: 07/13/21 16:52 Dose: 1,000 ml Documented by: Escitalopram Oxalate (Escitalopram Oxalate 10 Mg Tab) 10 mg PO DAILY [facility] Stop: 08/11/21 08:59 Last Admin: 07/14/21 07:55 Dose: 10 mg Documented by: Escitalopram Oxalate (Escitalopram Oxalate 20 Mg Tab) 20 mg PO DAILY [facility] Stop: 08/11/21 08:59 Last Admin: 07/14/21 07:56 Dose: 20 mg Documented by: Famotidine (Famotidine 10 Mg Tablet) 10 mg PO BID [facility] Stop: 08/10/21 20:59 Last Admin: 07/14/21 07:55 Dose: 10 mg Documented by: Gabapentin (Gabapentin 100 Mg Cap) 200 mg PO TID [facility] Stop: 08/10/21 20:59 Last Admin: 07/14/21 12:55 Dose: 200 mg Documented by: Glucagon (Glucagon For Inj 1 Mg Vial) 1 mg SQ UD PRN; Protocol PRN Reason: Hypoglycemia Protocol Stop: 08/10/21 20:06 Glucose (Glucose 10 Tabs/Tube) 4 - 8 tabs PO UD PRN; Protocol PRN Reason: Hypoglycemia Protocol Stop: 08/10/21 20:06 Glucose (Glucose 40% Gel 15 Gm Tube) 15 - 30 gm PO UD PRN; Protocol PRN Reason: Hypoglycemia Protocol Stop: 08/10/21 20:06 Guaifenesin (Guaifenesin Sugar Free 200 Mg/10 Ml Udc) 200 mg PO Q6H [facility] Stop: 08/12/21 09:59 Last Admin: 07/14/21 11:21 Dose: 200 mg Documented by: Hydralazine HCl (Hydralazine Hcl 25 Mg Tab) 25 mg PEG BID [facility] Stop: 08/10/21 20:59 Last Admin: 07/14/21 07:58 Dose: 25 mg Documented by: Piperacillin Sod/Tazobactam (Sod 4.5 gm/ Dextrose) 120 mls @ 30 mls/hr IV Q8H [facility]; Protocol Stop: 07/15/21 23:59 Last Infusion: 07/14/21 11:55 Dose: Infused Documented by: Insulin Aspart (Insulin Aspart Per Unit) 0 units SC Q6 [facility] Stop: 08/11/21 11:59 Last Admin: 07/14/21 11:51 Dose: Not Given Documented by: Levetiracetam (Levetiracetam Oral Soln 100mg/Ml) 500 mg PEG BID [facility] Stop: 08/12/21 09:59 Last Admin: 07/14/21 07:57 Dose: 500 mg Documented by: Levothyroxine Sodium (Levothyroxine Sodium 100 Mcg Tablet) 100 mcg PO DAILYBB [facility] Stop: 08/11/21 06:29 Last Admin: 07/14/21 05:51 Dose: 100 mcg Documented by: Lisinopril (Lisinopril 20 Mg Tab) 20 mg PEG DAILY [facility] Stop: 08/11/21 08:59 Last Admin: 07/14/21 07:56 Dose: 20 mg Documented by: Magnesium Oxide (Magnesium Oxide 400 Mg Tab) 400 mg PEG DAILY [facility] Stop: 08/11/21 08:59 Last Admin: 07/14/21 07:55 Dose: 400 mg Documented by: Miscellaneous (Carbohydrates For Hypoglycemia ) 15 - 30 gm PO UD PRN PRN Reason: Hypoglycemia Protocol Stop: 08/10/21 20:06 Miscellaneous Information (Piperacill/Tazobac Consult Active) 1 ea N/A UD PRN PRN Reason: Consult Stop: 08/10/21 20:06 Nitroglycerin (Nitroglycerin Sl 0.4 Mg/Tab Tab) 0.4 mg SL UD PRN PRN Reason: Chest Pain Stop: 08/10/21 20:06 Sterile Water (Tube Feeding Water Flush) 150 ml GT Q4H [facility] Stop: 08/11/21 11:59 Last Admin: 07/14/21 11:21 Dose: 150 ml Documented by: (1) AMS (altered mental status) Altered mental status type: unspecified Qualified Code(s): R41.82 - Altered mental status, unspecified (2) Diarrhea Diarrhea type: unspecified type Qualified Code(s): R19.7 - Diarrhea, unspecified
[2021-07-14] MEDS: PEPTAMEN 1.5 CAL 1,000 ML BAG PEG SCH (16:43)
[2021-07-14] MEDS: ENOXAPARIN INJ 40 MG/0.4 ML SYR SQ SCH (20:17)
[2021-07-14] MEDS: ATORVASTATIN 40 MG TAB PEG SCH (20:18)
[2021-07-15] MEDS: PIPERACILLIN/TAZOBACTAM 4.5 GM in DEXTROSE 5% 100 ML IV SCH ×3 (01:07→16:58)
[2021-07-15] MEDS: TUBE FEEDING WATER FLUSH GT SCH ×6 (01:07→21:14)
[2021-07-15] MEDS: INSULIN ASPART PER UNIT SC SCH ×4 (01:08→18:14)
[2021-07-15] MEDS: guaiFENesin SUGAR FREE 200 MG/10 ML UDC PO SCH ×4 (04:36→21:15)
[2021-07-15] MEDS: LEVOTHYROXINE SODIUM 100 MCG TABLET PO SCH (05:39)
[2021-07-15 07:04] LABS: Hematocrit (blood only) 38.1 % (42-52); Hemoglobin 11.7 g/dL (14.0-18.0); Mean Corpuscular Hemoglobin 31.6 pg (25-34); Mean Corpuscular Hgb Conc 30.7 g/dL (32-36); Mean Platelet Volume 11.5 fL (7.4-10.4); Platelet Count 153 K/uL (130-400); RDW Coefficient of Variation 14.3 % (11.5-14.5); RDW Standard Deviation 53.5 fL (36.4-46.3)
[2021-07-15 07:33] LABS: BUN Creatinine Ratio 37.2 (10-20); Calcium 8.5 mg/dl (8.5-10.1); Creatinine Clr Calc Pharmacy 220.2 ml/min; Est GFR (African American) 132.9 ml/min; Est GFR (Non-African American) 114.7 ml/min; Magnesium 2.4 mg/dl (1.8-2.4); Potassium 3.3 mmol/L (3.5-5.1)
[2021-07-15 07:34] LABS: Phosphorus 2.1 mg/dl (2.5-4.9)
[2021-07-15] MEDS: CLOPIDOGREL BISULFATE 75 MG TAB PEG SCH (08:34)
[2021-07-15] MEDS: hydrALAZINE HCL 25 MG TAB PEG SCH ×2 (08:35→21:17)
[2021-07-15] MEDS: MAGNESIUM OXIDE 400 MG TAB PEG SCH (08:35)
[2021-07-15] MEDS: ESCITALOPRAM OXALATE 10 MG TAB PO SCH (08:35)
[2021-07-15] MEDS: lisinopril 20 MG TAB PEG SCH (08:35)
[2021-07-15] MEDS: ESCITALOPRAM OXALATE 20 MG TAB PO SCH (08:35)
[2021-07-15] MEDS: levETIRAcetam ORAL SOLN 100MG/ML PEG SCH ×2 (08:36→21:16)
[2021-07-15] MEDS: FAMOTIDINE 10 MG TABLET PO SCH ×2 (08:37→21:17)
[2021-07-15] MEDS: GABAPENTIN 100 MG CAP PO SCH ×3 (08:37→21:16)
[2021-07-15] MEDS: ASPIRIN 81 MG CHEW PEG SCH (08:50)
[2021-07-15] MEDS ORDERED: POTASSIUM CHLORIDE 20 MEQ/15 ML UDC PEG STA (13:18)
--- NOTE | 2021-07-15 13:25 | Hospitalist Progress Note ---
Date of Service July 15, 2021 Assessment & Plan (1) AMS (altered mental status): Plan: 70 y/o M w/ hx of CVA with left hemiplegia, dysarthria, s/p PEG, insulin resistance, CAD, HTN, HLD, hypothyroidism, depression, anxiety, GERD, nocturnal hypoxia on 2L oxygen via NC presented to ER for AMS and increased lethargy In ER patient afebrile, P: 75, R: 14, BP: 118/69, 88% on RA up to 96% on 3L. WBC: 21. CT head unremarkable. UA appears contaminated Metabolic encephalopathy possible secondary to aspiration pneumonia In ER given cefepime Urine culture - 30,000 E.coli Blood cultures - negative in 48 hrs lactate- 1.2 wnl procalcitonin negative Neuro checks initially - mental status much improved Hold Ativan and hydrocodone currently. Will need to monitor closely as pt on chronically and may have withdrawal monitor CBC, BMP If no improvement may need to consider MRI or neurology consult 07/14 -mental status improved, WBC down to 13,000 Was seen by speech, and placed on thick liquids, however reportedly he also keeps food in his mouth and does not swallow We will have him for now n.p.o. and continue tube feeds 07/15 -stools noted by RN to be mucus-like, this is what pt's reported as well prior to patient becoming sick, will retest the stool (2) Hypoxia: Plan: History of dysphagia and is on nectar thick liquids at baseline. Noted coughing with drinking liquids. At home on day of admission pulse ox 84% on room air CXR no acute process. Negative COVID test Possible aspiration pneumonia Supplemental oxygen NPO Speech therapy Zosyn, has tolerated zosyn prior hospitalizations Nocturnal Hypoxia Continue 2L oxygen HS (3) Diarrhea: Plan: Diarrhea x [address] abd/pelvis:Liquid contents are noted in rectum compatible with history of diarrhea Stool studies stool PCR - negative Gentle IVF Stools cont. 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 consult for assistance with tube feeds (5) CAD, multiple vessel: Plan: Continue aspirin, plavix, atorvastatin (6) Hypertension: Plan: Continue lisinopril, hydralazine (7) Insulin resistance: Plan: Hold home metformin Novolog sliding scale (8) Seizure: Plan: Continue Keppra (9) Hypothyroidism: Plan: Continue levothyroxine (10) Depression: Plan: Continue Lexapro DVT Prophylaxis Lovenox SQ DNR/DNI as per discussion with pt's , also POLST present on admission and reviewed Follows with Dr Tom for routine care Admission and Anticipated Discharge Date Admission Date: July 11, 2021 Subjective Patient seen in follow-up of altered mental status He is sitting up in bed, in no acute distress, resting, more sleepy today Currently denies any chest pain shortness of breath abdominal pain Stools noted by RN to be mucous like -this is what reported as well, prior to him becoming more sick -we will retest the stool Review of Systems Review of Systems: All systems reviewed & are unremarkable except as noted in Subjective Physical Exam Physical Exam: General: obese M, no acute distress Head: normocephalic, atraumatic Eyes: NC/AT. EOMI. Pupils appear equal conjunctiva non-injected ENT: normal inspection external ears, nose, mucous membranes moist Neck: supple, trachea midline Lungs: appear clear but diminished CV: RRR, 1+ pretibial edema Abd: normal BS, soft, no apparent tenderness to palpation, peg tube in place Ext: no cyanosis, no calf tenderness Neuro: More sleepy today, slurred speech which is pt's baseline. +chronic left hemiplegia, left leg contracture Skin: warm, dry Results & Data Results & Data ([facility]) Vital Signs (Past 12 Hours) Vital Signs Temp Pulse Pulse Resp BP BP Pulse Ox 07/15/21 11:29 37.0 C 68 20 116/69 98 07/15/21 07:20 37.2 C 65 18 125/69 95 07/15/21 07:00 62 07/15/21 02:56 36.7 C 57 L 18 110/52 L 97 Laboratory Results 07/15/21 07/15/21 07/15/21 Range/Units 11:23 06:40 06:40 WBC 13.20 H (4.8-10.8) K/uL RBC 3.70 L (4.7-6.1) M/uL Hgb 11.7 L (14.0-18.0) g/dL Hct 38.1 L (42-52) % MCV 103.0 H (80-100) fL MCH 31.6 (25-34) pg MCHC 30.7 L (32-36) g/dL RDW Std Deviation 53.5 H (36.4-46.3) fL RDW Coeff of Albert 14.3 (11.5-14.5) % Plt Count 153 (130-400) K/uL MPV 11.5 H (7.4-10.4) fL Sodium 140 (136-145) mmol/L Potassium 3.3 L (3.5-5.1) mmol/L Chloride 105 (98-107) mmol/L Carbon Dioxide 33 H (21-32) mmol/L Anion Gap 2.0 L (3-11) BUN 17 (7-18) mg/dl Creatinine 0.45 L (0.6-1.4) mg/dl Est Cr Clr Drug Dosing 220.2 ml/min Est GFR ( Amer) 132.9 ml/min Est GFR (Non-Af Amer) 114.7 ml/min BUN/Creatinine Ratio 37.2 H (10-20) Glucose 126 H (70-99) mg/dl POC Glucose 113 H (70-99) mg/dl Calcium 8.5 (8.5-10.1) mg/dl Phosphorus 2.1 L (2.5-4.9) mg/dl Magnesium 2.4 (1.8-2.4) mg/dl 07/15/21 07/15/21 07/14/21 Range/Units 05:55 00:03 20:07 WBC (4.8-10.8) K/uL RBC (4.7-6.1) M/uL Hgb (14.0-18.0) g/dL Hct (42-52) % MCV (80-100) fL MCH (25-34) pg MCHC (32-36) g/dL RDW Std Deviation (36.4-46.3) fL RDW Coeff of Albert (11.5-14.5) % Plt Count (130-400) K/uL MPV (7.4-10.4) fL Sodium (136-145) mmol/L Potassium (3.5-5.1) mmol/L Chloride (98-107) mmol/L Carbon Dioxide (21-32) mmol/L Anion Gap (3-11) BUN (7-18) mg/dl Creatinine (0.6-1.4) mg/dl Est Cr Clr Drug Dosing ml/min Est GFR ( Amer) ml/min Est GFR (Non-Af Amer) ml/min BUN/Creatinine Ratio (10-20) Glucose (70-99) mg/dl POC Glucose 145 H 135 H 159 H (70-99) mg/dl Calcium (8.5-10.1) mg/dl Phosphorus (2.5-4.9) mg/dl Magnesium (1.8-2.4) mg/dl 07/14/21 Range/Units 18:21 WBC (4.8-10.8) K/uL RBC (4.7-6.1) M/uL Hgb (14.0-18.0) g/dL Hct (42-52) % MCV (80-100) fL MCH (25-34) pg MCHC (32-36) g/dL RDW Std Deviation (36.4-46.3) fL RDW Coeff of Albert (11.5-14.5) % Plt Count (130-400) K/uL MPV (7.4-10.4) fL Sodium (136-145) mmol/L Potassium (3.5-5.1) mmol/L Chloride (98-107) mmol/L Carbon Dioxide (21-32) mmol/L Anion Gap (3-11) BUN (7-18) mg/dl Creatinine (0.6-1.4) mg/dl Est Cr Clr Drug Dosing ml/min Est GFR ( Amer) ml/min Est GFR (Non-Af Amer) ml/min BUN/Creatinine Ratio (10-20) Glucose (70-99) mg/dl POC Glucose 121 H (70-99) mg/dl Calcium (8.5-10.1) mg/dl Phosphorus (2.5-4.9) mg/dl Magnesium (1.8-2.4) mg/dl Medications Administered Current Inpatient Medications Acetaminophen (Acetaminophen 500 Mg Tab) 1,000 mg PO Q6H PRN PRN Reason: Pain Stop: 08/10/21 21:06 Last Admin: 07/14/21 12:55 Dose: 1,000 mg Documented by: Aspirin (Aspirin 81 Mg Chew) 81 mg PEG DAILY [facility] Stop: 08/11/21 08:59 Last Admin: 07/15/21 08:50 Dose: 81 mg Documented by: Atorvastatin Calcium (Atorvastatin 40 Mg Tab) 40 mg PEG HS [facility] Stop: 08/10/21 20:59 Last Admin: 07/14/21 20:18 Dose: 40 mg Documented by: Clopidogrel Bisulfate (Clopidogrel Bisulfate 75 Mg Tab) 75 mg PEG DAILY [facility] Stop: 08/11/21 08:59 Last Admin: 07/15/21 08:34 Dose: 75 mg Documented by: Dextrose (Dextrose 50% 50 Ml Syringe) 25 - 50 ml IV UD PRN; Protocol PRN Reason: Hypoglycemia Protocol Stop: 08/10/21 20:06 Enoxaparin Sodium (Enoxaparin Inj 40 Mg/0.4 Ml Syr) 40 mg SQ Q24H [facility] Stop: 08/10/21 20:59 Last Admin: 07/14/21 20:17 Dose: 40 mg Documented by: Enteral Nutritional Formula (Peptamen 1.5 Billy 1,000 Ml Bag) 1,000 ml PEG UD [facility]; Protocol Stop: 08/11/21 07:00 Last Admin: 07/14/21 16:43 Dose: 1,000 ml Documented by: Escitalopram Oxalate (Escitalopram Oxalate 10 Mg Tab) 10 mg PO DAILY [facility] Stop: 08/11/21 08:59 Last Admin: 07/15/21 08:35 Dose: 10 mg Documented by: Escitalopram Oxalate (Escitalopram Oxalate 20 Mg Tab) 20 mg PO DAILY [facility] Stop: 08/11/21 08:59 Last Admin: 07/15/21 08:35 Dose: 20 mg Documented by: Famotidine (Famotidine 10 Mg Tablet) 10 mg PO BID [facility] Stop: 08/10/21 20:59 Last Admin: 07/15/21 08:37 Dose: 10 mg Documented by: Gabapentin (Gabapentin 100 Mg Cap) 200 mg PO TID [facility] Stop: 08/10/21 20:59 Last Admin: 07/15/21 13:01 Dose: 200 mg Documented by: Glucagon (Glucagon For Inj 1 Mg Vial) 1 mg SQ UD PRN; Protocol PRN Reason: Hypoglycemia Protocol Stop: 08/10/21 20:06 Glucose (Glucose 10 Tabs/Tube) 4 - 8 tabs PO UD PRN; Protocol PRN Reason: Hypoglycemia Protocol Stop: 08/10/21 20:06 Glucose (Glucose 40% Gel 15 Gm Tube) 15 - 30 gm PO UD PRN; Protocol PRN Reason: Hypoglycemia Protocol Stop: 08/10/21 20:06 Guaifenesin (Guaifenesin Sugar Free 200 Mg/10 Ml Udc) 200 mg PO Q6H [facility] Stop: 08/12/21 09:59 Last Admin: 07/15/21 09:01 Dose: 200 mg Documented by: Hydralazine HCl (Hydralazine Hcl 25 Mg Tab) 25 mg PEG BID [facility] Stop: 08/10/21 20:59 Last Admin: 07/15/21 08:35 Dose: 25 mg Documented by: Piperacillin Sod/Tazobactam (Sod 4.5 gm/ Dextrose) 120 mls @ 30 mls/hr IV Q8H [facility]; Protocol Stop: 07/19/21 03:59 Last Infusion: 07/15/21 12:56 Dose: Infused Documented by: Insulin Aspart (Insulin Aspart Per Unit) 0 units SC Q6 [facility] Stop: 08/11/21 11:59 Last Admin: 07/15/21 11:51 Dose: Not Given Documented by: Levetiracetam (Levetiracetam Oral Soln 100mg/Ml) 500 mg PEG BID [facility] Stop: 08/12/21 09:59 Last Admin: 07/15/21 08:36 Dose: 500 mg Documented by: Levothyroxine Sodium (Levothyroxine Sodium 100 Mcg Tablet) 100 mcg PO DAILYBB [facility] Stop: 08/11/21 06:29 Last Admin: 07/15/21 05:39 Dose: 100 mcg Documented by: Lisinopril (Lisinopril 20 Mg Tab) 20 mg PEG DAILY [facility] Stop: 08/11/21 08:59 Last Admin: 07/15/21 08:35 Dose: 20 mg Documented by: Magnesium Oxide (Magnesium Oxide 400 Mg Tab) 400 mg PEG DAILY [facility] Stop: 08/11/21 08:59 Last Admin: 07/15/21 08:35 Dose: 400 mg Documented by: Miconazole Nitrate (Miconazole Nitrate Powder 43 Gm) 1 appln EXT PRN PRN PRN Reason: Affected Skin Folds Stop: 08/14/21 13:08 Miscellaneous (Carbohydrates For Hypoglycemia ) 15 - 30 gm PO UD PRN PRN Reason: Hypoglycemia Protocol Stop: 08/10/21 20:06 Miscellaneous Information (Piperacill/Tazobac Consult Active) 1 ea N/A UD PRN PRN Reason: Consult Stop: 08/10/21 20:06 Nitroglycerin (Nitroglycerin Sl 0.4 Mg/Tab Tab) 0.4 mg SL UD PRN PRN Reason: Chest Pain Stop: 08/10/21 20:06 Potassium Chloride (Potassium Chloride 20 Meq/15 Ml Udc) 40 meq PEG NOW STA Stop: 07/15/21 13:19 Sterile Water (Tube Feeding Water Flush) 150 ml GT Q4H [facility] Stop: 08/11/21 11:59 Last Admin: 07/15/21 12:55 Dose: 150 ml Documented by: (1) Diarrhea Diarrhea type: unspecified type Qualified Code(s): R19.7 - Diarrhea, unspecified (2) AMS (altered mental status) Altered mental status type: unspecified Qualified Code(s): R41.82 - Altered mental status, unspecified
[2021-07-15] MEDS: MICONAZOLE NITRATE POWDER 43 GM EXT PRN (14:25)
[2021-07-15] MEDS: PEPTAMEN 1.5 CAL 1,000 ML BAG PEG SCH (16:47)
[2021-07-15] MEDS: ENOXAPARIN INJ 40 MG/0.4 ML SYR SQ SCH (21:14)
[2021-07-15] MEDS: ATORVASTATIN 40 MG TAB PEG SCH (21:18)
[2021-07-16] MEDS: PIPERACILLIN/TAZOBACTAM 4.5 GM in DEXTROSE 5% 100 ML IV SCH ×2 (00:26→08:30)
[2021-07-16] MEDS: INSULIN ASPART PER UNIT SC SCH ×4 (00:32→18:05)
[2021-07-16] MEDS: TUBE FEEDING WATER FLUSH GT SCH ×6 (00:32→20:18)
[2021-07-16] MEDS: guaiFENesin SUGAR FREE 200 MG/10 ML UDC PO SCH ×4 (04:05→20:21)
[2021-07-16] MEDS: LEVOTHYROXINE SODIUM 100 MCG TABLET PO SCH (06:37)
[2021-07-16 07:26] LABS: Hematocrit (blood only) 37.8 % (42-52); Hemoglobin 11.7 g/dL (14.0-18.0); Mean Corpuscular Hemoglobin 31.6 pg (25-34); Mean Corpuscular Volume 102.2 fL (80-100); Mean Platelet Volume 11.3 fL (7.4-10.4); Platelet Count 160 K/uL (130-400); RDW Coefficient of Variation 14.2 % (11.5-14.5); RDW Standard Deviation 53.4 fL (36.4-46.3); White Blood Count 11.82 K/uL (4.8-10.8)
[2021-07-16 07:55] LABS: BUN Creatinine Ratio 41.3 (10-20); Calcium 8.2 mg/dl (8.5-10.1); Creatinine Clr Calc Pharmacy 275.2 ml/min; Est GFR (African American) 145.6 ml/min; Est GFR (Non-African American) 125.7 ml/min; Magnesium 2.2 mg/dl (1.8-2.4); Phosphorus 1.9 mg/dl (2.5-4.9); Potassium 3.7 mmol/L (3.5-5.1)
[2021-07-16] MEDS: MAGNESIUM OXIDE 400 MG TAB PEG SCH (08:22)
[2021-07-16] MEDS: lisinopril 20 MG TAB PEG SCH (08:22)
[2021-07-16] MEDS: GABAPENTIN 100 MG CAP PO SCH ×3 (08:22→20:23)
[2021-07-16] MEDS: levETIRAcetam ORAL SOLN 100MG/ML PEG SCH ×2 (08:22→20:20)
[2021-07-16] MEDS: hydrALAZINE HCL 25 MG TAB PEG SCH ×2 (08:23→20:23)
[2021-07-16] MEDS: ESCITALOPRAM OXALATE 20 MG TAB PO SCH (08:23)
[2021-07-16] MEDS: CLOPIDOGREL BISULFATE 75 MG TAB PEG SCH (08:23)
[2021-07-16] MEDS: ESCITALOPRAM OXALATE 10 MG TAB PO SCH (08:23)
[2021-07-16] MEDS: FAMOTIDINE 10 MG TABLET PO SCH ×2 (08:24→20:22)
[2021-07-16] MEDS: ASPIRIN 81 MG CHEW PEG SCH (08:29)
[2021-07-16] MEDS ORDERED: POTASSIUM PHOS 3 MMOL/1 ML INFUSION IV ONE (09:47)
[2021-07-16] MEDS ORDERED: POTASSIUM PHOSPHATE 21 MMOL in SODIUM CHLORIDE 0.9% 500 ML IV ONE (10:00)
[2021-07-16] MEDS: MICONAZOLE NITRATE POWDER 43 GM EXT PRN (10:08)
[2021-07-16] MEDS: ACETAMINOPHEN 500 MG TAB PO PRN (11:39)
[2021-07-16] MEDS: PEPTAMEN 1.5 CAL 1,000 ML BAG PEG SCH (16:56)
[2021-07-16] MEDS: AMOXICILLIN/CLAVULANATE SUSP 400MG/5ML 50ML BOTTLE GT SCH (17:56)
--- NOTE | 2021-07-16 17:59 | Hospitalist Progress Note ---
Date of Service July 16, 2021 Assessment & Plan (1) AMS (altered mental status): Plan: Patient is a 70 yr male with H/O CVA with left hemiplegia, dysarthria, s/p PEG, insulin resistance, CAD, HTN, HLD, hypothyroidism, depression, anxiety, GERD, nocturnal hypoxia on 2L oxygen via [place] presented to ER for AMS and increased lethargy Acute Metabolic encephalopathy possible secondary to aspiration pneumonia -CT Head:No significant change compared to the prior study. No acute intracranial abnormality. Blood Culture: Negative Urine culture - 30,000 E.coli Lactate normal Procalcitonin negative Hold Ativan and hydrocodone for now Mental Status improved Stool studies negative Zosyn transitioned to Augmentin Leukocytosis improving (2) Hypoxia: Plan: Nocturnal Hypoxia Continue 2L oxygen HS H/O Dysphagia and is on nectar thick liquids at baseline. CXR no acute process. Negative COVID test NPO for now On Tube feeds (3) Diarrhea: Plan: CT abd/pelvis:Liquid contents are noted in rectum compatible with history of diarrhea Stool studies negative Received IVF (4) CVA (cerebral infarction): Plan: Left hemiparesis, dysarthria, dysphagia Continue aspirin, atorvastatin, Plavix H/O PEG Tube Intensive Care Medicine Specialist consult (5) CAD, multiple vessel: Plan: Continue aspirin, plavix, atorvastatin (6) Hypertension: Plan: Continue lisinopril, hydralazine (7) Insulin resistance: Plan: Hold home metformin Novolog sliding scale (8) Seizure: Plan: Continue Keppra (9) Hypothyroidism: Plan: Continue levothyroxine (10) Depression: Plan: Continue Lexapro DVT Px: Lovenox SQ Code Status DNR/DNI Admission and Anticipated Discharge Date Admission Date: July 11, 2021 Subjective Patient is seen and examined at bedside Mental status seem to be back to baseline He denies any complaints this morning Review of Systems Review of Systems: All systems reviewed & are unremarkable except as noted in Subjective Physical Exam Physical Exam: Physical Exam: Vitals signs as noted above General Appearance:Obese, no apparent distress Head: normocephalic, Atraumatic Eyes: normal inspection, EOMI Neck: supple, Trachea midline Respiratory/Chest: Normal breath sounds, CTA Cardiovascular: S1, S2, No murmur Abdomen/GI:Soft, Non tender, Bowel sounds present, +Peg tube Extremities/Musculoskeletal:normal inspection, + B/L LE edema Neurologic/Psych:AAOX3, grossly no focal neurological deficits Skin: normal color, warm Results & Data Results & Data ([facility]) Vital Signs (Past 12 Hours) Vital Signs Temp Pulse Pulse Resp BP Pulse Ox 07/16/21 16:10 37.0 C 54 L 19 148/64 H 97 07/16/21 14:20 57 L 07/16/21 12:16 36.3 C L 58 L 19 128/68 95 07/16/21 07:37 67 07/16/21 07:32 36.9 C 61 18 136/71 95 Laboratory Results Short CBC 07/16/21 Range/Units 06:49 WBC 11.82 H (4.8-10.8) K/uL Hgb 11.7 L (14.0-18.0) g/dL Hct 37.8 L (42-52) % Plt Count 160 (130-400) K/uL BMP 07/16/21 06:49 Sodium 141 Potassium 3.7 Chloride 105 Carbon Dioxide 31 BUN 15 Creatinine 0.36 L Glucose 145 H Calcium 8.2 L (1) AMS (altered mental status) Altered mental status type: unspecified Qualified Code(s): R41.82 - Altered mental status, unspecified (2) Diarrhea Diarrhea type: unspecified type Qualified Code(s): R19.7 - Diarrhea, unspecified
[2021-07-16] MEDS: ENOXAPARIN INJ 40 MG/0.4 ML SYR SQ SCH (20:18)
[2021-07-16] MEDS: ATORVASTATIN 40 MG TAB PEG SCH (20:22)
[2021-07-17] MEDS: TUBE FEEDING WATER FLUSH GT SCH ×5 (00:05→15:29)
[2021-07-17] MEDS: INSULIN ASPART PER UNIT SC SCH ×4 (00:05→18:25)
[2021-07-17] MEDS: guaiFENesin SUGAR FREE 200 MG/10 ML UDC PO SCH ×3 (04:10→15:32)
[2021-07-17] MEDS: LEVOTHYROXINE SODIUM 100 MCG TABLET PO SCH (06:06)
[2021-07-17] MEDS: AMOXICILLIN/CLAVULANATE SUSP 400MG/5ML 50ML BOTTLE GT SCH ×2 (07:55→17:35)
[2021-07-17] MEDS: ASPIRIN 81 MG CHEW PEG SCH (07:55)
[2021-07-17] MEDS: ESCITALOPRAM OXALATE 10 MG TAB PO SCH (07:56)
[2021-07-17] MEDS: GABAPENTIN 100 MG CAP PO SCH ×2 (07:56→13:21)
[2021-07-17] MEDS: MAGNESIUM OXIDE 400 MG TAB PEG SCH (07:56)
[2021-07-17] MEDS: CLOPIDOGREL BISULFATE 75 MG TAB PEG SCH (07:57)
[2021-07-17] MEDS: ESCITALOPRAM OXALATE 20 MG TAB PO SCH (07:57)
[2021-07-17] MEDS: lisinopril 20 MG TAB PEG SCH (07:57)
[2021-07-17] MEDS: hydrALAZINE HCL 25 MG TAB PEG SCH (07:57)
[2021-07-17] MEDS: PEPTAMEN 1.5 CAL 1,000 ML BAG PEG SCH (07:58)
[2021-07-17] MEDS: MICONAZOLE NITRATE POWDER 43 GM EXT PRN (07:58)
[2021-07-17] MEDS: FAMOTIDINE 10 MG TABLET PO SCH (07:58)
[2021-07-17] MEDS: levETIRAcetam ORAL SOLN 100MG/ML PEG SCH (07:58)
[2021-07-17 08:21] LABS: Hemoglobin 12.2 g/dL (14.0-18.0); Mean Corpuscular Hemoglobin 31.9 pg (25-34); Mean Corpuscular Hgb Conc 31.3 g/dL (32-36); Mean Corpuscular Volume 102.1 fL (80-100); Mean Platelet Volume 11.3 fL (7.4-10.4); Platelet Count 170 K/uL (130-400); RDW Coefficient of Variation 14.2 % (11.5-14.5); RDW Standard Deviation 52.6 fL (36.4-46.3); Red Blood Count 3.82 M/uL (4.7-6.1); White Blood Count 12.76 K/uL (4.8-10.8)
[2021-07-17 08:49] LABS: BUN Creatinine Ratio 37.1 (10-20); Calcium 8.9 mg/dl (8.5-10.1); Creatinine Clr Calc Pharmacy 275.9 ml/min; Est GFR (African American) 145.6 ml/min; Est GFR (Non-African American) 125.7 ml/min
[2021-07-17 08:50] LABS: Phosphorus 1.8 mg/dl (2.5-4.9)
[2021-07-17] MEDS ORDERED: POTASSIUM PHOS 3 MMOL/1 ML INFUSION IV ONE (08:51)
[2021-07-17] MEDS ORDERED: LORazepam 0.5 MG TAB PO PRN (08:53)
[2021-07-17] MEDS ORDERED: POTASSIUM PHOSPHATE 21 MMOL in SODIUM CHLORIDE 0.9% 500 ML IV ONE (09:00)
[2021-07-17] MEDS: ACETAMINOPHEN 500 MG TAB PO PRN (09:13)
[2021-07-17] MEDS: POT PHOSPHATE MONOBASIC W/ SOD TAB PO SCH ×3 (09:31→17:15)
--- NOTE | 2021-07-17 13:11 | Hospitalist Progress Note ---
Date of Service July 17, 2021 Assessment & Plan (1) AMS (altered mental status): Plan: Patient is a 70 yr male with H/O CVA with left hemiplegia, dysarthria, s/p PEG, insulin resistance, CAD, HTN, HLD, hypothyroidism, depression, anxiety, GERD, nocturnal hypoxia on 2L oxygen via [place] presented to ER for AMS and increased lethargy Acute Metabolic encephalopathy possible secondary to aspiration pneumonia/Bronchitis -CT Head:No significant change compared to the prior study. No acute intracranial abnormality. Blood Culture: Negative Urine culture - 30,000 E.coli Lactate normal Procalcitonin negative Hold Ativan and hydrocodone for now Mental Status back to baseline Stool studies negative Zosyn transitioned to Augmentin Plan to discharge home today (2) Hypoxia: Plan: Nocturnal Hypoxia Continue 2L oxygen HS H/O Dysphagia and is on nectar thick liquids at baseline. CXR no acute process. 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 (5) CAD, multiple vessel: Plan: Continue aspirin, plavix, atorvastatin (6) Hypertension: Plan: Continue lisinopril, hydralazine (7) Insulin resistance: Plan: Hold home metformin Novolog sliding scale (8) Seizure: Plan: Continue Keppra (9) Hypothyroidism: Plan: Continue levothyroxine (10) Depression: Plan: Continue Lexapro DVT Px: Lovenox SQ Code Status DNR/DNI Admission and Anticipated Discharge Date Admission Date: July 11, 2021 Subjective Patient is seen and examined at bedside Mental status at baseline Minimal cough Denies any dyspnea, chest pain, nausea, abd pain Review of Systems Review of Systems: All systems reviewed & are unremarkable except as noted in Subjective Physical Exam Physical Exam: Physical Exam: Vitals signs as noted above General Appearance:Obese, no apparent distress Head: normocephalic, Atraumatic Eyes: normal inspection, EOMI Neck: supple, Trachea midline Respiratory/Chest: Normal breath sounds, CTA Cardiovascular: S1, S2, No murmur Abdomen/GI:Soft, Non tender, Bowel sounds present, +Peg tube Extremities/Musculoskeletal:normal inspection, + B/L LE edema Neurologic/Psych:AAOX3, grossly no focal neurological deficits Skin: normal color, warm Results & Data Results & Data ([facility]) Vital Signs (Past 12 Hours) Vital Signs Temp Pulse Pulse Resp BP BP Pulse Ox 07/17/21 11:37 37.0 C 64 18 146/69 H 94 07/17/21 07:33 36.9 C 59 L 19 136/64 97 07/17/21 07:13 80 07/17/21 04:53 59 L 07/17/21 03:00 36.6 C 62 18 135/69 93 Laboratory Results Short CBC 07/17/21 Range/Units 07:44 WBC 12.76 H (4.8-10.8) K/uL Hgb 12.2 L (14.0-18.0) g/dL Hct 39.0 L (42-52) % Plt Count 170 (130-400) K/uL BMP 07/17/21 07:44 Sodium 141 Potassium 4.0 Chloride 105 Carbon Dioxide 31 BUN 14 Creatinine 0.36 L Glucose 133 H Calcium 8.9 (1) Diarrhea Diarrhea type: unspecified type Qualified Code(s): R19.7 - Diarrhea, unspecified (2) AMS (altered mental status) Altered mental status type: unspecified Qualified Code(s): R41.82 - Altered mental status, unspecified
--- NOTE | 2021-07-17 13:31 | Discharge Summary ---
Date of Service July 17, 2021 Admission HPI Per Admitting Provider Patient is 70 y/o M with PMH CVA with left hemiplegia, dysarthria, s/p PEG, insulin resistance, CAD, HTN, HLD, hypothyroidism, depression, anxiety, GERD, nocturnal hypoxia on 2L oxygen via [place] presented to ER for AMS. History obtained from patient's . Reports at baseline patient with dysarthria and lethargy. Over past several months patient has been sleeping for most of the day. He drinks nectar thickened liquids and has tube feeds. Reports previously was allowed to eat orally if he wished but he never had an appetite so he does not take oral foods. Last week she noticed urine appeared dark and he had a temp of 101F for one day. She increased his fluid intake and symptoms resolved. Past 3 days with diarrhea. At baseline patient is urinary and fecal incontinent. held tube feeding past 2 days and gave Pedialyte and Gatorade and also Imodium with no improvement of diarrhea. Patient has not been complaining of abdominal pain. Prior was having regular BMs with taking Senna-S daily. Yesterday with i ncreased confusion and didn't know how to drink out of a straw. noticed patient coughing with drinking several times yesterday, so stopped giving him oral liquids. reports pressure ulcer to buttock noted this week. Denies other noted coughing. Today she states patient more lethargic and checked his pulse ox and was 84% on room air so patient was brought to ER. Denies any noted vomiting, hematochezia, melena. Patient has chronic diffuse pain, worse to left side extremities but has otherwise not been complaining of chest pain. In ER patient afebrile, P: 75, R: 14, BP: 118/69, 88% on RA up to 96% on 3L. WBC: 21. CT head unremarkable, CT abd/pelvis:Liquid contents are noted in rectum compatible with history of diarrhea. CXR: no acute process Admission Exam Per Admitting Provider Physical Exam Physical Exam: General: no acute distress, obese Head: normocephalic, atraumatic Eyes: Pupils appear equal, unable to test reactive as pt closes eyes tightly and will not reopen for exam. Unable to test EOM's intact, conjunctiva appears non- injected ENT: normal inspection external ears, nose, mucous membranes moist Neck: supple, trachea midline Lungs: appear clear but diminished CV: RRR, 1+ pretibial edema Abd: normal BS, soft, no apparent tenderness to palpation, peg tube in place Ext: no cyanosis, no calf tenderness Neuro: Awake, lethargic, pt only says he wants drink and has very slurred speech which is pt's baseline. +chronic left hemiplegia, left leg contracture Skin: warm, dry Principal Diagnosis Acute Metabolic encephalopathy Aspiration pneumonia/Bronchitis Discharge Data Allergies Allergy/AdvReac Type Severity Reaction Status Date / Time Penicillins Allergy Intermediate RASH Verified 07/11/21 13:11 Consultations 07/11/21 15:32 ED Decision to Admit Stat Ordered Studies 07/11/21 12:42 CT head/brain wo con Stat 07/11/21 13:58 CT abd pelvis wo con Stat Hospital Course (1) AMS (altered mental status): Patient is a 70 yr male with H/O CVA with left hemiplegia, dysarthria, s/p PEG, insulin resistance, CAD, HTN, HLD, hypothyroidism, depression, anxiety, GERD, nocturnal hypoxia on 2L oxygen via [place] presented to ER for AMS and increased lethargy Acute Metabolic encephalopathy possible secondary to aspiration pneumonia/Bronchitis -CT Head:No significant change compared to the prior study. No acute intracranial abnormality. Blood Culture: Negative Urine culture - 30,000 E.coli Lactate normal Procalcitonin negative Hold Ativan and hydrocodone for now Mental Status back to baseline Stool studies negative Zosyn transitioned to Augmentin Plan to discharge home today (2) Hypoxia: Nocturnal Hypoxia Continue 2L oxygen HS H/O Dysphagia and is on nectar thick liquids at baseline. CXR no acute process. Negative COVID test NPO On Tube feeds (3) Diarrhea: CT abd/pelvis:Liquid contents are noted in rectum compatible with history of diarrhea Stool studies negative Received IVF (4) CVA (cerebral infarction): Left hemiparesis, dysarthria, dysphagia Continue aspirin, atorvastatin, Plavix H/O PEG Tube [employer] consult (5) CAD, multiple vessel: Continue aspirin, plavix, atorvastatin (6) Hypertension: Continue lisinopril, hydralazine (7) Insulin resistance: Hold home metformin Novolog sliding scale (8) Seizure: Continue Keppra (9) Hypothyroidism: Continue levothyroxine (10) Depression: Continue Lexapro DVT Px: Lovenox SQ Code Status DNR/DNI Total Time Total Time Spent Total Time Spent (In Minutes): 44 minutes Discharge Plan Discharge Items Patient Disposition: Home - Home Health Services Reason For Visit: AMS Discharge Diagnosis: Acute Metabolic encephalopathy Aspiration pneumonia/Bronchitis Activity: Per Instructions section Exercise/Sports: Gradually increase as tolerated Non-emergency contact: Primary Care Provider Call non-emergency contact if: you have any medication questions, your symptoms worsen, your pain is concerning for you and you have a fever Follow-up/Referrals: Juanito Tom MD [Primary Care Provider] - (Date & Time 07/23/2021 3:00 PM Provider Juanito Tom MD Department Family Medicine [facility] ) Dietitian Info: Tube Feeds Diet: Other - See Diet Comment Addtl Attending Provider Instructions: Follow up with your PCP on 07/23/2021 3:00 PM as scheduled Complete the antibiotic course as prescribed. Seek immediate medical attention if your symptoms reoccur or worsen Please take all medications as instructed on discharge list below. Please call if you have any questions or problems. You can reach a [facility] hospitalist on duty at [facility] 24 hours a day by calling [phone] Pending Studies at Discharge: No Stand-Alone Forms: My [facility], Smoking Cessation Medications and DC Order Prescriptions: New amoxicillin-pot clavulanate 400-57 mg/5 mL Suspension For Reconstitution 875 mg G-tube BIDM 5 Days Qty: 95.733 RF: 0 Phospha 250 Neutral 250 mg Tablet 1 tab PO QID 5 Days Qty: 20 RF: 0 Continued hydrocodone-acetaminophen 5-325 mg Tablet 1 tab Feeding Tube Q4H PRN (Reason: Outbreak) RF: 0 hydralazine 25 mg Tablet 25 mg Feeding Tube BID RF: 0 clopidogrel [Plavix] 75 mg Tablet 75 mg Feeding Tube DAILY RF: 0 nitroglycerin 0.4 mg Tablet, Sublingual 0.4 mg Sublingual DIRECTED PRN (Reason: Chest Pain) RF: 0 gabapentin 100 mg Capsule 200 mg Feeding Tube TID RF: 0 escitalopram oxalate [Lexapro] 10 mg Tablet 10 mg Feeding Tube DAILY RF: 0 escitalopram oxalate [Lexapro] 20 mg Tablet 20 mg Feeding Tube DAILY RF: 0 levothyroxine [Synthroid] 100 mcg tablet 100 mcg Feeding Tube DAILY RF: 0 atropine [Isopto Atropine] 1 % drops 2 drp Sublingual UD PRN (Reason: EXCESS SECRETIONS) RF: 0 Isosource 1.5 Billy 0.07 gram-1.5 kcal/mL Liquid 100 ml Feeding Tube DAILY RF: 0 lisinopril 20 mg tablet 20 mg feeding tube DAILY RF: 0 acetaminophen [Tylenol Extra Strength] 500 mg Tablet 1,000 mg PO Q6H PRN (Reason: Pain) RF: 0 diphenhydramine-acetaminophen [Tylenol PM Extra Strength] 25-500 mg Tablet 1 tab PO HS RF: 0 atorvastatin 40 mg tablet 40 mg feeding tube HS RF: 0 metformin 500 mg tablet 500 mg feeding tube BID RF: 0 famotidine 10 mg Tablet 10 mg feeding tube BID RF: 0 lorazepam 0.5 mg tablet 0.5 mg feeding tube TID PRN (Reason: Anxiety) RF: 0 aspirin 81 mg Tablet,Chewable 81 mg feeding tube DAILY RF: 0 senna-docusate sodium Tablet 2 tab PO DAILY PRN (Reason: Constipation) RF: 0 levetiracetam 100 mg/mL solution 500 mg feeding tube BID RF: 0 magnesium oxide 400 mg magnesium Tablet 400 mg feeding tube DAILY RF: 0 Discharge Orders: Discharge Order (Routine); Ordered 07/17/21 Ordered By: Babak Gabriel Admission Data Admit Date/Time: 07/11/21 15:51 Attending Provider: Babak Gabriel Admit Provider: Galdino Sanchez Primary Care Provider: Juanito Tmo Other Providers: Galdino Sanchez ; [place] Other Interventions: Discharge Summary Assessment (RN) Last Done: 07/17/21 13:13
== END 2021-07-17 18:35 | disposition home or self-care (01) | DRG 177 ==
LOC: ED 12:32 → SUATTDRO 15:51 → EDINP 15:51 → 2N 20:26
DX: F32.A Depression, unspecified; I69.354 Hemiplegia and hemiparesis following cerebral infarction affecting left non-dominant side; I69.322 Dysarthria following cerebral infarction; E88.81 Metabolic syndrome and other insulin resistance; I25.10 Atherosclerotic heart disease of native coronary artery without angina pectoris; R09.02 Hypoxemia; Z79.82 Long term (current) use of aspirin; I10 Essential (primary) hypertension; Z83.3 Family history of diabetes mellitus; R19.7 Diarrhea, unspecified; Z93.1 Gastrostomy status; Z79.02 Long term (current) use of antithrombotics/antiplatelets; Z99.81 Dependence on supplemental oxygen; Z66 Do not resuscitate; L89.152 Pressure ulcer of sacral region, stage 2; E03.9 Hypothyroidism, unspecified; G93.41 Metabolic encephalopathy; J69.0 Pneumonitis due to inhalation of food and vomit; I69.391 Dysphagia following cerebral infarction; J40 Bronchitis, not specified as acute or chronic; G40.909 Epilepsy, unspecified, not intractable, without status epilepticus

== ENCOUNTER 2021-07-27 06:58 | Inpatient (IN) ==
[2021-07-27] MEDS ORDERED: ERTAPENEM SODIUM 10 ML IV STA (07:19)
[2021-07-27] MEDS ORDERED: SODIUM CHLORIDE 0.9% 1000ML 1,000 ML IV SCH (07:30)
[2021-07-27 08:07] LABS: Appearance Urine Slightly Cloudy (Clear); Bilirubin Urine Negative (Negative); Blood Urine 3+ (Negative); Color Urine Yellow; Glucose Urine UA Negative (Negative); Ketones Urine Trace (Negative); Leukocyte Esterase Urine Negative (Negative); Nitrite Urine Negative (Negative); Protein Urine 2+ (Negative); Specific Gravity Urine >= 1.030 (1.000-1.030); Urobilinogen Urine Negative (Negative)
[2021-07-27 08:19] LABS: Bacteria Urine 1+ (Negative); Epithelial Cell Urine 0-5 /lpf (0-5); RBC Urine >30 /hpf (0-4)
[2021-07-27 08:20] LABS: Calcium Oxalate Crystals Urine Present (None Prsent)
[2021-07-27 08:24] LABS: Hematocrit (blood only) 41.7 % (42-52); Hemoglobin 12.7 g/dL (14.0-18.0); Mean Corpuscular Hemoglobin 32.4 pg (25-34); Mean Corpuscular Hgb Conc 30.5 g/dL (32-36); Mean Corpuscular Volume 106.4 fL (80-100); Mean Platelet Volume 11.5 fL (7.4-10.4); Platelet Count 172 K/uL (130-400); RDW Coefficient of Variation 15.6 % (11.5-14.5); RDW Standard Deviation 60.5 fL (36.4-46.3); Red Blood Count 3.92 M/uL (4.7-6.1); White Blood Count 18.15 K/uL (4.8-10.8)
--- NOTE | 2021-07-27 08:32 | XRay Report ---
XR chest 1V portable CLINICAL HISTORY: SEPSIS. Evaluate cardiopulmonary status COMPARISON STUDY: 07/11/2021 TECHNIQUE: 1 view of the chest FINDINGS: Single frontal view of the chest demonstrates the cardiomediastinal silhouette to be within normal li mits. There is a decreased inspiratory effort with elevation of the hemidiaphragms and crowding of th e bronchovascular markings at the lung bases and centrally. There is also minimal bibasilar atelectas is. The lungs are otherwise clear of alveolar opacities. There is no evidence for pleural effusion. T here is no evidence for vascular congestion. There is no acute osseous pathology. IMPRESSION: There is a decreased inspiratory effort with minimal bibasilar atelectasis. Otherwise no acute chest disease. ACT 112: Negative or not required by law. Electronically signed by: Eric Boyle M.D. 07/27/2021 8:30 AM
[2021-07-27 08:34] LABS: Partial Thromboplastin Ratio 0.8; Partial Thromboplastin Time 21.4 Seconds (21.0-31.0); Prothrombin Time 10.1 Seconds (9.0-12.0)
[2021-07-27 08:43] LABS: Albumin Level 2.5 gm/dl (3.4-5.0); Calcium 8.8 mg/dl (8.5-10.1); Creatinine Clr Calc Pharmacy 177.3 ml/min; Est GFR (African American) 121.5 ml/min; Est GFR (Non-African American) 104.8 ml/min; Magnesium 2.4 mg/dl (1.8-2.4); Potassium 4.1 mmol/L (3.5-5.1)
[2021-07-27 08:50] LABS: Albumin Globulin Ratio 0.7 (0.9-2); Globulin 3.7 gm/dl (2.5-4.0); Total Protein 6.2 gm/dl (6.4-8.2); Troponin I 0.066 ng/ml (0-0.045)
[2021-07-27 08:51] LABS: Influenza A virus by PCR Negative (Neg); Influenza B virus by PCR Negative (Neg); RSV by PCR Negative (Neg); SARS CoV2 RNA(COVID-19) InHosp NEGATIVE (Negative)
--- NOTE | 2021-07-27 08:55 | Emergency Department Note ---
History of Present Illness General Chief complaint: Illness Stated complaint: DECREASED MENTAL STATUS, DECLINE IN HEALTH Time Seen by Provider: 07/27/21 07:16 History of Present Illness Maximum Pain Intensity: 5 70-year-old male presents to the ED with a chief complaint of generalized wea kness and a continual decline since being discharged 10 days ago. History obtained by the . She reports that he has a history of aspiration and UTI with increasing shortness of breath recently. He has had a fever as high as 101.6. He has ongoing diarrhea about every 4 hours. The patient typically use 2 L of oxygen at home but now requires 3 L to keep his oxygen saturations above 90%. She reports that he has been bedbound for 3 years and has a PEG tube. He is currently n.p.o. because of aspiration risk. She states that when he was discharged he was only on 2 L of oxygen and was more alert than he is now. There are 2 caregivers are at home. He does have an indwelling Baca catheter. She also reports a stage II decubitus ulcer. Patient provides no information other than when asked about pain, he states his buttock hurts where he has his ulcer. Home Medications Medication Instructions Recorded Confirmed Type clopidogrel 75 mg tablet (Plavix) 75 mg FEEDING TUBE DAILY 04/18/18 07/27/21 History escitalopram oxalate 10 mg tablet 10 mg FEEDING TUBE DAILY 04/18/18 07/27/21 History (Lexapro) escitalopram oxalate 20 mg tablet 20 mg FEEDING TUBE DAILY 04/18/18 07/27/21 History (Lexapro) gabapentin 100 mg capsule 200 mg FEEDING TUBE TID 04/18/18 07/27/21 History hydralazine 25 mg tablet 25 mg FEEDING TUBE BID 04/18/18 07/27/21 History hydrocodone 5 mg-acetaminophen 325 1 tab FEEDING TUBE Q4H PRN 04/18/18 07/27/21 History mg tablet nitroglycerin 0.4 mg sublingual 0.4 mg SUBLINGUAL DIRECTED PRN 04/18/18 07/27/21 History tablet atropine 1 % eye drops (Isopto 2 drp SUBLINGUAL UD PRN 09/20/18 07/27/21 History Atropine) lactose-reduced food-fiber 0.07 100 ml FEEDING TUBE DAILY 09/20/18 07/27/21 History gram-1.5 kcal/mL liquid for tube feed (Isosource 1.5 Billy) levothyroxine 100 mcg tablet 100 mcg FEEDING TUBE DAILY 09/20/18 07/27/21 History (Synthroid) lisinopril 20 mg tablet 20 mg FEEDING TUBE DAILY 04/20/20 07/27/21 History acetaminophen 500 mg tablet 1,000 mg PO Q6H PRN 07/11/21 07/27/21 History (Tylenol Extra Strength) aspirin 81 mg chewable tablet 81 mg FEEDING TUBE DAILY 07/11/21 07/27/21 History atorvastatin 40 mg tablet 40 mg FEEDING TUBE HS 07/11/21 07/27/21 History diphenhydramine 25 1 tab PO HS 07/11/21 07/27/21 History mg-acetaminophen 500 mg tablet (Tylenol PM Extra Strength) famotidine 10 mg tablet 10 mg FEEDING TUBE BID 07/11/21 07/27/21 History levetiracetam 100 mg/mL oral 500 mg FEEDING TUBE BID 07/11/21 07/27/21 History solution lorazepam 0.5 mg tablet 0.5 mg FEEDING TUBE TID PRN 07/11/21 07/27/21 History magnesium oxide 400 mg FEEDING TUBE DAILY 07/11/21 07/27/21 History metformin 500 mg tablet 500 mg FEEDING TUBE BID 07/11/21 07/27/21 History metronidazole 500 mg tablet 500 mg PO BID 07/27/21 07/27/21 History sennosides 8.6 mg tablet (senna) 8.6 mg PO BID 07/27/21 07/27/21 History Allergies Allergy/AdvReac Type Severity Reaction Status Date / Time Penicillins Allergy Intermediate RASH Verified 07/27/21 07:49 Past Med/Surg History Medical History Anxiety Basilar artery occlusion CAD, multiple vessel Coronary artery disease CVA (cerebral infarction) "BA occlusion with b/l TIMBER POISONER territory infarcts, right thalamic infarct, hippocampi infarcts 01/03/14." Depression Dyslipidemia Dysphasia Gastroparesis GERD (gastroesophageal reflux disease) Hemiparesis affecting left side as late effect of cerebrovascular accident History of ischemic vertebrobasilar artery brainstem stroke Hypertension Hypertension Hypothyroidism Insulin resistance Neuropathy Seizure Surgical History History of tonsillectomy and adenoidectomy Previous back surgery S/P percutaneous endoscopic gastrostomy (PEG) tube placement Family History Father Colorectal cancer Hypertension Diabetes Mother Diabetes Mother Hypertension Social History Smoking Status: Never smoker Second Hand Exposure: No; Hx Alcohol Use: No Hx Substance Use: No Preferred Language: Yi Communication Ability: Impaired Ux Engineer Required: No Beliefs That Will Affect Care: None marital status: Current Living Situation: Spouse Current Living Situation Comment: At home with spouse and caregivers Feels Safe at Home: Yes Assistive Devices: Oxygen - Continuous Review of Systems A total of 10 systems reviewed and were otherwise negative Physical Exam Vital Signs Vital Signs - 24 hr 07/27/21 07:00 07/27/21 08:00 07/27/21 08:30 Temperature 38.0 C H Temperature Source Oral Pulse Rate 82 82 80 Pulse Rate [Left] Pulse Rate from SpO2 Sensor 83 81 Pulse Rhythm Regular Pulse Strength Normal Respiratory Rate 22 27 H 29 H Respiratory Effort / Characteristics Grunting Labored Respiratory Pattern Irregular Blood Pressure 163/84 H 153/86 H 175/88 H Blood Pressure [Right Arm] Blood Pressure Mean 110 108 117 Blood Pressure Mean [Right Arm] Blood Pressure Position Sitting Blood Pressure Position [Right Arm] Pulse Oximetry 95 94 97 Oxygen Delivery Method Nasal Cannula Oxygen Flow Rate 3 Sepsis Recent Fever Within 48 Hours Yes Sepsis New/Unexplained Change in Mental Status No Sepsis Action Taken by Nursing No Action Required 07/27/21 09:00 07/27/21 09:30 07/27/21 11:00 Temperature Temperature Source Pulse Rate 82 Pulse Rate [Left] 79 80 Pulse Rate from SpO2 Sensor 83 Pulse Rhythm Pulse Strength Respiratory Rate 27 H 26 H 22 Respiratory Effort / Characteristics Respiratory Pattern Blood Pressure 169/94 H Blood Pressure [Right Arm] 182/84 H 164/88 H Blood Pressure Mean 119 Blood Pressure Mean [Right Arm] 116 113 Blood Pressure Position Blood Pressure Position [Right Arm] Sitting Sitting Pulse Oximetry 96 95 96 Oxygen Delivery Method Nasal Cannula Nasal Cannula Oxygen Flow Rate 3 3 Sepsis Recent Fever Within 48 Hours Sepsis New/Unexplained Change in Mental Status Sepsis Action Taken by Nursing CONSTITUTIONAL/VITAL SIGNS: Reviewed / noted above. GENERAL: Non-toxic in appearance. Chronically ill-appearing and bedbound. INTEGUMENTARY: Warm, dry, and Winger. HEAD: Normocephalic. EYES: without scleral icterus or trauma. ENT/OROPHARYNX: clear and moist. RESPIRATORY: Clear to auscultation bilaterally but diminished No increased work of breathing. CARDIOVASCULAR: Regular rate and rhythm. GI/ABDOMEN: Soft and nontender. No organomegaly or pulsatile mass. PEG tube. Baca catheter. EXTREMITIES: Warm and well perfused. Chronic edema but better than baseline according to . NEUROLOGICAL: Chronic weakness. Bedbound. Responds verbally but does not move his extremities. MUSCULOSKELETAL: No trauma. TRIAGE NURSING DOCUMENTATION REVIEWED. Course Administered Medications Discontinued Medications Hydrocodone Bitart/Acetaminophen (Hydrocodone/Acetamophen 5/325mg Tab) 1 tab PO NOW STA Stop: 07/27/21 08:57 Last Admin: 07/27/21 09:17 Dose: 1 tab Documented by: [id number] Sodium Chloride (Nss 1000ml) 1,000 mls @ 999 mls/hr IV .Q1H1M PAVITHRA Stop: 07/27/21 08:30 Last Infusion: 07/27/21 08:50 Dose: 0 mls/hr Documented by: [id number] Admin: 07/27/21 07:53 Dose: 999 mls/hr Documented by: [id number] Ertapenem (Invanz) 10 mls @ 2 mls/min IV NOW STA Stop: 07/27/21 07:23 Last Admin: 07/27/21 08:52 Dose: 2 mls/min Documented by: [id number] Medical Decision Making Differential Diagnosis Differential includes acute coronary syndrome, myocardial infarction, CVA, TIA, anemia, infection, pneumonia, UTI, pyelonephritis, poor nutrition, dehydration, electrolyte disturbance,hypoglycemia. Medical Records Attestation: I reviewed the patient's medical records. Home Medications Current Medication List: was personally reviewed by me Laboratory Data Attestation: I reviewed the patient's lab results. Result diagrams: 07/27/21 08:13 07/27/21 08:13 Lab Results 07/27/21 07/27/21 07/27/21 Range/Units 08:00 08:00 08:13 WBC 18.15 H (4.8-10.8) K/uL RBC 3.92 L (4.7-6.1) M/uL Hgb 12.7 L (14.0-18.0) g/dL Hct 41.7 L (42-52) % MCV 106.4 H (80-100) fL MCH 32.4 (25-34) pg MCHC 30.5 L (32-36) g/dL RDW Std Deviation 60.5 H (36.4-46.3) fL RDW Coeff of Albert 15.6 H (11.5-14.5) % Plt Count 172 (130-400) K/uL MPV 11.5 H (7.4-10.4) fL Neutrophils % (Manual) 44.7 % Lymphocytes % (Manual) 45.7 % Monocytes % (Manual) 7.0 % Eosinophils % (Manual) 2.6 % Neutrophils # (Manual) 8.11 H (1.4-6.5) K/uL Total Absolute Neuts 8.11 H (1.4-6.5) K/uL Lymphocytes # (Manual) 8.29 H (1.2-3.4) K/uL Total Abs Lymphocytes 8.29 H (1.2-3.4) K/uL Monocytes # (Manual) 1.27 H (0.11-0.59) K/uL Eosinophils # (Manual) 0.47 (0-0.5) K/uL PT (9.0-12.0) Seconds INR (0.9-1.1) APTT (21.0-31.0) Seconds PTT Ratio Sodium (136-145) mmol/L Potassium (3.5-5.1) mmol/L Chloride (98-107) mmol/L Carbon Dioxide (21-32) mmol/L Anion Gap (3-11) BUN (7-18) mg/dl Creatinine (0.6-1.4) mg/dl Est Cr Clr Drug Dosing ml/min Est GFR ( Amer) ml/min Est GFR (Non-Af Amer) ml/min BUN/Creatinine Ratio (10-20) Glucose (70-99) mg/dl Lactate (0.4-2.0) mmol/L Calcium (8.5-10.1) mg/dl Magnesium (1.8-2.4) mg/dl Total Bilirubin (0.2-1) mg/dl AST (15-37) U/L ALT (12-78) Alkaline Phosphatase (45-117) U/L Troponin I (0-0.045) ng/ml Total Protein (6.4-8.2) gm/dl Albumin (3.4-5.0) gm/dl Globulin (2.5-4.0) gm/dl Albumin/Globulin Ratio (0.9-2) Procalcitonin (0-0.5) ng/ml Urine Color Yellow Urine Appearance Slightly Cloudy (Clear) Urine pH 5.0 (4.5-7.5) Ur Specific Prospect >= 1.030 (1.000-1.030) Urine Protein 2+ H (Negative) Urine Glucose (UA) Negative (Negative) Urine Ketones Trace H (Negative) Urine Blood 3+ H (Negative) Urine Nitrite Negative (Negative) Urine Bilirubin Negative (Negative) Urine Urobilinogen Negative (Negative) Ur Leukocyte Esterase Negative (Negative) Urine RBC >30 H (0-4) /hpf Urine WBC 5-10 H (0-5) /hpf Ur Epithelial Cells 0-5 (0-5) /lpf Calcium Oxalate Crystal Present A (None Prsent) Urine Bacteria 1+ H (Negative) SARS-CoV-2 (PCR) NEGATIVE (Negative) Influenza Type A (PCR) Negative (Neg) Influenza Type B (PCR) Negative (Neg) RSV (RT-PCR) Negative (Neg) 07/27/21 07/27/21 07/27/21 Range/Units 08:13 08:13 08:13 WBC (4.8-10.8) K/uL RBC (4.7-6.1) M/uL Hgb (14.0-18.0) g/dL Hct (42-52) % MCV (80-100) fL MCH (25-34) pg MCHC (32-36) g/dL RDW Std Deviation (36.4-46.3) fL RDW Coeff of Albert (11.5-14.5) % Plt Count (130-400) K/uL MPV (7.4-10.4) fL Neutrophils % (Manual) % Lymphocytes % (Manual) % Monocytes % (Manual) % Eosinophils % (Manual) % Neutrophils # (Manual) (1.4-6.5) K/uL Total Absolute Neuts (1.4-6.5) K/uL Lymphocytes # (Manual) (1.2-3.4) K/uL Total Abs Lymphocytes (1.2-3.4) K/uL Monocytes # (Manual) (0.11-0.59) K/uL Eosinophils # (Manual) (0-0.5) K/uL PT 10.1 (9.0-12.0) Seconds INR 1.0 (0.9-1.1) APTT 21.4 (21.0-31.0) Seconds PTT Ratio 0.8 Sodium 144 (136-145) mmol/L Potassium 4.1 (3.5-5.1) mmol/L Chloride 109 H (98-107) mmol/L Carbon Dioxide 32 (21-32) mmol/L Anion Gap 3.0 (3-11) BUN 24 H (7-18) mg/dl Creatinine 0.56 L (0.6-1.4) mg/dl Est Cr Clr Drug Dosing 177.3 ml/min Est GFR ( Amer) 121.5 ml/min Est GFR (Non-Af Amer) 104.8 ml/min BUN/Creatinine Ratio 43.0 H (10-20) Glucose 144 H (70-99) mg/dl Lactate 1.4 (0.4-2.0) mmol/L Calcium 8.8 (8.5-10.1) mg/dl Magnesium 2.4 (1.8-2.4) mg/dl Total Bilirubin 0.2 (0.2-1) mg/dl AST 18 (15-37) U/L ALT 18 (12-78) Alkaline Phosphatase 57 (45-117) U/L Troponin I 0.066 H* (0-0.045) ng/ml Total Protein 6.2 L (6.4-8.2) gm/dl Albumin 2.5 L (3.4-5.0) gm/dl Globulin 3.7 (2.5-4.0) gm/dl Albumin/Globulin Ratio 0.7 L (0.9-2) Procalcitonin (0-0.5) ng/ml Urine Color Urine Appearance (Clear) Urine pH (4.5-7.5) Ur Specific Prospect (1.000-1.030) Urine Protein (Negative) Urine Glucose (UA) (Negative) Urine Ketones (Negative) Urine Blood (Negative) Urine Nitrite (Negative) Urine Bilirubin (Negative) Urine Urobilinogen (Negative) Ur Leukocyte Esterase (Negative) Urine RBC (0-4) /hpf Urine WBC (0-5) /hpf Ur Epithelial Cells (0-5) /lpf Calcium Oxalate Crystal (None Prsent) Urine Bacteria (Negative) SARS-CoV-2 (PCR) (Negative) Influenza Type A (PCR) (Neg) Influenza Type B (PCR) (Neg) RSV (RT-PCR) (Neg) 07/27/21 Range/Units 08:13 WBC (4.8-10.8) K/uL RBC (4.7-6.1) M/uL Hgb (14.0-18.0) g/dL Hct (42-52) % MCV (80-100) fL MCH (25-34) pg MCHC (32-36) g/dL RDW Std Deviation (36.4-46.3) fL RDW Coeff of Albert (11.5-14.5) % Plt Count (130-400) K/uL MPV (7.4-10.4) fL Neutrophils % (Manual) % Lymphocytes % (Manual) % Monocytes % (Manual) % Eosinophils % (Manual) % Neutrophils # (Manual) (1.4-6.5) K/uL Total Absolute Neuts (1.4-6.5) K/uL Lymphocytes # (Manual) (1.2-3.4) K/uL Total Abs Lymphocytes (1.2-3.4) K/uL Monocytes # (Manual) (0.11-0.59) K/uL Eosinophils # (Manual) (0-0.5) K/uL PT (9.0-12.0) Seconds INR (0.9-1.1) APTT (21.0-31.0) Seconds PTT Ratio Sodium (136-145) mmol/L Potassium (3.5-5.1) mmol/L Chloride (98-107) mmol/L Carbon Dioxide (21-32) mmol/L Anion Gap (3-11) BUN (7-18) mg/dl Creatinine (0.6-1.4) mg/dl Est Cr Clr Drug Dosing ml/min Est GFR ( Amer) ml/min Est GFR (Non-Af Amer) ml/min BUN/Creatinine Ratio (10-20) Glucose (70-99) mg/dl Lactate (0.4-2.0) mmol/L Calcium (8.5-10.1) mg/dl Magnesium (1.8-2.4) mg/dl Total Bilirubin (0.2-1) mg/dl AST (15-37) U/L ALT (12-78) Alkaline Phosphatase (45-117) U/L Troponin I (0-0.045) ng/ml Total Protein (6.4-8.2) gm/dl Albumin (3.4-5.0) gm/dl Globulin (2.5-4.0) gm/dl Albumin/Globulin Ratio (0.9-2) Procalcitonin 0.14 (0-0.5) ng/ml Urine Color Urine Appearance (Clear) Urine pH (4.5-7.5) Ur Specific Prospect (1.000-1.030) Urine Protein (Negative) Urine Glucose (UA) (Negative) Urine Ketones (Negative) Urine Blood (Negative) Urine Nitrite (Negative) Urine Bilirubin (Negative) Urine Urobilinogen (Negative) Ur Leukocyte Esterase (Negative) Urine RBC (0-4) /hpf Urine WBC (0-5) /hpf Ur Epithelial Cells (0-5) /lpf Calcium Oxalate Crystal (None Prsent) Urine Bacteria (Negative) SARS-CoV-2 (PCR) (Negative) Influenza Type A (PCR) (Neg) Influenza Type B (PCR) (Neg) RSV (RT-PCR) (Neg) Imaging Data Radiologist's Impression: Chest X-Ray 07/27/21 07:19 XR chest 1V portable CLINICAL HISTORY: SEPSIS. Evaluate cardiopulmonary status COMPARISON STUDY: 07/11/2021 TECHNIQUE: 1 view of the chest FINDINGS: Single frontal view of the chest demonstrates the cardiomediastinal silhouette to be within normal limits. There is a decreased inspiratory effort with elevation of the hemidiaphragms and crowding of the bronchovascular markings at the lung bases and centrally. There is also minimal bibasilar atelectasis. The lungs are otherwise clear of alveolar opacities. There is no evidence for pleural effusion. There is no evidence for vascular congestion. There is no acute osseous pathology. IMPRESSION: There is a decreased inspiratory effort with minimal bibasilar atelectasis. Otherwise no acute chest disease. ACT 112: Negative or not required by law. Electronically signed by: Eric Boyle M.D. 07/27/2021 8:30 AM ECG Data Attestation: I personally reviewed and interpreted this ECG as follows: Additional Comments: Twelve-lead EKG: Per my interpretation Shows a sinus rhythm at a rate of 80. There are ST depressions anterolaterally. No ST elevation. No PVCs. Normal QTC. MDM Narrative Patient presents to the ED with complaint of fever, increasing shortness of breath, weakness and generalized decline as well as multiple episodes of diarrhea daily, according to the . Details listed above. His vital signs reveal hypertension. He is febrile with a temperature of 38.3. He is on 3 L of nasal cannula oxygen at 95%. He has been using 3 L at home. Previously on 2 L. EKG shows sinus rhythm. No ST elevations. White blood cell count was 18. Complete metabolic panel was unremarkable. Lactic acid was negative. Troponin is 0.066. Procalcitonin is negative. Urine may or may not be infected. Covid and flu test are negative. Chest x-ray did not show acute process. Because of the patient's complex of symptoms, fever, weakness and generalized worsening. He will be seen by the hospitalist for further evaluation and care. He did not give a stool sample during his ED stay. Impression & Plan Fever, Diarrhea, Generalized weakness, UTI (urinary tract infection) Discharge Plan Visit Data Chief Complaint: Illness Stated Complaint: DECREASED MENTAL STATUS, DECLINE IN HEALTH ED Provider: Wes May Discharge Problem: Fever, Diarrhea, Generalized weakness, UTI (urinary tract infection) Patient Disposition: Being Evaluated by Hospitalist Forms Stand Alone Forms: My [facility] Prescriptions Prescriptions: No Action hydrocodone-acetaminophen 5-325 mg Tablet 1 tab Feeding Tube Q4H PRN (Reason: Outbreak) RF: 0 hydralazine 25 mg Tablet 25 mg Feeding Tube BID RF: 0 clopidogrel [Plavix] 75 mg Tablet 75 mg Feeding Tube DAILY RF: 0 nitroglycerin 0.4 mg Tablet, Sublingual 0.4 mg Sublingual DIRECTED PRN (Reason: Chest Pain) RF: 0 gabapentin 100 mg Capsule 200 mg Feeding Tube TID RF: 0 escitalopram oxalate [Lexapro] 10 mg Tablet 10 mg Feeding Tube DAILY RF: 0 escitalopram oxalate [Lexapro] 20 mg Tablet 20 mg Feeding Tube DAILY RF: 0 levothyroxine [Synthroid] 100 mcg tablet 100 mcg Feeding Tube DAILY RF: 0 atropine [Isopto Atropine] 1 % drops 2 drp Sublingual UD PRN (Reason: EXCESS SECRETIONS) RF: 0 Isosource 1.5 Billy 0.07 gram-1.5 kcal/mL Liquid 100 ml Feeding Tube DAILY RF: 0 lisinopril 20 mg tablet 20 mg feeding tube DAILY RF: 0 acetaminophen [Tylenol Extra Strength] 500 mg Tablet 1,000 mg PO Q6H PRN (Reason: Pain) RF: 0 diphenhydramine-acetaminophen [Tylenol PM Extra Strength] 25-500 mg Tablet 1 tab PO HS RF: 0 atorvastatin 40 mg tablet 40 mg feeding tube HS RF: 0 metformin 500 mg tablet 500 mg feeding tube BID RF: 0 famotidine 10 mg Tablet 10 mg feeding tube BID RF: 0 lorazepam 0.5 mg tablet 0.5 mg feeding tube TID PRN (Reason: Anxiety) RF: 0 aspirin 81 mg Tablet,Chewable 81 mg feeding tube DAILY RF: 0 levetiracetam 100 mg/mL solution 500 mg feeding tube BID RF: 0 magnesium oxide 400 mg magnesium Tablet 400 mg feeding tube DAILY RF: 0 sennosides [senna] 8.6 mg Tablet 8.6 mg PO BID RF: 0 metronidazole [Flagyl] 500 mg Tablet 500 mg PO BID RF: 0 Referrals Referrals: Juanito Tom MD [Primary Care Provider] -
[2021-07-27] MEDS ORDERED: HYDROCODONE/ACETAMOPHEN 5/325MG TAB PO STA (08:56)
[2021-07-27 09:12] LABS: ALC (manual) 8.29 K/uL (1.2-3.4); ANC (manual) 8.11 K/uL (1.4-6.5); Eosinophils # (manual) 0.47 K/uL (0-0.5); Eosinophils % (manual) 2.6 %; Lymphocytes # (manual) 8.29 K/uL (1.2-3.4); Lymphocytes % (manual) 45.7 %; Monocytes # (manual) 1.27 K/uL (0.11-0.59); Neutrophils # (manual) 8.11 K/uL (1.4-6.5); Neutrophils % (manual) 44.7 %
[2021-07-27 09:15] LABS: Bilirubin,Total 0.2 mg/dl (0.2-1)
--- NOTE | 2021-07-27 11:59 | Electrocardiogram Report ---
Test Reason : Blood Pressure : / mmHG Vent. Rate : 080 BPM Atrial Rate : 080 BPM P-R Int : 160 ms QRS Dur : 120 ms QT Int : 398 ms P-R-T Axes : 082 -36 087 degrees QTc Int : 459 ms Normal sinus rhythm with sinus arrhythmia Left axis deviation Non-specific intra-ventricular conduction delay Abnormal ECG When compared with ECG of 11-JUL-2021 12:50, Premature ventricular complexes are no longer Present Premature atrial complexes are no longer Present Questionable change in QRS duration Confirmed by Todd New ([id number]) on 07/27/2021 11:58:34 AM Referred By: REFERRED SELF Confirmed By:Todd New
--- NOTE | 2021-07-27 13:24 | History & Physical Report ---
Date of Service July 27, 2021 Assessment & Plan (1) Diarrhea: Plan: -Admit to telemetry -Patient presenting from home with reports of diarrhea, fever, altered mental status. Empirically started on metronidazole on 07/23 by PCP for concerns for C. difficile. -In the ED, WBC 18 K, low-grade fever 38.0. Patient does not appear septic. -Stool panel and C. difficile pending -Abdomen soft, nontender. Hold on CT ABD/pelvis for now (2) CAD, multiple vessel: (3) Elevated troponin: Plan: -History of multivessel CAD per cardiac cath in 2013 -Troponin 0.06, EKG shows new/worsening T wave inversions in anterior lateral leads -No reports of chest pain -Trend troponin, check resting echo -Continue ASA, Plavix, statin (4) Abnormal urinalysis: Plan: -UA abnormal however does not strongly suggest UTI -During recent admission, patient's urine culture grew pansensitive E. coli for which she completed appropriate antibiotic course for -Given concerns for C. difficile, will hold on starting antibiotics at this time -Follow culture (5) DM type 2 (diabetes mellitus, type 2): Plan: -Hgb A1c 5.7 07/2021 -Hold metformin and utilize NovoLog per protocol while hospitalized (6) CVA (cerebral infarction): Plan: -History of, with left hemiplegia and PEG tube dependence -Continue Plavix, ASA, and statin (7) Hypertension: Plan: -BP controlled, continue hydralazine and lisinopril (8) History of seizure disorder: Plan: -Continue Keppra (9) Hypothyroidism: Plan: -Continue levothyroxine (10) DVT prophylaxis: Plan: -SQ Lovenox History of Present Illness Chief Complaint: Fever, altered mental status Primary Care Provider: Juanito Tom MD 70-year-old male with PMH history of CVA with left hemiplegia and PEG tube dependence, multivessel CAD, history of seizure disorder, DM type II, HTN, hypothyroidism, and other problems to below who presents the ED for evaluation of fever and altered mental status. Patient recently admitted to [facility] 07/11 through 07/17 for aspiration pneumonia/bronchitis and UTI. Urine culture grew E. coli. Patient was initially treated with Zosyn and transitioned to Augmentin. is at the bedside who provides some history. She reports that shortly after returning home, patient developed diarrhea. She reports multiple episodes per day. Describes stools as mucousy. Patient's called PCP who ordered vancomycin for concern for C. difficile however due to limited pharmacy availability, patient was started on metronidazole on 07/23. Patient has been running intermittent fever over the past 2 to 3 days. notes increased lethargy and confusion. No reports of abdominal pain, nausea, vomiting. Denies chest pain or shortness of breath. Baca catheter has remained in place since previous admission. reports urine has been relatively clear. In the ED, patient has a low-grade temp of 38.0. Labs show WBC 18 K, troponin 0.06. EKG shows worsening/new to inversions in the anterior and lateral leads. Patient was given IV ertapenem, IVF, Vicodin. Allergies Allergy/AdvReac Type Severity Reaction Status Date / Time Penicillins Allergy Intermediate RASH Verified 07/27/21 07:49 Home Medications Medication Instructions Recorded Confirmed Type clopidogrel 75 mg tablet (Plavix) 75 mg FEEDING TUBE DAILY 04/18/18 07/27/21 History escitalopram oxalate 10 mg tablet 10 mg FEEDING TUBE DAILY 04/18/18 07/27/21 History (Lexapro) escitalopram oxalate 20 mg tablet 20 mg FEEDING TUBE DAILY 04/18/18 07/27/21 History (Lexapro) gabapentin 100 mg capsule 200 mg FEEDING TUBE TID 04/18/18 07/27/21 History hydralazine 25 mg tablet 25 mg FEEDING TUBE BID 04/18/18 07/27/21 History hydrocodone 5 mg-acetaminophen 325 1 tab FEEDING TUBE Q4H PRN 04/18/18 07/27/21 History mg tablet nitroglycerin 0.4 mg sublingual 0.4 mg SUBLINGUAL DIRECTED PRN 04/18/18 07/27/21 History tablet atropine 1 % eye drops (Isopto 2 drp SUBLINGUAL UD PRN 09/20/18 07/27/21 History Atropine) lactose-reduced food-fiber 0.07 100 ml FEEDING TUBE DAILY 09/20/18 07/27/21 History gram-1.5 kcal/mL liquid for tube feed (Isosource 1.5 Billy) levothyroxine 100 mcg tablet 100 mcg FEEDING TUBE DAILY 09/20/18 07/27/21 History (Synthroid) lisinopril 20 mg tablet 20 mg FEEDING TUBE DAILY 04/20/20 07/27/21 History acetaminophen 500 mg tablet 1,000 mg PO Q6H PRN 07/11/21 07/27/21 History (Tylenol Extra Strength) aspirin 81 mg chewable tablet 81 mg FEEDING TUBE DAILY 07/11/21 07/27/21 History atorvastatin 40 mg tablet 40 mg FEEDING TUBE HS 07/11/21 07/27/21 History diphenhydramine 25 1 tab PO HS 07/11/21 07/27/21 History mg-acetaminophen 500 mg tablet (Tylenol PM Extra Strength) famotidine 10 mg tablet 10 mg FEEDING TUBE BID 07/11/21 07/27/21 History levetiracetam 100 mg/mL oral 500 mg FEEDING TUBE BID 07/11/21 07/27/21 History solution lorazepam 0.5 mg tablet 0.5 mg FEEDING TUBE TID PRN 07/11/21 07/27/21 History magnesium oxide 400 mg FEEDING TUBE DAILY 07/11/21 07/27/21 History metformin 500 mg tablet 500 mg FEEDING TUBE BID 07/11/21 07/27/21 History metronidazole 500 mg tablet 500 mg PO BID 07/27/21 07/27/21 History sennosides 8.6 mg tablet (senna) 8.6 mg PO BID 07/27/21 07/27/21 History Past Med/Surg History Medical History (Updated 07/27/21 @ 13:22 by MEET Matthews) Anxiety Basilar artery occlusion CAD, multiple vessel cardiac cath 2013 - 70% distal left main stenosis, 90% ostial LAD stenosis, 90% mid LAD stenosis, 80% diagonal branch vessel stenosis, 80% ostial left circumflex stenosis, 100% mid right coronary artery stenosis. Coronary artery disease CVA (cerebral infarction) "BA occlusion with b/l PATIENT ESCORT territory infarcts, right thalamic infarct, hippocampi infarcts 01/03/14." Depression DM type 2 (diabetes mellitus, type 2) Dyslipidemia Dysphasia Gastroparesis GERD (gastroesophageal reflux disease) Hemiparesis affecting left side as late effect of cerebrovascular accident History of ischemic vertebrobasilar artery brainstem stroke History of seizure disorder Hypertension Hypothyroidism Neuropathy Seizure Surgical History History of tonsillectomy and adenoidectomy Previous back surgery S/P percutaneous endoscopic gastrostomy (PEG) tube placement Family History Father Colorectal cancer Hypertension Diabetes Mother Diabetes Mother Hypertension Social History Smoking Status: Never smoker Second Hand Exposure: No; Do You Dip or Chew Tobacco: No; Hx Alcohol Use: No Hx Substance Use: No Preferred Language: Lithuanian Communication Ability: Impaired Communication Ability Comment: post CVA Customer Services Supervisor Required: No Beliefs That Will Affect Care: None marital status: Current Living Situation: Spouse Current Living Situation Comment: At home with spouse and caregivers Other Information That Helps Us Care for You: No Feels Safe at Home: Yes Safety Concerns: Feels Safe At This Time Assistive Devices: Oxygen - Continuous Review of Systems Review of Systems: Unable to be obtained from patient due to mental status Physical Exam Constitutional: WD/WN, vitals as above + obese; no acute distress Eyes: PERRL, conjunctivae normal, anicteric sclerae ENMT: external ear and nose normal, oropharynx normal Respiratory: normal respiratory effort; no respiratory distress Auscultation: + diminished lung sounds Cardiovascular: Rate/Rhythm: regular rate and regular rhythm Vessels: normal peripheral pulses Extremities: no edema Gastrointestinal (Abdomen): normal bowel sounds, soft, nontender, no hepatosplenomegaly PEG tube in place Musculoskeletal: Extremities: no cyanosis and no clubbing Left hemiplegia, bilateral foot drop Skin: no rashes, warm and dry Neurologic: Speech / Cognition: normal speech Cranial Nerves: PERRL, normal accommodation and EOM intact bilaterally; + abnormal facial strength (Left facial droop) Psychiatric: Orientation: alert and oriented to person; + not oriented to place and + not oriented to time Results & Data Results & Data ([facility]) Vital Signs (Past 12 Hours) Vital Signs Temp Pulse Pulse Resp BP BP Pulse Ox 07/27/21 12:33 37.1 C 80 18 160/84 H 96 07/27/21 12:00 79 18 146/102 H 98 07/27/21 11:00 37.2 C 80 22 164/88 H 96 07/27/21 09:30 82 26 H 169/94 H 95 07/27/21 09:00 79 27 H 182/84 H 96 07/27/21 08:30 80 29 H 175/88 H 97 07/27/21 08:00 82 27 H 153/86 H 94 07/27/21 07:00 38.0 C H 82 22 163/84 H 95 Laboratory Results Short CBC 07/27/21 Range/Units 08:13 WBC 18.15 H (4.8-10.8) K/uL Hgb 12.7 L (14.0-18.0) g/dL Hct 41.7 L (42-52) % Plt Count 172 (130-400) K/uL BMP 07/27/21 08:13 Sodium 144 Potassium 4.1 Chloride 109 H Carbon Dioxide 32 BUN 24 H Creatinine 0.56 L Glucose 144 H Calcium 8.8 Cardiac Enzymes 07/27/21 Range/Units 08:13 Troponin I 0.066 H* (0-0.045) ng/ml Liver Function 07/27/21 Range/Units 08:13 Total Bilirubin 0.2 (0.2-1) mg/dl AST 18 (15-37) U/L ALT 18 (12-78) Alkaline Phosphatase 57 (45-117) U/L Albumin 2.5 L (3.4-5.0) gm/dl Urine 07/27/21 Range/Units 08:00 Urine Color Yellow Urine Appearance Slightly Cloudy (Clear) Urine pH 5.0 (4.5-7.5) Ur Specific [place] >= 1.030 (1.000-1.030) Urine Protein 2+ H (Negative) Urine Glucose (UA) Negative (Negative) Diagnostic Findings Chest X-Ray 07/27/21 07:19 XR chest 1V portable CLINICAL HISTORY: SEPSIS. Evaluate cardiopulmonary status COMPARISON STUDY: 07/11/2021 TECHNIQUE: 1 view of the chest FINDINGS: Single frontal view of the chest demonstrates the cardiomediastinal silhouette to be within normal limits. There is a decreased inspiratory effort with elevation of the hemidiaphragms and crowding of the bronchovascular markings at the lung bases and centrally. There is also minimal bibasilar atelectasis. The lungs are otherwise clear of alveolar opacities. There is no evidence for pleural effusion. There is no evidence for vascular congestion. There is no acute osseous pathology. IMPRESSION: There is a decreased inspiratory effort with minimal bibasilar atelectasis. Otherwise no acute chest disease. ACT 112: Negative or not required by law. Electronically signed by: Eric Boyle M.D. 07/27/2021 8:30 AM Code Status & VTE Plan Code Status Patient is a DNR as per POLST form and discussion with patient's . VTE Prophylaxis Plan VTE Prophylaxis will be ordered: Yes Supervising Physician Co-Signing Physician Notes Attending Addendum: care coordinated with MEET Reyes please refer to her notes for full details, I agree with her notes patient seen and examined, records reviewed by myself as well on exam, patient seen resting in bed, comfortable not in distress, on 2 L NC awake, denies pain, dyspnea no other symptoms VS noted and reviewed alert, not in distress, speaks in sentences with no effort nor accessory muscle use normal rate, regular rhythm, no murmurs clear breath sounds bilaterally non distended, soft, nontender, peg tube in place no bipedal edema, erythema, warmth no neuro deficits WBC 18 Hg 12 Crea 0.5 CXR: IMPRESSION: There is a decreased inspiratory effort with minimal bibasilar atelectasis. Otherwise no acute chest disease. ASSESSMENT AND PLAN> DIARRHEA seems be ongoing since last admission stool cultures and C diff pending monitor closely HISTORY OF CAD monitor troponin other diagnoses and plan of care as per CNRP Twila Reyes's notes Kg Somers MD
[2021-07-27] MEDS ORDERED: GLUCOSE 40% GEL 15 GM TUBE PO PRN (13:45)
[2021-07-27] MEDS ORDERED: DEXTROSE 50% 50 ML SYRINGE IV PRN (13:45)
[2021-07-27] MEDS ORDERED: HYDROCODONE/ACETAMOPHEN 5/325MG TAB PO PRN (13:45)
[2021-07-27] MEDS ORDERED: GLUCOSE 10 TABS/TUBE PO PRN (13:45)
[2021-07-27] MEDS ORDERED: CARBOHYDRATES FOR HYPOGLYCEMIA PO PRN (13:45)
[2021-07-27] MEDS ORDERED: GLUCAGON FOR INJ 1 MG VIAL SQ PRN (13:45)
[2021-07-27] MEDS: GABAPENTIN 250 MG/5 ML 470 ML BTL PEG SCH ×2 (15:54→20:27)
[2021-07-27] MEDS: INSULIN ASPART PER UNIT SC SCH ×2 (17:27→20:28)
[2021-07-27] MEDS: SODIUM CHLORIDE 0.9% 1000ML 1,000 ML IV SCH (18:02)
[2021-07-27 18:43] LABS: Adenovirus F 40/41 PCR Not Detected (NotDetected); Astrovirus PCR Not Detected (NotDetected); Campylobacter PCR Not Detected (NotDetected); Clostridium diff Toxin A/B PCR Not Detected (NotDetected); Cryptosporidium PCR Not Detected (NotDetected); Cyclospora cayetanensis PCR Not Detected (NotDetected); Entamoeba histolytica PCR Not Detected (NotDetected); Enteroaggregative E.coli(EAEC) Not Detected (NotDetected); Enteropathogenic E.coli (EPEC) Not Detected (NotDetected); Enterotoxigenic E.coli (ETEC) Not Detected (NotDetected); Giardia lamblia PCR Not Detected (NotDetected); Norovirus GI/GII PCR Not Detected (NotDetected); Plesiomonas shigelloides PCR Not Detected (NotDetected); Rotavirus A PCR Not Detected (NotDetected); Salmonella PCR Not Detected (NotDetected); Sapovirus PCR Not Detected (NotDetected); Shiga-like Toxin E.coli (STEC) Not Detected (NotDetected); Shigella/Enteroinvasive E.coli Not Detected (NotDetected); Vibrio cholerae PCR Not Detected (NotDetected); Vibrio species PCR Not Detected (NotDetected); Yersinia enterocolitica PCR Not Detected (NotDetected)
[2021-07-27] MEDS ORDERED: PEPTAMEN 1.5 CAL 1,000 ML BAG PEG SCH (19:15)
[2021-07-27] MEDS: ENOXAPARIN INJ 40 MG/0.4 ML SYR SQ SCH (20:26)
[2021-07-27] MEDS: ATORVASTATIN 40 MG TAB PEG SCH (20:27)
[2021-07-27] MEDS: hydrALAZINE HCL 25 MG TAB PEG SCH (20:27)
[2021-07-27] MEDS: FAMOTIDINE 10 MG TABLET PO SCH (20:27)
[2021-07-27] MEDS: TUBE FEEDING WATER FLUSH PEG SCH (20:28)
[2021-07-28] MEDS: TUBE FEEDING WATER FLUSH PEG SCH ×7 (00:09→23:25)
[2021-07-28] MEDS: SODIUM CHLORIDE 0.9% 1000ML 1,000 ML IV SCH ×2 (04:32→15:13)
[2021-07-28] MEDS: LEVOTHYROXINE SODIUM 100 MCG TABLET GT SCH (05:26)
[2021-07-28 07:27] LABS: Hematocrit (blood only) 38.9 % (42-52); Hemoglobin 11.8 g/dL (14.0-18.0); Mean Corpuscular Hemoglobin 32.2 pg (25-34); Mean Corpuscular Hgb Conc 30.3 g/dL (32-36); Mean Corpuscular Volume 106.3 fL (80-100); Mean Platelet Volume 11.5 fL (7.4-10.4); Platelet Count 134 K/uL (130-400); RDW Coefficient of Variation 15.5 % (11.5-14.5); RDW Standard Deviation 60.8 fL (36.4-46.3); Red Blood Count 3.66 M/uL (4.7-6.1); White Blood Count 14.31 K/uL (4.8-10.8)
--- NOTE | 2021-07-28 07:51 | Electrocardiogram Report ---
Test Reason : Blood Pressure : / mmHG Vent. Rate : 075 BPM Atrial Rate : 089 BPM P-R Int : 156 ms QRS Dur : 122 ms QT Int : 422 ms P-R-T Axes : 079 -30 043 degrees QTc Int : 471 ms Sinus rhythm with Premature atrial complexes Left axis deviation Right bundle branch block Abnormal ECG When compared with ECG of 27-JUL-2021 07:05, Premature atrial complexes are now Present Right bundle branch block has replaced Non-specific intra-ventricular conduction delay Confirmed by Lui Chandra ([id number]) on 07/28/2021 7:51:18 AM Referred By: REFERRED SELF Confirmed By:Benjamin Chandra
[2021-07-28 07:56] LABS: BUN Creatinine Ratio 48.9 (10-20); Calcium 8.6 mg/dl (8.5-10.1); Creatinine Clr Calc Pharmacy 244.1 ml/min; Est GFR (African American) 138.1 ml/min; Est GFR (Non-African American) 119.1 ml/min; Potassium 3.7 mmol/L (3.5-5.1)
[2021-07-28] MEDS: ESCITALOPRAM OXALATE 10 MG TAB PO SCH (08:59)
[2021-07-28] MEDS: ESCITALOPRAM OXALATE 20 MG TAB PO SCH (08:59)
[2021-07-28] MEDS: lisinopril 20 MG TAB PEG SCH (08:59)
[2021-07-28] MEDS: hydrALAZINE HCL 25 MG TAB PEG SCH ×2 (08:59→20:28)
[2021-07-28] MEDS: MAGNESIUM OXIDE 400 MG TAB PEG SCH (08:59)
[2021-07-28] MEDS: ASPIRIN 81 MG CHEW PEG SCH (08:59)
[2021-07-28] MEDS: CLOPIDOGREL BISULFATE 75 MG TAB PEG SCH (08:59)
[2021-07-28] MEDS: FAMOTIDINE 10 MG TABLET PO SCH ×2 (09:07→20:16)
[2021-07-28] MEDS ORDERED: LOPERAMIDE LIQUID 120 ML BOTTLE PO PRN (09:30)
[2021-07-28] MEDS: INSULIN ASPART PER UNIT SC SCH ×4 (10:06→20:57)
[2021-07-28] MEDS: GABAPENTIN 250 MG/5 ML 470 ML BTL PEG SCH ×3 (10:07→20:26)
--- NOTE | 2021-07-28 10:20 | XCELERA ---
[id number]
[2021-07-28] MEDS: cefTRIAXone SODIUM 2,000 MG in DEXTROSE 5% 50 ML IV SCH (15:23)
--- NOTE | 2021-07-28 18:24 | Hospitalist Progress Note ---
Date of Service July 28, 2021 Assessment & Plan (1) Diarrhea: Plan: per SIMON Reyes's notes with addendum: -Admit to telemetry -Patient presenting from home with reports of diarrhea, fever, altered mental status. Empirically started on metronidazole on 07/23 by PCP for concerns for C. difficile. -In the ED, WBC 18 K, low-grade fever 38.0. Patient does not appear septic. -Stool panel and C. difficile pending -Abdomen soft, nontender. Hold on CT ABD/pelvis for now 07/28 diarrhea resolving stool PCR: negative for C diff, etc Imodium PRN IV NSS tube feeds ordered continue to monitor (2) CAD, multiple vessel: (3) Elevated troponin: Plan: Possible Demand Ischemia -History of multivessel CAD per cardiac cath in 2013 -Troponin 0.06, EKG shows new/worsening T wave inversions in anterior lateral leads -No reports of chest pain 07/28 trop remained at 0.4 x 2 echo: lv systolic function normal, EF preserved -Continue ASA, Plavix, statin (4) Abnormal urinalysis: Plan: UTI- gram negative bacilli -UA abnormal however does not strongly suggest UTI -During recent admission, patient's urine culture grew pansensitive E. coli for which she completed appropriate antibiotic course for -Given concerns for C. difficile, will hold on starting antibiotics at this time -Follow culture 07/28 Ceftri IV day 1 ff up culture (5) DM type 2 (diabetes mellitus, type 2): Plan: -Hgb A1c 5.7 07/2021 -Hold metformin and utilize NovoLog per protocol while hospitalized (6) CVA (cerebral infarction): Plan: -History of, with left hemiplegia and PEG tube dependence -Continue Plavix, ASA, and statin (7) Hypertension: Plan: -BP controlled, continue hydralazine and lisinopril (8) History of seizure disorder: Plan: -Continue Keppra (9) Hypothyroidism: Plan: -Continue levothyroxine (10) DVT prophylaxis: Plan: -SQ Lovenox Admission and Anticipated Discharge Date Admission Date: July 27, 2021 Subjective ff up for diarrhea, etc seen resting in bed, comfortable, on 3 L NC patient aphasic when asked how he is doing, he tries to say "good" denies pain, shortness of breath, abdominal pain, diarrhea no other issues per physician/allergy/immunology of Systems Review of Systems: all noted and negative except for above Physical Exam Physical Exam: General- alert, not in distress, breathing with no effort or accessory muscle use Eyes- anicteric Neck- no JVD Lungs- clear breath sounds bilaterally, no rales/wheezes Heart- normal rate, regular rhythm; no murmurs Abdomen- normal bowel sounds, nondistended, soft, nontender PEG tube in place- no bleeding, discharge, signs of infection Extremities- no pretibial edema, no calf tenderness Neuro- no new gross focal neurologic deficits Skin- warm & dry Results & Data Results & Data ([facility]) Vital Signs (Past 12 Hours) Vital Signs Temp Pulse Pulse Resp BP Pulse Ox 07/28/21 17:52 71 07/28/21 15:42 36.5 C 72 15 148/81 H 95 07/28/21 11:44 36.9 C 73 18 133/78 94 07/28/21 07:30 77 07/28/21 07:14 37.5 C 70 18 163/73 H 96 all noted and reviewed including below
[2021-07-28] MEDS: PEPTAMEN 1.5 CAL 1,000 ML BAG PEG SCH (20:16)
[2021-07-28] MEDS: ENOXAPARIN INJ 40 MG/0.4 ML SYR SQ SCH (20:17)
[2021-07-28] MEDS: ATORVASTATIN 40 MG TAB PEG SCH (20:17)
[2021-07-29] MEDS: ACETAMINOPHEN 325 MG TAB PO PRN (00:27)
[2021-07-29] MEDS: SODIUM CHLORIDE 0.9% 1000ML 1,000 ML IV SCH ×3 (00:28→20:16)
[2021-07-29] MEDS: TUBE FEEDING WATER FLUSH PEG SCH ×6 (03:00→22:20)
[2021-07-29] MEDS: LEVOTHYROXINE SODIUM 100 MCG TABLET GT SCH (05:35)
[2021-07-29] MEDS: ESCITALOPRAM OXALATE 20 MG TAB PO SCH (08:47)
[2021-07-29] MEDS: FAMOTIDINE 10 MG TABLET PO SCH ×2 (08:47→19:54)
[2021-07-29] MEDS: ESCITALOPRAM OXALATE 10 MG TAB PO SCH (08:47)
[2021-07-29] MEDS: hydrALAZINE HCL 25 MG TAB PEG SCH ×2 (08:47→19:54)
[2021-07-29] MEDS: CLOPIDOGREL BISULFATE 75 MG TAB PEG SCH (08:48)
[2021-07-29] MEDS: ASPIRIN 81 MG CHEW PEG SCH (08:48)
[2021-07-29] MEDS: lisinopril 20 MG TAB PEG SCH (08:48)
[2021-07-29] MEDS: MAGNESIUM OXIDE 400 MG TAB PEG SCH (08:49)
[2021-07-29] MEDS: INSULIN ASPART PER UNIT SC SCH ×4 (08:57→20:21)
[2021-07-29] MEDS: GABAPENTIN 250 MG/5 ML 470 ML BTL PEG SCH ×3 (09:04→20:00)
[2021-07-29] MEDS: cefTRIAXone SODIUM 2,000 MG in DEXTROSE 5% 50 ML IV SCH (09:04)
[2021-07-29] MEDS: [UNRECOGNIZED DRUG - REMARK] SCH (11:19)
--- NOTE | 2021-07-29 17:49 | Electrocardiogram Report ---
Test Reason : Blood Pressure : / mmHG Vent. Rate : 073 BPM Atrial Rate : 073 BPM P-R Int : 180 ms QRS Dur : 124 ms QT Int : 472 ms P-R-T Axes : 073 -18 056 degrees QTc Int : 519 ms Sinus rhythm with Premature atrial complexes Right bundle branch block T wave abnormality, consider lateral ischemia Abnormal ECG When compared with ECG of 28-JUL-2021 05:13, T wave inversion now evident in Lateral leads QT has lengthened Confirmed by Lui Chandra ([id number]) on 07/29/2021 5:49:26 PM Referred By: REFERRED SELF Confirmed By:Benjamin Chandra
[2021-07-29] MEDS: PEPTAMEN 1.5 CAL 1,000 ML BAG PEG SCH (19:52)
[2021-07-29] MEDS: ENOXAPARIN INJ 40 MG/0.4 ML SYR SQ SCH (19:53)
[2021-07-29] MEDS: ATORVASTATIN 40 MG TAB PEG SCH (19:53)
--- NOTE | 2021-07-29 23:45 | Hospitalist Progress Note ---
Date of Service July 29, 2021 delayed entry date of service noted above Assessment & Plan (1) Diarrhea: Plan: per SIMON Reyes's notes with addendum: -Admit to telemetry -Patient presenting from home with reports of diarrhea, fever, altered mental status. Empirically started on metronidazole on 07/23 by PCP for concerns for C. difficile. -In the ED, WBC 18 K, low-grade fever 38.0. Patient does not appear septic. -Stool panel and C. difficile pending -Abdomen soft, nontender. Hold on CT ABD/pelvis for now 07/28 diarrhea resolving 07/29 diarrhea resolved stool PCR: negative for C diff, etc Imodium PRN IV NSS tube feeds ordered continue to monitor (2) CAD, multiple vessel: (3) Elevated troponin: Plan: Possible Demand Ischemia -History of multivessel CAD per cardiac cath in 2013 -Troponin 0.06, EKG shows new/worsening T wave inversions in anterior lateral leads -No reports of chest pain 07/29 trop remained at 0.4 x 2 echo: lv systolic function normal, EF preserved -Continue ASA, Plavix, statin (4) Abnormal urinalysis: Plan: UTI- gram negative bacilli -UA abnormal however does not strongly suggest UTI -During recent admission, patient's urine culture grew pansensitive E. coli for which she completed appropriate antibiotic course for -Given concerns for C. difficile, will hold on starting antibiotics at this time -Follow culture 07/28 afebrile Ceftri IV day 2 ff up cultures (5) DM type 2 (diabetes mellitus, type 2): Plan: -Hgb A1c 5.7 07/2021 -Hold metformin and utilize NovoLog per protocol while hospitalized (6) CVA (cerebral infarction): Plan: -History of, with left hemiplegia and PEG tube dependence -Continue Plavix, ASA, and statin (7) Hypertension: Plan: -BP controlled, continue hydralazine and lisinopril (8) History of seizure disorder: Plan: -Continue Keppra (9) Hypothyroidism: Plan: -Continue levothyroxine (10) DVT prophylaxis: Plan: -SQ Lovenox Disposition lives at home with Admission and Anticipated Discharge Date Admission Date: July 27, 2021 Subjective ff up for diarrhea, fever, weakness etc seen resting in bed, sleeping but easily rousable aphasic but tries to say yes/no to questions comfortable feels fine overall no diarrhea now no chest pain, dyspnea, palpitations, dizziness denies pain tolerating tube feeding well no other symptoms no other issues per waste salvager of Systems Review of Systems: all noted and negative except for above Physical Exam Physical Exam: General- awake, breathing with no effort or accessory muscle use Eyes- anicteric Neck- no JVD Lungs- clear breath sounds bilaterally, no rales/wheezes Heart- normal rate, regular rhythm; no murmurs Abdomen- normal bowel sounds, nondistended, soft, nontender PEG tube no issues Extremities- no pretibial edema, no calf tenderness Neuro- alert, oriented x 3; no gross focal neurologic deficits Skin- warm & dry Results & Data Results & Data ([facility]) Vital Signs (Past 12 Hours) Vital Signs Temp Pulse Resp BP Pulse Ox 07/29/21 22:55 36.8 C 76 20 115/62 98 07/29/21 19:00 36.7 C 82 16 136/64 100 07/29/21 15:59 36.7 C 68 16 134/75 96 07/29/21 12:00 36.8 C 74 16 124/88 93 all noted and reviewed including below
[2021-07-30] MEDS: TUBE FEEDING WATER FLUSH PEG SCH ×6 (02:50→23:56)
[2021-07-30] MEDS: ACETAMINOPHEN 325 MG TAB PO PRN ×2 (02:53→13:44)
[2021-07-30] MEDS: LEVOTHYROXINE SODIUM 100 MCG TABLET GT SCH (05:48)
[2021-07-30] MEDS: SODIUM CHLORIDE 0.9% 1000ML 1,000 ML IV SCH ×2 (05:49→14:58)
[2021-07-30 08:28] LABS: BUN Creatinine Ratio 42.6 (10-20); Calcium 8.3 mg/dl (8.5-10.1); Creatinine Clr Calc Pharmacy 240.6 ml/min; Est GFR (African American) 136.7 ml/min
[2021-07-30 08:57] LABS: Hematocrit (blood only) 35.7 % (42-52); Hemoglobin 10.8 g/dL (14.0-18.0); Mean Corpuscular Hemoglobin 32.1 pg (25-34); Mean Corpuscular Hgb Conc 30.3 g/dL (32-36); Mean Corpuscular Volume 106.3 fL (80-100); Mean Platelet Volume 12.3 fL (7.4-10.4); Platelet Count 140 K/uL (130-400); RDW Coefficient of Variation 15.2 % (11.5-14.5); RDW Standard Deviation 58.7 fL (36.4-46.3); Red Blood Count 3.36 M/uL (4.7-6.1)
[2021-07-30 08:59] LABS: Basophils # (auto) 0.02 K/uL (0-0.2); Basophils % (auto) 0.2 %; Eosinophils # (auto) 0.83 K/uL (0-0.5); Eosinophils % (auto) 7.5 %; Immature Granulocytes # (auto) 0.02 K/uL (0.00-0.02); Immature Granulocytes % (auto) 0.2 %; Lymphocytes # (auto) 5.65 K/uL (1.2-3.4); Lymphocytes % (auto) 50.9 %; Monocytes # (auto) 0.76 K/uL (0.11-0.59); Monocytes % (auto) 6.8 %; Neutrophils # (auto) 3.82 K/uL (1.4-6.5); Neutrophils % (auto) 34.4 %
[2021-07-30] MEDS: INSULIN ASPART PER UNIT SC SCH ×3 (09:04→17:15)
[2021-07-30] MEDS: ASPIRIN 81 MG CHEW PEG SCH (09:08)
[2021-07-30] MEDS: ESCITALOPRAM OXALATE 20 MG TAB PO SCH (09:08)
[2021-07-30] MEDS: hydrALAZINE HCL 25 MG TAB PEG SCH ×2 (09:10→20:34)
[2021-07-30] MEDS: MAGNESIUM OXIDE 400 MG TAB PEG SCH (09:10)
[2021-07-30] MEDS: lisinopril 20 MG TAB PEG SCH (09:10)
[2021-07-30] MEDS: CLOPIDOGREL BISULFATE 75 MG TAB PEG SCH (09:11)
[2021-07-30] MEDS: FAMOTIDINE 10 MG TABLET PO SCH ×2 (09:11→20:34)
[2021-07-30] MEDS: ESCITALOPRAM OXALATE 10 MG TAB PO SCH (09:11)
[2021-07-30] MEDS: cefTRIAXone SODIUM 2,000 MG in DEXTROSE 5% 50 ML IV SCH (09:14)
[2021-07-30] MEDS: GABAPENTIN 250 MG/5 ML 470 ML BTL PEG SCH ×3 (11:43→21:38)
[2021-07-30] MEDS: [UNRECOGNIZED DRUG - REMARK] SCH (11:43)
[2021-07-30] MEDS ORDERED: PIPERACILL/TAZOBAC CONSULT ACTIVE PRN (13:13)
[2021-07-30] MEDS: CEFEPIME 2,000 MG in SYRINGE 0 ML IV SCH ×2 (13:34→21:35)
[2021-07-30] MEDS: PEPTAMEN 1.5 CAL 1,000 ML BAG PEG SCH (20:24)
[2021-07-30] MEDS: ATORVASTATIN 40 MG TAB PEG SCH (20:34)
[2021-07-30] MEDS: ENOXAPARIN INJ 40 MG/0.4 ML SYR SQ SCH (20:34)
[2021-07-30] MEDS ORDERED: PHARMACY GLYCEMIC MGMT CONSULT PRN (20:56)
--- NOTE | 2021-07-30 23:39 | Hospitalist Progress Note ---
Date of Service July 30, 2021 Assessment & Plan (1) Diarrhea: Plan: Patient presenting from home with reports of diarrhea, fever, altered mental status. Empirically started on metronidazole on 07/23 by PCP for concerns for C. difficile. In the ED, WBC 18 K, low-grade fever 38.0. Patient does not appear septic. Stool panel and C. difficile, biofire and COVID 19 are all negative Diarrhea improved WBC trending down Continue tube feeding Will discontinue IVF (2) UTI (urinary tract infection): Plan: urine cx grew gram negative bacilli- Pseudomonas Currently on IV Rocephin, will change to Cefepime WBC trending down (3) CAD, multiple vessel: (4) Elevated troponin: Plan: History of multivessel CAD per cardiac cath in 2013 Possible Demand Ischemia Troponin on admission 0.066, then trending down to 0.046 EKG shows new/worsening T wave inversions in anterior lateral leads No reports of chest pain ECHO showed Left Ventricular systolic function is normal with EF 55-60% Continue ASA, Plavix, statin (5) DM type 2 (diabetes mellitus, type 2): Plan: -Hgb A1c 5.7 07/2021 -Hold metformin and utilize NovoLog per protocol while hospitalized (6) CVA (cerebral infarction): Plan: -History of, with left hemiplegia and PEG tube dependence -Continue Plavix, ASA, and statin (7) Hypertension: Plan: BP fluctuated Continue hydralazine and lisinopril (8) History of seizure disorder: Plan: Continue Keppra (9) Hypothyroidism: Plan: Continue levothyroxine (10) DVT prophylaxis: Plan: -SQ Lovenox Disposition would like pt to come home, Declined placement Fall and aspiration precaution Admission and Anticipated Discharge Date Admission Date: July 27, 2021 Subjective Pt was seen and examined for follow up for diarrhea, fever, weakness Lying in bed resting comfortable with no acute distress Pt is aphasic but tries to say yes/no to questions No chest pain, dyspnea, palpitations, dizziness Tolerating tube feeding well When asked if he wants to go home, He answered yes Review of Systems Review of Systems: All systems reviewed & are unremarkable except as noted in Subjective Physical Exam Physical Exam: General- No acute distress Head- atraumatic Eyes- PERRL, EOMI, ENT- oropharynx clear Neck- supple, no JVD Lungs- No wheezing, No crackles Heart- regular rhythm; no murmur Abdomen- normal bowel sounds, soft, nontender Extremities- no calf tenderness Neuro- alert, oriented, PERRL, EOMI; no facial palsy, +aphasia Skin- warm & dry Results & Data Results & Data ([facility]) Vital Signs (Past 12 Hours) Vital Signs Temp Pulse Resp BP Pulse Ox 07/30/21 23:30 37.0 C 75 20 163/75 H 99 07/30/21 19:57 68 19 144/76 H 97 07/30/21 16:11 37.5 C 73 15 135/73 95
[2021-07-31] MEDS: INSULIN ASPART PER UNIT SC SCH ×6 (00:49→20:24)
[2021-07-31] MEDS: SODIUM CHLORIDE 0.9% 1000ML 1,000 ML IV SCH ×2 (01:06→11:18)
[2021-07-31] MEDS: TUBE FEEDING WATER FLUSH PEG SCH ×6 (03:36→23:21)
[2021-07-31] MEDS: LEVOTHYROXINE SODIUM 100 MCG TABLET GT SCH (05:34)
[2021-07-31] MEDS: FAMOTIDINE 10 MG TABLET PO SCH ×2 (08:22→20:30)
[2021-07-31] MEDS: MAGNESIUM OXIDE 400 MG TAB PEG SCH (08:22)
[2021-07-31] MEDS: CLOPIDOGREL BISULFATE 75 MG TAB PEG SCH (08:23)
[2021-07-31] MEDS: ESCITALOPRAM OXALATE 20 MG TAB PO SCH (08:23)
[2021-07-31] MEDS: lisinopril 20 MG TAB PEG SCH (08:23)
[2021-07-31] MEDS: ASPIRIN 81 MG CHEW PEG SCH (08:24)
[2021-07-31] MEDS: ESCITALOPRAM OXALATE 10 MG TAB PO SCH (08:24)
[2021-07-31] MEDS: CEFEPIME 2,000 MG in SYRINGE 0 ML IV SCH ×2 (08:31→20:38)
[2021-07-31 08:35] LABS: Hematocrit (blood only) 35.7 % (42-52); Hemoglobin 10.7 g/dL (14.0-18.0); Mean Corpuscular Hemoglobin 31.8 pg (25-34); Mean Corpuscular Volume 106.3 fL (80-100); Mean Platelet Volume 12.4 fL (7.4-10.4); Platelet Count 131 K/uL (130-400); RDW Standard Deviation 58.4 fL (36.4-46.3); Red Blood Count 3.36 M/uL (4.7-6.1); White Blood Count 11.53 K/uL (4.8-10.8)
[2021-07-31 08:59] LABS: BUN Creatinine Ratio 44.1 (10-20); Calcium 8.4 mg/dl (8.5-10.1); Creatinine Clr Calc Pharmacy 276.3 ml/min; Est GFR (Non-African American) 124.3 ml/min; Potassium 3.7 mmol/L (3.5-5.1)
[2021-07-31] MEDS: hydrALAZINE HCL 25 MG TAB PEG SCH ×2 (10:01→20:29)
[2021-07-31] MEDS: GABAPENTIN 250 MG/5 ML 470 ML BTL PEG SCH ×3 (10:02→20:29)
[2021-07-31] MEDS: [UNRECOGNIZED DRUG - REMARK] SCH (11:18)
--- NOTE | 2021-07-31 14:39 | Pharmacy Report ---
Pharmacy Glycemic Short Note 2 - Date of Service July 31, 2021 - Glycemic Short BSG Results (Last 24 hours): 07/30/21 07/30/21 07/31/21 16:10 20:22 00:45 Glucose POC Glucose 193 H 140 H 177 H 07/31/21 07/31/21 07/31/21 05:47 07:11 07:20 Glucose POC Glucose 160 H 220 H 198 H 07/31/21 07/31/21 08:00 11:17 Glucose 195 H POC Glucose 200 H OUTPATIENT ANTIDIABETIC REGIMEN: * metformin * A1c = 5.7% ASSESSMENT: * Nikita is a 70 yr old admitted with generalized weakness * He developed hyperglycemia yesterday, possible secondary to tube feeds * He received Peptamen TF @ 100 mls/hr from 1999 -> 1100 each day (this provides about 74g of carbs every 4 hours) * Will add a set dose of novolog q4h to be given while TF are being infused in addition to correctional novolog - if no improvement seen on 08/01 may consider changing NPH PLAN FOR INPATIENT GLYCEMIC CONTROL: * Hold outpatient oral diabetes medications * Basal insulin * none for now * Bolus insulin * Novolog 5 units SQ q4h while Peptamen infuses (at 20, 00, 04, and 08) * NovoLog per scale q4h while TF infuses and q6h while TF held * Goal Range: Low 100 mg/dL - High 140 mg/dL * Correction Factor: 25 mg/dL/unit PLAN FOR DISCHARGE: *
[2021-07-31] MEDS: PEPTAMEN 1.5 CAL 1,000 ML BAG PEG SCH (20:27)
[2021-07-31] MEDS: ENOXAPARIN INJ 40 MG/0.4 ML SYR SQ SCH (20:29)
[2021-07-31] MEDS: ATORVASTATIN 40 MG TAB PEG SCH (20:29)
--- NOTE | 2021-07-31 23:49 | Hospitalist Progress Note ---
Date of Service July 31, 2021 Assessment & Plan (1) Diarrhea: Plan: Patient presenting from home with reports of diarrhea, fever, altered mental status. Empirically started on metronidazole on 07/23 by PCP for concerns for C. difficile. In the ED, WBC 18 K, low-grade fever 38.0. Patient does not appear septic. Stool panel and C. difficile, biofire and COVID 19 are all negative Diarrhea improved WBC trending down Continue tube feeding Clinically improved (2) UTI (urinary tract infection): Plan: urine cx grew gram negative bacilli- Pseudomonas He was started on IV Rocephin, then changed to Cefepime WBC trending down Will consider to change to cipro on discharge to complete the course Due to risk of QTC prolonged, will hold Lexapro while on Cipro ( was informed) (3) CAD, multiple vessel: (4) Elevated troponin: Plan: History of multivessel CAD per cardiac cath in 2013 Possible Demand Ischemia Troponin on admission 0.066, then trending down to 0.046 EKG shows new/worsening T wave inversions in anterior lateral leads No reports of chest pain ECHO showed Left Ventricular systolic function is normal with EF 55-60% Continue ASA, Plavix, statin (5) DM type 2 (diabetes mellitus, type 2): Plan: -Hgb A1c 5.7 07/2021 -Hold metformin and utilize NovoLog per protocol while hospitalized (6) CVA (cerebral infarction): Plan: -History of, with left hemiplegia and PEG tube dependence -Continue Plavix, ASA, and statin (7) Hypertension: Plan: BP fluctuated Continue hydralazine and lisinopril (8) History of seizure disorder: Plan: Continue Keppra (9) Hypothyroidism: Plan: Continue levothyroxine (10) DVT prophylaxis: Plan: -SQ Lovenox Disposition would like pt to come home, Declined placement Fall and aspiration precaution Plan to discharge home with home health services in am Admission and Anticipated Discharge Date Admission Date: July 27, 2021 Subjective Pt was seen and examined for follow up for diarrhea, fever, weakness Lying in bed resting with no acute distress Pt is aphasic but tries to say yes/no to questions I spoke to and sh said that pt has been bedbound and aphasic for the last 3 years She said that pt seems to be back on his baseline wants him to come home and she said that she would be able to care for him No chest pain, dyspnea, palpitations, dizziness Review of Systems Review of Systems: All systems reviewed & are unremarkable except as noted in Subjective Physical Exam Physical Exam: General- No acute distress Head- atraumatic Eyes- PERRL, EOMI, ENT- oropharynx clear Neck- supple, no JVD Lungs- No wheezing, No crackles Heart- regular rhythm; no murmur Abdomen- normal bowel sounds, soft, nontender Extremities- no calf tenderness Neuro- alert, oriented, PERRL, EOMI; no facial palsy, +aphasia Skin- warm & dry Results & Data Results & Data ([facility]) Vital Signs (Past 12 Hours) Vital Signs Temp Pulse Pulse Resp BP BP Pulse Ox 07/31/21 19:42 38.2 C H 81 18 145/71 H 96 07/31/21 16:00 77 07/31/21 15:12 37.5 C 80 173/84 H 98
[2021-08-01] MEDS: INSULIN ASPART PER UNIT SC SCH ×5 (00:05→08:47)
[2021-08-01] MEDS: TUBE FEEDING WATER FLUSH PEG SCH ×2 (04:05→07:33)
[2021-08-01] MEDS: LEVOTHYROXINE SODIUM 100 MCG TABLET GT SCH (06:13)
[2021-08-01] MEDS ORDERED: INSULIN ASPART PER UNIT SC SCH (08:26)
[2021-08-01] MEDS: hydrALAZINE HCL 25 MG TAB PEG SCH (08:51)
[2021-08-01] MEDS: FAMOTIDINE 10 MG TABLET PO SCH (08:51)
[2021-08-01] MEDS: lisinopril 20 MG TAB PEG SCH (08:51)
[2021-08-01] MEDS: ESCITALOPRAM OXALATE 10 MG TAB PO SCH (08:51)
[2021-08-01] MEDS: CLOPIDOGREL BISULFATE 75 MG TAB PEG SCH (08:51)
[2021-08-01] MEDS: ESCITALOPRAM OXALATE 20 MG TAB PO SCH (08:52)
[2021-08-01] MEDS: ASPIRIN 81 MG CHEW PEG SCH (08:52)
[2021-08-01] MEDS: MAGNESIUM OXIDE 400 MG TAB PEG SCH (08:52)
[2021-08-01] MEDS: GABAPENTIN 250 MG/5 ML 470 ML BTL PEG SCH (09:10)
[2021-08-01] MEDS: CEFEPIME 2,000 MG in SYRINGE 0 ML IV SCH (09:10)
--- NOTE | 2021-08-01 11:37 | Discharge Summary ---
Date of Service August 01, 2021 Admission HPI Per Admitting Provider 70-year-old male with PMH history of CVA with left hemiplegia and PEG tube dependence, multivessel CAD, history of seizure disorder, DM type II, HTN, hypothyroidism, and other problems to below who presents the ED for evaluation of fever and altered mental status. Patient recently admitted to [facility] 07/11 through 07/17 for aspiration pneumonia/bronchitis and UTI. Urine culture grew E. coli. Patient was initially treated with Zosyn and transitioned to Augmentin. is at the bedside who provides some history. She reports that shortly after returning home, patient developed diarrhea. She reports multiple episodes per day. Describes stools as mucousy. Patient's called PCP who ordered vancomycin for concern for C. difficile however due to limited pharmacy availability, patient was started on metronidazole on 07/23. Patient has been running intermittent fever over the past 2 to 3 days. notes increased lethargy and confusion. No reports of abdominal pain, nausea, vomiting. Denies chest pain or shortness of breath. Baca catheter has remained in place since previous admission. reports urine has been relatively clear. In the ED, patient has a low-grade temp of 38.0. Labs show WBC 18 K, troponin 0.06. EKG shows worsening/new to inversions in the anterior and lateral leads. Patient was given IV ertapenem, IVF, Vicodin. Admission Exam Per Admitting Provider Constitutional: WD/WN, vitals as above + obese; no acute distress Eyes: PERRL, conjunctivae normal, anicteric sclerae ENMT: external ear and nose normal, oropharynx normal Respiratory: normal respiratory effort; no respiratory distress Auscultation: + diminished lung sounds Cardiovascular: Rate/Rhythm: regular rate and regular rhythm Vessels: normal peripheral pulses Extremities: no edema Gastrointestinal (Abdomen): normal bowel sounds, soft, nontender, no hepatosplenomegaly PEG tube in place Musculoskeletal: Extremities: no cyanosis and no clubbing Left hemiplegia, bilateral foot drop Skin: no rashes, warm and dry Neurologic: Speech / Cognition: normal speech Cranial Nerves: PERRL, normal accommodation and EOM intact bilaterally; + abnormal facial strength (Left facial droop) Psychiatric: Orientation: alert and oriented to person; + not oriented to place and + not oriented to time Principal Diagnosis Urinary tract infection Diarrhea: CAD Elevated troponin: Discharge Exam General- No acute distress Head- atraumatic Eyes- PERRL, EOMI, ENT- oropharynx clear Neck- supple, no JVD Lungs- No wheezing, No crackles Heart- regular rhythm; no murmur Abdomen- normal bowel sounds, soft, nontender Extremities- no calf tenderness Neuro- alert, oriented, PERRL, EOMI; no facial palsy, +aphasia Skin- warm & dry Discharge Data Allergies Allergy/AdvReac Type Severity Reaction Status Date / Time Penicillins Allergy Intermediate RASH Verified 07/27/21 07:49 Consultations 07/27/21 11:08 ED Decision to Admit Stat Ordered Studies XR chest 1V portable CLINICAL HISTORY: SEPSIS. Evaluate cardiopulmonary status COMPARISON STUDY: 07/11/2021 TECHNIQUE: 1 view of the chest FINDINGS: Single frontal view of the chest demonstrates the cardiomediastinal silhouette to be within normal limits. There is a decreased inspiratory effort with elevation of the hemidiaphragms and crowding of the bronchovascular markings at the lung bases and centrally. There is also minimal bibasilar atelectasis. The lungs are otherwise clear of alveolar opacities. There is no evidence for pleural effusion. There is no evidence for vascular congestion. There is no acute osseous pathology. IMPRESSION: There is a decreased inspiratory effort with minimal bibasilar atelectasis. Otherwise no acute chest disease. ACT 112: Negative or not required by law. Electronically signed by: Eric Boyle M.D. 07/27/2021 8:30 AM Dictated:07/27/21828 Transcribed: 07/27/21828 Hospital Course (1) Diarrhea: Patient presenting from home with reports of diarrhea, fever, altered mental status. Empirically started on metronidazole on 07/23 by PCP for concerns for C. difficile. In the ED, WBC 18 K, low-grade fever 38.0. Patient does not appear septic. Stool panel and C. difficile, biofire and COVID 19 are all negative Diarrhea improved WBC trending down Continue tube feeding Clinically improved (2) UTI (urinary tract infection): urine cx grew gram negative bacilli- Pseudomonas He was started on IV Rocephin, then changed to Cefepime WBC trending down Will consider to change to cipro on discharge to complete the course Due to risk of QTC prolonged, will hold Lexapro while on Cipro ( was informed) (3) CAD, multiple vessel: (4) Elevated troponin: History of multivessel CAD per cardiac cath in 2013 Possible Demand Ischemia Troponin on admission 0.066, then trending down to 0.046 EKG shows new/worsening T wave inversions in anterior lateral leads No reports of chest pain ECHO showed Left Ventricular systolic function is normal with EF 55-60% Continue ASA, Plavix, statin (5) DM type 2 (diabetes mellitus, type 2): -Hgb A1c 5.7 07/2021 -Hold metformin and utilize NovoLog per protocol while hospitalized (6) CVA (cerebral infarction): -History of, with left hemiplegia and PEG tube dependence -Continue Plavix, ASA, and statin (7) Hypertension: BP fluctuated Continue hydralazine and lisinopril (8) History of seizure disorder: Continue Keppra (9) Hypothyroidism: Continue levothyroxine (10) DVT prophylaxis: -SQ Lovenox Disposition would like pt to come home, Declined placement Fall and aspiration precaution Plan to discharge home with home health services Total Time Total Time Spent Total Time Spent (In Minutes): 35 minutes Discharge Plan Discharge Items Patient Disposition: Home - Home Health Services Reason For Visit: DECREASED MENTAL STATUS, DECLINE IN HEALTH Discharge Diagnosis: Urinary tract infection Diarrhea: CAD Elevated troponin: Activity: Resume your previous activity Non-emergency contact: Primary Care Provider Call non-emergency contact if: you have any medication questions and your symptoms worsen Follow-up/Referrals: Juanito Tmo MD [Primary Care Provider] - Diet: Carb Consistent or DM2 Addtl Attending Provider Instructions: Follow up with your primary care provider within 1 week Continue the course of the antibiotic with Ciprofloxaxin Continue feeding tube Fall and aspiration precaution Continue oxygen supplement between 3-4 liter nasal canula to keep oxygen saturation above 92% Please hold the Lexapro while taking the Cipro due to drug interaction Continue wound care daily Seek medical attention if your symptoms worsening Pending Studies at Discharge: No Stand-Alone Forms: My [employer], Smoking Cessation Medications and DC Order Prescriptions: New loperamide [Imodium A-D] 2 mg tablet 2 mg PO BID PRN (Reason: loose stool) Qty: 30 RF: 0 Continued hydrocodone-acetaminophen 5-325 mg Tablet 1 tab Feeding Tube Q4H PRN (Reason: Outbreak) RF: 0 hydralazine 25 mg Tablet 25 mg Feeding Tube BID RF: 0 clopidogrel [Plavix] 75 mg Tablet 75 mg Feeding Tube DAILY RF: 0 nitroglycerin 0.4 mg Tablet, Sublingual 0.4 mg Sublingual DIRECTED PRN (Reason: Chest Pain) RF: 0 gabapentin 100 mg Capsule 200 mg Feeding Tube TID RF: 0 escitalopram oxalate [Lexapro] 10 mg Tablet 10 mg Feeding Tube DAILY RF: 0 escitalopram oxalate [Lexapro] 20 mg Tablet 20 mg Feeding Tube DAILY RF: 0 levothyroxine [Synthroid] 100 mcg tablet 100 mcg Feeding Tube DAILY RF: 0 atropine [Isopto Atropine] 1 % drops 2 drp Sublingual UD PRN (Reason: EXCESS SECRETIONS) RF: 0 Isosource 1.5 Billy 0.07 gram-1.5 kcal/mL Liquid 100 ml Feeding Tube DAILY RF: 0 lisinopril 20 mg tablet 20 mg feeding tube DAILY RF: 0 acetaminophen [Tylenol Extra Strength] 500 mg Tablet 1,000 mg PO Q6H PRN (Reason: Pain) RF: 0 diphenhydramine-acetaminophen [Tylenol PM Extra Strength] 25-500 mg Tablet 1 tab PO HS RF: 0 atorvastatin 40 mg tablet 40 mg feeding tube HS RF: 0 metformin 500 mg tablet 500 mg feeding tube BID RF: 0 famotidine 10 mg Tablet 10 mg feeding tube BID RF: 0 lorazepam 0.5 mg tablet 0.5 mg feeding tube TID PRN (Reason: Anxiety) RF: 0 aspirin 81 mg Tablet,Chewable 81 mg feeding tube DAILY RF: 0 levetiracetam 100 mg/mL solution 500 mg feeding tube BID RF: 0 magnesium oxide 400 mg magnesium Tablet 400 mg feeding tube DAILY RF: 0 Changed sennosides [senna] 8.6 mg Tablet 8.6 mg PO BID PRN (Reason: constipation) Qty: 0 RF: 0 Discontinued metronidazole [Flagyl] 500 mg Tablet 500 mg PO BID RF: 0 Discharge Orders: Discharge Order (Routine); Ordered 08/01/21 Ordered By: Adrian Carmona Admission Data Admit Date/Time: 07/27/21 11:22 Attending Provider: Adrian Carmona Admit Provider: Kg Somers Primary Care Provider: Juanito Tom Other Providers: Kg Somers ; Marilla,Home Care Other Interventions: Discharge Summary Assessment (RN) Last Done: 08/01/21 10:43
--- NOTE | 2021-08-15 11:29 | Coding Query ---
To promote full compliance with coding requirements relating to patient care, provider participation is requested in all cases of rat farmer uncertainty. Please assist us with the question(s) below: Coding Question(s): The diagnosis(es) below was documented in the 07/29/21 Hospitalist Progress note then subsequently fell off all further documentation. Please indicate if it is still a possible diagnosis or ruled out. Physician's Response(s): SEPSIS ( x) Diagnosed and POA ( ) Diagnosed and not POA ( ) Ruled out ( ) Other (please specify) SACRAL ULCER STAGE 3 ( x ) Diagnosed and POA ( ) Diagnosed and not POA ( ) Ruled out ( ) Other (please specify) METABOLIC ENCEPHALOPATHY ( x ) Diagnosed and POA ( ) Diagnosed and not POA ( ) Ruled out ( ) Other (please specify) Thank you for your assistance, Mary Bergman - Mixer [employer]ender [employer]ODOLFO
== END 2021-08-01 11:05 | disposition home health service (06) | DRG 871 ==
LOC: ED 06:58 → SUATTDRO 11:22 → 2S 11:22